=== PATIENT | male | born 1955 | race Caucasian/White ===

== ENCOUNTER → 2016-06-18 | Outpatient (CLI) | payer MEDICARE, OTHER ==
[2016-06-18 16:04] LABS: Bilirubin, Delta 0.4 mg/dL (0.0-0.2); Total Bilirubin 0.5 mg/dL (0.2-1.3); Total Protein 7.8 g/dL (6.3-8.2)
[2016-06-18 18:34] LABS: Hemoglobin A1C 7.1 % (4.2-6.1)
== END | disposition home or self-care (01) ==
LOC: LABWHC1 15:25
PROVIDERS: ATTEND Psychiatry & Neurology Psychiatry
DX: Z51.81 Encounter for therapeutic drug level monitoring (principal); Z79.899 Other long term (current) drug therapy
CPT/HCPCS: 36415; 80076; 83036

== ENCOUNTER → 2016-07-16 | Outpatient (CLI) | payer MEDICARE, OTHER ==
--- NOTE | 2016-07-16 10:36 | US ---
EXAMINATION TYPE: US abdomen complete DATE OF EXAM: 07/16/2016 COMPARISON: NONE CLINICAL HISTORY: R10.9 Abdominal pain. Mid abdominal pain and nausea x 5 days; smoker; patient state d takes at least 18 medications EXAM MEASUREMENTS: Liver Length: 14.6 cm Gallbladder Wall: 0.2 cm CBD: 0.3 cm Spleen: 11.2 cm Right Kidney: 9.8 x 7.5 x 4.5 cm Left Kidney: 11.3 x 4.6 x 5.9 cm Technically challenging due to intercostal scanning. Pancreas: Obscured by bowel gas Liver: heterogeneous appearance Gallbladder: possible sludge vs. small shadowing stones noted as hyperechoic foci in LLD position Evidence for sonographic Jean's sign: No CBD: wnl Spleen: wnl Right Kidney: couple of adjacent cysts in upper cortex measured as cluster = 2.4 x 1.7 x 2.3cm Left Kidney: couple of renal cysts with larger = 2.5 x 2.0 x 2.3cm. Upper IVC: wnl Abd Aorta: Intimal wall changes mid and lower aorta and into Com Iliac Arteries. IMPRESSION: 1. Probable fatty liver. 2. Sludge versus small gallstones. 3. Renal cysts.
== END | disposition home or self-care (01) ==
LOC: EEVIPCON 09:04 → RADUSWWP 09:04
PROVIDERS: ATTEND Family Medicine
DX: Q61.02 Congenital multiple renal cysts (principal); R10.9 Unspecified abdominal pain; R93.2 Abnormal findings on diagnostic imaging of liver and biliary tract
CPT/HCPCS: 76700

== ENCOUNTER → 2017-01-06 | Outpatient (CLI) | payer MEDICARE, OTHER ==
[2017-01-06 11:28] LABS: Basophils % (A) 1 %; CH 31.7; CHCM 32.3; Eosinophils # (A) 0.1 k/uL (0-0.7); Eosinophils % (A) 2 %; HDW 2.65; HGB 16.1 gm/dL (13.0-17.5); Luc # (Auto) 0.08; Luc % (Auto) 1; Lymphocytes # (A) 1.1 k/uL (1.0-4.8); Lymphocytes % (A) 14 %; MCHC 33.4 g/dL (31.0-37.0); MCV 98.8 fL (80.0-100.0); Mean Platelet Volume 7.6; Monocytes # (A) 0.4 k/uL (0-1.0); Monocytes % (A) 5 %; Neutrophils # (A) 6.2 k/uL (1.3-7.7); Neutrophils % (A) 78 %; RBC 4.86 m/uL (4.30-5.90); RDW 14.7 % (11.5-15.5); WBC (Perox) 7.72
[2017-01-06 11:34] LABS: ALT 67 U/L (21-72); AST 73 U/L (17-59); Alkaline Phosphatase 138 U/L (38-126); Amylase 82 U/L (30-110); Anion Gap 14 mmol/L; Blood Urea Nitrogen 20 mg/dL (9-20); Calcium 10.2 mg/dL (8.4-10.2); Carbon Dioxide 19 mmol/L (22-30); Chloride 105 mmol/L (98-107); Glucose 103 mg/dL (74-99); Non-African American GFR(MDRD) >60 (>60 ml/min/1.73 sqM); Potassium 5.5 mmol/L (3.5-5.1); Sodium 138 mmol/L (137-145); Total Bilirubin 0.7 mg/dL (0.2-1.3); Total Protein 8.5 g/dL (6.3-8.2)
== END | disposition home or self-care (01) ==
LOC: LABWHC1 10:40
PROVIDERS: ATTEND Surgery
DX: R10.84 Generalized abdominal pain (principal)
CPT/HCPCS: 36415; 80053; 82150; 85025

== ENCOUNTER → 2017-05-08 | Outpatient (CLI) | payer MEDICARE, OTHER ==
[2017-05-08 10:48] LABS: Blood Urea Nitrogen 14 mg/dL (9-20)
--- NOTE | 2017-05-08 12:29 | CT ---
EXAMINATION TYPE: CT urogram wo/w con DATE OF EXAM: 05/08/2017 COMPARISON: NONE HISTORY: hematuria CT DLP: 1626.3 mGycm, Automated Exposure Control for Dose Reduction was Utilized. CONTRAST: CT scan of the abdomen and pelvis is performed without oral and without and with IV Contrast, patient injected with 100 mL of Isovue 300. Urogram protocol with Three-D reconstructed images. A [employer] workstation and reviewed. FINDINGS: KUB: Noncontrast images show area of focal cortical loss or scarring anterior lateral aspect mid pole level right kidney near axial image 42 with adjacent 4 mm calcification or calculus axial image 41. There are central vascular calcification seen bilaterally. Postcontrast images show symmetric mild bilateral pyelocaliectasis and hydroureter. There is symmetri c cortical medullary uptake and excretion from both kidneys with simple appearing 2.6 x 2.7 cm cyst p osterior medially upper to mid pole level right kidney axial image 33 series 7 and 3 additional simpl e appearing cysts also scattered throughout the left kidney, largest measures 2.0 cm axial image 36 l aterally mid pole level. There is fairly satisfactory opacification of the left ureter with incomplete opacification of right ureter. No suspicious obstructing stone or mass is identified. Bladder is distended in the midline of the lower to mid abdomen past the level of umbilicus. There is some wall mucosal irregularity and mi ld thickening along the periphery without obvious suspicious intraluminal mass or dependent calculus. LUNG BASES: There is 15 x 8 mm nodule or nodular opacity in the posterior lateral right lung base axi al image 13 series 5. This is unchanged from 2011July 10 CT axial image 36 and is thus presumed benig n. There is three-vessel coronary artery calcification and/or stents. LIVER/GB: Dependent density in gallbladder is consistent with small stones and/or gallbladder sludge. PANCREAS: No significant abnormality is seen. SPLEEN: No significant abnormality is seen. ADRENALS: No significant abnormality is seen. KIDNEYS: No significant abnormality is seen. BOWEL: Normal-appearing appendix is seen extending from cecum. PROSTATE/SEMINAL VESICLES: No gross abnormality seen. LYMPH NODES: No greater than 1cm abdominal or pelvic lymph nodes are appreciated. OSSEOUS STRUCTURES: There is multilevel vacuum disc phenomenon in the thoracic spine with fairly mode rate spurring near thoracolumbar junction and moderate lateral spurring in the right aspect of the mi d to lower thoracic spine. Mild to moderate joint space loss in both hips is present. OTHER: There is moderate to severe calcified atherosclerotic change of aorta extending into branch ve ssels. IMPRESSION: 1. There is 4 mm renal calcification or calculus at area of focal scarring anterolateral aspect right kidney mid pole level. 2. Distended bladder with mucosal irregularity and lobulation raises concern for bladder dystrophy or inability to void. Prostate is noted normal in size. Correlate clinically.
== END | disposition home or self-care (01) ==
LOC: RADCTMAIN 09:58
PROVIDERS: ATTEND Urology
DX: N20.0 Calculus of kidney (principal); N32.89 Other specified disorders of bladder
CPT/HCPCS: 82565; 84520; 74178; 36415; 74400; Q9967

== ENCOUNTER 2017-06-04 14:31 | Inpatient (IN) | payer MEDICARE, OTHER ==
[2017-06-04] MEDS ORDERED: SODIUM CHLORIDE 0.9% 1,000 ML IV STA ×2 (15:02)
--- NOTE | 2017-06-04 15:05 | ED ---
General Adult HPI - General Chief complaint: Psychiatric Symptoms Stated complaint: Mental Health Time Seen by Provider: 06/04/17 14:47 Source: family, RN notes reviewed Mode of arrival: ambulatory Limitations: no limitations - History of Present Illness Initial comments: This is a 62-year-old male with a history of schizophrenia who is brought in by his guardian for evaluation of changes in his mental status. He is been very forgetful confused dizzy THEN phoned then getting up and leaving it on leaving water running in his home. No history of fevers chills nausea vomiting sweats he apparently has been taking the medication as prescribed they watch him eat his food no falls or other new symptoms reported. - Related Data Home Medications Medication Instructions Recorded Confirmed Pravastatin Sodium [Pravachol] 40 mg PO HS 10/05/15 06/04/17 Albuterol Nebulized (Conc) 2.5 mg INHALATION RT-QID PRN 01/10/16 06/04/17 [Ventolin Nebulized (Conc)] Ipratropium Nebulized [Atrovent 0.5 mg INHALATION QID PRN 01/10/16 06/04/17 Nebulized] Cyclobenzaprine HCl 10 mg PO TID 06/04/17 06/04/17 Famotidine [Pepcid] 20 mg PO BID 06/04/17 06/04/17 Ibuprofen [Motrin] 800 mg PO BID PRN 06/04/17 06/04/17 Paliperidone IM [Invega Sustenna] 234 mg IM Q28D 06/04/17 06/04/17 Potassium Chloride ER [K-Dur 20] 20 meq PO DAILY 06/04/17 06/04/17 Sertraline HCl [Zoloft] 100 mg PO DAILY 06/04/17 06/04/17 Previous Rx's Medication Instructions Recorded Clopidogrel [Plavix] 75 mg PO DAILY #30 tab 07/25/15 Aspirin 325 mg PO DAILY tab 11/16/15 Furosemide [Lasix] 40 mg PO DAILY tab 11/16/15 Lisinopril [Zestril] 10 mg PO DAILY tab 11/16/15 Nitroglycerin Sl Tabs [Nitrostat] 0.4 mg SUBLINGUAL Q5M PRN #0 tab 11/16/15 Carvedilol [Coreg] 6.25 mg PO BID-W/MEALS #60 tab 01/15/16 Allergies Allergy/AdvReac Type Severity Reaction Status Date / Time No Known Allergies Allergy Verified 06/04/17 15:14 Review of Systems ROS Statement: Those systems with pertinent positive or pertinent negative responses have been documented in the HPI. ROS Other: All systems not noted in ROS Statement are negative. Past Medical History Past Medical History: Heart Failure, Hyperlipidemia, Hypertension, Myocardial Infarction (CT) Additional Past Medical History / Comment(s): RECTAL BLEEDING, Borderline diabetes Last Myocardial Infarction Date:: 07/15/15 History of Any Multi-Drug Resistant Organisms: None Reported Past Surgical History: Heart Catheterization With Stent Past Anesthesia/Blood Transfusion Reactions: No Reported Reaction Date of Last Stent Placement:: 07/15/11 Past Psychological History: Anxiety, Schizophrenia Smoking Status: Current every day smoker Past Alcohol Use History: Rare Past Drug Use History: None Reported - Past Family History Mother Family Medical History: Cancer General Exam - General Exam Comments Initial Comments: This a well-developed sec appearing male he is a poor historian Limitations: no limitations General appearance: alert, lethargic Head exam: Present: atraumatic, normocephalic, normal inspection Eye exam: Present: normal appearance, PERRL, EOMI. Absent: scleral icterus, conjunctival injection, periorbital swelling ENT exam: Present: mucous membranes dry Neck exam: Present: normal inspection. Absent: tenderness, meningismus, lymphadenopathy Respiratory exam: Present: normal lung sounds bilaterally. Absent: respiratory distress, wheezes, rales, rhonchi, stridor Cardiovascular Exam: Present: regular rate, normal rhythm, normal heart sounds. Absent: systolic murmur, diastolic murmur, rubs, gallop, clicks GI/Abdominal exam: Present: soft, normal bowel sounds. Absent: distended, tenderness, guarding, rebound, rigid Extremities exam: Present: normal inspection, full ROM, normal capillary refill. Absent: tenderness, pedal edema, joint swelling, calf tenderness Back exam: Present: normal inspection Neurological exam: Present: alert, CN II-XII intact Psychiatric exam: Present: normal mood, flat affect Skin exam: Present: warm, dry, intact, normal color. Absent: rash Course Vital Signs 06/04/17 06/04/17 14:33 15:31 Temperature 98.0 F Pulse Rate 70 63 Respiratory 20 18 Rate Blood Pressure 102/51 115/56 O2 Sat by Pulse 100 98 Oximetry Medical Decision Making - Medical Decision Making I did a long discussion with the patient's guardian and with Dr. Stearns the patient does demonstrate evidence of dehydration acute urinary retention hypomagnesemia he will be admitted for psychiatric evaluation after he is medically cleared. - Lab Data Result diagrams: 06/04/17 15:18 06/04/17 15:18 Lab Results 06/04/17 06/04/17 06/04/17 Range/Units 15:18 15:18 15:18 WBC 6.3 (3.8-10.6) k/uL RBC 3.83 L (4.30-5.90) m/uL Hgb 11.9 L (13.0-17.5) gm/dL Hct 35.8 L (39.0-53.0) % MCV 93.4 (80.0-100.0) fL MCH 31.0 (25.0-35.0) pg MCHC 33.2 (31.0-37.0) g/dL RDW 13.9 (11.5-15.5) % Plt Count 155 (150-450) k/uL Neutrophils % 77 % Lymphocytes % 14 % Monocytes % 6 % Eosinophils % 2 % Basophils % 0 % Neutrophils # 4.9 (1.3-7.7) k/uL Lymphocytes # 0.9 L (1.0-4.8) k/uL Monocytes # 0.4 (0-1.0) k/uL Eosinophils # 0.1 (0-0.7) k/uL Basophils # 0.0 (0-0.2) k/uL Sodium 138 (137-145) mmol/L Potassium 4.3 (3.5-5.1) mmol/L Chloride 105 (98-107) mmol/L Carbon Dioxide 18 L (22-30) mmol/L Anion Gap 15 mmol/L BUN 25 H (9-20) mg/dL Creatinine 0.82 (0.66-1.25) mg/dL Est GFR (CKD-EPI)AfAm >90 (>60 ml/min/1.73 sqM) Est GFR (CKD-EPI)NonAf >90 (>60 ml/min/1.73 sqM) Glucose 88 (74-99) mg/dL Calcium 8.7 (8.4-10.2) mg/dL Magnesium 1.5 L (1.6-2.3) mg/dL Total Bilirubin 1.2 (0.2-1.3) mg/dL AST 119 H (17-59) U/L ALT 87 H (21-72) U/L Alkaline Phosphatase 167 H (38-126) U/L Ammonia (<30) umol/L Total Creatine Kinase 163 (55-170) U/L CK-MB (CK-2) 6.2 H* (0.0-2.4) ng/mL CK-MB (CK-2) Rel Index 3.8 Troponin I 0.014 (0.000-0.034) ng/mL Total Protein 6.6 (6.3-8.2) g/dL Albumin 3.7 (3.5-5.0) g/dL Lipase 156 (23-300) U/L Urine Color Urine Appearance (Clear) Urine pH (5.0-8.0) Ur Specific Palmer (1.001-1.035) Urine Protein (Negative) Urine Glucose (UA) (Negative) Urine Ketones (Negative) Urine Blood (Negative) Urine Nitrite (Negative) Urine Bilirubin (Negative) Urine Urobilinogen (<2.0) mg/dL Ur Leukocyte Esterase (Negative) 06/04/17 06/04/17 Range/Units 15:20 16:20 WBC (3.8-10.6) k/uL RBC (4.30-5.90) m/uL Hgb (13.0-17.5) gm/dL Hct (39.0-53.0) % MCV (80.0-100.0) fL MCH (25.0-35.0) pg MCHC (31.0-37.0) g/dL RDW (11.5-15.5) % Plt Count (150-450) k/uL Neutrophils % % Lymphocytes % % Monocytes % % Eosinophils % % Basophils % % Neutrophils # (1.3-7.7) k/uL Lymphocytes # (1.0-4.8) k/uL Monocytes # (0-1.0) k/uL Eosinophils # (0-0.7) k/uL Basophils # (0-0.2) k/uL Sodium (137-145) mmol/L Potassium (3.5-5.1) mmol/L Chloride (98-107) mmol/L Carbon Dioxide (22-30) mmol/L Anion Gap mmol/L BUN (9-20) mg/dL Creatinine (0.66-1.25) mg/dL Est GFR (CKD-EPI)AfAm (>60 ml/min/1.73 sqM) Est GFR (CKD-EPI)NonAf (>60 ml/min/1.73 sqM) Glucose (74-99) mg/dL Calcium (8.4-10.2) mg/dL Magnesium (1.6-2.3) mg/dL Total Bilirubin (0.2-1.3) mg/dL AST (17-59) U/L ALT (21-72) U/L Alkaline Phosphatase (38-126) U/L Ammonia 14 (<30) umol/L Total Creatine Kinase (55-170) U/L CK-MB (CK-2) (0.0-2.4) ng/mL CK-MB (CK-2) Rel Index Troponin I (0.000-0.034) ng/mL Total Protein (6.3-8.2) g/dL Albumin (3.5-5.0) g/dL Lipase (23-300) U/L Urine Color Yellow Urine Appearance Clear (Clear) Urine pH 6.0 (5.0-8.0) Ur Specific Palmer 1.011 (1.001-1.035) Urine Protein Negative (Negative) Urine Glucose (UA) Negative (Negative) Urine Ketones Negative (Negative) Urine Blood Negative (Negative) Urine Nitrite Negative (Negative) Urine Bilirubin Negative (Negative) Urine Urobilinogen <2.0 (<2.0) mg/dL Ur Leukocyte Esterase Negative (Negative) - Radiology Data Radiology results: report reviewed (I did review the imaging and reports no acute findings.), image reviewed Disposition Clinical Impression: Dehydration, Hypomagnesemia, Acute urinary retention, Schizophrenia Disposition: ADMITTED IP TO THIS [facility] Condition: Stable Referrals: Juan Stearns MD [Primary Care Provider] - 1-2 days
[2017-06-04 15:30] LABS: Basophils % (A) 0 %; Eosinophils # (A) 0.1 k/uL (0-0.7); Eosinophils % (A) 2 %; HCT 35.8 % (39.0-53.0); HGB 11.9 gm/dL (13.0-17.5); Lymphocytes # (A) 0.9 k/uL (1.0-4.8); Lymphocytes % (A) 14 %; MCHC 33.2 g/dL (31.0-37.0); MCV 93.4 fL (80.0-100.0); Mean Platelet Volume 7.6; Monocytes # (A) 0.4 k/uL (0-1.0); Monocytes % (A) 6 %; Neutrophils # (A) 4.9 k/uL (1.3-7.7); Neutrophils % (A) 77 %; Platelet Count 155 k/uL (150-450); RBC 3.83 m/uL (4.30-5.90); RDW 13.9 % (11.5-15.5); WBC 6.3 k/uL (3.8-10.6)
[2017-06-04 15:38] LABS: ALT 87 U/L (21-72); AST 119 U/L (17-59); Albumin 3.7 g/dL (3.5-5.0); Alkaline Phosphatase 167 U/L (38-126); Anion Gap 15 mmol/L; Blood Urea Nitrogen 25 mg/dL (9-20); Calcium 8.7 mg/dL (8.4-10.2); Carbon Dioxide 18 mmol/L (22-30); Chloride 105 mmol/L (98-107); Glucose 88 mg/dL (74-99); Lipase 156 U/L (23-300); Magnesium 1.5 mg/dL (1.6-2.3); Potassium 4.3 mmol/L (3.5-5.1); Sodium 138 mmol/L (137-145); Total Bilirubin 1.2 mg/dL (0.2-1.3); Total Protein 6.6 g/dL (6.3-8.2)
[2017-06-04 16:03] LABS: Troponin I 0.014 ng/mL (0.000-0.034)
[2017-06-04 16:05] LABS: Creatine Kinase MB 6.2 ng/mL (0.0-2.4)
--- NOTE | 2017-06-04 16:12 | XR ---
EXAMINATION TYPE: XR chest 2V DATE OF EXAM: 06/04/2017 COMPARISON: 01/10/2016 HISTORY: Altered mental status. Lethargy. History of CHF and myocardial infarction. TECHNIQUE: Frontal and lateral views of the chest are obtained. FINDINGS: Mild pulmonary vascular congestion is seen centrally with cephalization in combination wit h cardiomegaly. There is no focal air space opacity, pleural effusion, or pneumothorax seen. The osse ous structures are intact. IMPRESSION: Cardiomegaly and very minimal pulmonary vascular congestion. Findings may be on the basi s of decompensated congestive heart failure.
--- NOTE | 2017-06-04 16:15 | CT ---
EXAMINATION TYPE: CT brain wo con DATE OF EXAM: 06/04/2017 COMPARISON: 10/05/2015 INDICATION: Patient poor historian, pain DLP: 1180.9 mGycm, Automated exposure control for dose reduction was used. CONTRAST: None CT of the brain is performed utilizing 3 mm thick sections through the posterior fossa and 3 mm thick sections through the remaining calvarium. Study is performed within 24 hours of arrival to the hosp ital. No abnormal hyperdensity is present to suggest an acute intracranial hemorrhage. No mass lesion is evident. Arachnoid cyst is in the posterior fossa is stable No acute infarcts are evident. There is mild periventricular white matter hypodensity compatible with mild microvascular ischemic change. Ventricles and sulci are prominent for the patient age. Paranasal sinuses and mastoid air cells within the [id number] are clear. IMPRESSIONS: 1. Mild atrophy with periventricular white matter ischemic changes. 2. Stable arachnoid cyst.
[2017-06-04 16:46] LABS: Appearance,Urine Clear (Clear); Bilirubin,Urine Negative (Negative); Blood,Urine Negative (Negative); Color,Urine Yellow; Glucose,Urine (UA) Negative (Negative); Ketones,Urine Negative (Negative); Leukocyte Esterase,Urine Negative (Negative); Nitrite,Urine Negative (Negative); Protein,Urine Negative (Negative); Specific Gravity,Urine 1.011 (1.001-1.035); Urobilinogen,Urine <2.0 mg/dL (<2.0)
[2017-06-04] MEDS ORDERED: NALOXONE 0.4 MG/ML 1 ML VIAL IV PRN (16:55)
[2017-06-04 16:58] LABS: Amphetamine Screen,Urine Not Detected (NotDetected); Barbiturate Screen,Urine Not Detected (NotDetected); Benzodiazepines Screen,Urine Not Detected (NotDetected); Cocaine Screen,Urine Not Detected (NotDetected); Methadone Screen, Urine Not Detected (NotDetected); Opiate Screen,Urine Not Detected (NotDetected); Oxycodone Screen, Urine Not Detected (NotDetected); Phencyclidine Screen,Urine Not Detected (NotDetected); Tricyclic Antidepressant,Urine Detected (NotDetected); Urn Cannabinoid Scrn Not Detected (NotDetected)
[2017-06-04] MEDS ORDERED: NITROGLYCERIN SL TABS 0.4 MG TAB SUBLINGUAL PRN (16:58)
[2017-06-04] MEDS ORDERED: ALBUTEROL NEB (CONC) 2.5 MG/0.5 ML INHALATION PRN (16:58)
[2017-06-04] MEDS ORDERED: IPRATROPIUM 0.5 MG/2.5 ML NEBU INHALATION PRN (16:58)
[2017-06-04] MEDS ORDERED: IBUPROFEN 800 MG TAB PO PRN (16:58)
[2017-06-04 20:30] VITALS: BMI 23.3
--- NOTE | 2017-06-04 20:42 | P.HPIM ---
History of Present Illness H&P Date: 06/04/17 Chief Complaint: Altered mental status. This is history of physical 62-year-old white male who is well-known to my practice who has an underlying history of heart disease and schizophrenia. This history was also obtained from the patient and his caregiver who states significant altered mental status with forgetfulness and spontaneous inappropriate behavior. The patient has been fairly stable on his mental status. He is fairly compliant taking most of his medication. Evaluation emergency room did show a likely imbalance and dehydration. The patient is now admitted for this. There is no family history of dehydration noted. No provocative or palliative factors were stated. The patient is alert this evening and is commonly wondering why he is now admitted and would like to go home we will go ahead and consult psychiatry. Review of Systems Constitutional: Denies chills, Denies fever Eyes: denies blurred vision, denies pain Ears, nose, mouth and throat: Denies headache, Denies sore throat Cardiovascular: Denies chest pain, Denies shortness of breath Respiratory: Denies cough Gastrointestinal: Denies abdominal pain, Denies diarrhea, Denies nausea, Denies vomiting Musculoskeletal: Denies myalgias Psychiatric: Reports difficulty concentrating, Reports memory loss, Reports mood swings Endocrine: Denies fatigue, Denies weight change Past Medical History Past Medical History: Heart Failure, Hyperlipidemia, Hypertension, Myocardial Infarction ([place]) Additional Past Medical History / Comment(s): RECTAL BLEEDING, Borderline diabetes Last Myocardial Infarction Date:: 07/15/15 History of Any Multi-Drug Resistant Organisms: None Reported Past Surgical History: Heart Catheterization With Stent Past Anesthesia/Blood Transfusion Reactions: No Reported Reaction Date of Last Stent Placement:: 07/15/15 Past Psychological History: Anxiety, Schizophrenia Smoking Status: Current every day smoker Past Alcohol Use History: None Reported Additional Past Alcohol Use History / Comment(s): STARTED SMOKING AT AGE 13 Past Drug Use History: None Reported - Past Family History Mother Family Medical History: Cancer Medications and Allergies Home Medications Medication Instructions Recorded Confirmed Type Clopidogrel [Plavix] 75 mg PO DAILY #30 tab 07/25/15 06/04/17 Rx Pravastatin Sodium [Pravachol] 40 mg PO HS 10/05/15 06/04/17 History Aspirin 325 mg PO DAILY tab 11/16/15 06/04/17 Rx Furosemide [Lasix] 40 mg PO DAILY tab 11/16/15 06/04/17 Rx Lisinopril [Zestril] 10 mg PO DAILY tab 11/16/15 06/04/17 Rx Nitroglycerin Sl Tabs [Nitrostat] 0.4 mg SUBLINGUAL Q5M PRN #0 tab 11/16/15 Rx Albuterol Nebulized (Conc) 2.5 mg INHALATION RT-QID PRN 01/10/16 06/04/17 History [Ventolin Nebulized (Conc)] Ipratropium Nebulized [Atrovent 0.5 mg INHALATION QID PRN 01/10/16 06/04/17 History Nebulized] Carvedilol [Coreg] 6.25 mg PO BID-W/MEALS #60 tab 01/15/16 06/04/17 Rx Cyclobenzaprine HCl 10 mg PO TID 06/04/17 06/04/17 History Famotidine [Pepcid] 20 mg PO BID 06/04/17 06/04/17 History Ibuprofen [Motrin] 800 mg PO BID PRN 06/04/17 06/04/17 History Paliperidone IM [Invega Sustenna] 234 mg IM Q28D 06/04/17 06/04/17 History Potassium Chloride ER [K-Dur 20] 20 meq PO DAILY 06/04/17 06/04/17 History Sertraline HCl [Zoloft] 100 mg PO DAILY 06/04/17 06/04/17 History Allergies Allergy/AdvReac Type Severity Reaction Status Date / Time No Known Allergies Allergy Verified 06/04/17 15:14 Physical Exam Vitals: Vital Signs Temp Pulse Pulse Resp BP BP Pulse Ox 06/04/17 19:32 68 18 131/58 99 06/04/17 19:31 97 F L 70 18 139/57 97 06/04/17 18:30 70 18 134/62 99 06/04/17 17:30 68 18 131/58 06/04/17 16:30 63 18 137/61 98 06/04/17 16:00 66 18 123/56 99 06/04/17 15:31 63 18 115/56 98 06/04/17 14:33 98.0 F 70 20 102/51 100 Intake and Output 06/04/17 06/04/17 06/04/17 06:59 14:59 22:59 Output Total 1100 Balance -1100 Output: Urine 1100 Straight 1100 Other: Weight 68.039 kg 65.6 kg - Constitutional General appearance: no acute distress - EENT Eyes: EOMI - Neck Neck: no lymphadenopathy - Respiratory Respiratory: bilateral: CTA - Cardiovascular Rhythm: regular Heart sounds: normal: S1, S2 Abnormal Heart Sounds: no S3 Gallop - Gastrointestinal General gastrointestinal: soft, no tenderness - Musculoskeletal Musculoskeletal: no generalized weakness - Psychiatric Psychiatric: appropriate affect Results CBC & Chem 7: 06/04/17 15:18 06/04/17 15:18 Labs: Abnormal Lab Results - Last 24 Hours (Table) 06/04/17 06/04/17 06/04/17 Range/Units 15:18 15:18 15:18 RBC 3.83 L (4.30-5.90) m/uL Hgb 11.9 L (13.0-17.5) gm/dL Hct 35.8 L (39.0-53.0) % Lymphocytes # 0.9 L (1.0-4.8) k/uL Carbon Dioxide 18 L (22-30) mmol/L BUN 25 H (9-20) mg/dL Magnesium 1.5 L (1.6-2.3) mg/dL AST 119 H (17-59) U/L ALT 87 H (21-72) U/L Alkaline Phosphatase 167 H (38-126) U/L CK-MB (CK-2) 6.2 H* (0.0-2.4) ng/mL U Tricyclic Antidepress (NotDetected) 06/04/17 Range/Units 16:20 RBC (4.30-5.90) m/uL Hgb (13.0-17.5) gm/dL Hct (39.0-53.0) % Lymphocytes # (1.0-4.8) k/uL Carbon Dioxide (22-30) mmol/L BUN (9-20) mg/dL Magnesium (1.6-2.3) mg/dL AST (17-59) U/L ALT (21-72) U/L Alkaline Phosphatase (38-126) U/L CK-MB (CK-2) (0.0-2.4) ng/mL U Tricyclic Antidepress Detected H (NotDetected) Thrombosis Risk Factor Assmnt - Choose All That Apply Any of the Below Risk Factors Present?: Yes Other Risk Factors: Yes Each Risk Factor Represents 2 Points: Age 61-74 years Thrombosis Risk Factor Assessment Total Risk Factor Score: 2 Thrombosis Risk Factor Assessment Level: Low Risk Assessment and Plan (1) Dehydration Current Visit: Yes Status: Acute Code(s): E86.0 - DEHYDRATION SNOMED Code( s): 85895297 (2) Hypomagnesemia Current Visit: Yes Status: Acute Code(s): E83.42 - HYPOMAGNESEMIA SNOMED Code(s): 840183668 (3) Schizophrenia Current Visit: Yes Status: Acute Code(s): F20.9 - SCHIZOPHRENIA, UNSPECIFIED SNOMED Code(s): 23999421 (4) Congestive heart failure Current Visit: No Status: Chronic Code(s): I50.9 - HEART FAILURE, UNSPECIFIED SNOMED Code(s): 68520762 (5) Hypertension Status: Chronic Code(s): I10 - ESSENTIAL (PRIMARY) HYPERTENSION SNOMED Code( s): 41530799 Plan: Corrected electrode imbalances. Reconcile medications. Consult psychiatry. See orders otherwise. The patient seems to be medically improved and mental status is not violent and he seems to be almost back to his baseline this evening. Anticipate discharge/transfer the next 24 hours.
[2017-06-04] MEDS: FAMOTIDINE 20 MG TAB PO SCH (20:51)
[2017-06-04] MEDS: CARVEDILOL 6.25 MG TAB PO SCH (20:51)
[2017-06-04] MEDS: CYCLOBENZAPRINE 10 MG TAB PO SCH (20:52)
[2017-06-04 20:59] LABS: Glucose,Whole Blood 131 mg/dL (75-99)
[2017-06-04] MEDS: PRAVASTATIN SODIUM 40 MG TAB PO SCH (21:28)
[2017-06-05 06:25] LABS: HGB 10.8 gm/dL (13.0-17.5); MCH 31.1 pg (25.0-35.0); MCHC 32.8 g/dL (31.0-37.0); MCV 94.9 fL (80.0-100.0); Mean Platelet Volume 7.9; Platelet Count 146 k/uL (150-450); RBC 3.47 m/uL (4.30-5.90); RDW 13.9 % (11.5-15.5); WBC 5.1 k/uL (3.8-10.6)
[2017-06-05] MEDS: CARVEDILOL 6.25 MG TAB PO SCH ×2 (06:30→18:07)
[2017-06-05 06:33] LABS: ALT 80 U/L (21-72); AST 100 U/L (17-59); Albumin 3.4 g/dL (3.5-5.0); Alkaline Phosphatase 149 U/L (38-126); Anion Gap 12 mmol/L; Blood Urea Nitrogen 19 mg/dL (9-20); Calcium 8.8 mg/dL (8.4-10.2); Carbon Dioxide 22 mmol/L (22-30); Chloride 104 mmol/L (98-107); Glucose 94 mg/dL (74-99); Magnesium 1.5 mg/dL (1.6-2.3); Potassium 3.7 mmol/L (3.5-5.1); Sodium 138 mmol/L (137-145); Total Bilirubin 0.3 mg/dL (0.2-1.3); Total Protein 6.1 g/dL (6.3-8.2)
[2017-06-05] MEDS ORDERED: Magnesium Replacement Protocol 1 EACH MISC MISCELLANE PRN (07:00)
[2017-06-05] MEDS ORDERED: TAMSULOSIN 0.4 MG CAP.ER.24H PO STA (07:57)
--- NOTE | 2017-06-05 08:01 | P.PN ---
Subjective Progress Note Date: 06/05/17 Principal diagnosis: Altered mental status with electrolyte abnormalities. Urinary retention. The patient is here essentially because of altered mental status and also history of schizophrenia. The patient came in with a slight left lites abnormalities. He has not developed urinary retention secondary to history of BPH. Mesa catheter is inserted. We will start Flomax and anticipate discontinuation of Mesa catheter in a.m. for voiding trial. Otherwise magnesium protocol as noted. Psychiatry is not consulted. The patient does have an element of presbycusis. Objective - Vital Signs Vital signs: Vital Signs Temp 97.6 F 06/05/17 03:45 Pulse 66 06/05/17 03:45 Resp 18 06/05/17 03:45 BP 117/58 06/05/17 03:45 Pulse Ox 96 06/05/17 03:45 Intake & Output 06/04/17 06/05/17 06/05/17 18:59 06:59 18:59 Output Total 1100 1600 Balance -1100 -1600 Weight 68.039 kg 65.6 kg Output: Urine 1100 1600 Straight 1100 1600 Other: Voiding Method Toilet Urinal - Constitutional General appearance: Present: average body habitus - EENT Eyes: Absent: abnormal pupil - Respiratory Respiratory: bilateral: CTA - Cardiovascular Rhythm: regular Heart sounds: normal: S1, S2 - Gastrointestinal General gastrointestinal: Present: soft. Absent: tenderness - Psychiatric Psychiatric: Present: A&O x's 3 - Labs CBC & Chem 7: 06/05/17 05:32 06/05/17 05:32 Labs: Abnormal Lab Results - Last 24 Hours (Table) 06/04/17 06/04/17 06/04/17 Range/Units 15:18 15:18 15:18 RBC 3.83 L (4.30-5.90) m/uL Hgb 11.9 L (13.0-17.5) gm/dL Hct 35.8 L (39.0-53.0) % Plt Count (150-450) k/uL Lymphocytes # 0.9 L (1.0-4.8) k/uL Carbon Dioxide 18 L (22-30) mmol/L BUN 25 H (9-20) mg/dL POC Glucose (mg/dL) (75-99) mg/dL Magnesium 1.5 L (1.6-2.3) mg/dL AST 119 H (17-59) U/L ALT 87 H (21-72) U/L Alkaline Phosphatase 167 H (38-126) U/L CK-MB (CK-2) 6.2 H* (0.0-2.4) ng/mL Total Protein (6.3-8.2) g/dL Albumin (3.5-5.0) g/dL U Tricyclic Antidepress (NotDetected) 06/04/17 06/04/17 06/05/17 Range/Units 16:20 20:58 05:32 RBC 3.47 L (4.30-5.90) m/uL Hgb 10.8 L (13.0-17.5) gm/dL Hct 33.0 L (39.0-53.0) % Plt Count 146 L (150-450) k/uL Lymphocytes # (1.0-4.8) k/uL Carbon Dioxide (22-30) mmol/L BUN (9-20) mg/dL POC Glucose (mg/dL) 131 H (75-99) mg/dL Magnesium (1.6-2.3) mg/dL AST (17-59) U/L ALT (21-72) U/L Alkaline Phosphatase (38-126) U/L CK-MB (CK-2) (0.0-2.4) ng/mL Total Protein (6.3-8.2) g/dL Albumin (3.5-5.0) g/dL U Tricyclic Antidepress Detected H (NotDetected) 06/05/17 Range/Units 05:32 RBC (4.30-5.90) m/uL Hgb (13.0-17.5) gm/dL Hct (39.0-53.0) % Plt Count (150-450) k/uL Lymphocytes # (1.0-4.8) k/uL Carbon Dioxide (22-30) mmol/L BUN (9-20) mg/dL POC Glucose (mg/dL) (75-99) mg/dL Magnesium 1.5 L (1.6-2.3) mg/dL AST 100 H (17-59) U/L ALT 80 H (21-72) U/L Alkaline Phosphatase 149 H (38-126) U/L CK-MB (CK-2) (0.0-2.4) ng/mL Total Protein 6.1 L (6.3-8.2) g/dL Albumin 3.4 L (3.5-5.0) g/dL U Tricyclic Antidepress (NotDetected) Assessment and Plan (1) Dehydration Current Visit: Yes Status: Acute Code(s): E86.0 - DEHYDRATION SNOMED Code( s): 52117112 (2) Hypomagnesemia Current Visit: Yes Status: Acute Code(s): E83.42 - HYPOMAGNESEMIA SNOMED Code(s): 564982122 (3) Schizophrenia Current Visit: Yes Status: Acute Code(s): F20.9 - SCHIZOPHRENIA, UNSPECIFIED SNOMED Code(s): 71491050 (4) Congestive heart failure Current Visit: No Status: Chronic Code(s): I50.9 - HEART FAILURE, UNSPECIFIED SNOMED Code(s): 67459740 (5) Hypertension Status: Chronic Code(s): I10 - ESSENTIAL (PRIMARY) HYPERTENSION SNOMED Code( s): 99011775 Plan: Continue current regimen of electrolyte replacement. Appreciate and await psychiatry input. Start Flomax today. ARLIN Mesa in a.m. for voiding trial. We'll transfer or DC hopefully in the next 24-48 hours if medically stable. Patient is significant improved. Dr. Javid gutierrez covering for the weekend. Time with Patient: Less than 30
[2017-06-05] MEDS: MAGNESIUM SULFATE-D5W PMX 1 GM in DEXTROSE/WATER 1 100ML.BAG IVPB SCH ×2 (08:33→08:46)
[2017-06-05] MEDS: ASPIRIN 325 MG TAB PO SCH (08:34)
[2017-06-05] MEDS: CLOPIDOGREL 75 MG TAB PO SCH (08:34)
[2017-06-05] MEDS: LISINOPRIL 10 MG TAB PO SCH (08:35)
[2017-06-05] MEDS: FAMOTIDINE 20 MG TAB PO SCH ×2 (08:35→21:09)
[2017-06-05] MEDS: CYCLOBENZAPRINE 10 MG TAB PO SCH ×3 (08:35→21:09)
[2017-06-05] MEDS: POTASSIUM CHLORIDE ER 20 MEQ TAB.ER PO SCH (08:35)
[2017-06-05] MEDS: FUROSEMIDE 40 MG TAB PO SCH (08:35)
[2017-06-05] MEDS: SERTRALINE 100 MG TAB PO SCH (08:35)
[2017-06-05] MEDS: TAMSULOSIN 0.4 MG CAP.ER.24H PO SCH (08:45)
--- NOTE | 2017-06-05 13:40 | P.CN ---
Psychiatric Consult - . Consult date: 06/05/17 Consult:: 06/05/17 13:27 Identification: Patient is a 62-year-old male who was admitted for reports of forgetfulness and dizziness Reason for Consult: Schizophrenia History of Present Illness: Patient's chart was reviewed, patient was seen and interviewed in his room no family members, his guardian were present during the interview. Patient is a poor historian. Patient presented to the emergency room brought in by his guardian with reports of dizziness and forgetfulness. Patient was observed to have acute urinary retention, hemoglobin is decreased his liver enzymes were elevated and he was also presenting with a low magnesium. Per the chart the patient is maintained on Zoloft 100 mg daily and Invega Sustenna 234 mg every 28 days. Patient reports that he is a patient of [facility], I am unable to determine when he had his last injection of long-acting Invega. Patient states that he does have a guardian, and states that he lives in an apartment by himself. Patient reports to me that he is still dizzy when he moves around and states that he has no other complaints. Patient did not report any auditory hallucinations, he was not paranoid he denied any current suicidal or homicidal ideation. Per the medical record when the patient was admitted in 2016 on 3 occasions to the inpatient psychiatric unit he was reporting auditory hallucinations, depressed mood. Patient was treated at those times with an antipsychotic, Abilify and an antidepressant Zoloft. Patient has not been admitted since 2016 and he denies any other admissions since that time to any other inpatient psychiatric units. Patient reports that he is not currently feeling suicidal and that he is not currently feeling depressed. Patient reported no other symptoms to me and stated that he was eating well, and denied any sleep disturbances. Patient states that he has been taking his medications. Past Psychiatric History: Patient has a past psychiatric history and was admitted here in 2016 on 3 occasions and has other prior psychiatric admissions. Patient is currently being followed by [facility] and is on Zoloft 100 mg a day and Invega Sustenna 234 mg every 28 days. 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 He stated he has never been and has no children. Substance Use History: Patient denies any alcohol or drug use and states he does use tobacco products Mental status: Appearance/Attitude: Patient has long thin blonde hair, is sitting in a hospital bed eating his lunch, made intermittent eye contact and was cooperative Behavior: Patient does not display any psychomotor agitation or retardation. Speech/Language: Patient's voice is raspy, and he speaks in a normal rhythm and a soft volume. Patient is coherent Thought Process: Patient responded to questions with little elaboration, there is no evidence of loose associations or flight of ideas Thought Content: Patient denied auditory or visual hallucinations and no delusions or paranoid ideation were elicited. Patient reported that he is not feeling depressed and his appetite is fair and he is sleeping well. He stated that he continues to feel dizzy when he moves around. Patient reported no other complaints to me at this time. Suicidal/Homicidal Ideation: Patient denied current suicidal or homicidal ideation Sensorium/Cognition: Patient is alert and oriented to person, situation, he knew the name of the hospital but was unable to tell me the month or year, further cognitive testing was not performed Mood/Affect: Patient reported that he is not feeling depressed, his affect was blunted Insight/Judgment: Patient's insight and judgment are limited Assessment: Patient presented to the hospital brought in by his guardian for complaints of forgetfulness and dizziness and was noted to have acute urinary retention and electrolyte abnormalities. His liver enzymes are also elevated and his hemoglobin is low. Patient has a history of what appears to be schizoaffective disorder versus schizophrenia, in reviewing the record he has been diagnosed with schizoaffective disorder in the past and presented to the hospital in 2016 with complaints of depression as well as with symptoms of auditory hallucinations. Patient is currently maintained on Zoloft 100 mg and Invega long-acting injectable 234 mg every 4 weeks and is a patient of [facility]. Patient states that he does have a guardian. Patient states that he lives alone in his own apartment and cares for his own ADLs. His only complaint to me during this interview was of feeling dizzy when he moves around. I am unable to assess whether this is his baseline level of functioning 5 never seen the patient before and no one was present to provide additional information. I see no evidence of an acute psychotic process at this time, patient has been compliant with his medications. Diagnosis: Schizoaffective disorder, depressed type by history Plan: I see no evidence of an acute psychotic process and see no reason to adjust his psychotropic medications at this time. I am unable to assess patient 's baseline level of functioning as I have no collaborative historian present during the interview. Patient's only complaint to me was that he was continuing to feel dizzy when he moved around, unclear if this is secondary to his low hemoglobin. I see no reason at this time to admit the patient to an inpatient psychiatric hospital. Formal cognitive testing was not performed at this time, should his cognitive status need to be addressed I would recommend that community mental health assess his cognitive status as they have been following the patient and will be able to identify any changes in his cognitive functioning. I will sign off the case if there are any further questions or concerns please don't hesitate to contact me 06/05/17 13:31 06/05/17 13:36
[2017-06-05] MEDS: PRAVASTATIN SODIUM 40 MG TAB PO SCH (21:09)
[2017-06-06 03:54] LABS: Appearance,Urine Clear (Clear); Bilirubin,Urine Negative (Negative); Blood,Urine Moderate (Negative); Color,Urine Yellow; Glucose,Urine (UA) Negative (Negative); Ketones,Urine Negative (Negative); Leukocyte Esterase,Urine Small (Negative); Mucus,Urine Rare /hpf; Nitrite,Urine Negative (Negative); Protein,Urine 2+ (Negative); RBC,Urine 34 /hpf (0-5); Urobilinogen,Urine <2.0 mg/dL (<2.0); WBC,Urine 9 /hpf (0-5)
[2017-06-06 08:49] LABS: HCT 33.6 % (39.0-53.0); HGB 11.6 gm/dL (13.0-17.5); MCH 32.3 pg (25.0-35.0); MCHC 34.6 g/dL (31.0-37.0); MCV 93.2 fL (80.0-100.0); Mean Platelet Volume 7.3; Platelet Count 140 k/uL (150-450); RBC 3.61 m/uL (4.30-5.90); RDW 13.6 % (11.5-15.5); WBC 5.7 k/uL (3.8-10.6)
[2017-06-06 09:13] LABS: ALT 67 U/L (21-72); AST 84 U/L (17-59); Albumin 3.4 g/dL (3.5-5.0); Alkaline Phosphatase 117 U/L (38-126); Anion Gap 12 mmol/L; Blood Urea Nitrogen 11 mg/dL (9-20); Calcium 8.6 mg/dL (8.4-10.2); Carbon Dioxide 19 mmol/L (22-30); Chloride 106 mmol/L (98-107); Glucose 74 mg/dL (74-99); Magnesium 1.5 mg/dL (1.6-2.3); Potassium 3.9 mmol/L (3.5-5.1); Sodium 137 mmol/L (137-145); Total Bilirubin 0.5 mg/dL (0.2-1.3); Total Protein 6.1 g/dL (6.3-8.2)
[2017-06-06] MEDS: POTASSIUM CHLORIDE ER 20 MEQ TAB.ER PO SCH (09:19)
[2017-06-06] MEDS: ASPIRIN 325 MG TAB PO SCH (09:19)
[2017-06-06] MEDS: TAMSULOSIN 0.4 MG CAP.ER.24H PO SCH (09:19)
[2017-06-06] MEDS: FAMOTIDINE 20 MG TAB PO SCH ×2 (09:19→20:07)
[2017-06-06] MEDS: CYCLOBENZAPRINE 10 MG TAB PO SCH ×3 (09:19→20:07)
[2017-06-06] MEDS: CLOPIDOGREL 75 MG TAB PO SCH (09:19)
[2017-06-06] MEDS: CARVEDILOL 6.25 MG TAB PO SCH ×2 (09:19→17:14)
[2017-06-06] MEDS: SERTRALINE 100 MG TAB PO SCH (09:19)
[2017-06-06] MEDS: FUROSEMIDE 40 MG TAB PO SCH (09:19)
[2017-06-06] MEDS: LISINOPRIL 10 MG TAB PO SCH (09:19)
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
[2017-06-06] MEDS: PRAVASTATIN SODIUM 40 MG TAB PO SCH (20:07)
[2017-06-07] MEDS: CARVEDILOL 6.25 MG TAB PO SCH ×2 (08:27→17:31)
[2017-06-07] MEDS: CLOPIDOGREL 75 MG TAB PO SCH (08:27)
[2017-06-07] MEDS: TAMSULOSIN 0.4 MG CAP.ER.24H PO SCH (08:27)
[2017-06-07] MEDS: CYCLOBENZAPRINE 10 MG TAB PO SCH ×3 (08:27→21:48)
[2017-06-07] MEDS: POTASSIUM CHLORIDE ER 20 MEQ TAB.ER PO SCH (08:27)
[2017-06-07] MEDS: FUROSEMIDE 40 MG TAB PO SCH (08:27)
[2017-06-07] MEDS: SERTRALINE 100 MG TAB PO SCH (08:27)
[2017-06-07] MEDS: ASPIRIN 325 MG TAB PO SCH (08:27)
[2017-06-07] MEDS: LISINOPRIL 10 MG TAB PO SCH (08:27)
[2017-06-07] MEDS: FAMOTIDINE 20 MG TAB PO SCH ×2 (08:27→21:48)
[2017-06-07 08:33] LABS: Basophils % (A) 0 %; Eosinophils # (A) 0.2 k/uL (0-0.7); Eosinophils % (A) 3 %; HCT 34.4 % (39.0-53.0); HGB 11.6 gm/dL (13.0-17.5); Lymphocytes # (A) 0.7 k/uL (1.0-4.8); Lymphocytes % (A) 11 %; MCH 31.5 pg (25.0-35.0); MCHC 33.8 g/dL (31.0-37.0); Mean Platelet Volume 7.6; Monocytes # (A) 0.3 k/uL (0-1.0); Monocytes % (A) 5 %; Neutrophils % (A) 79 %; Platelet Count 130 k/uL (150-450); RBC 3.69 m/uL (4.30-5.90); RDW 13.6 % (11.5-15.5); WBC 6.3 k/uL (3.8-10.6)
[2017-06-07 08:49] LABS: Anion Gap 10 mmol/L; Blood Urea Nitrogen 11 mg/dL (9-20); Calcium 8.8 mg/dL (8.4-10.2); Carbon Dioxide 20 mmol/L (22-30); Chloride 105 mmol/L (98-107); Glucose 81 mg/dL (74-99); Magnesium 1.5 mg/dL (1.6-2.3); Potassium 3.8 mmol/L (3.5-5.1); Sodium 135 mmol/L (137-145)
[2017-06-07] MEDS: PRAVASTATIN SODIUM 40 MG TAB PO SCH (21:48)
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
[2017-06-08] MEDS: MAGNESIUM SULFATE-D5W PMX 1 GM in DEXTROSE/WATER 1 100ML.BAG IVPB SCH ×2 (08:31→09:42)
[2017-06-08] MEDS: CYCLOBENZAPRINE 10 MG TAB PO SCH ×3 (08:31→20:44)
[2017-06-08] MEDS: SERTRALINE 100 MG TAB PO SCH (08:31)
[2017-06-08] MEDS: FAMOTIDINE 20 MG TAB PO SCH ×2 (08:31→20:44)
[2017-06-08] MEDS: ASPIRIN 325 MG TAB PO SCH (08:32)
[2017-06-08] MEDS: POTASSIUM CHLORIDE ER 20 MEQ TAB.ER PO SCH (08:32)
[2017-06-08] MEDS: CARVEDILOL 6.25 MG TAB PO SCH ×2 (08:32→17:56)
[2017-06-08] MEDS: FUROSEMIDE 40 MG TAB PO SCH (08:32)
[2017-06-08] MEDS: CLOPIDOGREL 75 MG TAB PO SCH (08:32)
[2017-06-08] MEDS: LISINOPRIL 10 MG TAB PO SCH (08:32)
[2017-06-08] MEDS: TAMSULOSIN 0.4 MG CAP.ER.24H PO SCH (08:32)
[2017-06-08 10:18] LABS: Basophils % (A) 1 %; Eosinophils # (A) 0.3 k/uL (0-0.7); Eosinophils % (A) 4 %; HCT 34.3 % (39.0-53.0); HGB 11.4 gm/dL (13.0-17.5); Lymphocytes # (A) 0.9 k/uL (1.0-4.8); Lymphocytes % (A) 14 %; MCH 31.3 pg (25.0-35.0); MCHC 33.2 g/dL (31.0-37.0); MCV 94.1 fL (80.0-100.0); Monocytes # (A) 0.3 k/uL (0-1.0); Monocytes % (A) 5 %; Neutrophils # (A) 4.8 k/uL (1.3-7.7); Neutrophils % (A) 76 %; Platelet Count 149 k/uL (150-450); RBC 3.64 m/uL (4.30-5.90); RDW 13.8 % (11.5-15.5); WBC 6.4 k/uL (3.8-10.6)
[2017-06-08 10:32] LABS: Calcium 8.9 mg/dL (8.4-10.2); Carbon Dioxide 18 mmol/L (22-30); Glucose 191 mg/dL (74-99); Potassium 4.1 mmol/L (3.5-5.1); Sodium 135 mmol/L (137-145)
[2017-06-08 10:34] LABS: Anion Gap 14 mmol/L; Blood Urea Nitrogen 10 mg/dL (9-20); Chloride 103 mmol/L (98-107)
[2017-06-08] MEDS: MAGNESIUM OXIDE 400 MG TAB PO SCH (12:44)
[2017-06-08] MEDS: PRAVASTATIN SODIUM 40 MG TAB PO SCH (21:15)
--- NOTE | 2017-06-08 22:21 | P.PN ---
Subjective Principal diagnosis: Continuing CARE. This is a continue present a 62-year-old white male essentially admitted for altered mental status and weakness. He seems to back to baseline but has an element of presbycusis. Magnesium still quite low. We will go ahead and replace and start oral magnesium. Otherwise, discharge planning has anticipated probable transfer to ECF. Objective - Vital Signs Vital signs: Vital Signs Temp 98.7 F 06/08/17 14:45 Pulse 60 06/08/17 14:45 Resp 16 06/08/17 14:45 BP 99/49 06/08/17 14:45 Pulse Ox 97 06/08/17 14:45 Intake & Output 06/08/17 06/08/17 06/09/17 06:59 18:59 06:59 Intake Total 400 1650 Output Total 1100 1425 Balance -700 225 Intake: Intake, IV Titration 200 Amount Magnesium Sulfate-D5w Pmx 200 1 gm In Dextrose/Water 1 100ml.bag @ 100 mls/hr IVPB Q1H PAIGE Rx#: [id number] Oral 400 1450 Output: Urine 1100 1425 Other: Voiding Method Indwelling Catheter Indwelling Catheter # Bowel Movements 0 - Constitutional General appearance: Present: average body habitus - EENT Eyes: Absent: abnormal pupil - Respiratory Respiratory: bilateral: CTA - Cardiovascular Rhythm: regular Heart sounds: normal: S1, S2 Abnormal Heart Sounds: Absent: S3 Gallop - Gastrointestinal General gastrointestinal: Present: soft. Absent: tenderness - Neurologic Neurologic: Present: CNII-XII intact. Absent: focal deficits - Labs CBC & Chem 7: 06/08/17 09:59 06/08/17 09:59 Labs: Abnormal Lab Results - Last 24 Hours (Table) 06/08/17 06/08/17 Range/Units 09:59 09:59 RBC 3.64 L (4.30-5.90) m/uL Hgb 11.4 L (13.0-17.5) gm/dL Hct 34.3 L (39.0-53.0) % Plt Count 149 L (150-450) k/uL Lymphocytes # 0.9 L (1.0-4.8) k/uL Sodium 135 L (137-145) mmol/L Carbon Dioxide 18 L (22-30) mmol/L Creatinine 0.63 L (0.66-1.25) mg/dL Glucose 191 H (74-99) mg/dL Assessment and Plan (1) Dehydration Current Visit: Yes Status: Acute Code(s): E86.0 - DEHYDRATION SNOMED Code( s): 09895562 (2) Hypomagnesemia Current Visit: Yes Status: Acute Code(s): E83.42 - HYPOMAGNESEMIA SNOMED Code(s): 280359621 (3) Schizophrenia Current Visit: Yes Status: Acute Code(s): F20.9 - SCHIZOPHRENIA, UNSPECIFIED SNOMED Code(s): 91993578 (4) Congestive heart failure Current Visit: No Status: Chronic Code(s): I50.9 - HEART FAILURE, UNSPECIFIED SNOMED Code(s): 26325209 (5) Hypertension Status: Chronic Code(s): I10 - ESSENTIAL (PRIMARY) HYPERTENSION SNOMED Code( s): 70561368 Plan: Continue supplement for magnesium. Check CMP and magnesium in AM. Anticipate transfer probably in the a.m.
[2017-06-09] MEDS: CLOPIDOGREL 75 MG TAB PO SCH (07:58)
[2017-06-09] MEDS: FUROSEMIDE 40 MG TAB PO SCH (07:58)
[2017-06-09] MEDS: CYCLOBENZAPRINE 10 MG TAB PO SCH (07:58)
[2017-06-09] MEDS: POTASSIUM CHLORIDE ER 20 MEQ TAB.ER PO SCH (07:58)
[2017-06-09] MEDS: FAMOTIDINE 20 MG TAB PO SCH (07:58)
[2017-06-09] MEDS: TAMSULOSIN 0.4 MG CAP.ER.24H PO SCH (07:58)
[2017-06-09] MEDS: ASPIRIN 325 MG TAB PO SCH (07:58)
[2017-06-09] MEDS: CARVEDILOL 6.25 MG TAB PO SCH (07:58)
[2017-06-09] MEDS: SERTRALINE 100 MG TAB PO SCH (07:58)
[2017-06-09] MEDS: LISINOPRIL 10 MG TAB PO SCH (07:59)
[2017-06-09 08:29] LABS: Basophils % (A) 1 %; Eosinophils # (A) 0.3 k/uL (0-0.7); Eosinophils % (A) 5 %; HCT 33.7 % (39.0-53.0); HGB 11.3 gm/dL (13.0-17.5); Lymphocytes # (A) 0.8 k/uL (1.0-4.8); Lymphocytes % (A) 12 %; MCH 31.1 pg (25.0-35.0); MCHC 33.5 g/dL (31.0-37.0); MCV 92.9 fL (80.0-100.0); Mean Platelet Volume 8.3; Monocytes # (A) 0.3 k/uL (0-1.0); Monocytes % (A) 5 %; Neutrophils # (A) 5.2 k/uL (1.3-7.7); Neutrophils % (A) 76 %; Platelet Count 151 k/uL (150-450); RBC 3.62 m/uL (4.30-5.90); RDW 13.7 % (11.5-15.5); WBC 6.8 k/uL (3.8-10.6)
[2017-06-09 08:58] LABS: Anion Gap 13 mmol/L; Blood Urea Nitrogen 13 mg/dL (9-20); Carbon Dioxide 20 mmol/L (22-30); Chloride 105 mmol/L (98-107); Glucose 84 mg/dL (74-99); Magnesium 1.7 mg/dL (1.6-2.3); Potassium 4.4 mmol/L (3.5-5.1); Sodium 138 mmol/L (137-145)
[2017-06-09] MEDS: MAGNESIUM OXIDE 400 MG TAB PO SCH (12:00)
--- NOTE | 2017-06-09 13:21 | P.DS ---
Providers Date of admission: 06/05/17 15:42 Attending physician: Juan Stearns Consults: 06/04/17 17:05 Consult Physician Routine Consulting Provider: Brianda Cowan Consult Reason/Comments: Schizophrenia Do you want consulting provider notified?: Yes, Notify in am Primary care physician: Juan Stearns - Discharge Diagnosis(es) (1) Dehydration Current Visit: Yes Status: Acute (2) Hypomagnesemia Current Visit: Yes Status: Acute (3) Schizophrenia Current Visit: Yes Status: Acute (4) Congestive heart failure Current Visit: No Status: Chronic (5) Hypertension Status: Chronic Hospital Course: This is a discharge transfer summary on a 62-year-old white male essentially admitted for altered mental status with history of schizophrenia. He was found to have dehydration and electronically imbalance. Because of his presbycusis and underlying mental status, he will be transferred to [facility] for appropriate rehab. Psychiatry evaluated the patient in did not necessarily change much of his dosing. Magnesium has been replaced and he is now stable. He has developed some urinary retention. The Mesa is to be discontinued and a trial of Flomax to be instituted. The patient is otherwise to follow-up with me in one week. Patient Condition at Discharge: Stable Plan - Discharge Summary Discharge Rx Participant: No New Discharge Prescriptions: New Tamsulosin [Flomax] 0.4 mg PO PC-BRKFST #0 cap.er.24h Continue Clopidogrel [Plavix] 75 mg PO DAILY #30 tab Pravastatin Sodium [Pravachol] 40 mg PO HS Aspirin 325 mg PO DAILY tab Furosemide [Lasix] 40 mg PO DAILY tab Lisinopril [Zestril] 10 mg PO DAILY tab Nitroglycerin Sl Tabs [Nitrostat] 0.4 mg SUBLINGUAL Q5M PRN #0 tab PRN Reason: Chest Pain Albuterol Nebulized (Conc) [Ventolin Nebulized (Conc)] 2.5 mg INHALATION RT- QID PRN PRN Reason: Shortness Of Breath Ipratropium Nebulized [Atrovent Nebulized] 0.5 mg INHALATION QID PRN PRN Reason: Shortness Of Breath Carvedilol [Coreg] 6.25 mg PO BID-W/MEALS #60 tab Potassium Chloride ER [K-Dur 20] 20 meq PO DAILY Ibuprofen [Motrin] 800 mg PO BID PRN PRN Reason: Pain Sertraline HCl [Zoloft] 100 mg PO DAILY Paliperidone IM [Invega Sustenna] 234 mg IM Q28D Famotidine [Pepcid] 20 mg PO BID Cyclobenzaprine HCl 10 mg PO TID Discharge Medication List Clopidogrel [Plavix] 75 mg PO DAILY #30 tab 07/25/15 [Rx] Pravastatin Sodium [Pravachol] 40 mg PO HS 10/05/15 [History] Aspirin 325 mg PO DAILY tab 11/16/15 [Rx] Furosemide [Lasix] 40 mg PO DAILY tab 11/16/15 [Rx] Lisinopril [Zestril] 10 mg PO DAILY tab 11/16/15 [Rx] Nitroglycerin Sl Tabs [Nitrostat] 0.4 mg SUBLINGUAL Q5M PRN #0 tab 11/16/15 [Rx] Albuterol Nebulized (Conc) [Ventolin Nebulized (Conc)] 2.5 mg INHALATION RT-QID PRN 01/10/16 [History] Ipratropium Nebulized [Atrovent Nebulized] 0.5 mg INHALATION QID PRN 01/10/16 [ History] Carvedilol [Coreg] 6.25 mg PO BID-W/MEALS #60 tab 01/15/16 [Rx] Cyclobenzaprine HCl 10 mg PO TID 06/04/17 [History] Famotidine [Pepcid] 20 mg PO BID 06/04/17 [History] Ibuprofen [Motrin] 800 mg PO BID PRN 06/04/17 [History] Paliperidone IM [Invega Sustenna] 234 mg IM Q28D 06/04/17 [History] Potassium Chloride ER [K-Dur 20] 20 meq PO DAILY 06/04/17 [History] Sertraline HCl [Zoloft] 100 mg PO DAILY 06/04/17 [History] Tamsulosin [Flomax] 0.4 mg PO PC-BRKFST #0 cap.er.24h 06/09/17 [Rx] Follow up Appointment(s)/Referral(s): Juan Stearns MD [Primary Care Provider] - 1 Week Patient Instructions/Handouts: Heart Failure (DC), Dehydration (DC), Urinary Retention in Men (GEN) Activity/Diet/Wound Care/Special Instructions: NO smoking, cessation information provided Low fat, low cholesterol diet. Activity as tolerated, fall precautions. Discharge Disposition: TRANSFER TO SNF/ECF
[2017-06-09 15:04] VITALS: BP 86/42; PULSE 69; RESP 20; TEMP 97.3
== END 2017-06-09 15:33 | DRG 640 ==
LOC: EC 14:31 → EEVIPCON 14:31 → 6SEL 16:55 → 4MS4W 06-05 09:48 → OBSVTOIN 06-05 15:42
PROVIDERS: ADMIT Family Medicine; ATTEND Family Medicine
DX: E86.0 Dehydration (principal); G93.41 Metabolic encephalopathy; I50.22 Chronic systolic (congestive) heart failure; I11.0 Hypertensive heart disease with heart failure; F25.1 Schizoaffective disorder, depressive type; E83.42 Hypomagnesemia; J44.9 Chronic obstructive pulmonary disease, unspecified; N40.1 Benign prostatic hyperplasia with lower urinary tract symptoms; R33.8 Other retention of urine; F41.9 Anxiety disorder, unspecified; I25.2 Old myocardial infarction; E78.5 Hyperlipidemia, unspecified; R73.03 Prediabetes; H91.10 Presbycusis, unspecified ear; F17.200 Nicotine dependence, unspecified, uncomplicated; Z71.6 Tobacco abuse counseling; Z79.82 Long term (current) use of aspirin; Z79.02 Long term (current) use of antithrombotics/antiplatelets; Z79.899 Other long term (current) drug therapy; Z95.5 Presence of coronary angioplasty implant and graft
CPT/HCPCS: 36415; 70450; 71046; 80048; 80053; 80306; 81001; 81003; 82140; 82550; 82553; 83690; 83735; 84484; 85025; 85027; 87086; 96360; 96361; 99285

== ENCOUNTER 2017-06-13 07:21 | Inpatient (IN) | payer MEDICARE, OTHER ==
[2017-06-13] MEDS ORDERED: SODIUM CHLORIDE 0.9% 1,000 ML IV ONE (07:49)
--- NOTE | 2017-06-13 07:53 | ED ---
General Adult HPI - General Chief complaint: Altered Mental Status Stated complaint: Altered Mental STatus Time Seen by Provider: 06/13/17 07:21 Source: EMS, RN notes reviewed Mode of arrival: EMS Limitations: altered mental status - History of Present Illness Initial comments: This is a 62-year-old male who presents emergency Department from a [facility] half-way stated the patient had altered mental status. Patient is unable to answer any questions though he is able to follow my simple commands. Patient had a fever of 100.1 at the facility we were told however we were unable to get a fever initially. Patient denies any pain patient denies headache patient denies chest pain patient denies any abdominal pain. Patient denies any recent vomiting or diarrhea he answers the questions by shaking his head. Patient denies any difficulty breathing. No family member regarding her here at this time. There is been no report of any difficulty breathing or injury. Patient is normally alert and oriented to self and place however I don' t know if he is normally more verbal. - Related Data Home Medications Medication Instructions Recorded Confirmed Pravastatin Sodium [Pravachol] 40 mg PO HS 10/05/15 06/04/17 Albuterol Nebulized (Conc) 2.5 mg INHALATION RT-QID PRN 01/10/16 06/04/17 [Ventolin Nebulized (Conc)] Ipratropium Nebulized [Atrovent 0.5 mg INHALATION QID PRN 01/10/16 06/04/17 Nebulized] Cyclobenzaprine HCl 10 mg PO TID 06/04/17 06/04/17 Famotidine [Pepcid] 20 mg PO BID 06/04/17 06/04/17 Ibuprofen [Motrin] 800 mg PO BID PRN 06/04/17 06/04/17 Paliperidone IM [Invega Sustenna] 234 mg IM Q28D 06/04/17 06/04/17 Potassium Chloride ER [K-Dur 20] 20 meq PO DAILY 06/04/17 06/04/17 Sertraline HCl [Zoloft] 100 mg PO DAILY 06/04/17 06/04/17 Previous Rx's Medication Instructions Recorded Clopidogrel [Plavix] 75 mg PO DAILY #30 tab 07/25/15 Aspirin 325 mg PO DAILY tab 11/16/15 Furosemide [Lasix] 40 mg PO DAILY tab 11/16/15 Lisinopril [Zestril] 10 mg PO DAILY tab 11/16/15 Nitroglycerin Sl Tabs [Nitrostat] 0.4 mg SUBLINGUAL Q5M PRN #0 tab 11/16/15 Carvedilol [Coreg] 6.25 mg PO BID-W/MEALS #60 tab 01/15/16 Tamsulosin [Flomax] 0.4 mg PO PC-BRKFST #0 cap.er.24h 06/09/17 Allergies Allergy/AdvReac Type Severity Reaction Status Date / Time No Known Allergies Allergy Verified 06/13/17 07:30 Review of Systems ROS Statement: Those systems with pertinent positive or pertinent negative responses have been documented in the HPI. ROS Other: All systems not noted in ROS Statement are negative. Past Medical History Past Medical History: Heart Failure, Hyperlipidemia, Hypertension, Myocardial Infarction ([place]) Additional Past Medical History / Comment(s): RECTAL BLEEDING, Borderline diabetes Last Myocardial Infarction Date:: 07/15/15 History of Any Multi-Drug Resistant Organisms: None Reported Past Surgical History: Heart Catheterization With Stent Past Anesthesia/Blood Transfusion Reactions: No Reported Reaction Date of Last Stent Placement:: 07/15/15 Past Psychological History: Anxiety, Schizophrenia Smoking Status: Current every day smoker Past Alcohol Use History: None Reported Past Drug Use History: None Reported - Past Family History Mother Family Medical History: Cancer General Exam - General Exam Comments Initial Comments: GENERAL: Patient is well-developed and well-nourished. Patient is nontoxic and well- hydrated and is in mild distress. ENT: Neck is soft and supple. No significant lymphadenopathy is noted. Oropharynx is clear. Moist mucous membranes. Neck has full range of motion without eliciting any pain. EYES: The sclera were anicteric and conjunctiva were pink and moist. Extraocular movements were intact and pupils were equal round and reactive to light. Eyelids were unremarkable. PULMONARY: Unlabored respirations. Good breath sounds bilaterally. No audible rales rhonchi or wheezing was noted. CARDIOVASCULAR: There is a regular rate and rhythm without any murmurs gallops or rubs. ABDOMEN: Soft and nontender with normal bowel sounds. No palpable organomegaly was noted. There is no palpable pulsatile mass. SKIN: Skin is clear with no lesions or rashes and otherwise unremarkable. NEUROLOGIC: Patient is alert and oriented 1 he appears to respond to his name.. Cranial nerves II through XII are grossly intact. Motor and sensory are also intact. Normal speech, volume and content. Symmetrical smile. MUSCULOSKELETAL: Normal extremities with adequate strength and full range of motion. No lower extremity swelling or edema. No calf tenderness. LYMPHATICS: No significant lymphadenopathy is noted PSYCHIATRIC: Normal psychiatric evaluation. Limitations: altered mental status Course Vital Signs 06/13/17 06/13/17 06/13/17 07:22 08:22 09:00 Temperature 99 F 100.6 F H Pulse Rate 71 73 Respiratory 30 H 22 Rate Blood Pressure 104/53 114/60 O2 Sat by Pulse 100 95 Oximetry Medical Decision Making - Medical Decision Making EKG shows a normal sinus rhythm at 71 bpm MA interval is 178 QRSs 110 QT interval 470 QTC is 510. EKG shows some T-wave flattening in the lateral leads and some inversion in 1 and aVL these EKG changes were seen on an old EKG Chest x-ray shows pulmonary edema. I started the patient Lasix and gave the patient some Nitropaste. The patient' s urine shows infection so I started the patient on Rocephin. I spoke with a [place] hospitalist. They agreed to admit the patient admitted the patient I consult cardiology. I continued Lasix and Nitropaste on the floor. I also continued antibiotics before for the urinary tract infection. - Lab Data Result diagrams: 06/13/17 07:35 06/13/17 07:35 Lab Results 06/13/17 06/13/17 06/13/17 Range/Units 07:35 07:35 07:35 WBC 9.1 (3.8-10.6) k/uL RBC 3.58 L (4.30-5.90) m/uL Hgb 11.4 L (13.0-17.5) gm/dL Hct 32.4 L (39.0-53.0) % MCV 90.6 (80.0-100.0) fL MCH 32.0 (25.0-35.0) pg MCHC 35.3 (31.0-37.0) g/dL RDW 14.0 (11.5-15.5) % Plt Count 176 (150-450) k/uL Neutrophils % 82 % Lymphocytes % 8 % Monocytes % 5 % Eosinophils % 3 % Basophils % 0 % Neutrophils # 7.5 (1.3-7.7) k/uL Lymphocytes # 0.7 L (1.0-4.8) k/uL Monocytes # 0.5 (0-1.0) k/uL Eosinophils # 0.3 (0-0.7) k/uL Basophils # 0.0 (0-0.2) k/uL PT (9.0-12.0) sec INR (<1.2) APTT (22.0-30.0) sec Sodium 135 L (137-145) mmol/L Potassium 4.0 (3.5-5.1) mmol/L Chloride 106 (98-107) mmol/L Carbon Dioxide 18 L (22-30) mmol/L Anion Gap 11 mmol/L BUN 14 (9-20) mg/dL Creatinine 0.60 L (0.66-1.25) mg/dL Est GFR (CKD-EPI)AfAm >90 (>60 ml/min/1.73 sqM) Est GFR (CKD-EPI)NonAf >90 (>60 ml/min/1.73 sqM) Glucose 90 (74-99) mg/dL POC Glucose (mg/dL) (75-99) mg/dL POC Glu Centrifugal Spinner ID Plasma Lactic Acid Fernie (0.7-2.0) mmol/L Calcium 8.5 (8.4-10.2) mg/dL Total Bilirubin 0.3 (0.2-1.3) mg/dL AST 153 H (17-59) U/L ALT 121 H (21-72) U/L Alkaline Phosphatase 102 (38-126) U/L Total Creatine Kinase 50 L (55-170) U/L CK-MB (CK-2) 0.7 (0.0-2.4) ng/mL CK-MB (CK-2) Rel Index 1.4 Troponin I 0.015 (0.000-0.034) ng/mL Total Protein 5.5 L (6.3-8.2) g/dL Albumin 2.9 L (3.5-5.0) g/dL Urine Color Urine Appearance (Clear) Urine pH (5.0-8.0) Ur Specific [place] (1.001-1.035) Urine Protein (Negative) Urine Glucose (UA) (Negative) Urine Ketones (Negative) Urine Blood (Negative) Urine Nitrite (Negative) Urine Bilirubin (Negative) Urine Urobilinogen (<2.0) mg/dL Ur Leukocyte Esterase (Negative) Urine RBC (0-5) /hpf Urine WBC (0-5) /hpf Urine WBC Clumps (None) /hpf Urine Mucus (None) /hpf Urine Opiates Screen (NotDetected) Ur Oxycodone Screen (NotDetected) Urine Methadone Screen (NotDetected) Ur Propoxyphene Screen (NotDetected) Ur Barbiturates Screen (NotDetected) U Tricyclic Antidepress (NotDetected) Ur Phencyclidine Scrn (NotDetected) Ur Amphetamines Screen (NotDetected) U Methamphetamines Scrn (NotDetected) U Benzodiazepines Scrn (NotDetected) Urine Cocaine Screen (NotDetected) U Marijuana (THC) Screen (NotDetected) 06/13/17 06/13/17 06/13/17 Range/Units 07:35 07:35 08:01 WBC (3.8-10.6) k/uL RBC (4.30-5.90) m/uL Hgb (13.0-17.5) gm/dL Hct (39.0-53.0) % MCV (80.0-100.0) fL MCH (25.0-35.0) pg MCHC (31.0-37.0) g/dL RDW (11.5-15.5) % Plt Count (150-450) k/uL Neutrophils % % Lymphocytes % % Monocytes % % Eosinophils % % Basophils % % Neutrophils # (1.3-7.7) k/uL Lymphocytes # (1.0-4.8) k/uL Monocytes # (0-1.0) k/uL Eosinophils # (0-0.7) k/uL Basophils # (0-0.2) k/uL PT 11.6 (9.0-12.0) sec INR 1.2 H (<1.2) APTT 26.1 (22.0-30.0) sec Sodium (137-145) mmol/L Potassium (3.5-5.1) mmol/L Chloride (98-107) mmol/L Carbon Dioxide (22-30) mmol/L Anion Gap mmol/L BUN (9-20) mg/dL Creatinine (0.66-1.25) mg/dL Est GFR (CKD-EPI)AfAm (>60 ml/min/1.73 sqM) Est GFR (CKD-EPI)NonAf (>60 ml/min/1.73 sqM) Glucose (74-99) mg/dL POC Glucose (mg/dL) 102 H (75-99) mg/dL POC Glu Centrifugal Spinner ID Darlene Reed Plasma Lactic Acid Fernie 0.6 L (0.7-2.0) mmol/L Calcium (8.4-10.2) mg/dL Total Bilirubin (0.2-1.3) mg/dL AST (17-59) U/L ALT (21-72) U/L Alkaline Phosphatase (38-126) U/L Total Creatine Kinase (55-170) U/L CK-MB (CK-2) (0.0-2.4) ng/mL CK-MB (CK-2) Rel Index Troponin I (0.000-0.034) ng/mL Total Protein (6.3-8.2) g/dL Albumin (3.5-5.0) g/dL Urine Color Urine Appearance (Clear) Urine pH (5.0-8.0) Ur Specific [place] (1.001-1.035) Urine Protein (Negative) Urine Glucose (UA) (Negative) Urine Ketones (Negative) Urine Blood (Negative) Urine Nitrite (Negative) Urine Bilirubin (Negative) Urine Urobilinogen (<2.0) mg/dL Ur Leukocyte Esterase (Negative) Urine RBC (0-5) /hpf Urine WBC (0-5) /hpf Urine WBC Clumps (None) /hpf Urine Mucus (None) /hpf Urine Opiates Screen (NotDetected) Ur Oxycodone Screen (NotDetected) Urine Methadone Screen (NotDetected) Ur Propoxyphene Screen (NotDetected) Ur Barbiturates Screen (NotDetected) U Tricyclic Antidepress (NotDetected) Ur Phencyclidine Scrn (NotDetected) Ur Amphetamines Screen (NotDetected) U Methamphetamines Scrn (NotDetected) U Benzodiazepines Scrn (NotDetected) Urine Cocaine Screen (NotDetected) U Marijuana (THC) Screen (NotDetected) 06/13/17 Range/Units 08:11 WBC (3.8-10.6) k/uL RBC (4.30-5.90) m/uL Hgb (13.0-17.5) gm/dL Hct (39.0-53.0) % MCV (80.0-100.0) fL MCH (25.0-35.0) pg MCHC (31.0-37.0) g/dL RDW (11.5-15.5) % Plt Count (150-450) k/uL Neutrophils % % Lymphocytes % % Monocytes % % Eosinophils % % Basophils % % Neutrophils # (1.3-7.7) k/uL Lymphocytes # (1.0-4.8) k/uL Monocytes # (0-1.0) k/uL Eosinophils # (0-0.7) k/uL Basophils # (0-0.2) k/uL PT (9.0-12.0) sec INR (<1.2) APTT (22.0-30.0) sec Sodium (137-145) mmol/L Potassium (3.5-5.1) mmol/L Chloride (98-107) mmol/L Carbon Dioxide (22-30) mmol/L Anion Gap mmol/L BUN (9-20) mg/dL Creatinine (0.66-1.25) mg/dL Est GFR (CKD-EPI)AfAm (>60 ml/min/1.73 sqM) Est GFR (CKD-EPI)NonAf (>60 ml/min/1.73 sqM) Glucose (74-99) mg/dL POC Glucose (mg/dL) (75-99) mg/dL POC Glu Centrifugal Spinner ID Plasma Lactic Acid Fernie (0.7-2.0) mmol/L Calcium (8.4-10.2) mg/dL Total Bilirubin (0.2-1.3) mg/dL AST (17-59) U/L ALT (21-72) U/L Alkaline Phosphatase (38-126) U/L Total Creatine Kinase (55-170) U/L CK-MB (CK-2) (0.0-2.4) ng/mL CK-MB (CK-2) Rel Index Troponin I (0.000-0.034) ng/mL Total Protein (6.3-8.2) g/dL Albumin (3.5-5.0) g/dL Urine Color Yellow Urine Appearance Turbid (Clear) Urine pH 6.5 (5.0-8.0) Ur Specific [place] 1.016 (1.001-1.035) Urine Protein 1+ H (Negative) Urine Glucose (UA) Negative (Negative) Urine Ketones Negative (Negative) Urine Blood Moderate H (Negative) Urine Nitrite Negative (Negative) Urine Bilirubin Negative (Negative) Urine Urobilinogen 4.0 (<2.0) mg/dL Ur Leukocyte Esterase Large H (Negative) Urine RBC 141 H (0-5) /hpf Urine WBC >182 H (0-5) /hpf Urine WBC Clumps Few H (None) /hpf Urine Mucus Rare H (None) /hpf Urine Opiates Screen Not Detected (NotDetected) Ur Oxycodone Screen Not Detected (NotDetected) Urine Methadone Screen Not Detected (NotDetected) Ur Propoxyphene Screen Not Detected (NotDetected) Ur Barbiturates Screen Not Detected (NotDetected) U Tricyclic Antidepress Detected H (NotDetected) Ur Phencyclidine Scrn Not Detected (NotDetected) Ur Amphetamines Screen Not Detected (NotDetected) U Methamphetamines Scrn Not Detected (NotDetected) U Benzodiazepines Scrn Not Detected (NotDetected) Urine Cocaine Screen Not Detected (NotDetected) U Marijuana (THC) Screen Not Detected (NotDetected) Critical Care Time Critical Care Time: Yes Total Critical Care Time: 35 Disposition Clinical Impression: Altered mental status, Urinary tract infection, Pulmonary edema, acute Disposition: ADMITTED IP TO THIS HOSP Referrals: Juan Stearns MD [Primary Care Provider] - 1-2 days Time of Disposition: 09:18
[2017-06-13 08:04] LABS: Basophils % (A) 0 %; Eosinophils # (A) 0.3 k/uL (0-0.7); Eosinophils % (A) 3 %; HCT 32.4 % (39.0-53.0); HGB 11.4 gm/dL (13.0-17.5); Lymphocytes # (A) 0.7 k/uL (1.0-4.8); Lymphocytes % (A) 8 %; MCHC 35.3 g/dL (31.0-37.0); MCV 90.6 fL (80.0-100.0); Mean Platelet Volume 7.4; Monocytes # (A) 0.5 k/uL (0-1.0); Monocytes % (A) 5 %; Neutrophils # (A) 7.5 k/uL (1.3-7.7); Neutrophils % (A) 82 %; Platelet Count 176 k/uL (150-450); RBC 3.58 m/uL (4.30-5.90); WBC 9.1 k/uL (3.8-10.6)
[2017-06-13 08:12] LABS: ALT 121 U/L (21-72); AST 153 U/L (17-59); Albumin 2.9 g/dL (3.5-5.0); Alkaline Phosphatase 102 U/L (38-126); Anion Gap 11 mmol/L; Blood Urea Nitrogen 14 mg/dL (9-20); Calcium 8.5 mg/dL (8.4-10.2); Carbon Dioxide 18 mmol/L (22-30); Chloride 106 mmol/L (98-107); Glucose 90 mg/dL (74-99); Sodium 135 mmol/L (137-145); Total Bilirubin 0.3 mg/dL (0.2-1.3); Total Protein 5.5 g/dL (6.3-8.2)
[2017-06-13] MEDS ORDERED: ACETAMINOPHEN TAB 500 MG TAB PO STA (08:22)
[2017-06-13] MEDS ORDERED: IBUPROFEN 600 MG TAB PO STA (08:22)
[2017-06-13 08:24] LABS: Glucose,Whole Blood 102 mg/dL (75-99)
[2017-06-13 08:31] LABS: INR 1.2 (<1.2); Partial Thromboplastin Time 26.1 sec (22.0-30.0); Prothrombin Time 11.6 sec (9.0-12.0)
[2017-06-13 08:35] LABS: Appearance,Urine Turbid (Clear); Bilirubin,Urine Negative (Negative); Blood,Urine Moderate (Negative); Color,Urine Yellow; Glucose,Urine (UA) Negative (Negative); Ketones,Urine Negative (Negative); Leukocyte Esterase,Urine Large (Negative); Mucus,Urine Rare /hpf; Nitrite,Urine Negative (Negative); PH, Urine 6.5 (5.0-8.0); Protein,Urine 1+ (Negative); RBC,Urine 141 /hpf (0-5); Specific Gravity,Urine 1.016 (1.001-1.035); WBC,Urine >182 /hpf (0-5)
[2017-06-13 08:41] LABS: Cocaine Screen,Urine Not Detected (NotDetected); Phencyclidine Screen,Urine Not Detected (NotDetected); Urn Cannabinoid Scrn Not Detected (NotDetected)
[2017-06-13 08:42] LABS: Amphetamine Screen,Urine Not Detected (NotDetected); Barbiturate Screen,Urine Not Detected (NotDetected); Benzodiazepines Screen,Urine Not Detected (NotDetected); Methadone Screen, Urine Not Detected (NotDetected); Opiate Screen,Urine Not Detected (NotDetected); Oxycodone Screen, Urine Not Detected (NotDetected); Tricyclic Antidepressant,Urine Detected (NotDetected)
[2017-06-13 08:48] LABS: Creatine Kinase MB 0.7 ng/mL (0.0-2.4); Troponin I 0.015 ng/mL (0.000-0.034)
--- NOTE | 2017-06-13 08:55 | XR ---
EXAMINATION TYPE: XR chest 2V DATE OF EXAM: 06/13/2017 HISTORY: altered mental status. REFERENCE: Previous study dated 06/04/2017. FINDINGS: The heart is enlarged. There is vascular congestion and subtle interstitial change. There i s platelike atelectasis at both lung bases. There are small, bilateral effusions. IMPRESSION: FINDINGS MOST CONSISTENT WITH MILD HEART FAILURE.
[2017-06-13] MEDS ORDERED: FUROSEMIDE 10 MG/ML 4 ML VIAL IV STA (09:07)
[2017-06-13] MEDS ORDERED: cefTRIAXone IN SWFI 1,000 MG/10 ML SYRINGE IVP STA (09:08)
[2017-06-13] MEDS ORDERED: NITROGLYCERIN OINT 1 INCH/GM PACKET TOPICAL STA (09:11)
[2017-06-13] MEDS ORDERED: NITROGLYCERIN OINT 1 INCH/GM PACKET TOPICAL SCH (13:00)
[2017-06-13] MEDS ORDERED: SODIUM CHLORIDE 0.9% 1,000 ML IV SCH (14:45)
[2017-06-13] MEDS ORDERED: ARTIFICIAL TEARS-HYPROMELLOSE DROPS 15 ML BTL BOTH EYES PRN (15:49)
[2017-06-13] MEDS ORDERED: BISACODYL 10 MG SUPP RECTAL PRN (15:49)
[2017-06-13] MEDS ORDERED: NA PHOS,M-B/NA PHOS,DI-BA 133 ML ENEMA RECTAL PRN (15:49)
[2017-06-13] MEDS ORDERED: NITROGLYCERIN SL TABS 0.4 MG TAB SUBLINGUAL PRN (15:49)
[2017-06-13] MEDS ORDERED: MAGNESIUM HYDROXIDE 2,400 MG/10 ML CUP PO PRN (15:49)
[2017-06-13] MEDS ORDERED: FUROSEMIDE 10 MG/ML 4 ML VIAL IV SCH (16:00)
[2017-06-13] MEDS: POTASSIUM CHLORIDE ER 20 MEQ TAB.ER PO SCH (16:38)
[2017-06-13] MEDS: HEPARIN SODIUM,PORCINE 5,000 UNIT/ML 1 ML VIAL SQ SCH (16:38)
[2017-06-13] MEDS ORDERED: ASPIRIN 325 MG TAB PO SCH (17:00)
--- NOTE | 2017-06-13 19:51 | P.HPIM ---
History of Present Illness H&P Date: 06/13/17 Chief Complaint: Shortness of breath Patient is a 62-year-old male with a known history of CHF with systolic dysfunction ejection fraction 35-40%, from hypertension, hyperlipidemia, schizophrenia and recent admission with electrolyte imbalance and dehydration was sent to infection care facility on 06/09/2017. Patient had urinary retention during last admission and [place] catheter was discontinued before discharge with trial void. Otherwise poorly kept was placed back the extended care Facility. Patient sent to ER from halfway with altered mental status and her grandson any questions although is able to follow simple commands. T-max was 100.1 at the facility. Patient denied any complains of, sputum production. No headache or dizziness lightheadedness. No nausea vomiting abdominal pain. Denied any difficulty breathing otherwise. Patient currently awake and oriented 3. At times patient is nonverbal. Patient does have underlying schizophrenia otherwise. Chest x-ray showed findings most constant with right heart failure BNP 2230 ALT 153 AST 121 alk phos 102 Sodium 135 T-max while in hospital is 100.6 Last echocardiogram done on 01/10/2016 showed ejection fraction of 35 -40% Urine culture showed no growth during last admission on 06/06/2017 Patient does have abnormal urine analysis Review of Systems Constitutional: Does have fever and no chills. . No generalized weakness or weight loss. Abdomen: Patient denied nausea vomiting and diarrhea and abdominal pain. Cardiovascular: Patient denies any chest pain or short of breath no palpitations. Respiratory: patient denied any cough is from production. No shortness of breath Neurologic: Patient denied any numbness or tingling headache. Musculoskeletal: Patient denies any complaints of joint swelling or deformity. Complete review of systems could not be apparent from the patient. Past Medical History Past Medical History: Heart Failure, Hyperlipidemia, Hypertension, Myocardial Infarction ([place]) Additional Past Medical History / Comment(s): RECTAL BLEEDING, Borderline diabetes Last Myocardial Infarction Date:: 07/15/15 History of Any Multi-Drug Resistant Organisms: None Reported Past Surgical History: Heart Catheterization With Stent Past Anesthesia/Blood Transfusion Reactions: No Reported Reaction Date of Last Stent Placement:: 07/15/15 Past Psychological History: Anxiety, Schizophrenia Smoking Status: Current every day smoker Past Alcohol Use History: None Reported Past Drug Use History: None Reported - Past Family History Mother Family Medical History: Cancer Medications and Allergies Home Medications Medication Instructions Recorded Confirmed Type Clopidogrel [Plavix] 75 mg PO DAILY #30 tab 07/25/15 06/13/17 Rx Pravastatin Sodium [Pravachol] 40 mg PO HS@2100 10/05/15 06/13/17 History Lisinopril [Zestril] 10 mg PO DAILY tab 11/16/15 06/13/17 Rx Nitroglycerin Sl Tabs [Nitrostat] 0.4 mg SUBLINGUAL Q5M PRN #0 tab 11/16/1506/26 Rx Albuterol Nebulized (Conc) 2.5 mg INHALATION RT-QID PRN 01/10/16 06/13/17 History [Ventolin Nebulized (Conc)] Ipratropium Nebulized [Atrovent 0.5 mg INHALATION RT-QID PRN 01/10/16 06/13/17 History Nebulized] Carvedilol [Coreg] 6.25 mg PO BID-W/MEALS #60 tab 01/15/16 06/13/17 Rx Cyclobenzaprine HCl 10 mg PO TID 06/04/17 06/13/17 History Famotidine [Pepcid] 20 mg PO BID 06/04/17 06/13/17 History Ibuprofen [Motrin] 800 mg PO BID PRN 06/04/17 06/13/17 History Paliperidone IM [Invega Sustenna] 234 mg IM Q28D 06/04/17 06/13/17 History Potassium Chloride ER [K-Dur 20] 20 meq PO DAILY@1700 06/04/17 06/13/17 History Sertraline HCl [Zoloft] 100 mg PO DAILY 06/04/17 06/13/17 History Tamsulosin [Flomax] 0.4 mg PO PC-BRKFST #0 cap.er.24h 06/09/17 06/13/17 Rx Artificial Tears-Hypromellose 1 drops BOTH EYES TID PRN 06/13/17 06/13/17 History [Artificial Tear Drops] Aspirin 325 mg PO DAILY@1700 06/13/17 06/13/17 History Bisacodyl [Dulcolax] 10 mg RECTAL DAILY PRN 06/13/17 06/13/17 History Furosemide [Lasix] 40 mg PO DAILY@0600 06/13/17 06/13/17 History Magnesium Hydroxide [Milk of 2,400 mg PO DAILY PRN 06/13/17 06/13/17 History Magnesia] Na Phos,M-B/Na Phos,Di-Ba [Fleet 133 ml RECTAL DAILY PRN 06/13/17 06/13/17 History Adult] Allergies Allergy/AdvReac Type Severity Reaction Status Date / Time No Known Allergies Allergy Verified 06/13/17 11:22 Physical Exam Vitals: Vital Signs Temp Pulse Resp BP Pulse Ox 06/13/17 15:45 97.2 F L 57 L 18 113/56 100 06/13/17 14:33 97.4 F L 59 L 18 109/56 99 06/13/17 11:44 97.2 F L 60 20 99/47 97 06/13/17 10:43 69 18 85/50 97 06/13/17 09:42 61 22 111/53 98 06/13/17 09:00 73 22 114/60 95 06/13/17 08:22 100.6 F H 06/13/17 07:22 99 F 71 30 H 104/53 100 Intake and Output 06/13/17 06/13/17 06/13/17 06:59 14:59 22:59 Output Total 620 Balance -620 Output: Urine 620 Other: Voiding Method Indwelling Catheter Weight 73.482 kg PHYSICAL EXAMINATION: Patient is lying in the bed comfortably, no acute distress, awake alert and orientedx1 but follows simple commands HEENT: Normocephalic. Neck is supple. Pupils reactive. Nostrils clear. Oral cavity is moist. Ears reveal no drainage. Neck reveals no JVD, carotid bruits, or thyromegaly. CHEST EXAMINATION: Trachea is central. Symmetrical expansion. Bibasilar crackles. No wheezing. Nonlabored breathing. CARDIAC: Normal S1, S2 with no gallops. No murmurs ABDOMEN: Soft. Bowel sounds normal. No organomegaly. No abdominal bruits. Extremities: reveal no edema. No clubbing or cyanosis Neurologically awake, alert, oriented x1 with well-coordinated movements. No focal deficits noted Skin: No rash or skin lesions. Psychiatric: Coperative. Could not be assessed completely Musculoskeletal: No joint swelling or deformity. Normal range of motion. Results CBC & Chem 7: 06/13/17 07:35 06/13/17 07:35 Labs: Abnormal Lab Results - Last 24 Hours (Table) 06/13/17 06/13/17 06/13/17 Range/Units 07:35 07:35 07:35 RBC 3.58 L (4.30-5.90) m/uL Hgb 11.4 L (13.0-17.5) gm/dL Hct 32.4 L (39.0-53.0) % Lymphocytes # 0.7 L (1.0-4.8) k/uL INR (<1.2) Sodium 135 L (137-145) mmol/L Carbon Dioxide 18 L (22-30) mmol/L Creatinine 0.60 L (0.66-1.25) mg/dL POC Glucose (mg/dL) (75-99) mg/dL Plasma Lactic Acid Fernie (0.7-2.0) mmol/L AST 153 H (17-59) U/L ALT 121 H (21-72) U/L Total Creatine Kinase 50 L (55-170) U/L Total Protein 5.5 L (6.3-8.2) g/dL Albumin 2.9 L (3.5-5.0) g/dL Urine Protein (Negative) Urine Blood (Negative) Ur Leukocyte Esterase (Negative) Urine RBC (0-5) /hpf Urine WBC (0-5) /hpf Urine WBC Clumps (None) /hpf Urine Mucus (None) /hpf U Tricyclic Antidepress (NotDetected) 06/13/17 06/13/17 06/13/17 Range/Units 07:35 07:35 08:01 RBC (4.30-5.90) m/uL Hgb (13.0-17.5) gm/dL Hct (39.0-53.0) % Lymphocytes # (1.0-4.8) k/uL INR 1.2 H (<1.2) Sodium (137-145) mmol/L Carbon Dioxide (22-30) mmol/L Creatinine (0.66-1.25) mg/dL POC Glucose (mg/dL) 102 H (75-99) mg/dL Plasma Lactic Acid Fernie 0.6 L (0.7-2.0) mmol/L AST (17-59) U/L ALT (21-72) U/L Total Creatine Kinase (55-170) U/L Total Protein (6.3-8.2) g/dL Albumin (3.5-5.0) g/dL Urine Protein (Negative) Urine Blood (Negative) Ur Leukocyte Esterase (Negative) Urine RBC (0-5) /hpf Urine WBC (0-5) /hpf Urine WBC Clumps (None) /hpf Urine Mucus (None) /hpf U Tricyclic Antidepress (NotDetected) 06/13/17 Range/Units 08:11 RBC (4.30-5.90) m/uL Hgb (13.0-17.5) gm/dL Hct (39.0-53.0) % Lymphocytes # (1.0-4.8) k/uL INR (<1.2) Sodium (137-145) mmol/L Carbon Dioxide (22-30) mmol/L Creatinine (0.66-1.25) mg/dL POC Glucose (mg/dL) (75-99) mg/dL Plasma Lactic Acid Fernie (0.7-2.0) mmol/L AST (17-59) U/L ALT (21-72) U/L Total Creatine Kinase (55-170) U/L Total Protein (6.3-8.2) g/dL Albumin (3.5-5.0) g/dL Urine Protein 1+ H (Negative) Urine Blood Moderate H (Negative) Ur Leukocyte Esterase Large H (Negative) Urine RBC 141 H (0-5) /hpf Urine WBC >182 H (0-5) /hpf Urine WBC Clumps Few H (None) /hpf Urine Mucus Rare H (None) /hpf U Tricyclic Antidepress Detected H (NotDetected) Thrombosis Risk Factor Assmnt - DVT/VTE Prophylaxis DVT/VTE Prophylaxis: Pharmacologic Prophylaxis ordered Assessment and Plan Assessment: Acute metabolic encephalopathy due to infection Acute on chronic CHF with systolic dysfunction ejection fraction 35-40%. Last echocardiogram done on 01/10/2016 Acute urinary tract infection. Possible cath-related Mild hyponatremia Hypomagnesemia Schizophrenia COPD not in acute exacerbation Urinary retention. Currently patient is on Mesa catheter chronic indwelling. Hypertension Mild elevated liver enzymes DVT prophylaxis PLAN Patient was given IV hydration while in the ER. Patient was also started on IV Lasix 40 mg and continue twice a day. Will hold IV fluids due to vascular congestion and follow-up renal function closely. Replace electrolytes. Continue with antibiotics in the form of ceftriaxone and urine culture was ordered. Patient already received one dose of ceftriaxone in the ER. Mesa catheter has been replaced in the ER. Continue with Flomax and trial void while in the hospital. Further recommendations based on the clinical course. During previous admission, Patient was evaluated by psychiatric services. Patient is not oriented to his name place or time but follows commands. Time with Patient: Greater than 30
[2017-06-13] MEDS: PRAVASTATIN SODIUM 40 MG TAB PO SCH (20:14)
[2017-06-13] MEDS: FAMOTIDINE 20 MG TAB PO SCH (20:14)
[2017-06-13] MEDS: FUROSEMIDE 10 MG/ML 4 ML VIAL IV SCH (20:17)
[2017-06-14] MEDS: HEPARIN SODIUM,PORCINE 5,000 UNIT/ML 1 ML VIAL SQ SCH ×3 (01:48→17:09)
[2017-06-14 06:38] LABS: Basophils % (A) 0 %; Eosinophils # (A) 0.3 k/uL (0-0.7); Eosinophils % (A) 4 %; HCT 32.1 % (39.0-53.0); HGB 10.8 gm/dL (13.0-17.5); Lymphocytes # (A) 0.7 k/uL (1.0-4.8); Lymphocytes % (A) 9 %; MCH 31.2 pg (25.0-35.0); MCHC 33.6 g/dL (31.0-37.0); MCV 92.9 fL (80.0-100.0); Mean Platelet Volume 7.6; Monocytes # (A) 0.5 k/uL (0-1.0); Monocytes % (A) 6 %; Neutrophils % (A) 79 %; Platelet Count 160 k/uL (150-450); RBC 3.45 m/uL (4.30-5.90); WBC 7.6 k/uL (3.8-10.6)
[2017-06-14 06:50] LABS: Anion Gap 13 mmol/L; Blood Urea Nitrogen 13 mg/dL (9-20); Calcium 8.5 mg/dL (8.4-10.2); Carbon Dioxide 19 mmol/L (22-30); Chloride 102 mmol/L (98-107); Glucose 135 mg/dL (74-99); Potassium 3.5 mmol/L (3.5-5.1); Sodium 134 mmol/L (137-145)
[2017-06-14] MEDS: IPRATROPIUM-ALBUTEROL 3 ML NEB INHALATION PRN ×3 (08:37→16:11)
[2017-06-14] MEDS: TAMSULOSIN 0.4 MG CAP.ER.24H PO SCH (08:45)
[2017-06-14] MEDS: cefTRIAXone IN SWFI 1,000 MG/10 ML SYRINGE IVP SCH (08:45)
[2017-06-14] MEDS: FAMOTIDINE 20 MG TAB PO SCH ×2 (08:46→20:53)
[2017-06-14] MEDS: FUROSEMIDE 10 MG/ML 4 ML VIAL IV SCH ×2 (08:46→20:54)
[2017-06-14] MEDS: SERTRALINE 100 MG TAB PO SCH (08:46)
[2017-06-14] MEDS: CLOPIDOGREL 75 MG TAB PO SCH (08:46)
[2017-06-14] MEDS: ASPIRIN 81 MG PO SCH (09:42)
[2017-06-14] MEDS: LISINOPRIL 5 MG TAB PO SCH (10:02)
[2017-06-14] MEDS: POTASSIUM CHLORIDE ER 20 MEQ TAB.ER PO SCH (17:09)
[2017-06-14] MEDS: CARVEDILOL 3.125 MG TAB PO SCH (17:09)
[2017-06-14] MEDS: PRAVASTATIN SODIUM 40 MG TAB PO SCH (20:53)
--- NOTE | 2017-06-15 00:54 | P.PN ---
Subjective Progress Note Date: 06/14/17 Principal diagnosis: Acute urinary tract infection and CHF exacerbation Patient is a 62-year-old male with a known history of CHF with systolic dysfunction ejection fraction 35-40%, from hypertension, hyperlipidemia, schizophrenia and recent admission with electrolyte imbalance and dehydration was sent to infection care facility on 06/09/2017. Patient had urinary retention during last admission and Mesa catheter was discontinued before discharge with trial void. Otherwise poorly kept was placed back the extended care Facility. Patient sent to ER from retirement with altered mental status and her grandson any questions although is able to follow simple commands. T-max was 100.1 at the facility. Patient denied any complains of, sputum production. No headache or dizziness lightheadedness. No nausea vomiting abdominal pain. Denied any difficulty breathing otherwise. Patient currently awake and oriented 3. At times patient is nonverbal. Patient does have underlying schizophrenia otherwise. Chest x-ray showed findings most constant with right heart failure BNP 2230 ALT 153 AST 121 alk phos 102 Sodium 135 T-max while in hospital is 100.6 Last echocardiogram done on 01/10/2016 showed ejection fraction of 35 -40% Urine culture showed no growth during last admission on 06/06/2017 Patient does have abnormal urine analysis 06/14/2017 Patient denied any complaints of chest pain or worsening shortness of breath. Breathing status is improved. Urine culture showed no growth which can be due to patient already received antibiotics before the cultures. Otherwise patient is being continued on IV Lasix and follow-up renal function tomorrow. Cardiology is following. No complaints of nausea vomiting. No fever no chills. Patient is confused on and off otherwise this could be underlying schizophrenia. All other review of systems negative except the above Active Medication List Albuterol/Ipratropium (Duoneb 0.5 Mg-3 Mg/3 Ml Soln) 3 ml INHALATION RT-QID PRN PRN Reason: Shortness Of Breath Or Wheezing Last Admin: 06/14/17 16:11 Dose: 3 ml Admin: 06/14/17 12:20 Dose: 3 ml Admin: 06/14/17 08:37 Dose: 3 ml Artificial Tears (Artificial Tear Drops) 1 drops BOTH EYES TID PRN PRN Reason: DRY EYES Aspirin (Aspirin) 81 mg PO DAILY PAIGE Last Admin: 06/14/17 09:42 Dose: Bisacodyl (Dulcolax) 10 mg RECTAL DAILY PRN PRN Reason: Constipation Carvedilol (Coreg) 3.125 mg PO BID-W/MEALS [facility] Last Admin: 06/14/17 17:09 Dose: 3.125 mg Ceftriaxone Sodium (Rocephin) 1,[address] [facility] Last Admin: 06/14/17 08:45 Dose: 1,000 mg Clopidogrel Bisulfate (Plavix) [address] [facility] Last Admin: 06/14/17 08:46 Dose: 75 mg Famotidine (Pepcid) [address] [facility] Last Admin: 06/14/17 20:53 Dose: 20 mg Admin: 06/14/17 08:46 Dose: 20 mg Admin: 06/13/17 20:14 Dose: 20 mg Furosemide (Lasix) [address] [facility] Last Admin: 06/14/17 20:54 Dose: 40 mg Admin: 06/14/17 08:46 Dose: 40 mg Admin: 06/13/17 20:17 Dose: 40 mg Heparin Sodium (Porcine) (Heparin) 5,[address] [facility] Last Admin: 06/14/17 17:09 Dose: 5,000 unit Admin: 06/14/17 08:46 Dose: 5,000 unit Admin: 06/14/17 01:48 Dose: 5,000 unit Admin: 06/13/17 16:38 Dose: 5,000 unit Lisinopril (Zestril) [address] [facility] Last Admin: 06/14/17 10:02 Dose: 5 mg Magnesium Hydroxide (Milk Of Magnesia) 2,400 mg PO DAILY PRN PRN Reason: Constipation Nitroglycerin (Nitrostat) 0.4 mg SUBLINGUAL Q5M PRN PRN Reason: Chest Pain Potassium Chloride (K-Dur 20) 20 meq PO DAILY@1700 [facility] Last Admin: 06/14/17 17:09 Dose: 20 meq Admin: 06/13/17 16:38 Dose: 20 meq Pravastatin Sodium (Pravachol) 40 mg PO HS@2100 [facility] Last Admin: 06/14/17 20:53 Dose: 40 mg Admin: 06/13/17 20:14 Dose: 40 mg Sertraline HCl (Zoloft) [address] [facility] Last Admin: 06/14/17 08:46 Dose: 100 mg Sodium Biphosphate/Sodium Phosphate (Fleet Adult) 133 ml RECTAL DAILY PRN PRN Reason: Constipation Tamsulosin HCl (Flomax) 0.4 mg PO PC-BRKFST [facility] Last Admin: 06/14/17 08:45 Dose: 0.4 mg Discontinued Medications Acetaminophen (Tylenol Tab) 1,000 mg PO ONCE STA Stop: 06/13/17 08:23 Last Admin: 06/13/17 08:58 Dose: 1,000 mg Aspirin (Aspirin) 325 mg PO DAILY@1700 [facility] Last Admin: 06/13/17 16:40 Dose: 325 mg Ceftriaxone Sodium (Rocephin) 1,000 mg IVP ONCE STA Stop: 06/13/17 09:09 Last Admin: 06/13/17 09:45 Dose: 1,000 mg Furosemide (Lasix) 40 mg IV ONCE STA Stop: 06/13/17 09:08 Last Admin: 06/13/17 09:49 Dose: 40 mg Furosemide (Lasix) [address] [facility] Last Admin: 06/13/17 16:38 Dose: 40 mg Sodium Chloride (Saline 0.9%) 1,000 mls @ 999 mls/hr IV .Q1H1M ONE Stop: 06/13/17 08:49 Last Admin: 06/13/17 08:03 Dose: 999 mls/hr Sodium Chloride (Saline 0.9%) 1,000 mls @ 75 mls/hr IV .[id number] [facility] Last Admin: 06/13/17 15:48 Dose: 75 mls/hr Ibuprofen (Motrin) 600 mg PO ONCE STA Stop: 06/13/17 08:23 Last Admin: 06/13/17 08:57 Dose: 600 mg Nitroglycerin (Nitro-Bid Oint) 1 inch TOPICAL ONCE STA Stop: 06/13/17 09:12 Last Admin: 06/13/17 09:43 Dose: 1 inch Nitroglycerin (Nitro-Bid Oint) [address] [facility] Last Admin: 06/13/17 14:37 Dose: Objective - Vital Signs Vital signs: Vital Signs Temp 98.2 F 06/14/17 11:26 Pulse 92 06/14/17 12:32 Resp 16 06/14/17 12:00 BP 125/52 06/14/17 11:26 Pulse Ox 94 L 05/06/18 11:26 Intake & Output 06/13/17 06/14/17 06/14/17 18:59 06:59 18:59 Intake Total 120 360 480 Output Total 620 1900 1500 Balance -500 -1540 -1020 Weight 73.4 kg 72.5 kg Intake: Oral 120 360 480 Output: Urine 620 1900 1500 Other: Voiding Method Indwelling Catheter Indwelling Catheter Indwelling Catheter - Exam PHYSICAL EXAMINATION: Patient is lying in the bed comfortably, no acute distress, awake alert and oriented. Patient seems slightly confused and was able to communicate slowly. HEENT: Normocephalic. Neck is supple. Pupils reactive. Nostrils clear. Oral cavity is moist. Ears reveal no drainage. Neck reveals no JVD, carotid bruits, or thyromegaly. CHEST EXAMINATION: Trachea is central. Symmetrical expansion. Bibasilar diminished air entry. Lung higgins clear to auscultation and percussion. CARDIAC: Normal S1, S2 with no gallops. No murmurs ABDOMEN: Soft. Bowel sounds normal. No organomegaly. No abdominal bruits. Extremities: reveal no edema. No clubbing or cyanosis Neurologically awake, alert, oriented x1-2 with well-coordinated movements. No focal deficits noted Skin: No rash or skin lesions. Psychiatric: Coperative. Could not be assessed completely Musculoskeletal: No joint swelling or deformity. Normal range of motion. - Labs CBC & Chem 7: 06/14/17 06:00 06/14/17 06:00 Labs: Abnormal Lab Results - Last 24 Hours (Table) 06/14/17 06/14/17 Range/Units 06:00 06:00 RBC 3.45 L (4.30-5.90) m/uL Hgb 10.8 L (13.0-17.5) gm/dL Hct 32.1 L (39.0-53.0) % Lymphocytes # 0.7 L (1.0-4.8) k/uL Sodium 134 L (137-145) mmol/L Carbon Dioxide 19 L (22-30) mmol/L Creatinine 0.60 L (0.66-1.25) mg/dL Glucose 135 H (74-99) mg/dL Microbiology - Last 24 Hours (Table) 06/13/17 07:35 Blood Culture - Preliminary Blood No Growth after 24 hours 06/13/17 17:00 Urine Culture - Preliminary Urine,Catheterized Assessment and Plan Assessment: Acute metabolic encephalopathy due to infection. Improved to baseline now. Acute on chronic CHF with systolic dysfunction ejection fraction 35-40%. Last echocardiogram done on 01/10/2016 Acute urinary tract infection. Possible cath-related Mild hyponatremia Hypomagnesemia Schizophrenia COPD not in acute exacerbation Urinary retention. Currently patient is on Mesa catheter chronic indwelling. Hypertension Mild elevated liver enzymes DVT prophylaxis PLAN Patient was given IV hydration while in the ER. Patient was also started on IV Lasix 40 mg and continue twice a day. Will hold IV fluids due to vascular congestion and follow-up renal function closely. Replace electrolytes. Continue with antibiotics in the form of ceftriaxone and urine culture was ordered. Patient already received one dose of ceftriaxone in the ER. Mesa catheter has been replaced in the ER. Continue with Flomax and trial void while in the hospital. Further recommendations based on the clinical course. During previous admission, Patient was evaluated by psychiatric services. Patient is not oriented to his name place or time but follows commands. Time with Patient: Greater than 30
[2017-06-15] MEDS: HEPARIN SODIUM,PORCINE 5,000 UNIT/ML 1 ML VIAL SQ SCH ×3 (01:04→17:59)
--- NOTE | 2017-06-15 07:35 | P.PN ---
Subjective Progress Note Date: 06/15/17 Principal diagnosis: This is a 62-year-old white male essentially readmitted for altered mental status. He is still somewhat confused. He follows commands but does not orient to time and location. He does not complain of any pain. Essentially admitted for fluid overload. Examination does show that he does have mild rhonchi but he is breathing comfortably. I'll switch him over to by mouth Lasix today. We will anticipate transfer to [facility] in the next 24 hours if he continues this trajectory. Objective - Vital Signs Vital signs: Vital Signs Temp 96.0 F L 06/15/17 04:00 Pulse 76 06/15/17 04:00 Resp 18 06/15/17 04:00 BP 104/61 06/15/17 04:00 Pulse Ox 93 L 06/15/17 04:00 Intake & Output 06/14/17 06/15/17 06/15/17 18:59 06:59 18:59 Intake Total 720 240 Output Total 1500 1700 Balance -780 -1460 Weight 70.5 kg Intake: Oral 720 240 Output: Urine 1500 1700 Other: Voiding Method Indwelling Catheter Indwelling Catheter - Constitutional General appearance: Present: average body habitus - EENT Eyes: Absent: abnormal pupil - Neck Neck: Absent: lymphadenopathy - Respiratory Respiratory: bilateral: CTA - Cardiovascular Rhythm: regular Heart sounds: normal: S1, S2 Abnormal Heart Sounds: Absent: S3 Gallop - Gastrointestinal General gastrointestinal: Present: soft. Absent: tenderness - Musculoskeletal Musculoskeletal: Present: gait normal - Psychiatric Psychiatric: Absent: A&O x's 3 - Labs CBC & Chem 7: 06/14/17 06:00 06/14/17 06:00 Labs: Microbiology - Last 24 Hours (Table) 06/13/17 17:00 Urine Culture - Final Urine,Catheterized 06/13/17 07:35 Blood Culture - Preliminary Blood No Growth after 24 hours Assessment and Plan (1) Altered mental status Current Visit: Yes Status: Acute Code(s): R41.82 - ALTERED MENTAL STATUS, UNSPECIFIED SNOMED Code(s): 225157064 (2) Pulmonary edema, acute Current Visit: Yes Status: Acute Code(s): J81.0 - ACUTE PULMONARY EDEMA SNOMED Code(s): 78704950 (3) Urinary tract infection Current Visit: Yes Status: Acute Code(s): N39.0 - URINARY TRACT INFECTION, SITE NOT SPECIFIED SNOMED Code(s): 67878886 (4) Acute urinary retention Current Visit: No Status: Acute Code(s): R33.8 - OTHER RETENTION OF URINE SNOMED Code(s): 113479344 Plan: DC Mesa catheter and trial void today. Check CBC and CMP in a.m. per Again, anticipate discharge in next 24-48 hours. Pulmonary edema clinically is significantly improved.
[2017-06-15] MEDS: cefTRIAXone IN SWFI 1,000 MG/10 ML SYRINGE IVP SCH (07:53)
[2017-06-15] MEDS: ASPIRIN 81 MG PO SCH (07:54)
[2017-06-15] MEDS: CLOPIDOGREL 75 MG TAB PO SCH (07:54)
[2017-06-15] MEDS: TAMSULOSIN 0.4 MG CAP.ER.24H PO SCH (07:54)
[2017-06-15] MEDS: CARVEDILOL 3.125 MG TAB PO SCH (07:54)
[2017-06-15] MEDS: LISINOPRIL 5 MG TAB PO SCH (07:55)
[2017-06-15] MEDS: FAMOTIDINE 20 MG TAB PO SCH ×2 (07:55→21:06)
[2017-06-15] MEDS: SERTRALINE 100 MG TAB PO SCH (07:55)
[2017-06-15] MEDS: FUROSEMIDE 40 MG TAB PO SCH ×2 (08:32→17:59)
[2017-06-15] MEDS ORDERED: FUROSEMIDE 40 MG TAB PO SCH (09:00)
[2017-06-15 09:02] LABS: Basophils % (A) 1 %; Eosinophils # (A) 0.3 k/uL (0-0.7); Eosinophils % (A) 5 %; HCT 36.8 % (39.0-53.0); HGB 12.1 gm/dL (13.0-17.5); Lymphocytes # (A) 0.8 k/uL (1.0-4.8); Lymphocytes % (A) 13 %; MCH 30.5 pg (25.0-35.0); MCHC 32.8 g/dL (31.0-37.0); MCV 92.9 fL (80.0-100.0); Mean Platelet Volume 7.6; Monocytes # (A) 0.4 k/uL (0-1.0); Monocytes % (A) 7 %; Neutrophils # (A) 4.5 k/uL (1.3-7.7); Neutrophils % (A) 73 %; Platelet Count 183 k/uL (150-450); RBC 3.96 m/uL (4.30-5.90); RDW 14.1 % (11.5-15.5); WBC 6.2 k/uL (3.8-10.6)
--- NOTE | 2017-06-15 12:13 | ECHOF ---
Referral Reason:chf MEASUREMENTS -------- HEIGHT: 172.7 cm WEIGHT: 70.3 kg BP: 104/61 RVIDd: 2.9 cm (< 3.3) IVSd: 1.1 cm (0.6 - 1.1) LVIDd: 5.5 cm (3.9 - 5.3) LVPWd: 1.1 cm (0.6 - 1.1) IVSs: 1.3 cm LVIDs: 5.7 cm LVPWs: 1.0 cm LA Diam: 5.3 cm (2.7 - 3.8) LAESV Index (A-L): 58.30 ml/m Ao Diam: 3.8 cm (2.0 - 3.7) AV Cusp: 1.8 cm (1.5 - 2.6) LA Diam: 3.5 cm (2.7 - 3.8) MV EXCURSION: 18.872 mm (> 18.000) MV EF SLOPE: 75 mm/s (70 - 150) EPSS: 2.1 cm MV E Tommy: 0.63 m/s MV DecT: 236 ms MV A Tommy: 0.63 m/s MV E/A Ratio: 0.99 AR PHT: 476 ms RAP: 5.00 mmHg RVSP: 20.99 mmHg FINDINGS -------- Undetermined rhythm. This was a technically adequate study. The left ventricular size is normal. Left ventricular wall thickness is normal. Overall left vent ricular systolic function is moderate-severely impaired with, an EF between 30 - 35 %. Inferior Hyp okinesis The right ventricle is normal in size. The left atrium is moderately dilated. LA is severely dilated >40 ml/m2 The right atrial size is normal. There is mild aortic valve sclerosis. There is moderate aortic regurgitation. The mitral valve leaflets are mildly thickened. Mild mitral annular calcification present. Modera te mitral regurgitation is present. Mild tricuspid regurgitation present. Right ventricular systolic pressure is normal at < 35 mmHg. There is no evidence of pulmonary hypertension. The right ventricular systolic pressure, as measur ed by Doppler, is 20.99mmHg. Trace/mild (physiologic) pulmonic regurgitation. The aortic root size is normal. There is no pericardial effusion. CONCLUSIONS -------- 1. The left ventricular size is normal. 2. Left ventricular wall thickness is normal. 3. Overall left ventricular systolic function is moderate-severely impaired with, an EF between 30 - 35 %. 4. Inferior Hypokinesis 5. The left atrium is moderately dilated. 6. LA is severely dilated >40 ml/m2 7. The right atrial size is normal. 8. There is mild aortic valve sclerosis. 9. There is moderate aortic regurgitation. 10. The mitral valve leaflets are mildly thickened. 11. Mild mitral annular calcification present. 12. Moderate mitral regurgitation is present. 13. Mild tricuspid regurgitation present. 14. Right ventricular systolic pressure is normal at < 35 mmHg. 15. There is no evidence of pulmonary hypertension. 16. The right ventricular systolic pressure, as measured by Doppler, is 20.99mmHg. 17. Trace/mild (physiologic) pulmonic regurgitation. 18. The aortic root size is normal. 19. There is no pericardial effusion. WATER MECHANIC: Veena Batista RDCS
[2017-06-15 12:33] LABS: Hepatitis A Antibody IgM Non-Reactive (Non-Reactive); Hepatitis B Core IgM Non-Reactive (Non-Reactive)
[2017-06-15 13:30] LABS: Anion Gap 15 mmol/L; Blood Urea Nitrogen 14 mg/dL (9-20); Carbon Dioxide 20 mmol/L (22-30); Chloride 104 mmol/L (98-107); Glucose 119 mg/dL (74-99); Potassium 3.8 mmol/L (3.5-5.1); Sodium 139 mmol/L (137-145)
[2017-06-15 14:39] VITALS: BMI 23.6
--- NOTE | 2017-06-15 15:56 | PN ---
PROGRESS NOTE DATE OF SERVICE: 06/15/2017. HISTORY: This patient was admitted with a change in mental status. He is being treated for infection as well as some mild heart failure. The patient is feeling better. He still remains confused. PHYSICAL EXAM: Blood pressure is 124/58 mmHg, respirations are not labored. There is a systolic murmur heard at the apex. Abdomen is soft. Extremities, there is no evidence of any leg edema. IMPRESSION: Patient's congestive heart failure is improved. The patient's echocardiogram shows left ventricular ejection fraction is 30% to 35%. There is a moderate degree of mitral regurgitation, mild degree of tricuspid regurgitation is present, and mild to moderate degree of aortic regurgitation is present. Left atrium is dilated. We will continue the current medications. MMODL / IJN: [id number] /
[2017-06-15] MEDS: SPIRONOLACTONE 25 MG TAB PO SCH (17:58)
[2017-06-15] MEDS: POTASSIUM CHLORIDE ER 20 MEQ TAB.ER PO SCH (17:58)
[2017-06-15] MEDS: CARVEDILOL 6.25 MG TAB PO SCH (18:32)
[2017-06-15] MEDS: PRAVASTATIN SODIUM 40 MG TAB PO SCH (21:06)
[2017-06-16] MEDS: CARVEDILOL 6.25 MG TAB PO SCH (06:10)
[2017-06-16 06:41] LABS: HCT 34.6 % (39.0-53.0); HGB 11.8 gm/dL (13.0-17.5); MCH 31.3 pg (25.0-35.0); Mean Platelet Volume 7.4; Platelet Count 171 k/uL (150-450); RBC 3.76 m/uL (4.30-5.90); RDW 14.2 % (11.5-15.5); WBC 6.7 k/uL (3.8-10.6)
--- NOTE | 2017-06-16 06:56 | P.DS ---
Providers Date of admission: 06/13/17 09:22 Attending physician: Juan Stearns Consults: 06/13/17 09:22 Consult Physician Routine Consulting Provider: [facility] Consult Reason/Comments: Pulmonary edema Do you want consulting provider notified?: Yes Primary care physician: Juan Stearns - Discharge Diagnosis(es) (1) Altered mental status Current Visit: Yes Status: Acute (2) Pulmonary edema, acute Current Visit: Yes Status: Acute (3) Urinary tract infection Current Visit: Yes Status: Acute (4) Acute urinary retention Current Visit: No Status: Acute Hospital Course: The patient is a [id number] white male essentially admitted for altered mental status and pulmonary edema. The patient was diuresed for 24-48 hours IV Lasix. The patient did quite well but remained confused. He was placed appropriate antibiotics and is not discharge. Appropriate consultation with cardiology was done. Once the patient is cleared via cardiology, I anticipate the patient will be transferred back to [facility]. Unfortunately, he is remained somewhat confused but I suspect this is his baseline. Psychiatric evaluation has been done recently. There are no overt lateralizing findings as far as neurologic changes. The patient is discharged with elements of heart failure but is now stabilized. The patient will follow-up with me in approximately 7- 10 days. Patient Condition at Discharge: Stable Plan - Discharge Summary Discharge Rx Participant: No New Discharge Prescriptions: Continue Clopidogrel [Plavix] 75 mg PO DAILY #30 tab Pravastatin Sodium [Pravachol] 40 mg PO HS@2100 Lisinopril [Zestril] 10 mg PO DAILY tab Nitroglycerin Sl Tabs [Nitrostat] 0.4 mg SUBLINGUAL Q5M PRN #0 tab PRN Reason: Chest Pain Albuterol Nebulized (Conc) [Ventolin Nebulized (Conc)] 2.5 mg INHALATION RT- QID PRN PRN Reason: Shortness Of Breath Ipratropium Nebulized [Atrovent Nebulized] 0.5 mg INHALATION RT-QID PRN PRN Reason: Shortness Of Breath Carvedilol [Coreg] 6.25 mg PO BID-W/MEALS #60 tab Potassium Chloride ER [K-Dur 20] 20 meq PO DAILY@1700 Ibuprofen [Motrin] 800 mg PO BID PRN PRN Reason: Pain Sertraline HCl [Zoloft] 100 mg PO DAILY Paliperidone IM [Invega Sustenna] 234 mg IM Q28D Famotidine [Pepcid] 20 mg PO BID Cyclobenzaprine HCl 10 mg PO TID Tamsulosin [Flomax] 0.4 mg PO -BRKFST #0 cap.er.24h Artificial Tears-Hypromellose [Artificial Tear Drops] 1 drops BOTH EYES TID PRN PRN Reason: DRY EYES Aspirin 325 mg PO DAILY@1700 Bisacodyl [Dulcolax] 10 mg RECTAL DAILY PRN PRN Reason: Constipation Furosemide [Lasix] 40 mg PO DAILY@0600 Magnesium Hydroxide [Milk of Magnesia] 2,400 mg PO DAILY PRN PRN Reason: Constipation Na Phos,M-B/Na Phos,Di-Ba [Fleet Adult] 133 ml RECTAL DAILY PRN PRN Reason: Constipation Discharge Medication List Clopidogrel [Plavix] 75 mg PO DAILY #30 tab 07/25/15 [Rx] Pravastatin Sodium [Pravachol] 40 mg PO HS@2100 10/05/15 [History] Lisinopril [Zestril] 10 mg PO DAILY tab 11/16/15 [Rx] Nitroglycerin Sl Tabs [Nitrostat] 0.4 mg SUBLINGUAL Q5M PRN #0 tab 11/16/15 [Rx] Albuterol Nebulized (Conc) [Ventolin Nebulized (Conc)] 2.5 mg INHALATION RT-QID PRN 01/10/16 [History] Ipratropium Nebulized [Atrovent Nebulized] 0.5 mg INHALATION RT-QID PRN [History] Carvedilol [Coreg] 6.25 mg PO BID-W/MEALS #60 tab 01/15/16 [Rx] Cyclobenzaprine HCl 10 mg PO TID 06/04/17 [History] Famotidine [Pepcid] 20 mg PO BID 06/04/17 [History] Ibuprofen [Motrin] 800 mg PO BID PRN 06/04/17 [History] Paliperidone IM [Invega Sustenna] 234 mg IM Q28D 06/04/17 [History] Potassium Chloride ER [K-Dur 20] 20 meq PO DAILY@1700 06/04/17 [History] Sertraline HCl [Zoloft] 100 mg PO DAILY 06/04/17 [History] Tamsulosin [Flomax] 0.4 mg PO PC-BRKFST #0 cap.er.24h 06/09/17 [Rx] Artificial Tears-Hypromellose [Artificial Tear Drops] 1 drops BOTH EYES TID PRN 06/13/17 [History] Aspirin 325 mg PO DAILY@1700 06/13/17 [History] Bisacodyl [Dulcolax] 10 mg RECTAL DAILY PRN 06/13/17 [History] Furosemide [Lasix] 40 mg PO DAILY@0600 06/13/17 [History] Magnesium Hydroxide [Milk of Magnesia] 2,400 mg PO DAILY PRN 06/13/17 [History] Na Phos,M-B/Na Phos,Di-Ba [Fleet Adult] 133 ml RECTAL DAILY PRN 06/13/17 [ History] Follow up Appointment(s)/Referral(s): Juan Stearns MD [Primary Care Provider] - 1 Week Discharge Disposition: TRANSFER TO SNF/ECF
[2017-06-16 07:13] LABS: ALT 196 U/L (21-72); AST 266 U/L (17-59); Albumin 3.3 g/dL (3.5-5.0); Alkaline Phosphatase 121 U/L (38-126); Anion Gap 13 mmol/L; Blood Urea Nitrogen 13 mg/dL (9-20); Carbon Dioxide 20 mmol/L (22-30); Chloride 103 mmol/L (98-107); Glucose 86 mg/dL (74-99); Potassium 3.8 mmol/L (3.5-5.1); Sodium 136 mmol/L (137-145); Total Bilirubin 0.4 mg/dL (0.2-1.3); Total Protein 6.2 g/dL (6.3-8.2)
[2017-06-16 07:56] VITALS: BP 118/56; PULSE 71; RESP 16; TEMP 97.2
[2017-06-16] MEDS: SERTRALINE 100 MG TAB PO SCH (08:13)
[2017-06-16] MEDS: SPIRONOLACTONE 25 MG TAB PO SCH (08:13)
[2017-06-16] MEDS: cefTRIAXone IN SWFI 1,000 MG/10 ML SYRINGE IVP SCH (08:13)
[2017-06-16] MEDS: CLOPIDOGREL 75 MG TAB PO SCH (08:14)
[2017-06-16] MEDS: FAMOTIDINE 20 MG TAB PO SCH (08:14)
[2017-06-16] MEDS: ASPIRIN 81 MG PO SCH (08:14)
[2017-06-16] MEDS: HEPARIN SODIUM,PORCINE 5,000 UNIT/ML 1 ML VIAL SQ SCH ×2 (08:14)
[2017-06-16] MEDS: FUROSEMIDE 40 MG TAB PO SCH (08:14)
[2017-06-16] MEDS: TAMSULOSIN 0.4 MG CAP.ER.24H PO SCH (08:14)
[2017-06-16] MEDS ORDERED: LISINOPRIL 10 MG TAB PO SCH (09:00)
--- NOTE | 2017-06-18 11:08 | CDI ---
Last Revision, January 2017 Documentation Clarification Form Date: 06/18/17 From: Ruby Néstor Danica Del Real, Numerical Control Operator Hours-8:30 am & 5 pm [email or web address] Admit Date: 06/13/2017 9:22:00 AM Patient Name: Sarkis Treviño Visit Number: [id number] Discharge Date: 06/16/17 ATTENTION: The Clinical Documentation Specialists (CDI) and [facility] Coding Staff appreciate your assistance in clarifying documentation. Please respond to the clarification below the line at the bottom and electronically sign. The CDI & [facility] Coding staff will review the response and follow-up if needed. Please note: Queries are made part of the Legal Health Record. If you have any questions, please contact the author of this message via ITS. Dr. Juan Stearns A diagnosis of UTI has been documented in the ED note, H&P, 06/14 & 06/15 PN & DS Per documentation in the H&P and 06/14 PN this patient was admitted with an indwelling Mesa catheter due to chronic urinary retention. Clinical Indicators: Urinalysis: 1+ protein, moderate blood, large amt Ur leukocyte esterase, RBC-141 , WBC >182 Urine culture: no growth Treatment: Rocephin IVP 1000 mg Q24hr In your professional opinion, can you please clarify the etiology of the UTI, if known? Mesa catheter UTI not related to catheter/urostomy Other condition, please specify Unable to determine Please continue to document in your progress notes and discharge summary in order to capture severity of illness and risk of mortality. Include clinical findings that support your diagnosis. MTDD
== END 2017-06-16 14:35 | DRG 698 ==
LOC: EC 07:21 → 6SEL 09:22
PROVIDERS: ADMIT Family Medicine; ATTEND Family Medicine
DX: T83.511A Infection and inflammatory reaction due to indwelling urethral catheter, initial encounter (principal); G93.41 Metabolic encephalopathy; I50.23 Acute on chronic systolic (congestive) heart failure; E87.1 Hypo-osmolality and hyponatremia; N39.0 Urinary tract infection, site not specified; F20.9 Schizophrenia, unspecified; I08.3 Combined rheumatic disorders of mitral, aortic and tricuspid valves; E83.42 Hypomagnesemia; I11.0 Hypertensive heart disease with heart failure; R33.9 Retention of urine, unspecified; J44.9 Chronic obstructive pulmonary disease, unspecified; F41.9 Anxiety disorder, unspecified; E78.5 Hyperlipidemia, unspecified; I25.2 Old myocardial infarction; R73.03 Prediabetes; H04.123 Dry eye syndrome of bilateral lacrimal glands; E86.0 Dehydration; R74.8 Abnormal levels of other serum enzymes; K59.00 Constipation, unspecified; F17.200 Nicotine dependence, unspecified, uncomplicated; Z71.6 Tobacco abuse counseling; Z79.82 Long term (current) use of aspirin; Z79.02 Long term (current) use of antithrombotics/antiplatelets; Z79.899 Other long term (current) drug therapy; Z95.5 Presence of coronary angioplasty implant and graft; Y84.6 Urinary catheterization as the cause of abnormal reaction of the patient, or of later complication, without mention of misadventure at the time of the procedure
CPT/HCPCS: 36415; 51701; 71046; 80048; 80053; 80074; 80306; 81001; 82550; 82553; 83605; 83880; 84484; 85025; 85027; 85610; 85730; 87040; 87086; 93005; 93306; 94640; 94760; 96361; 96374; 96375; 99291

== ENCOUNTER → 2017-06-26 | Outpatient (CLI) | payer MEDICARE, OTHER ==
--- NOTE | 2017-06-27 11:03 | CT ---
EXAMINATION TYPE: CT abdomen pelvis w con DATE OF EXAM: 06/26/2017 COMPARISON: Prior CT 05/08/2017 HISTORY: Patient poor historian. Patient has elevated liver enzymes. CT DLP: 1129 mGycm Automated exposure control for dose reduction was used. TECHNIQUE: Helical acquisition of images from the lung bases through the pelvis have been completed. CONTRAST: Performed with Oral Contrast and with IV Contrast, patient injected with 100 mL of Isovue 300. FINDINGS: LUNG BASES: Subpleural nodules in the right lower lobe shows a similar appearance. The heart is enlar ged. There are coronary artery calcifications present. Suspect mitral annular calcification. Intersti tium is somewhat increased. No pleural or pericardial effusion. AORTA: No significant abnormality is appreciated. LIVER/GB: Liver shows low possibly due to hepatic steatosis, there is no evident mass, dependent high density in the gallbladder compatible with stones as on prior. PANCREAS: No significant abnormality is seen. SPLEEN: No significant abnormality is seen. ADRENALS: No significant abnormality is seen. KIDNEYS: Cortical cysts are again noted associated with the kidneys REPRODUCTIVE ORGANS: No significant abnormality is seen BOWEL: No significant abnormality is seen. Large amount of retained fecal debris present throughout the distribution of the colon, there is no evident bowel obstruction. No evident appendicitis. FREE AIR: No Free Air visible. ASCITES: None visible. PELVIC ADENOPATHY: None visualized. RETROPERITONEAL ADENOPATHY: No Retroperitoneal Adenopathy visible. URINARY BLADDER: Diffuse abnormal thickening of the urinary bladder is present, there is an indwelli ng Mesa catheter. Cannot exclude underlying mass or infection. OSSEOUS STRUCTURES: Degenerative disc disease as described. IMPRESSION: Findings in the bladder and liver as described. Consider pulmonary venous hypertension and interstiti al edema. Indeterminate lung nodules are stable. Cholelithiasis. Correlate for fecal stasis.
== END | disposition home or self-care (01) ==
LOC: RADCTMAIN 17:28
PROVIDERS: ATTEND Internal Medicine Geriatric Medicine
DX: R94.5 Abnormal results of liver function studies (principal); R74.8 Abnormal levels of other serum enzymes; K80.20 Calculus of gallbladder without cholecystitis without obstruction
CPT/HCPCS: 74177; Q9967

== ENCOUNTER 2017-08-26 09:07 | Day surgery (SDC) | payer MEDICARE, OTHER ==
[~2017-08-26 09:07] MED LIST: LACTATED RINGERS 1,000 ML IV SCH
[2017-08-26] MEDS ORDERED: LIDOCAINE 1% 20 ML VIAL (10MG/ML) FOR IV START INTRADERMA ONE (09:42)
[2017-08-26] MEDS ORDERED: LIDOCAINE 1% INJ 10MG/ML (20 ML MDV) ONE (10:19)
[2017-08-26] MEDS ORDERED: PROPOFOL 10 MG/ML 20 ML VIAL IV ONE (10:19)
--- NOTE | 2017-08-26 10:42 | P.PCN ---
Date of Procedure: 08/26/17 Procedure(s) Performed: BRIEF HISTORY: Patient is a 62-year-old, pleasant, white male, scheduled for an upper endoscopy as a part of evaluation of dysphagia for the last few months duration.. PROCEDURE PERFORMED: Esophagogastroduodenoscopy with biopsy. PREOPERATIVE DIAGNOSIS: GERD/dysphagia. IV sedation per anesthesia. PROCEDURE: After informed consent was obtained, the patient was brought into the endoscopy unit. IV sedation was administered by Anesthesia under continuous monitoring. Initially the Olympus GIF-140 video endoscope was inserted into the mouth. Esophagus intubated without any difficulty. It was gradually advanced into the stomach and duodenum and carefully examined. The bulb and the second part of the duodenum appeared normal. The scope at this time was withdrawn to the stomach, adequately insufflated with air, and upon careful examination, mucosa of the antrum, had mild ascites and biopsies were done from this area. The body, cardia and the fundus appeared normal. The scope was then withdrawn into the esophagus. Moderate size hiatal hernia noted. The GE junction was located at 35 cm from the incisors. There was Webb's esophagus extending from 33-35 cm to the incisors and multiple biopsies were done from this area. There were linear erosions in the distal esophagus consistent with LA grade C reflux esophagitis. The rest of the esophagus appeared normal and the patient tolerated the procedure well. . IMPRESSION: 1. Moderate size hiatal hernia. 2. Webb's esophagus 3. LA grade C reflux esophagitis and mild gastritis. RECOMMENDATIONS: The findings of this examination were discussed with the patient as well as his family. He will be started on Prilosec 20 mg twice daily and advised to stop the Pepcid. He will follow antireflux ulcers and he' ll be seen in office in 6 weeks..
[2017-08-26] MEDS ORDERED: FUROSEMIDE 10 MG/ML 2 ML VIAL IV STA (10:51)
[2017-08-26] MEDS ORDERED: ALBUTEROL NEBULIZED 2.5 MG/3 ML INHALATION STA (10:52)
[2017-08-26] MEDS ORDERED: ALBUTEROL NEBULIZED 2.5 MG/3 ML INHALATION ONE (11:01)
[2017-08-26] MEDS ORDERED: FUROSEMIDE 10 MG/ML 2 ML VIAL IVP ONE (11:01)
[2017-08-26] MEDS ORDERED: ePHEDrine 50 MG/ML 1 ML AMP IVP ONE (11:06)
--- NOTE | 2017-08-26 11:37 | XR ---
EXAMINATION TYPE: XR chest 1V portable DATE OF EXAM: 08/26/2017 HISTORY: Shortness of breath. COMPARISON: 06/13/2017 TECHNIQUE: Single view of the chest is submitted. FINDINGS: Demonstrated are scattered senescent parenchymal change. There is no evidence for focal infiltrate. The heart is stable. Hilar and mediastinal structures are within normal limits. Degenerative changes are seen of the dorsal spine. IMPRESSION: 1. Chronic changes without evidence for acute pulmonary disease.
[2017-08-26] MEDS ORDERED: EPINEPHrine 2 MG in DEXTROSE 5% IN WATER 250 ML IV SCH ×2 (12:00)
[2017-08-26] MEDS ORDERED: LACTATED RINGERS 1,000 ML IV ONE (15:57)
[2017-08-26] MEDS: LACTATED RINGERS 1,000 ML IV SCH (18:55)
[2017-08-26] MEDS ORDERED: ARTIFICIAL TEARS-HYPROMELLOSE DROPS 15 ML BTL BOTH EYES PRN (21:21)
[2017-08-26] MEDS ORDERED: NITROGLYCERIN SL TABS 0.4 MG TAB SUBLINGUAL PRN (21:21)
[2017-08-26] MEDS ORDERED: IPRATROPIUM 0.5 MG/2.5 ML NEBU INHALATION PRN (21:21)
[2017-08-26] MEDS ORDERED: ALBUTEROL NEBULIZED 2.5 MG/3 ML INHALATION PRN (21:21)
[2017-08-26] MEDS ORDERED: NA PHOS,M-B/NA PHOS,DI-BA 133 ML ENEMA RECTAL PRN (21:21)
[2017-08-26] MEDS ORDERED: MAGNESIUM HYDROXIDE 2,400 MG/10 ML CUP PO PRN (21:21)
[2017-08-26] MEDS ORDERED: IBUPROFEN 800 MG TAB PO PRN (21:21)
[2017-08-26] MEDS ORDERED: BISACODYL 10 MG SUPP RECTAL PRN (21:21)
[2017-08-26] MEDS ORDERED: IPRATROPIUM-ALBUTEROL 3 ML NEB INHALATION PRN (21:31)
[2017-08-26] MEDS: CYCLOBENZAPRINE 10 MG TAB PO SCH (23:13)
[2017-08-27 01:11] VITALS: BMI 25.8
--- NOTE | 2017-08-27 06:07 | P.CONS ---
History of Present Illness - Reason for Consult Consult date: 08/27/17 - Chief Complaint Element of dysphagia. - History of Present Illness This is a 62-year-old white male who recently had EGD for significant dysphasia. The patient was kept overnight for observation and element of dehydration. The patient has an underlying history of memory difficulty but seems to be answering questions appropriately this morning. The patient does not complain of any chest pain or shortness of breath. He does complain of epigastric pain which I do relate to his hiatal hernia. No other voiding difficulties are stated. No significant nausea, vomiting or diarrhea. Appetite Is stated to be nominal. Review of Systems Constitutional: Denies chills, Denies fever Eyes: denies blurred vision, denies pain Ears, nose, mouth and throat: Denies headache, Denies sore throat Cardiovascular: Denies chest pain, Denies shortness of breath Respiratory: Denies cough Gastrointestinal: Reports as per HPI, Reports abdominal pain, Denies diarrhea, Denies nausea, Denies vomiting Musculoskeletal: Denies myalgias Past Medical History Past Medical History: Heart Failure, GERD/Reflux, Hyperlipidemia, Hypertension, Myocardial Infarction ([place]) Additional Past Medical History / Comment(s): RECTAL BLEEDING, Borderline diabetes. HAS IDC Last Myocardial Infarction Date:: 07/15/15 History of Any Multi-Drug Resistant Organisms: None Reported Past Surgical History: Heart Catheterization With Stent Past Anesthesia/Blood Transfusion Reactions: No Reported Reaction Date of Last Stent Placement:: 07/15/15 Past Psychological History: Anxiety, Schizoaffective Disorder, Schizophrenia Smoking Status: Current every day smoker Past Alcohol Use History: None Reported Additional Past Alcohol Use History / Comment(s): STARTED SMOKING AT AGE 13 Past Drug Use History: None Reported - Past Family History Mother Family Medical History: Cancer Medications and Allergies Home Medications Medication Instructions Recorded Confirmed Type Clopidogrel [Plavix] 75 mg PO DAILY #30 tab 07/25/15 08/26/17 Rx Pravastatin Sodium [Pravachol] 40 mg PO HS@2100 10/05/15 08/26/17 History Lisinopril [Zestril] 10 mg PO DAILY tab 11/16/15 08/26/17 Rx Nitroglycerin Sl Tabs [Nitrostat] 0.4 mg SUBLINGUAL Q5M PRN #0 tab 11/16/15 Rx Albuterol Nebulized (Conc) 2.5 mg INHALATION RT-QID PRN 01/10/16 08/26/17 History [Ventolin Nebulized (Conc)] Ipratropium Nebulized [Atrovent 0.5 mg INHALATION RT-QID PRN 01/10/16 08/26/17 History Nebulized] Carvedilol [Coreg] 6.25 mg PO BID-W/MEALS #60 tab 01/15/16 08/26/17 Rx Cyclobenzaprine HCl 10 mg PO TID 06/04/17 08/26/17 History Famotidine [Pepcid] 20 mg PO BID 06/04/17 08/26/17 History Ibuprofen [Motrin] 800 mg PO BID PRN 06/04/17 08/26/17 History Paliperidone IM [Invega Sustenna] 234 mg IM Q28D 06/04/17 08/26/17 History Potassium Chloride ER [K-Dur 20] 20 meq PO DAILY@1700 06/04/17 08/26/17 History Sertraline HCl [Zoloft] 100 mg PO DAILY 06/04/17 08/26/17 History Tamsulosin [Flomax] 0.4 mg PO PC-BRKFST #0 cap.er.24h 06/09/17 08/26/17 Rx Artificial Tears-Hypromellose 1 drops BOTH EYES TID PRN 06/13/17 08/26/17 History [Artificial Tear Drops] Aspirin 325 mg PO DAILY@1700 06/13/17 08/26/17 History Bisacodyl [Dulcolax] 10 mg RECTAL DAILY PRN 06/13/17 08/26/17 History Furosemide [Lasix] 40 mg PO DAILY@0600 06/13/17 08/26/17 History Magnesium Hydroxide [Milk of 2,400 mg PO DAILY PRN 06/13/17 08/26/17 History Magnesia] Na Phos,M-B/Na Phos,Di-Ba [Fleet 133 ml RECTAL DAILY PRN 06/13/17 08/26/17 History Adult] Allergies Allergy/AdvReac Type Severity Reaction Status Date / Time No Known Allergies Allergy Verified 08/26/17 09:34 Physical Exam Vitals: Vital Signs Temp Pulse Resp BP Pulse Ox 08/27/17 04:00 97.4 F L 87 18 106/51 95 07/19/18 00:00 98.2 F 75 17 116/62 94 L 08/26/17 20:00 97.9 F 77 18 130/54 93 L 08/26/17 18:35 97.7 F 90 16 123/68 08/26/17 17:15 86 16 125/58 97 08/26/17 16:27 87 16 156/68 94 L 08/26/17 15:48 81 14 133/63 94 L 08/26/17 14:49 77 18 134/60 100 08/26/17 13:53 74 16 112/57 92 L 08/26/17 13:26 71 14 112/66 92 L 08/26/17 13:06 70 16 111/56 93 L 08/26/17 12:58 68 16 103/51 92 L 08/26/17 12:30 67 22 104/54 92 L 08/26/17 12:15 65 22 90/55 88 L 08/26/17 11:54 65 16 89/49 95 08/26/17 11:30 64 16 93/44 92 L 08/26/17 11:12 65 16 85/46 92 L 08/26/17 10:53 62 18 91/52 90 L 08/26/17 09:33 97.6 F 72 16 106/66 95 Intake and Output 08/26/17 08/26/17 08/27/17 14:59 22:59 06:59 Intake Total 900 Output Total 300 200 900 Balance 600 -200 -900 Intake: IV 900 Output: Urine 300 200 900 Other: Voiding Method Indwelling Catheter Indwelling Catheter Weight 79.379 kg 76 kg - Constitutional General appearance: no acute distress - EENT Eyes: EOMI - Neck Neck: no lymphadenopathy - Respiratory Respiratory: bilateral: CTA - Cardiovascular Rhythm: irregularly irregular Abnormal Heart Sounds: no S3 Gallop - Gastrointestinal General gastrointestinal: soft, no tenderness - Integumentary Integumentary: no cellulitis - Neurologic Neurologic: CNII-XII intact - Musculoskeletal Musculoskeletal: gait normal Assessment and Plan (1) Hiatal hernia Current Visit: Yes Status: Acute Code(s): K44.9 - DIAPHRAGMATIC HERNIA WITHOUT OBSTRUCTION OR GANGRENE SNOMED Code(s): 95648108 (2) History of myocardial infarction Current Visit: No Status: Acute Code(s): I25.2 - OLD MYOCARDIAL INFARCTION SNOMED Code(s): 003153654 (3) Schizophrenia Current Visit: No Status: Acute Code(s): F20.9 - SCHIZOPHRENIA, UNSPECIFIED SNOMED Code(s): 56615381 (4) Hypertension Current Visit: No Status: Chronic Code(s): I10 - ESSENTIAL (PRIMARY) HYPERTENSION SNOMED Code(s): 60896698 Plan: Reconcile home medications. We'll continue to follow with GI. Continue Prilosec for the hilar hernia. Check CMP this morning.
[2017-08-27 06:55] LABS: ALT 41 U/L (21-72); AST 24 U/L (17-59); Albumin 3.3 g/dL (3.5-5.0); Alkaline Phosphatase 122 U/L (38-126); Anion Gap 9 mmol/L; Blood Urea Nitrogen 17 mg/dL (9-20); Calcium 8.5 mg/dL (8.4-10.2); Carbon Dioxide 19 mmol/L (22-30); Chloride 105 mmol/L (98-107); Glucose 212 mg/dL (74-99); Potassium 3.9 mmol/L (3.5-5.1); Sodium 133 mmol/L (137-145); Total Bilirubin 0.5 mg/dL (0.2-1.3); Total Protein 6.4 g/dL (6.3-8.2)
[2017-08-27] MEDS: CARVEDILOL 6.25 MG TAB PO SCH ×2 (06:59→18:00)
[2017-08-27] MEDS: FUROSEMIDE 40 MG TAB PO SCH (06:59)
[2017-08-27] MEDS: LACTATED RINGERS 1,000 ML IV SCH ×2 (07:00→19:57)
[2017-08-27] MEDS: CLOPIDOGREL 75 MG TAB PO SCH (08:34)
[2017-08-27] MEDS: CYCLOBENZAPRINE 10 MG TAB PO SCH ×3 (08:34→19:58)
[2017-08-27] MEDS: SERTRALINE 100 MG TAB PO SCH (08:35)
[2017-08-27] MEDS: LISINOPRIL 10 MG TAB PO SCH (08:35)
--- NOTE | 2017-08-27 08:57 | P.PN ---
Subjective Progress Note Date: 08/27/17 Principal diagnosis: GERD dysphagia 62-year-old male with a history of GERD dysphagia status post outpatient EGD yesterday with findings of moderate size hiatal hernia Stern's esophagus LA grade C reflux esophagitis. Overnight for IV hydration secondary dehydration features. Presently feels well. Tolerating diet without dysplasia. Afebrile. Objective - Vital Signs Vital signs: Vital Signs Temp 97.2 F L 08/27/17 08:00 Pulse 64 08/27/17 08:00 Resp 16 08/27/17 08:00 BP 118/65 08/27/17 08:00 Pulse Ox 98 08/27/17 08:00 Intake & Output 08/26/17 08/27/17 08/27/17 18:59 06:59 18:59 Intake Total 900 Output Total 500 900 Balance 400 -900 Weight 79.379 kg 76 kg Intake: IV 900 Output: Urine 500 900 Other: Voiding Method Indwelling Catheter # Bowel Movements 1 - Exam General appearance: The patient is alert, oriented, in no acute distress. Hard of hearing. Voice is hoarse. HET: Head is normocephalic and atraumatic. Pupils are equal and reactive. Oropharynx is clear without lesions. Neck: Supple without lymphadenopathy. Trachea midline. Heart: S1 S2. Regular rate and rhythm. Lungs: No crackles or wheezes are heard. Abdomen: Soft, nontender, nondistended with bowel sounds. No peritoneal signs. No palpable organomegaly or masses. Extremities: Normal skin color and turgor. No cyanosis, rash, ulceration, clubbing, or edema. Radial and pedal pulses are 2/4 bilaterally. [place] with clear sherif urine. Neurological: No focal deficits. Strength and sensation are grossly intact. - Labs CBC & Chem 7: 08/27/17 06:19 Labs: Abnormal Lab Results - Last 24 Hours (Table) 08/27/17 Range/Units 06:19 Sodium 133 L (137-145) mmol/L Carbon Dioxide 19 L (22-30) mmol/L Creatinine 0.59 L (0.66-1.25) mg/dL Glucose 212 H (74-99) mg/dL Albumin 3.3 L (3.5-5.0) g/dL Assessment and Plan (1) Dysphagia Narrative/Plan: Status post EGD findings of Stern's esophagus moderate hiatal hernia LA grade C reflux esophagitis Current Visit: Yes Status: Acute Code(s): R13.10 - DYSPHAGIA, UNSPECIFIED SNOMED Code(s): 54257002 (2) GERD (gastroesophageal reflux disease) Current Visit: Yes Status: Acute Code(s): K21.9 - GASTRO-ESOPHAGEAL REFLUX DISEASE WITHOUT ESOPHAGITIS SNOMED Code(s): 424320511 (3) Barretts esophagus Current Visit: Yes Status: Acute Code(s): K22.70 - STERN'S ESOPHAGUS WITHOUT DYSPLASIA SNOMED Code(s): 404826282 (4) Dehydration Current Visit: Yes Status: Acute Code(s): E86.0 - DEHYDRATION SNOMED Code( s): 23854078 (5) Schizophrenia Current Visit: No Status: Acute Code(s): F20.9 - SCHIZOPHRENIA, UNSPECIFIED SNOMED Code(s): 79350515 Plan: 1. Prilosec 20 mg twice daily. 2. Discharge per medicine. 3. Soft diet. 4. Return to office in 6 weeks. Assessment and plan a care discussed with Dr. Doss
[2017-08-27] MEDS ORDERED: FAMOTIDINE 20 MG TAB PO SCH (09:00)
[2017-08-27] MEDS ORDERED: POTASSIUM CHLORIDE ER 20 MEQ TAB.ER PO SCH (17:00)
[2017-08-27] MEDS ORDERED: ASPIRIN 325 MG TAB PO SCH (17:00)
[2017-08-27] MEDS: PANTOPRAZOLE 40 MG TABLET PO SCH (17:57)
--- NOTE | 2017-08-27 18:14 | P.DS ---
Providers Attending physician: Juan Stearns Consults: 08/26/17 12:21 Consult Physician Routine Consulting Provider: Juan Setarns Consult Reason/Comments: medical management Do you want consulting provider notified?: Already Contacted Primary care physician: Juan Stearns - Discharge Diagnosis(es) (1) Hiatal hernia Current Visit: Yes Status: Acute (2) History of myocardial infarction Current Visit: No Status: Acute (3) Schizophrenia Current Visit: No Status: Acute (4) Hypertension Current Visit: No Status: Chronic Hospital Course: This is discharge summary 62-year-old white male Center admitted for abdominal pain after having EGD and poor by mouth intake. The patient was stabilized with IV hydration and tolerating diet. The patient is not discharged after having a large hiatal hernia on omeprazole. The patient is tolerating diet and will be discharged back to [facility] when bed available. Patient Condition at Discharge: Stable Plan - Discharge Summary New Discharge Prescriptions: New Omeprazole [PriLOSEC] 20 mg PO AC-BID #60 cap Continue Clopidogrel [Plavix] 75 mg PO DAILY #30 tab Pravastatin Sodium [Pravachol] 40 mg PO HS@2100 Lisinopril [Zestril] 10 mg PO DAILY tab Nitroglycerin Sl Tabs [Nitrostat] 0.4 mg SUBLINGUAL Q5M PRN #0 tab PRN Reason: Chest Pain Albuterol Nebulized (Conc) [Ventolin Nebulized (Conc)] 2.5 mg INHALATION RT- QID PRN PRN Reason: Shortness Of Breath Ipratropium Nebulized [Atrovent Nebulized] 0.5 mg INHALATION RT-QID PRN PRN Reason: Shortness Of Breath Carvedilol [Coreg] 6.25 mg PO BID-W/MEALS #60 tab Potassium Chloride ER [K-Dur 20] 20 meq PO DAILY@1700 Ibuprofen [Motrin] 800 mg PO BID PRN PRN Reason: Pain Sertraline HCl [Zoloft] 100 mg PO DAILY Paliperidone IM [Invega Sustenna] 234 mg IM Q28D Cyclobenzaprine HCl 10 mg PO TID Tamsulosin [Flomax] 0.4 mg PO PC-BRKFST #0 cap.er.24h Artificial Tears-Hypromellose [Artificial Tear Drops] 1 drops BOTH EYES TID PRN PRN Reason: DRY EYES Aspirin 325 mg PO DAILY@1700 Bisacodyl [Dulcolax] 10 mg RECTAL DAILY PRN PRN Reason: Constipation Furosemide [Lasix] 40 mg PO DAILY@0600 Magnesium Hydroxide [Milk of Magnesia] 2,400 mg PO DAILY PRN PRN Reason: Constipation Na Phos,M-B/Na Phos,Di-Ba [Fleet Adult] 133 ml RECTAL DAILY PRN PRN Reason: Constipation Discontinued Famotidine [Pepcid] 20 mg PO BID Discharge Medication List Clopidogrel [Plavix] 75 mg PO DAILY #30 tab 07/25/15 [Rx] Pravastatin Sodium [Pravachol] 40 mg PO HS@2100 10/05/15 [History] Lisinopril [Zestril] 10 mg PO DAILY tab 11/16/15 [Rx] Nitroglycerin Sl Tabs [Nitrostat] 0.4 mg SUBLINGUAL Q5M PRN #0 tab 11/16/15 [Rx] Albuterol Nebulized (Conc) [Ventolin Nebulized (Conc)] 2.5 mg INHALATION RT-QID PRN 01/10/16 [History] Ipratropium Nebulized [Atrovent Nebulized] 0.5 mg INHALATION RT-QID PRN [History] Carvedilol [Coreg] 6.25 mg PO BID-W/MEALS #60 tab 01/15/16 [Rx] Cyclobenzaprine HCl 10 mg PO TID 06/04/17 [History] Ibuprofen [Motrin] 800 mg PO BID PRN 06/04/17 [History] Paliperidone IM [Invega Sustenna] 234 mg IM Q28D 06/04/17 [History] Potassium Chloride ER [K-Dur 20] 20 meq PO DAILY@1700 06/04/17 [History] Sertraline HCl [Zoloft] 100 mg PO DAILY 06/04/17 [History] Tamsulosin [Flomax] 0.4 mg PO PC-BRKFST #0 cap.er.24h 06/09/17 [Rx] Artificial Tears-Hypromellose [Artificial Tear Drops] 1 drops BOTH EYES TID PRN 06/13/17 [History] Aspirin 325 mg PO DAILY@1700 06/13/17 [History] Bisacodyl [Dulcolax] 10 mg RECTAL DAILY PRN 06/13/17 [History] Furosemide [Lasix] 40 mg PO DAILY@0600 06/13/17 [History] Magnesium Hydroxide [Milk of Magnesia] 2,400 mg PO DAILY PRN 06/13/17 [History] Na Phos,M-B/Na Phos,Di-Ba [Fleet Adult] 133 ml RECTAL DAILY PRN 06/13/17 [ History] Omeprazole [PriLOSEC] 20 mg PO AC-BID #60 cap 08/27/17 [Rx] Follow up Appointment(s)/Referral(s): Juan Stearns MD [Primary Care Provider] - As Needed Asha Doss MD [STAFF PHYSICIAN] - 10/14/17 1:45 pm Patient Instructions/Handouts: *Surgery [facility] - (Anesthesia) Endoscopy Discharge Instructions, Hiatal Hernia (DC), Webb Esophagus (DC), Esophagitis (DC) Activity/Diet/Wound Care/Special Instructions: Patient resides at [facility]. Discharge Disposition: TRANSFER TO SNF/ECF
[2017-08-27] MEDS ORDERED: PRAVASTATIN SODIUM 40 MG TAB PO SCH (21:00)
[2017-08-27 21:28] VITALS: PULSE 83; RESP 16
[2017-08-28] MEDS: LACTATED RINGERS 1,000 ML IV SCH (04:51)
[2017-08-28 06:17] VITALS: BP 119/67; TEMP 97.4
[2017-08-28] MEDS: FUROSEMIDE 40 MG TAB PO SCH (06:35)
[2017-08-28] MEDS: CYCLOBENZAPRINE 10 MG TAB PO SCH (08:12)
[2017-08-28] MEDS: SERTRALINE 100 MG TAB PO SCH (08:12)
[2017-08-28] MEDS: CARVEDILOL 6.25 MG TAB PO SCH (08:12)
[2017-08-28] MEDS: CLOPIDOGREL 75 MG TAB PO SCH (08:12)
[2017-08-28] MEDS: PANTOPRAZOLE 40 MG TABLET PO SCH (08:12)
[2017-08-28] MEDS: LISINOPRIL 10 MG TAB PO SCH (08:12)
[2017-09-17] MEDS ORDERED: PALIPERIDONE IM 234 MG/1.5 ML SYG IM SCH (09:00)
== END 2017-08-28 11:40 ==
LOC: ORWHC2ENDO 09:07 → 6SEL 10:39 → 4MS4W 08-27 20:50 → ORWHC2ENDO 08-28 11:40
PROVIDERS: ATTEND Family Medicine
DX: K21.0 Gastro-esophageal reflux disease with esophagitis (principal); K29.50 Unspecified chronic gastritis without bleeding; K22.70 Barrett's esophagus without dysplasia; K44.9 Diaphragmatic hernia without obstruction or gangrene; R18.8 Other ascites; E86.0 Dehydration; I25.2 Old myocardial infarction; F20.9 Schizophrenia, unspecified; I11.0 Hypertensive heart disease with heart failure; I50.9 Heart failure, unspecified; E78.5 Hyperlipidemia, unspecified; F17.200 Nicotine dependence, unspecified, uncomplicated; E11.9 Type 2 diabetes mellitus without complications; E66.01 Morbid (severe) obesity due to excess calories; Z68.24 Body mass index [BMI] 24.0-24.9, adult; Z79.02 Long term (current) use of antithrombotics/antiplatelets; Z79.82 Long term (current) use of aspirin; Z79.899 Other long term (current) drug therapy
CPT/HCPCS: 93005; 88305; 80053; 84484; 71045; 43239; J1940; J2001; J2704

== ENCOUNTER 2017-11-07 18:00 | Inpatient (IN) | payer MEDICARE, OTHER ==
[2017-11-07] MEDS ORDERED: SODIUM CHLORIDE 0.9% 1,000 ML IV STA (18:12)
[2017-11-07] MEDS ORDERED: IPRATROPIUM-ALBUTEROL 3 ML NEB INHALATION STA (18:12)
[2017-11-07 18:44] LABS: Glucose,Whole Blood 78 mg/dL (75-99)
[2017-11-07] MEDS ORDERED: SODIUM CHLORIDE 0.9% 2,000 ML IV ONE (18:45)
--- NOTE | 2017-11-07 18:58 | XR ---
EXAMINATION TYPE: XR chest 1V portable DATE OF EXAM: 11/07/2017 COMPARISON: 08/26/2017 INDICATION: Difficulty breathing TECHNIQUE: Single frontal view of the chest is obtained. FINDINGS: The heart size is enlarged. The pulmonary vasculature is normal. The lungs are clear. IMPRESSION: 1. Cardiomegaly.
[2017-11-07 18:59] LABS: RBC 4.55 m/uL (4.30-5.90); WBC 10.4 k/uL (3.8-10.6)
[2017-11-07 19:00] LABS: Basophils % (A) 0 %; Eosinophils # (A) 0.3 k/uL (0-0.7); Eosinophils % (A) 3 %; HCT 42.3 % (39.0-53.0); HGB 13.5 gm/dL (13.0-17.5); Lymphocytes # (A) 0.9 k/uL (1.0-4.8); Lymphocytes % (A) 9 %; MCH 29.6 pg (25.0-35.0); MCHC 31.9 g/dL (31.0-37.0); MCV 92.9 fL (80.0-100.0); Mean Platelet Volume 6.7; Monocytes # (A) 0.6 k/uL (0-1.0); Monocytes % (A) 5 %; Neutrophils # (A) 8.4 k/uL (1.3-7.7); Neutrophils % (A) 81 %; Platelet Count 222 k/uL (150-450); RDW 14.7 % (11.5-15.5); VBG PH 7.25 (7.31-7.41)
[2017-11-07 19:12] LABS: ALT 15 U/L (21-72); AST 20 U/L (17-59); Acetaminophen <10.0 ug/mL; Albumin 4.4 g/dL (3.5-5.0); Alkaline Phosphatase 116 U/L (38-126); Anion Gap 10 mmol/L; Blood Urea Nitrogen 32 mg/dL (9-20); Calcium 9.6 mg/dL (8.4-10.2); Carbon Dioxide 18 mmol/L (22-30); Chloride 107 mmol/L (98-107); Glucose 74 mg/dL (74-99); Magnesium 2.1 mg/dL (1.6-2.3); Potassium 5.1 mmol/L (3.5-5.1); Salicylate <1.0 mg/dL; Sodium 135 mmol/L (137-145); Total Bilirubin 0.4 mg/dL (0.2-1.3); Total Protein 8.5 g/dL (6.3-8.2)
[2017-11-07 19:13] LABS: Lactic Acid, Venous 0.9 mmol/L (0.7-2.0)
[2017-11-07 19:18] LABS: Partial Thromboplastin Time 25.8 sec (22.0-30.0); Prothrombin Time 10.3 sec (9.0-12.0)
--- NOTE | 2017-11-07 19:23 | ED ---
General Adult HPI - General Chief complaint: Shortness of Breath Stated complaint: Altered Mental Status Time Seen by Provider: 11/07/17 18:08 Source: patient, EMS, RN notes reviewed, old records reviewed Mode of arrival: EMS Limitations: altered mental status, physical limitation - History of Present Illness Initial comments: This is a 62-year-old male the ER for evaluation of unresponsiveness shortness of breath and altered mental state. Low pulse ox staff at [facility]. Patient has an extensive medical history with patient is unable to give history at this time, history obtained from EMS as well as patient's prior chart - Related Data Home Medications Medication Instructions Recorded Confirmed Pravastatin Sodium [Pravachol] 40 mg PO HS@2100 10/05/15 11/07/17 Ipratropium Nebulized [Atrovent 0.5 mg INHALATION RT-QID PRN 01/10/16 11/07/17 Nebulized] Cyclobenzaprine HCl 10 mg PO TID 06/04/17 11/07/17 Ibuprofen [Motrin] 800 mg PO BID PRN 06/04/17 11/07/17 Paliperidone IM [Invega Sustenna] 234 mg IM Q28D 06/04/17 11/07/17 Potassium Chloride ER [K-Dur 20] 20 meq PO DAILY@1700 06/04/17 11/07/17 Sertraline HCl [Zoloft] 100 mg PO DAILY 06/04/17 11/07/17 Artificial Tears-Hypromellose 1 drops BOTH EYES TID PRN 06/13/17 11/07/17 [Artificial Tear Drops] Aspirin 325 mg PO DAILY@1700 06/13/17 11/07/17 Bisacodyl [Dulcolax] 10 mg RECTAL DAILY PRN 06/13/17 11/07/17 Furosemide [Lasix] 40 mg PO DAILY@0600 06/13/17 11/07/17 Magnesium Hydroxide [Milk of 2,400 mg PO DAILY PRN 06/13/17 11/07/17 Magnesia] Na Phos,M-B/Na Phos,Di-Ba [Fleet 133 ml RECTAL DAILY PRN 06/13/17 11/07/17 Adult] Albuterol Nebulized [Ventolin 2.5 mg INHALATION RT-QID PRN 11/07/17 11/07/17 Nebulized] Clopidogrel [Plavix] 75 mg PO DAILY@0800 11/07/17 11/07/17 Docusate [Colace] 100 mg PO DAILY PRN 11/07/17 11/07/17 Famotidine [Pepcid] 20 mg PO DAILY@0711/07/17 11/07/17 Insulin Aspart [NovoLOG 12 unit SQ BID@1100,1730 11/07/17 11/07/17 (formulary)] Insulin Aspart [NovoLOG 16 unit SQ DAILY@0711/07/17 11/07/17 (formulary)] Lisinopril [Zestril] 10 mg PO DAILY@0811/07/17 11/07/17 Pioglitazone [Actos] 30 mg PO DAILY@0811/07/17 11/07/17 Tamsulosin [Flomax] 0.4 mg PO DAILY@0811/07/17 11/07/17 Ubidecarenone [Co Q-10] 100 mg PO DAILY@1700 11/07/17 11/07/17 guaiFENesin [guaiFENesin Oral 200 mg PO Q4H PRN 11/07/17 11/07/17 Solution] Previous Rx's Medication Instructions Recorded Nitroglycerin Sl Tabs [Nitrostat] 0.4 mg SUBLINGUAL Q5M PRN #0 tab 11/16/15 Carvedilol [Coreg] 6.25 mg PO BID-W/MEALS #60 tab 01/15/16 Omeprazole [PriLOSEC] 20 mg PO AC-BID #60 cap 08/27/17 Allergies Allergy/AdvReac Type Severity Reaction Status Date / Time No Known Allergies Allergy Verified 11/07/17 18:16 Review of Systems ROS Statement: Those systems with pertinent positive or pertinent negative responses have been documented in the HPI. ROS Other: All systems not noted in ROS Statement are negative. Past Medical History Past Medical History: Heart Failure, GERD/Reflux, Hyperlipidemia, Hypertension, Myocardial Infarction (DE) Additional Past Medical History / Comment(s): RECTAL BLEEDING, Borderline diabetes. HAS IDC Last Myocardial Infarction Date:: 07/15/15 History of Any Multi-Drug Resistant Organisms: None Reported Past Surgical History: Heart Catheterization With Stent Past Anesthesia/Blood Transfusion Reactions: No Reported Reaction Date of Last Stent Placement:: 07/15/15 Past Psychological History: Anxiety, Schizoaffective Disorder, Schizophrenia Smoking Status: Current every day smoker Past Alcohol Use History: None Reported Past Drug Use History: None Reported - Past Family History Mother Family Medical History: Cancer General Exam Limitations: altered mental status General appearance: alert, anxious, lethargic, obtunded Head exam: Present: atraumatic, normocephalic, normal inspection Eye exam: Present: normal appearance, PERRL, EOMI. Absent: scleral icterus, conjunctival injection, periorbital swelling ENT exam: Present: normal exam, mucous membranes moist Neck exam: Present: normal inspection. Absent: tenderness, meningismus, lymphadenopathy Respiratory exam: Present: respiratory distress, accessory muscle use, decreased breath sounds, prolonged expiratory. Absent: wheezes, rales, rhonchi , stridor Cardiovascular Exam: Present: regular rate, normal rhythm, normal heart sounds. Absent: systolic murmur, diastolic murmur, rubs, gallop, clicks GI/Abdominal exam: Present: soft, normal bowel sounds. Absent: distended, tenderness, guarding, rebound, rigid Extremities exam: Present: normal inspection, full ROM, normal capillary refill. Absent: tenderness, pedal edema, joint swelling, calf tenderness Back exam: Present: normal inspection Neurological exam: Present: alert, oriented X3, CN II-XII intact Psychiatric exam: Present: normal affect, normal mood Skin exam: Present: warm, dry, intact, normal color. Absent: rash Course Vital Signs 11/07/17 11/07/17 11/07/17 18:05 18:41 18:46 Temperature 97.2 F L Pulse Rate 77 76 74 Respiratory 30 H 30 H 30 H Rate Blood Pressure 81/46 76/49 103/44 O2 Sat by Pulse 93 L 100 100 Oximetry 11/07/17 11/07/17 11/07/17 18:51 18:56 19:05 Temperature Pulse Rate 74 74 73 Respiratory 27 H 27 H 24 Rate Blood Pressure 93/52 88/49 81/60 O2 Sat by Pulse 98 100 100 Oximetry 11/07/17 11/07/17 11/07/17 19:10 19:13 19:30 Temperature Pulse Rate 76 74 Respiratory 20 25 H Rate Blood Pressure 90/52 98/51 85/54 O2 Sat by Pulse 100 100 100 Oximetry 11/07/17 11/07/17 11/07/17 19:40 19:41 20:07 Temperature Pulse Rate 76 Respiratory 20 Rate Blood Pressure 80/52 104/73 90/53 O2 Sat by Pulse 100 97 Oximetry - Reevaluation(s) Reevaluation #1: 11/07/17 20:24 Patient is improving with significant fluid resuscitation, patient is on BiPAP showing improved oxygenation and breathing pattern Reevaluation #2: 11/07/17 20:24 Patient improving mental state, mildly responsive EKG Findings - EKG Comments: EKG Findings:: EKG shows normal sinus rhythm rate of 75, WA 184, QRS 90, QTc 506 Medical Decision Making - Medical Decision Making 62 male the ER for unresponsive episode. Patient is calm. Medical history including psychiatric illness. Patient resents with altered mental status and unresponsiveness. Labile blood pressure improved with resuscitation mental status is mildly improved. - Lab Data Result diagrams: 11/07/17 18:28 11/07/17 18:28 Lab Results 11/07/17 11/07/17 11/07/17 Range/Units 18:26 18:28 18:28 WBC (3.8-10.6) k/uL RBC (4.30-5.90) m/uL Hgb (13.0-17.5) gm/dL Hct (39.0-53.0) % MCV (80.0-100.0) fL MCH (25.0-35.0) pg MCHC (31.0-37.0) g/dL RDW (11.5-15.5) % Plt Count (150-450) k/uL Neutrophils % % Lymphocytes % % Monocytes % % Eosinophils % % Basophils % % Neutrophils # (1.3-7.7) k/uL Lymphocytes # (1.0-4.8) k/uL Monocytes # (0-1.0) k/uL Eosinophils # (0-0.7) k/uL Basophils # (0-0.2) k/uL PT (9.0-12.0) sec INR (<1.2) APTT (22.0-30.0) sec VBG pH 7.25 L (7.31-7.41) VBG pCO2 44 (37-51) mmHg VBG HCO3 19 L (24-28) mmol/L Sodium (137-145) mmol/L Potassium (3.5-5.1) mmol/L Chloride (98-107) mmol/L Carbon Dioxide (22-30) mmol/L Anion Gap mmol/L BUN (9-20) mg/dL Creatinine (0.66-1.25) mg/dL Est GFR (CKD-EPI)AfAm (>60 ml/min/1.73 sqM) Est GFR (CKD-EPI)NonAf (>60 ml/min/1.73 sqM) Glucose (74-99) mg/dL POC Glucose (mg/dL) 78 (75-99) mg/dL POC Glu Barrel Maker ID May Plasma Lactic Acid Fernie (0.7-2.0) mmol/L Calcium (8.4-10.2) mg/dL Magnesium (1.6-2.3) mg/dL Total Bilirubin (0.2-1.3) mg/dL AST (17-59) U/L ALT (21-72) U/L Alkaline Phosphatase (38-126) U/L Ammonia (<30) umol/L Total Creatine Kinase 46 L (55-170) U/L CK-MB (CK-2) 1.3 (0.0-2.4) ng/mL CK-MB (CK-2) Rel Index 2.8 Troponin I 0.018 (0.000-0.034) ng/mL NT-Pro-B Natriuret Pep pg/mL Total Protein (6.3-8.2) g/dL Albumin (3.5-5.0) g/dL Urine Color Urine Appearance (Clear) Urine pH (5.0-8.0) Ur Specific Tichnor (1.001-1.035) Urine Protein (Negative) Urine Glucose (UA) (Negative) Urine Ketones (Negative) Urine Blood (Negative) Urine Nitrite (Negative) Urine Bilirubin (Negative) Urine Urobilinogen (<2.0) mg/dL Ur Leukocyte Esterase (Negative) Urine RBC (0-5) /hpf Triple Phos Crystals (None) /hpf Amorphous Sediment (None) /hpf Urine Bacteria (None) /hpf Hyaline Casts (0-2) /lpf Urine Mucus (None) /hpf Salicylates mg/dL Acetaminophen ug/mL Acetone, Qual (Negative) 11/07/17 11/07/17 11/07/17 Range/Units 18:28 18:28 18:28 WBC 10.4 (3.8-10.6) k/uL RBC 4.55 (4.30-5.90) m/uL Hgb 13.5 (13.0-17.5) gm/dL Hct 42.3 (39.0-53.0) % MCV 92.9 (80.0-100.0) fL MCH 29.6 (25.0-35.0) pg MCHC 31.9 (31.0-37.0) g/dL RDW 14.7 (11.5-15.5) % Plt Count 222 (150-450) k/uL Neutrophils % 81 % Lymphocytes % 9 % Monocytes % 5 % Eosinophils % 3 % Basophils % 0 % Neutrophils # 8.4 H (1.3-7.7) k/uL Lymphocytes # 0.9 L (1.0-4.8) k/uL Monocytes # 0.6 (0-1.0) k/uL Eosinophils # 0.3 (0-0.7) k/uL Basophils # 0.0 (0-0.2) k/uL PT (9.0-12.0) sec INR (<1.2) APTT (22.0-30.0) sec VBG pH (7.31-7.41) VBG pCO2 (37-51) mmHg VBG HCO3 (24-28) mmol/L Sodium 135 L (137-145) mmol/L Potassium 5.1 (3.5-5.1) mmol/L Chloride 107 (98-107) mmol/L Carbon Dioxide 18 L (22-30) mmol/L Anion Gap 10 mmol/L BUN 32 H (9-20) mg/dL Creatinine 0.86 (0.66-1.25) mg/dL Est GFR (CKD-EPI)AfAm >90 (>60 ml/min/1.73 sqM) Est GFR (CKD-EPI)NonAf >90 (>60 ml/min/1.73 sqM) Glucose 74 (74-99) mg/dL POC Glucose (mg/dL) (75-99) mg/dL POC Glu Barrel Maker ID Plasma Lactic Acid Fernie (0.7-2.0) mmol/L Calcium 9.6 (8.4-10.2) mg/dL Magnesium 2.1 (1.6-2.3) mg/dL Total Bilirubin 0.4 (0.2-1.3) mg/dL AST 20 (17-59) U/L ALT 15 L (21-72) U/L Alkaline Phosphatase 116 (38-126) U/L Ammonia (<30) umol/L Total Creatine Kinase (55-170) U/L CK-MB (CK-2) (0.0-2.4) ng/mL CK-MB (CK-2) Rel Index Troponin I (0.000-0.034) ng/mL NT-Pro-B Natriuret Pep 1660 pg/mL Total Protein 8.5 H (6.3-8.2) g/dL Albumin 4.4 (3.5-5.0) g/dL Urine Color Urine Appearance (Clear) Urine pH (5.0-8.0) Ur Specific Tichnor (1.001-1.035) Urine Protein (Negative) Urine Glucose (UA) (Negative) Urine Ketones (Negative) Urine Blood (Negative) Urine Nitrite (Negative) Urine Bilirubin (Negative) Urine Urobilinogen (<2.0) mg/dL Ur Leukocyte Esterase (Negative) Urine RBC (0-5) /hpf Triple Phos Crystals (None) /hpf Amorphous Sediment (None) /hpf Urine Bacteria (None) /hpf Hyaline Casts (0-2) /lpf Urine Mucus (None) /hpf Salicylates <1.0 mg/dL Acetaminophen <10.0 ug/mL Acetone, Qual Negative (Negative) 11/07/17 11/07/17 11/07/17 Range/Units 18:28 18:28 19:38 WBC (3.8-10.6) k/uL RBC (4.30-5.90) m/uL Hgb (13.0-17.5) gm/dL Hct (39.0-53.0) % MCV (80.0-100.0) fL MCH (25.0-35.0) pg MCHC (31.0-37.0) g/dL RDW (11.5-15.5) % Plt Count (150-450) k/uL Neutrophils % % Lymphocytes % % Monocytes % % Eosinophils % % Basophils % % Neutrophils # (1.3-7.7) k/uL Lymphocytes # (1.0-4.8) k/uL Monocytes # (0-1.0) k/uL Eosinophils # (0-0.7) k/uL Basophils # (0-0.2) k/uL PT 10.3 (9.0-12.0) sec INR 1.0 (<1.2) APTT 25.8 (22.0-30.0) sec VBG pH (7.31-7.41) VBG pCO2 (37-51) mmHg VBG HCO3 (24-28) mmol/L Sodium (137-145) mmol/L Potassium (3.5-5.1) mmol/L Chloride (98-107) mmol/L Carbon Dioxide (22-30) mmol/L Anion Gap mmol/L BUN (9-20) mg/dL Creatinine (0.66-1.25) mg/dL Est GFR (CKD-EPI)AfAm (>60 ml/min/1.73 sqM) Est GFR (CKD-EPI)NonAf (>60 ml/min/1.73 sqM) Glucose (74-99) mg/dL POC Glucose (mg/dL) (75-99) mg/dL POC Glu Barrel Maker ID Plasma Lactic Acid Fernie 0.9 (0.7-2.0) mmol/L Calcium (8.4-10.2) mg/dL Magnesium (1.6-2.3) mg/dL Total Bilirubin (0.2-1.3) mg/dL AST (17-59) U/L ALT (21-72) U/L Alkaline Phosphatase (38-126) U/L Ammonia 14 (<30) umol/L Total Creatine Kinase (55-170) U/L CK-MB (CK-2) (0.0-2.4) ng/mL CK-MB (CK-2) Rel Index Troponin I (0.000-0.034) ng/mL NT-Pro-B Natriuret Pep pg/mL Total Protein (6.3-8.2) g/dL Albumin (3.5-5.0) g/dL Urine Color Yellow Urine Appearance Turbid (Clear) Urine pH 8.5 H (5.0-8.0) Ur Specific Tichnor 1.014 (1.001-1.035) Urine Protein 2+ H (Negative) Urine Glucose (UA) Negative (Negative) Urine Ketones Negative (Negative) Urine Blood Negative (Negative) Urine Nitrite Positive (Negative) Urine Bilirubin Negative (Negative) Urine Urobilinogen <2.0 (<2.0) mg/dL Ur Leukocyte Esterase Large H (Negative) Urine RBC 17 H (0-5) /hpf Triple Phos Crystals Many H (None) /hpf Amorphous Sediment Occasional H (None) /hpf Urine Bacteria Rare H (None) /hpf Hyaline Casts 43 H (0-2) /lpf Urine Mucus Few H (None) /hpf Salicylates mg/dL Acetaminophen ug/mL Acetone, Qual (Negative) - Radiology Data Radiology results: report reviewed (Chest x-rays negative for acute disease CT brain chest abdomen pelvis), image reviewed Critical Care Time Critical Care Time: Yes Total Critical Care Time: 31 Disposition Clinical Impression: Urinary tract infection, Altered mental status, Dehydration, Schizophrenia, Acute exacerbation of chronic obstructive airways disease Disposition: ADMITTED IP TO THIS HOSP Condition: Serious Is patient prescribed a controlled substance at d/c from ED?: No Referrals: Juan Stearns MD [Primary Care Provider] - 1-2 days
[2017-11-07 19:27] LABS: Creatine Kinase MB 1.3 ng/mL (0.0-2.4); Troponin I 0.018 ng/mL (0.000-0.034)
[2017-11-07] MEDS ORDERED: cefTRIAXone 2,000 MG in SODIUM CHLORIDE 0.9% 100 ML IVPB STA (19:29)
[2017-11-07 20:02] LABS: Amorphous Sediment,Urine Occasional /hpf; Appearance,Urine Turbid (Clear); Bacteria,Urine Rare /hpf; Bilirubin,Urine Negative (Negative); Blood,Urine Negative (Negative); Color,Urine Yellow; Glucose,Urine (UA) Negative (Negative); Hyaline Casts,Urine 43 /lpf (0-2); Ketones,Urine Negative (Negative); Leukocyte Esterase,Urine Large (Negative); Mucus,Urine Few /hpf; Nitrite,Urine Positive (Negative); PH, Urine 8.5 (5.0-8.0); Protein,Urine 2+ (Negative); RBC,Urine 17 /hpf (0-5); Specific Gravity,Urine 1.014 (1.001-1.035); Triple Phosphate Crystal,Urine Many /hpf; Urobilinogen,Urine <2.0 mg/dL (<2.0)
[2017-11-07] MEDS ORDERED: NALOXONE 0.4 MG/ML 1 ML VIAL IV PRN (20:20)
[2017-11-07 20:22] LABS: Amphetamine Screen,Urine Not Detected (NotDetected); Barbiturate Screen,Urine Not Detected (NotDetected); Benzodiazepines Screen,Urine Not Detected (NotDetected); Cocaine Screen,Urine Not Detected (NotDetected); Methadone Screen, Urine Not Detected (NotDetected); Opiate Screen,Urine Not Detected (NotDetected); Oxycodone Screen, Urine Not Detected (NotDetected); Phencyclidine Screen,Urine Not Detected (NotDetected); Tricyclic Antidepressant,Urine Detected (NotDetected); Urn Cannabinoid Scrn Not Detected (NotDetected)
[2017-11-07] MEDS ORDERED: methylPREDNISolone SOD SUCCI 125 MG/2 ML VIAL IV STA (20:25)
[2017-11-07] MEDS: SODIUM CHLORIDE 0.9% 1,000 ML IV SCH (20:51)
--- NOTE | 2017-11-07 21:13 | CT ---
EXAMINATION TYPE: CT brain wo con DATE OF EXAM: 11/07/2017 COMPARISON: 06/04/2017 INDICATION: SOB, confusion DLP: 799.5 mGycm, Automated exposure control for dose reduction was used. CONTRAST: None CT of the brain is performed utilizing 3 mm thick sections through the posterior fossa and 3 mm thick sections through the remaining calvarium. Study is performed within 24 hours of arrival to the hosp ital. No abnormal hyperdensity is present to suggest an acute intracranial hemorrhage. No mass lesion is evident. No acute infarcts are evident. Some subtle periventricular white matter hypodensity may be present. V entricles and sulci are slightly prominent. Extra-axial hypodense area is stable. Ventricles and sulci are appropriate for the patient age. Paranasal sinuses and mastoid air cells within the [id number] are clear. IMPRESSIONS: 1. Atrophy with periventricular white matter ischemic change 2. Exam is stable from 06/04/2017.
[2017-11-07] MEDS ORDERED: IPRATROPIUM-ALBUTEROL 3 ML NEB INHALATION PRN (21:34)
[2017-11-07] MEDS: IPRATROPIUM-ALBUTEROL 3 ML NEB INHALATION SCH (21:34)
--- NOTE | 2017-11-07 21:34 | CT ---
CT CHEST FOR PULMONARY EMBOLISM. EXAMINATION TYPE: CT angio chest DATE OF EXAM: 11/07/2017 INDICATION: SOB, confusion CT DLP: 357 mGycm, Automated exposure control for dose reduction was used. CONTRAST: Patient injected with 100 mL of Isovue 370. COMPARISON: 07/11/2011 TECHNIQUE: CT of the chest is performed on a spiral scan at 2 mm thick sections. Study is performed with intravenous contrast timed for evaluation for pulmonary embolism. This will limit additional po rtions of the evaluation. 3-D MIP images reconstructed by the technologist are reviewed on the compu ter in the coronal and sagittal planes. FINDINGS: There are patchy infiltrates within the dependent portions of the lung bases. Correlate for atelectas is. There is a nodular density within the posterior lateral right lung base measuring 1.6 x 1.0 cm. T his was present previously although may be slightly larger from comparison. An additional mass measur ing 2.2 x 1.2 cm is in the periphery of the right midlung. This was present previously although may b e slightly larger from 2012. There is a large lymph node adjacent to the ascending thoracic aorta within the anterior mediastinum measuring 1.6 cm this is new. There is a 1.3 cm lymph node in the pretracheal space. Smaller ventricu loperitoneal peribronchial lymph nodes are present. There is a large node in the subcarinal region me asuring 2.3 cm. The ascending aorta diameter at the level of the main pulmonary artery is 3.4 cm. T he main pulmonary artery diameter at the bifurcation is 2.7 cm. Heart size is enlarged. Limited CT section through the upper abdomen. Sludge within the gallbladder. There is some reflux int o the inferior vena cava contrast. IMPRESSIONS: 1. No acute pulmonary embolism. 2. There are some chronic appearing oval nodules within the posterior lateral right lung discussed ab ove. These were present in 2011 but has slight increase in size over the interval. 3. Cardiomegaly. 4. Compressive atelectasis. Some early pulmonary edema may be considered. 5 sludge within the gallbla dder. 5. Enlarged mediastinal lymph nodes. These could be further evaluated with PET/CT
--- NOTE | 2017-11-07 21:38 | CT ---
EXAMINATION TYPE: CT abdomen pelvis w con DATE OF EXAM: 11/07/2017 COMPARISON: 06/26/2017 INDICATION: SOB, confusion DLP: 1470.5 mGycm, Automated exposure control for dose reduction was used. CONTRAST: 100 mL of Isovue 370. Study performed without Oral Contrast TECHNIQUE: Axial images were obtained from above the diaphragm to the pubic rami in the axial plane a t 5 mm thick sections. Reconstructed images are reviewed on the computer in the coronal plane. FINDINGS: Limited CT sections are obtained the lung bases. Please see CTA chest same date for additional evalu ation.. Note is made of coronary artery calcification. CT ABDOMEN: Liver: Normal Spleen: Normal Pancreas: Normal Adrenal glands: The adrenal glands are normal. Gallbladder: Sludge within the gallbladder. Kidneys: No masses are evident. No hydronephrosis is present. There is a small cortical renal cyst is present on the left mid kidney measuring 0.99 cm. There is a 2.5 cm cyst on the mid to inferior me dial right kidney. A mid lateral left renal cyst measuring 2.3 cm is present. Cortical calcification is present on the right. Delayed images were obtained through the kidneys, which remain unremarkabl e. Aorta: Vascular calcification is within the aorta. Inferior vena cava: Normal. CT PELVIS: Loops of bowel within the abdomen and pelvis are normal. Studies performed without oral contrast limiting the evaluation. Some fecal debris is within the colon. Appendix: Normal as visualized. Urinary bladder: Urinary bladder is decompressed with Mesa catheter and cannot be evaluated. Genitourinary structures: Prostate is normal Osseous structures: No suspicious lytic or sclerotic lesions. Facet degenerative changes are within t he lower lumbar spine. IMPRESSIONS: 1. Sludge within the gallbladder. 2. Bilateral renal cysts. 3. Please also see CT chest report same date.
[2017-11-07 22:37] LABS: Glucose,Whole Blood 161 mg/dL (75-99)
[2017-11-08] MEDS ORDERED: IPRATROPIUM-ALBUTEROL 3 ML NEB INHALATION SCH
[2017-11-08] MEDS: methylPREDNISolone SOD SUCCI 125 MG/2 ML VIAL IV SCH ×2 (00:14→06:44)
[2017-11-08] MEDS: HEPARIN SODIUM,PORCINE 5,000 UNIT/ML 1 ML VIAL SQ SCH ×3 (00:14→17:58)
[2017-11-08 05:10] LABS: Basophils % (A) 0 %; Eosinophils % (A) 0 %; HCT 39.3 % (39.0-53.0); HGB 12.3 gm/dL (13.0-17.5); Hypochromasia Slight; Lymphocytes # (A) 0.4 k/uL (1.0-4.8); Lymphocytes % (A) 6 %; MCH 29.6 pg (25.0-35.0); MCHC 31.2 g/dL (31.0-37.0); MCV 95.1 fL (80.0-100.0); Mean Platelet Volume 6.7; Monocytes # (A) 0.1 k/uL (0-1.0); Monocytes % (A) 2 %; Neutrophils # (A) 6.9 k/uL (1.3-7.7); Neutrophils % (A) 92 %; Platelet Count 170 k/uL (150-450); RBC 4.14 m/uL (4.30-5.90); RDW 14.5 % (11.5-15.5); WBC 7.5 k/uL (3.8-10.6)
[2017-11-08 05:20] LABS: ALT 15 U/L (21-72); AST 18 U/L (17-59); Albumin 3.6 g/dL (3.5-5.0); Alkaline Phosphatase 116 U/L (38-126); Anion Gap 12 mmol/L; Blood Urea Nitrogen 27 mg/dL (9-20); Calcium 8.4 mg/dL (8.4-10.2); Carbon Dioxide 14 mmol/L (22-30); Chloride 111 mmol/L (98-107); Glucose 235 mg/dL (74-99); Magnesium 1.9 mg/dL (1.6-2.3); Potassium 4.7 mmol/L (3.5-5.1); Sodium 137 mmol/L (137-145); Total Bilirubin 0.3 mg/dL (0.2-1.3); Total Protein 7.3 g/dL (6.3-8.2)
[2017-11-08] MEDS: MAGNESIUM SULFATE-D5W PMX 1 GM in DEXTROSE/WATER 1 100ML.BAG IVPB SCH ×2 (06:39→08:15)
--- NOTE | 2017-11-08 06:59 | XR ---
EXAMINATION TYPE: XR chest 1V DATE OF EXAM: 11/08/2017 HISTORY: shortness of breath. REFERENCE: Previous study dated 11/07/2017. FINDINGS: The patient's head projects over the upper chest. The heart is enlarged. There is vascular congestion and subtle interstitial change. Pleural spaces ar e clear. IMPRESSION: FINDINGS MOST COMPATIBLE WITH CONGESTIVE HEART FAILURE.
[2017-11-08 07:09] LABS: Glucose,Whole Blood 267 mg/dL (75-99)
[2017-11-08] MEDS: INSULIN ASPART 100 UNIT/ML 1 ML 10 ML VIAL SQ SCH ×4 (07:12→22:30)
[2017-11-08] MEDS: IPRATROPIUM-ALBUTEROL 3 ML NEB INHALATION SCH ×4 (08:09→19:58)
[2017-11-08] MEDS: SODIUM CHLORIDE 0.9% 1,000 ML IV SCH ×3 (09:35→17:44)
--- NOTE | 2017-11-08 10:04 | P.CNPUL ---
History of Present Illness Consult date: 11/08/17 Reason for consult: dyspnea, other Chief complaint: Mental status changes, shortness of breath, possible urosepsis History of present illness: Pulmonary consult dated 11/08/2017 This is a 62-year-old male who apparently was brought into the emergency department on November 07 and evaluated by one of the ER doctors for mental status changes and shortness of breath. The patient was apparently found to have a low pulse ox at [facility]. The patient was unable to give any history at the time of the evaluation in the ER. The ER physician was not really sure was going on with the patient and thought maybe it was related to a drug effect and/or possible sepsis/urinary tract infection. According to the ER suni, the patient has a history of heart failure, GERD, hyperlipidemia, hypertension, and myocardial infarction. The patient also probably has a history of borderline diabetes and a indwelling catheter as well as a previous history of rectal bleeding. He's also had a cardiac catheterization with stent placement. He suffers from anxiety schizophrenia and depression. He is apparently an every day smoker. The patient really can give no history today in the ICU. The patient is in no distress. Not receiving any supplemental patient's saturations are mid to high 90s. The patient's IV is a saline IV at 75 mL an hour. We believe the patient is probably at baseline. The patient had a chest x-ray which showed cardiomegaly. Brain CT showed atrophy and periventricular white matter but the exam was stable compared to a computed tomography scan done May 2017. CT of the abdomen and pelvis showed sludge within the gallbladder bilateral renal cyst but essentially was unremarkable. CT angiogram showed no evidence of pulmonary embolism. The rest of the CT was essentially on impressive. There were some enlarged mediastinal lymph nodes and a PET scan was recommended. Follow-up chest x-ray from the suggested possible heart failure. The patient had received aggressive fluid resuscitation. Review of Systems ROS unobtainable: due to mental status Past Medical History Past Medical History: Heart Failure, GERD/Reflux, Hyperlipidemia, Hypertension, Myocardial Infarction ([place]) Additional Past Medical History / Comment(s): RECTAL BLEEDING, Borderline diabetes. HAS IDC Last Myocardial Infarction Date:: 07/15/15 History of Any Multi-Drug Resistant Organisms: None Reported Past Surgical History: Heart Catheterization With Stent Past Anesthesia/Blood Transfusion Reactions: No Reported Reaction Date of Last Stent Placement:: 07/15/15 Past Psychological History: Anxiety, Schizoaffective Disorder, Schizophrenia Smoking Status: Current every day smoker Past Alcohol Use History: None Reported Past Drug Use History: None Reported - Past Family History Mother Family Medical History: Cancer Medications and Allergies Home Medications Medication Instructions Recorded Confirmed Type Pravastatin Sodium [Pravachol] 40 mg PO HS@2100 10/05/15 11/07/17 History Nitroglycerin Sl Tabs [Nitrostat] 0.4 mg SUBLINGUAL Q5M PRN #0 tab 11/16/15 Rx Ipratropium Nebulized [Atrovent 0.5 mg INHALATION RT-QID PRN 01/10/16 11/07/17 History Nebulized] Carvedilol [Coreg] 6.25 mg PO BID-W/MEALS #60 tab 01/15/16 11/07/17 Rx Cyclobenzaprine HCl 10 mg PO TID 06/04/17 11/07/17 History Ibuprofen [Motrin] 800 mg PO BID PRN 06/04/17 11/07/17 History Paliperidone IM [Invega Sustenna] 234 mg IM Q28D 06/04/17 11/07/17 History Potassium Chloride ER [K-Dur 20] 20 meq PO DAILY@1700 06/04/17 11/07/17 History Sertraline HCl [Zoloft] 100 mg PO DAILY 06/04/17 11/07/17 History Artificial Tears-Hypromellose 1 drops BOTH EYES TID PRN 06/13/17 11/07/17 History [Artificial Tear Drops] Aspirin 325 mg PO DAILY@1700 06/13/17 11/07/17 History Bisacodyl [Dulcolax] 10 mg RECTAL DAILY PRN 06/13/17 11/07/17 History Furosemide [Lasix] 40 mg PO DAILY@0600 06/13/17 11/07/17 History Magnesium Hydroxide [Milk of 2,400 mg PO DAILY PRN 06/13/17 11/07/17 History Magnesia] Na Phos,M-B/Na Phos,Di-Ba [Fleet 133 ml RECTAL DAILY PRN 06/13/17 11/07/17 History Adult] Omeprazole [PriLOSEC] 20 mg PO AC-BID #60 cap 08/27/17 11/07/17 Rx Albuterol Nebulized [Ventolin 2.5 mg INHALATION RT-QID PRN 11/07/17 11/07/17 History Nebulized] Clopidogrel [Plavix] 75 mg PO DAILY@0800 11/07/17 11/07/17 History Docusate [Colace] 100 mg PO DAILY PRN 11/07/17 11/07/17 History Famotidine [Pepcid] 20 mg PO DAILY@0711/07/17 11/07/17 History Insulin Aspart [NovoLOG 12 unit SQ BID@1100,1730 11/07/17 11/07/17 History (formulary)] Insulin Aspart [NovoLOG 16 unit SQ DAILY@0711/07/17 11/07/17 History (formulary)] Lisinopril [Zestril] 10 mg PO DAILY@0811/07/17 11/07/17 History Pioglitazone [Actos] 30 mg PO DAILY@0811/07/17 11/07/17 History Tamsulosin [Flomax] 0.4 mg PO DAILY@0811/07/17 11/07/17 History Ubidecarenone [Co Q-10] 100 mg PO DAILY@1700 11/07/17 11/07/17 History guaiFENesin [guaiFENesin Oral 200 mg PO Q4H PRN 11/07/17 11/07/17 History Solution] Allergies Allergy/AdvReac Type Severity Reaction Status Date / Time No Known Allergies Allergy Verified 11/07/17 18:16 Physical Exam Osteopathic Statement: *. No significant issues noted on an osteopathic structural exam other than those noted in the History and Physical/Consult. Vitals: Vital Signs Temp Pulse Resp BP Pulse Ox 11/08/17 08:24 95 11/08/17 08:12 93 11/08/17 07:00 100 21 128/60 91 L 11/08/17 06:30 98 28 H 133/62 91 L 11/08/17 06:00 101 H 24 129/60 93 L 11/08/17 05:30 105 H 29 H 145/72 91 L 11/08/17 05:00 95 19 142/65 94 L 11/08/17 04:30 97 30 H 150/68 94 L 11/08/17 04:00 97.8 F 97 20 139/63 94 L 11/08/17 03:30 95 25 H 137/67 94 L 11/08/17 03:00 98 26 H 128/58 98 11/08/17 02:30 105 H 41 H 117/65 11/08/17 02:00 100 30 H 114/55 97 11/08/17 01:30 26 H 132/64 96 11/08/17 01:00 99 19 102/60 94 L 11/08/17 00:30 92 26 H 103/62 95 11/08/17 00:27 95 11/08/17 00:00 92 28 H 142/58 95 11/07/17 23:30 90 24 121/63 93 L 11/07/17 23:00 97.8 F 90 117/56 95 11/07/17 21:59 97.1 F L 84 24 102/52 98 11/07/17 21:33 80 21 102/67 100 11/07/17 20:48 76 22 89/48 100 11/07/17 20:07 90/53 11/07/17 19:41 76 20 104/73 97 11/07/17 19:40 80/52 100 11/07/17 19:30 85/54 100 11/07/17 19:13 74 25 H 98/51 100 11/07/17 19:10 76 20 90/52 100 11/07/17 19:05 73 24 81/60 100 11/07/17 18:56 74 27 H 88/49 100 11/07/17 18:51 74 27 H 93/52 98 11/07/17 18:46 74 30 H 103/44 11/07/17 18:41 76 30 H 76/49 100 11/07/17 18:05 97.2 F L 77 30 H 81/46 93 L Intake and Output 11/07/17 11/08/17 11/08/17 22:59 06:59 14:59 Intake Total 675 175 Output Total 625 70 Balance 50 105 Intake: IV 675 175 Magnesium Sulfate-D5w Pmx 100 1 gm In Dextrose/Water 1 100ml.bag @ 100 mls/hr IVPB Q1H PAIGE Rx#: [id number] Sodium Chloride 0.9% 1, 675 75 000 ml @ 150 mls/hr IV . Q6H40M PAIGE Rx#:[id number] Output: Urine 625 70 Other: Voiding Method Indwelling Catheter Weight 83.6 kg No acute distress, oriented 3. Not requiring any supplemental oxygen. Very poor historian. HEENT examination is grossly unremarkable. Mucous membranes are moist. No oral lesions. Neck supple. Full range of motion. No adenopathy thyromegaly or neck vein distention. Cardiovascular examination reveals regular rhythm rate. S1-S2 normal. No S3 or S4. No discernible murmur noted. Heart rate is 97 bpm. Lungs reveal bibasilar crackles. There are a few scattered rhonchi. Breath sounds are diminished. No evidence of any stridor. No wheezes. Abdomen soft bowel sounds are heard. No masses or tenderness. Extremities are intact. No cyanosis or clubbing. Minimal edema. Skin is without rash or lesion. Neurologic examination is brief but nonfocal. Patient is difficult to evaluate. Results - Laboratory Findings CBC and BMP: 11/08/17 04:30 11/08/17 04:30 PT/INR, D-dimer PT 10.3 sec (9.0-12.0) 11/07/17 18:28 INR 1.0 (<1.2) 11/07/17 18:28 Abnormal lab findings: Abnormal Labs 11/07/17 11/07/17 11/07/17 18:28 18:28 18:28 RBC Hgb Neutrophils # 8.4 H Lymphocytes # 0.9 L VBG pH 7.25 L VBG HCO3 19 L Sodium Chloride Carbon Dioxide BUN Glucose POC Glucose (mg/dL) ALT Total Creatine Kinase 46 L Total Protein Urine pH Urine Protein Ur Leukocyte Esterase Urine RBC Triple Phos Crystals Amorphous Sediment Urine Bacteria Hyaline Casts Urine Mucus U Tricyclic Antidepress 11/07/17 11/07/17 11/07/17 18:28 19:38 22:35 RBC Hgb Neutrophils # Lymphocytes # VBG pH VBG HCO3 Sodium 135 L Chloride Carbon Dioxide 18 L BUN 32 H Glucose POC Glucose (mg/dL) 161 H ALT 15 L Total Creatine Kinase Total Protein 8.5 H Urine pH 8.5 H Urine Protein 2+ H Ur Leukocyte Esterase Large H Urine RBC 17 H Triple Phos Crystals Many H Amorphous Sediment Occasional H Urine Bacteria Rare H Hyaline Casts 43 H Urine Mucus Few H U Tricyclic Antidepress Detected H 11/08/17 11/08/17 11/08/17 04:30 04:30 07:07 RBC 4.14 L Hgb 12.3 L Neutrophils # Lymphocytes # 0.4 L VBG pH VBG HCO3 Sodium Chloride 111 H Carbon Dioxide 14 L BUN 27 H Glucose 235 H POC Glucose (mg/dL) 267 H ALT 15 L Total Creatine Kinase Total Protein Urine pH Urine Protein Ur Leukocyte Esterase Urine RBC Triple Phos Crystals Amorphous Sediment Urine Bacteria Hyaline Casts Urine Mucus U Tricyclic Antidepress - Diagnostic Findings Chest x-ray: report reviewed (Labs, x-rays, and medications are all reviewed.), image reviewed Assessment and Plan Assessment: Assessment Mental status changes, of unclear etiology. Sepsis secondary to urinary source is possible. Mild fluid overload, secondary to significant fluid resuscitation. History of CHF History of GERD History of hyperlipidemia History of hypertension Previous history of myocardial infarction History of CAD with previous stent placement History of anxiety and schizophrenia Probable COPD, secondary to heavy and ongoing tobacco dependence Plan: Plan dated 11/08/2017 The patient appears to be better this morning. The patient is not requiring any supplemental oxygen. Because of the chest x-ray and changes of fluid overload, the patient's IV fluids be turned down to KVO. Labs reviewed. Medications are reviewed. White count is 7.5, hemoglobin 12.3, hematocrit 39.3 and platelet count 170,000. Sodium and potassium are normal. Chloride 111 CO2 14, BUN 27 and creatinine 0.66. Anion gap is 12. N-terminal pro BNP was 1660. Drug screen was positive for tricyclic antidepressants. Urine evaluation is suggestive of a urinary tract infection. The patient is on ceftriaxone for a possible urinary tract infection. Steroids will be discontinued. The patient' s on updrafts. Additional recommendations and suggestions are forthcoming. Time with Patient: Greater than 30
[2017-11-08] MEDS: SODIUM CHLORIDE 0.9% 500 ML 500 ML IV SCH (10:18)
[2017-11-08 12:12] LABS: Glucose,Whole Blood 369 mg/dL (75-99)
[2017-11-08 12:29] LABS: Glucose,Whole Blood 263 mg/dL (75-99)
[2017-11-08 17:29] LABS: Glucose,Whole Blood 243 mg/dL (75-99)
--- NOTE | 2017-11-08 17:38 | P.HPIM ---
History of Present Illness H&P Date: 11/08/17 Chief Complaint: Unresponsive, short of breath and mental status changes Mr. Treviño is a 62-year-old male with a past medical history of heart failure, hyperlipidemia, hypertension, coronary artery disease, GERD sent to the hospital from wherever senior care as the patient was short of breath, unresponsive and had altered mental status changes. The patient is a poor historian so most of the history is taken from the nursing staff report and the ED notes. In the ED it was unclear why the patient was short of breath so he had a CT of the abdomen and CT angiogram of the chest that was negative for PE and no intra-abdominal pathology was noted on the CT of the abdomen. For a brief period of time the patient was started on BiPAP, and the patient was given IV steroids, breathing treatments after which his shortness of breath has resolved completely. Patient has history of coronary artery disease status post and placement in the past. He has extensive psychiatric disorder with anxiety issues of srinath and depression. Patient also had a CT of the head showing no acute intracranial process. The patient was also given a lot of IV fluids in the ER and a repeat chest x-ray was showing fluid overload, so his IV fluids have been discontinued. The patient was in the ICU overnight, and has been transferred to the general medical floors this afternoon. Today I am examining the patient on the general medical floors. He is lying in bed comfortably appears to be in no acute distress. Saturating at 97% on room air. The patient states he is not sure why he is in the hospital. Patient denies having any chest pain and difficulty in breathing or cough. Patient has a chronic indwelling Mesa's catheter. No change in and the color of his urine and the Mesa's catheter. Patient denies having any headaches blurring of vision or weakness of the extremities. He denies having any abdominal pain nausea vomiting or diarrhea. No blood or bleeding per rectum. At baseline patient is bedbound and he moves around with a walker and he has a thick speech. Review of system: Patient is a poor historian but on review of 12 systems he denies any except for the ones mentioned in the HPI. Past Medical History Past Medical History: Heart Failure, GERD/Reflux, Hyperlipidemia, Hypertension, Myocardial Infarction ([place]) Additional Past Medical History / Comment(s): RECTAL BLEEDING, Borderline diabetes. HAS IDC Last Myocardial Infarction Date:: 07/15/15 History of Any Multi-Drug Resistant Organisms: None Reported Past Surgical History: Heart Catheterization With Stent Past Anesthesia/Blood Transfusion Reactions: No Reported Reaction Date of Last Stent Placement:: 07/15/15 Past Psychological History: Anxiety, Schizoaffective Disorder, Schizophrenia Smoking Status: Current every day smoker Past Alcohol Use History: None Reported Past Drug Use History: None Reported - Past Family History Mother Family Medical History: Cancer Medications and Allergies Home Medications Medication Instructions Recorded Confirmed Type Pravastatin Sodium [Pravachol] 40 mg PO HS@2100 10/05/15 11/07/17 History Nitroglycerin Sl Tabs [Nitrostat] 0.4 mg SUBLINGUAL Q5M PRN #0 tab 11/16/15 Rx Ipratropium Nebulized [Atrovent 0.5 mg INHALATION RT-QID PRN 01/10/16 11/07/17 History Nebulized] Carvedilol [Coreg] 6.25 mg PO BID-W/MEALS #60 tab 01/15/16 11/07/17 Rx Cyclobenzaprine HCl 10 mg PO TID 06/04/17 11/07/17 History Ibuprofen [Motrin] 800 mg PO BID PRN 06/04/17 11/07/17 History Paliperidone IM [Invega Sustenna] 234 mg IM Q28D 06/04/17 11/07/17 History Potassium Chloride ER [K-Dur 20] 20 meq PO DAILY@1700 06/04/17 11/07/17 History Sertraline HCl [Zoloft] 100 mg PO DAILY 06/04/17 11/07/17 History Artificial Tears-Hypromellose 1 drops BOTH EYES TID PRN 06/13/17 11/07/17 History [Artificial Tear Drops] Aspirin 325 mg PO DAILY@1700 06/13/17 11/07/17 History Bisacodyl [Dulcolax] 10 mg RECTAL DAILY PRN 06/13/17 11/07/17 History Furosemide [Lasix] 40 mg PO DAILY@0600 06/13/17 11/07/17 History Magnesium Hydroxide [Milk of 2,400 mg PO DAILY PRN 06/13/17 11/07/17 History Magnesia] Na Phos,M-B/Na Phos,Di-Ba [Fleet 133 ml RECTAL DAILY PRN 06/13/17 11/07/17 History Adult] Omeprazole [PriLOSEC] 20 mg PO AC-BID #60 cap 08/27/17 11/07/17 Rx Albuterol Nebulized [Ventolin 2.5 mg INHALATION RT-QID PRN 11/07/17 11/07/17 History Nebulized] Clopidogrel [Plavix] 75 mg PO DAILY@0800 11/07/17 11/07/17 History Docusate [Colace] 100 mg PO DAILY PRN 11/07/17 11/07/17 History Famotidine [Pepcid] 20 mg PO DAILY@0700 11/07/17 11/07/17 History Insulin Aspart [NovoLOG 12 unit SQ BID@1100,1730 11/07/17 11/07/17 History (formulary)] Insulin Aspart [NovoLOG 16 unit SQ DAILY@0700 11/07/17 11/07/17 History (formulary)] Lisinopril [Zestril] 10 mg PO DAILY@0800 11/07/17 11/07/17 History Pioglitazone [Actos] 30 mg PO DAILY@0811/07/17 11/07/17 History Tamsulosin [Flomax] 0.4 mg PO DAILY@0800 11/07/17 11/07/17 History Ubidecarenone [Co Q-10] 100 mg PO DAILY@1700 11/07/17 11/07/17 History guaiFENesin [guaiFENesin Oral 200 mg PO Q4H PRN 11/07/17 11/07/17 History Solution] Allergies Allergy/AdvReac Type Severity Reaction Status Date / Time No Known Allergies Allergy Verified 11/07/17 18:16 Physical Exam Vitals: Vital Signs Temp Pulse Pulse Resp BP BP Pulse Ox 11/08/17 15:42 97.4 F L 96 24 128/74 94 L 11/08/17 12:00 98.2 F 97 19 100/69 94 L 11/08/17 11:58 99 11/08/17 11:47 97 11/08/17 11:30 96 20 125/59 94 L 11/08/17 11:00 97 33 H 109/56 95 11/08/17 10:30 96 22 104/53 96 11/08/17 10:00 95 16 146/83 97 09/30/18 09:30 93 20 141/57 96 11/08/17 09:00 140/52 93 L 11/08/17 08:30 92 20 129/39 96 11/08/17 08:24 95 11/08/17 08:12 93 11/08/17 08:00 97.9 F 97 20 105/62 95 11/08/17 07:30 95 19 124/64 96 11/08/17 07:00 100 21 128/60 91 L 11/08/17 06:30 98 28 H 133/62 91 L 11/08/17 06:00 101 H 24 129/60 93 L 11/08/17 05:30 105 H 29 H 145/72 91 L 11/08/17 05:00 95 19 142/65 94 L 11/08/17 04:30 97 30 H 150/68 94 L 11/08/17 04:00 97.8 F 97 20 139/63 94 L 11/08/17 03:30 95 25 H 137/67 94 L 11/08/17 03:00 98 26 H 128/58 98 11/08/17 02:30 105 H 41 H 117/65 11/08/17 02:00 100 30 H 114/55 97 11/08/17 01:30 26 H 132/64 96 11/08/17 01:00 99 19 102/60 94 L 11/08/17 00:30 92 26 H 103/62 95 11/08/17 00:27 95 11/08/17 00:00 92 28 H 142/58 95 11/07/17 23:30 90 24 121/63 93 L 11/07/17 23:00 97.8 F 90 117/56 95 11/07/17 21:59 97.1 F L 84 24 102/52 98 11/07/17 21:33 80 21 102/67 100 11/07/17 20:48 76 22 89/48 100 11/07/17 20:07 90/53 11/07/17 19:41 76 20 104/73 97 11/07/17 19:40 80/52 100 11/07/17 19:30 85/54 100 11/07/17 19:13 74 25 H 98/51 100 11/07/17 19:10 76 20 90/52 100 11/07/17 19:05 73 24 81/60 100 11/07/17 18:56 74 27 H 88/49 100 11/07/17 18:51 74 27 H 93/52 98 11/07/17 18:46 74 30 H 103/44 100 11/07/17 18:41 76 30 H 76/49 100 11/07/17 18:05 97.2 F L 77 30 H 81/46 93 L Intake and Output 11/08/17 11/08/17 11/08/17 06:59 14:59 22:59 Intake Total 675 535 Output Total 625 445 Balance 50 90 Intake: IV 675 335 Magnesium Sulfate-D5w Pmx 100 1 gm In Dextrose/Water 1 100ml.bag @ 100 mls/hr IVPB Q1H PAIGE Rx#: [id number] Sodium Chloride 0.9% 1, 675 175 000 ml @ 150 mls/hr IV . Q6H40M PAIGE Rx#:[id number] Sodium Chloride 0.9% 500 60 ml @ 20 mls/hr IV .Q24H PAIGE Rx#:[id number] Intake, IV Titration 200 Amount Magnesium Sulfate-D5w Pmx 100 1 gm In Dextrose/Water 1 100ml.bag @ 100 mls/hr IVPB Q1H PAIGE Rx#: [id number] cefTRIAXone 1,000 mg In 100 Sodium Chloride 0.9% 50 ml @ 100 mls/hr IVPB BID PAIGE Rx#:[id number] Output: Urine 625 445 Other: Voiding Method Indwelling Catheter Indwelling Catheter GENERAL EXAM GEN. APPEARANCE: alert, in no apparent distress HEAD EXAM: atraumatic, normocephalic, normal inspection EYE EXAM: normal appearance, PERRL, EOMI. Absent: scleral icterus, conjunctival injection, periorbital swelling ENT EXAM: normal exam, mucous membranes moist NECK EXAM: normal inspection. Absent: tenderness, meningismus, full ROM, lymphadenopathy RESPIRATORY EXAM: No wheezes or crackles. Diminished at the lower lung bases. CARDIOVASCULAR EXAM: regular rate, normal rhythm, normal heart sounds. Absent : systolic murmur, diastolic murmur, rubs, gallop, clicks GI/ABDOMINAL EXAM: soft, normal bowel sounds. Absent: distended, tenderness, guarding, rebound, rigid EXTREMITIES EXAM: normal inspection, full ROM, normal capillary refill. Absent : tenderness, pedal edema, joint swelling, calf tenderness BACK EXAM: normal inspection NEUROLOGICAL EXAM: No focal neurological deficits SKIN EXAM: warm, dry, intact, normal color. Absent: rash Results CBC & Chem 7: 11/08/17 04:30 11/08/17 04:30 Labs: Abnormal Lab Results - Last 24 Hours (Table) 11/07/17 11/07/17 11/07/17 Range/Units 18:28 18:28 18:28 RBC (4.30-5.90) m/uL Hgb (13.0-17.5) gm/dL Neutrophils # 8.4 H (1.3-7.7) k/uL Lymphocytes # 0.9 L (1.0-4.8) k/uL VBG pH 7.25 L (7.31-7.41) VBG HCO3 19 L (24-28) mmol/L Sodium (137-145) mmol/L Chloride (98-107) mmol/L Carbon Dioxide (22-30) mmol/L BUN (9-20) mg/dL Glucose (74-99) mg/dL POC Glucose (mg/dL) (75-99) mg/dL ALT (21-72) U/L Total Creatine Kinase 46 L (55-170) U/L Total Protein (6.3-8.2) g/dL Urine pH (5.0-8.0) Urine Protein (Negative) Ur Leukocyte Esterase (Negative) Urine RBC (0-5) /hpf Triple Phos Crystals (None) /hpf Amorphous Sediment (None) /hpf Urine Bacteria (None) /hpf Hyaline Casts (0-2) /lpf Urine Mucus (None) /hpf U Tricyclic Antidepress (NotDetected) 11/07/17 11/07/17 11/07/17 Range/Units 18:28 19:38 22:35 RBC (4.30-5.90) m/uL Hgb (13.0-17.5) gm/dL Neutrophils # (1.3-7.7) k/uL Lymphocytes # (1.0-4.8) k/uL VBG pH (7.31-7.41) VBG HCO3 (24-28) mmol/L Sodium 135 L (137-145) mmol/L Chloride (98-107) mmol/L Carbon Dioxide 18 L (22-30) mmol/L BUN 32 H (9-20) mg/dL Glucose (74-99) mg/dL POC Glucose (mg/dL) 161 H (75-99) mg/dL ALT 15 L (21-72) U/L Total Creatine Kinase (55-170) U/L Total Protein 8.5 H (6.3-8.2) g/dL Urine pH 8.5 H (5.0-8.0) Urine Protein 2+ H (Negative) Ur Leukocyte Esterase Large H (Negative) Urine RBC 17 H (0-5) /hpf Triple Phos Crystals Many H (None) /hpf Amorphous Sediment Occasional H (None) /hpf Urine Bacteria Rare H (None) /hpf Hyaline Casts 43 H (0-2) /lpf Urine Mucus Few H (None) /hpf U Tricyclic Antidepress Detected H (NotDetected) 11/08/17 11/08/17 11/08/17 Range/Units 04:30 04:30 07:07 RBC 4.14 L (4.30-5.90) m/uL Hgb 12.3 L (13.0-17.5) gm/dL Neutrophils # (1.3-7.7) k/uL Lymphocytes # 0.4 L (1.0-4.8) k/uL VBG pH (7.31-7.41) VBG HCO3 (24-28) mmol/L Sodium (137-145) mmol/L Chloride 111 H (98-107) mmol/L Carbon Dioxide 14 L (22-30) mmol/L BUN 27 H (9-20) mg/dL Glucose 235 H (74-99) mg/dL POC Glucose (mg/dL) 267 H (75-99) mg/dL ALT 15 L (21-72) U/L Total Creatine Kinase (55-170) U/L Total Protein (6.3-8.2) g/dL Urine pH (5.0-8.0) Urine Protein (Negative) Ur Leukocyte Esterase (Negative) Urine RBC (0-5) /hpf Triple Phos Crystals (None) /hpf Amorphous Sediment (None) /hpf Urine Bacteria (None) /hpf Hyaline Casts (0-2) /lpf Urine Mucus (None) /hpf U Tricyclic Antidepress (NotDetected) 11/08/17 11/08/17 Range/Units 12:10 12:28 RBC (4.30-5.90) m/uL Hgb (13.0-17.5) gm/dL Neutrophils # (1.3-7.7) k/uL Lymphocytes # (1.0-4.8) k/uL VBG pH (7.31-7.41) VBG HCO3 (24-28) mmol/L Sodium (137-145) mmol/L Chloride (98-107) mmol/L Carbon Dioxide (22-30) mmol/L BUN (9-20) mg/dL Glucose (74-99) mg/dL POC Glucose (mg/dL) 369 H 263 H (75-99) mg/dL ALT (21-72) U/L Total Creatine Kinase (55-170) U/L Total Protein (6.3-8.2) g/dL Urine pH (5.0-8.0) Urine Protein (Negative) Ur Leukocyte Esterase (Negative) Urine RBC (0-5) /hpf Triple Phos Crystals (None) /hpf Amorphous Sediment (None) /hpf Urine Bacteria (None) /hpf Hyaline Casts (0-2) /lpf Urine Mucus (None) /hpf U Tricyclic Antidepress (NotDetected) Microbiology - Last 24 Hours (Table) 11/07/17 19:38 Urine Culture - Preliminary Urine,Catheterized Thrombosis Risk Factor Assmnt - Choose All That Apply Each Factor Represents 1 point: Abnormal pulmonary function (COPD), Heart failure (<1month), Obesity (BMI >25) Each Risk Factor Represents 2 Points: Age 61-74 years Other congenital or acquired thrombophilia - If yes, enter type in comment: No Thrombosis Risk Factor Assessment Total Risk Factor Score: 5 Thrombosis Risk Factor Assessment Level: High Risk Assessment and Plan Assessment: Assessment Encephalopathy - unclear etiology Congestive heart failure - in acute exacerbation due to overt fluid resuscitation History of coronary artery disease status post stent placement Hypertension Hyperlipidemia Type 2 diabetes mellitus GERD Bipolar disorder with anxiety Schizophrenia ? COPD Nicotine dependence PLAN : Patient was brought in unresponsive/mental status changes, he was given IV fluids breathing treatments and steroids and patient's mentation is back to baseline. Patient labs do not show any signs of infection/sepsis. Patient is empirically started on ceftriaxone for possible UTI due to chronic indwelling Mesa's catheter and urine culture pending. Patient was resumed on his home medications. Further recommendations depending on the progress of the patient. Dr. Stearns following the patient from tomorrow.
[2017-11-08 20:24] LABS: Glucose,Whole Blood 352 mg/dL (75-99)
[2017-11-08] MEDS: SENNOSIDES 8.6 MG TAB PO SCH (23:03)
[2017-11-09] MEDS: HEPARIN SODIUM,PORCINE 5,000 UNIT/ML 1 ML VIAL SQ SCH ×4 (00:26→23:18)
[2017-11-09 07:17] LABS: Glucose,Whole Blood 114 mg/dL (75-99)
[2017-11-09] MEDS ORDERED: guaiFENesin SYRUP 100MG/5ML 200 MG/10 ML CUP PO PRN (07:30)
[2017-11-09] MEDS ORDERED: DOCUSATE 100 MG CAP PO PRN (07:30)
[2017-11-09] MEDS ORDERED: BISACODYL 10 MG SUPP RECTAL PRN (07:30)
[2017-11-09] MEDS ORDERED: NA PHOS,M-B/NA PHOS,DI-BA 133 ML ENEMA RECTAL PRN (07:30)
[2017-11-09] MEDS: IPRATROPIUM-ALBUTEROL 3 ML NEB INHALATION SCH ×4 (07:33→19:40)
--- NOTE | 2017-11-09 07:35 | P.PN ---
Subjective Progress Note Date: 11/09/17 Principal diagnosis: Shortness of breath This is a 62-year-old white male essentially admitted for altered mental status. He was given IV hydration and is now back to baseline. However, he seems to have significant dyspnea this morning. There is fluid overload on chest x-ray and he has negative intake and output balance so he is diuresing appropriately now. No dysuria is otherwise stated. However, there is positive urinary culture from chronic indwelling catheter. We will go ahead and obtain chest x-ray today. Objective - Vital Signs Vital signs: Vital Signs Temp 97.8 F 11/09/17 07:05 Pulse 108 H 11/09/17 07:05 Resp 40 H 11/09/17 07:05 BP 122/60 11/09/17 07:05 Pulse Ox 88 L 11/09/17 07:05 Intake & Output 11/08/17 11/09/17 11/09/17 18:59 06:59 18:59 Intake Total 535 1180 Output Total 445 1300 Balance 90 -120 Intake: IV 335 Magnesium Sulfate-D5w Pmx 100 1 gm In Dextrose/Water 1 100ml.bag @ 100 mls/hr IVPB Q1H PAIGE Rx#: [id number] Sodium Chloride 0.9% 1, 175 000 ml @ 150 mls/hr IV . Q6H40M PAIGE Rx#:[id number] Sodium Chloride 0.9% 500 60 ml @ 20 mls/hr IV .Q24H PAIGE Rx#:[id number] Intake, IV Titration 200 Amount Magnesium Sulfate-D5w Pmx 100 1 gm In Dextrose/Water 1 100ml.bag @ 100 mls/hr IVPB Q1H PAIGE Rx#: [id number] cefTRIAXone 1,000 mg In 100 Sodium Chloride 0.9% 50 ml @ 100 mls/hr IVPB BID PAIGE Rx#:[id number] Oral 1180 Output: Urine 445 1300 Straight 1300 Other: Voiding Method Indwelling Catheter Indwelling Catheter - Constitutional General appearance: Present: average body habitus - EENT Eyes: Absent: abnormal pupil - Respiratory Respiratory: bilateral: diminished - Cardiovascular Rhythm: regular Heart sounds: normal: S1, S2 Abnormal Heart Sounds: Absent: S3 Gallop - Gastrointestinal General gastrointestinal: Present: soft. Absent: tenderness, umbilical hernia - Integumentary Integumentary: Absent: cellulitis - Labs CBC & Chem 7: 11/08/17 04:30 11/08/17 04:30 Labs: Abnormal Lab Results - Last 24 Hours (Table) 11/08/17 11/08/17 11/08/17 Range/Units 12:10 12:28 17:28 POC Glucose (mg/dL) 369 H 263 H 243 H (75-99) mg/dL 11/08/17 11/09/17 Range/Units 20:22 07:11 POC Glucose (mg/dL) 352 H 114 H (75-99) mg/dL Microbiology - Last 24 Hours (Table) 11/07/17 18:28 Blood Culture - Preliminary Blood No Growth after 24 hours 11/07/17 19:38 Urine Culture - Preliminary Urine,Catheterized Gram Neg Bacilli Assessment and Plan (1) Acute exacerbation of chronic obstructive airways disease Current Visit: Yes Status: Acute Code(s): J44.1 - CHRONIC OBSTRUCTIVE PULMONARY DISEASE W (ACUTE) EXACERBATION SNOMED Code(s): 000207073 (2) Altered mental status Current Visit: Yes Status: Acute Code(s): R41.82 - ALTERED MENTAL STATUS, UNSPECIFIED SNOMED Code(s): 077487526 (3) Urinary tract infection Current Visit: Yes Status: Acute Code(s): N39.0 - URINARY TRACT INFECTION, SITE NOT SPECIFIED SNOMED Code(s): 92985245 (4) Hyperlipidemia Current Visit: No Status: Acute Code(s): E78.5 - HYPERLIPIDEMIA, UNSPECIFIED SNOMED Code(s): 50995216 (5) Hypertension Current Visit: No Status: Chronic Code(s): I10 - ESSENTIAL (PRIMARY) HYPERTENSION SNOMED Code(s): 86442230 Plan: Reconcile home medications. Check d-dimer. Prognosis is guarded secondary to his multiple comorbidities. Check CBC and CMP in a.m. Continue pulmonary support. We'll continue to follow closely with pulmonology. Time with Patient: Greater than 30
--- NOTE | 2017-11-09 08:22 | XR ---
EXAMINATION TYPE: XR chest 1V portable DATE OF EXAM: 11/09/2017 COMPARISON: 11/08/2017 HISTORY: Shortness of breath TECHNIQUE: Single portable view of the chest is submitted. FINDINGS: Patchy infiltrates are seen throughout both lung higgins progressive in nature. Correlate for underlyi ng pneumonia. Heart size is stable. Mediastinal structures are stable and grossly unremarkable. No evidence for hilar prominence. Degenerative changes dorsal spine. IMPRESSION: 1. Patchy infiltrates are seen throughout both lung higgins progressive in nature. Correlate for under lying pneumonia.
[2017-11-09 08:36] LABS: Basophils % (A) 0 %; Eosinophils % (A) 0 %; HCT 37.5 % (39.0-53.0); HGB 11.8 gm/dL (13.0-17.5); Lymphocytes % (A) 10 %; MCH 29.8 pg (25.0-35.0); MCHC 31.6 g/dL (31.0-37.0); MCV 94.2 fL (80.0-100.0); Mean Platelet Volume 6.2; Monocytes # (A) 0.6 k/uL (0-1.0); Monocytes % (A) 6 %; Neutrophils # (A) 8.9 k/uL (1.3-7.7); Neutrophils % (A) 83 %; Platelet Count 179 k/uL (150-450); RBC 3.98 m/uL (4.30-5.90); RDW 14.9 % (11.5-15.5); WBC 10.6 k/uL (3.8-10.6)
[2017-11-09 08:54] LABS: Anion Gap 9 mmol/L; Blood Urea Nitrogen 21 mg/dL (9-20); Calcium 8.6 mg/dL (8.4-10.2); Carbon Dioxide 16 mmol/L (22-30); Chloride 112 mmol/L (98-107); Glucose 113 mg/dL (74-99); Potassium 4.2 mmol/L (3.5-5.1); Sodium 137 mmol/L (137-145)
[2017-11-09] MEDS: PANTOPRAZOLE 40 MG TABLET PO SCH ×2 (09:11→17:38)
[2017-11-09] MEDS: CYCLOBENZAPRINE 10 MG TAB PO SCH ×3 (09:11→22:40)
[2017-11-09] MEDS: CARVEDILOL 6.25 MG TAB PO SCH ×2 (09:11→17:38)
[2017-11-09] MEDS: SERTRALINE 100 MG TAB PO SCH (09:11)
[2017-11-09] MEDS: CLOPIDOGREL 75 MG TAB PO SCH (09:11)
[2017-11-09] MEDS: LISINOPRIL 10 MG TAB PO SCH (09:11)
[2017-11-09] MEDS: TAMSULOSIN 0.4 MG CAP.ER.24H PO SCH (09:11)
[2017-11-09] MEDS: INSULIN ASPART 100 UNIT/ML 1 ML 10 ML VIAL SQ SCH ×4 (09:12→21:04)
[2017-11-09 09:27] LABS: Hemoglobin A1C 6.7 % (4.0-6.0)
[2017-11-09] MEDS ORDERED: FUROSEMIDE 10 MG/ML 4 ML VIAL IV STA (09:36)
[2017-11-09 11:23] LABS: Glucose,Whole Blood 133 mg/dL (75-99)
[2017-11-09] MEDS: SODIUM CHLORIDE 0.9% 500 ML 500 ML IV SCH (11:59)
[2017-11-09] MEDS ORDERED: NON-FORMULARY DRUG (Ubidecarenone [Co Q-10] 100 MG) PO SCH (17:00)
[2017-11-09 17:18] LABS: Glucose,Whole Blood 128 mg/dL (75-99)
[2017-11-09] MEDS: ASPIRIN 325 MG TAB PO SCH (17:38)
[2017-11-09 20:53] LABS: Glucose,Whole Blood 175 mg/dL (75-99)
[2017-11-09] MEDS: SENNOSIDES 8.6 MG TAB PO SCH (21:04)
[2017-11-10] MEDS ORDERED: ALPRAZolam 0.5 MG TAB PO STA (02:26)
[2017-11-10 05:12] LABS: Glucose,Whole Blood 128 mg/dL (75-99)
[2017-11-10] MEDS: FUROSEMIDE 40 MG TAB PO SCH (05:50)
[2017-11-10 07:15] LABS: Glucose,Whole Blood 134 mg/dL (75-99)
[2017-11-10 08:14] LABS: HCT 35.4 % (39.0-53.0); HGB 11.2 gm/dL (13.0-17.5); MCH 29.8 pg (25.0-35.0); MCHC 31.7 g/dL (31.0-37.0); MCV 94.1 fL (80.0-100.0); Mean Platelet Volume 6.4; Platelet Count 179 k/uL (150-450); RBC 3.77 m/uL (4.30-5.90); RDW 14.8 % (11.5-15.5); WBC 8.1 k/uL (3.8-10.6)
[2017-11-10 08:16] LABS: ALT 18 U/L (21-72); AST 20 U/L (17-59); Albumin 3.6 g/dL (3.5-5.0); Alkaline Phosphatase 99 U/L (38-126); Anion Gap 8 mmol/L; Blood Urea Nitrogen 22 mg/dL (9-20); Calcium 8.8 mg/dL (8.4-10.2); Carbon Dioxide 21 mmol/L (22-30); Chloride 110 mmol/L (98-107); Glucose 122 mg/dL (74-99); Potassium 3.9 mmol/L (3.5-5.1); Sodium 139 mmol/L (137-145); Total Bilirubin 0.7 mg/dL (0.2-1.3); Total Protein 7.1 g/dL (6.3-8.2)
[2017-11-10] MEDS: IPRATROPIUM-ALBUTEROL 3 ML NEB INHALATION SCH ×4 (08:49→20:32)
[2017-11-10 09:22] LABS: Glucose,Whole Blood 120 mg/dL (75-99)
[2017-11-10 11:31] LABS: Glucose,Whole Blood 120 mg/dL (75-99)
--- NOTE | 2017-11-10 11:48 | CDI ---
Last Revision, January 2017 Documentation Clarification Form Date: 11/10/2017 11:38:40 AM From: Masha Carreon, [facility], CCDS Admit Date: 11/07/2017 8:20:00 PM Patient Name: Sarkis Treviño Visit Number: [id number] Discharge Date: ATTENTION: The Clinical Documentation Specialists (CDI) and [facility] Coding Staff appreciate your assistance in clarifying documentation. Please respond to the clarification below the line at the bottom and electronically sign. The CDI & [facility] Coding staff will review the response and follow-up if needed. Please note: Queries are made part of the Legal Health Record. If you have any questions, please contact the author of this message via ITS. Juan Rader MD: Encephalopathy is documented in the History & Physical with unclear etiology. History/Risk factors: CHF, CAD with stent, Hypertension, Hyperlipidemia, DM II and nicotine dependence. Clinical Indicators: Presented from SNF unresponsive, SOB with altered mental status changes. VS: T 97.2*, R 30 (sob, labored, accessory muscle use & retractions), BP 81/46* , PO 93 ra-100 bipap. Admitted with acute exacerbation COPD. Labs: Neut 8.4^, pH 7.25*, HCO3 19*, Na 135*, CO2 18*, BUN 32^. UA: turbid, pH 8.5^, 2+ prot, Pos nitrite, Lg esterase. CT Brain: Atrophy w/periventricular white matter ischemic change, stable. Treatment: Telemetry, Albuterol INH, IV fl 100, IV fluid bolus, IV Rocephin, IV Solumedrol, Urine & blood cultures. Consults: Pulmonary In your professional opinion, can you please clarify the specific type of encephalopathy, if known? Anoxic Encephalopathy Hypertensive Encephalopathy Metabolic Encephalopathy Toxic Encephalopathy Other, please specify Unable to determine MTDD
--- NOTE | 2017-11-10 11:55 | CDI ---
Last Revision, January 2017 Documentation Clarification Form Date: 11/10/2017 11:49:19 AM From: Masha CarreonTIFFANIE, CCDS Admit Date: 11/07/2017 8:20:00 PM Patient Name: Sarkis Treviño Visit Number: [id number] Discharge Date: 11/18/2017 ATTENTION: The Clinical Documentation Specialists (CDI) and [facility] Coding Staff appreciate your assistance in clarifying documentation. Please respond to the clarification below the line at the bottom and electronically sign. The CDI & [facility] Coding staff will review the response and follow-up if needed. Please note: Queries are made part of the Legal Health Record. If you have any questions, please contact the author of this message via ITS. Juan Rader MD: A diagnosis of UTI has been documented in the 11/09 progress note. Per the History & Physical, the patient is admitted on Rocephin for possible UTI due to chronic indwelling Mesa catheter. History/Risk factors: Chronic Mesa catheter, resides in SNF, CHF, CAD, Hypertension, DM II. Clinical Indicators: Presented with SOB, altered mental status, unresponsive at SNF. Urinalysis: Turbid, pH 8.5^, 2+ prot^, Pos nitrite, Lg esterase, RBC 17, Rare bacteria, Hyaline cast: 43. Urine culture: Preliminary: Proteus vulgaris gm neg bacilli Treatment: IV fluid bolus, IV fluid rate 100, IV Rocephin In your professional opinion, can you please clarify the etiology of the UTI, if known? UTI related to Mesa catheter UTI not related to Mesa catheter Other condition, please specify Unable to determine If an infective organism is present, please specify cause and effect relationship if applicable. MTDD
[2017-11-10] MEDS: CARVEDILOL 6.25 MG TAB PO SCH ×2 (13:18→17:54)
[2017-11-10] MEDS: HEPARIN SODIUM,PORCINE 5,000 UNIT/ML 1 ML VIAL SQ SCH ×3 (13:18→23:56)
[2017-11-10] MEDS: INSULIN ASPART 100 UNIT/ML 1 ML 10 ML VIAL SQ SCH ×4 (13:19→21:52)
[2017-11-10] MEDS ORDERED: FUROSEMIDE 10 MG/ML 4 ML VIAL IV STA (13:41)
--- NOTE | 2017-11-10 14:00 | P.PN ---
Subjective Progress Note Date: 11/10/17 Principal diagnosis: Altered mental status, shortness of breath This is a 62-year-old male who apparently was brought into the emergency department on November 07 and evaluated by one of the ER doctors for mental status changes and shortness of breath. The patient was apparently found to have a low pulse ox at [facility]. The patient was unable to give any history at the time of the evaluation in the ER. The ER physician was not really sure was going on with the patient and thought maybe it was related to a drug effect and/or possible sepsis/urinary tract infection. According to the ER suni, the patient has a history of heart failure, GERD, hyperlipidemia, hypertension, and myocardial infarction. The patient also probably has a history of borderline diabetes and a indwelling catheter as well as a previous history of rectal bleeding. He's also had a cardiac catheterization with stent placement. He suffers from anxiety schizophrenia and depression. He is apparently an every day smoker. The patient really can give no history today in the ICU. The patient is in no distress. Not receiving any supplemental patient's saturations are mid to high 90s. The patient's IV is a saline IV at 75 mL an hour. We believe the patient is probably at baseline. The patient had a chest x-ray which showed cardiomegaly. Brain CT showed atrophy and periventricular white matter but the exam was stable compared to a computed tomography scan done May 2017. CT of the abdomen and pelvis showed sludge within the gallbladder bilateral renal cyst but essentially was unremarkable. CT angiogram showed no evidence of pulmonary embolism. The rest of the CT was essentially on impressive. There were some enlarged mediastinal lymph nodes and a PET scan was recommended. Follow-up chest x-ray from the suggested possible heart failure. The patient had received aggressive fluid resuscitation. The patient is seen again today 11/10/2017 in follow-up on the regular medical floor. He is currently resting comfortably in bed. He did have issues with anxiety and restlessness and was given Xanax 0.25 mg at 3:00 this morning. Since then he has been somewhat somnolent. He is arousing to verbal stimuli however. He is maintaining good O2 saturations in the upper 90s on 3 L/m per nasal cannula. He's been afebrile. Hemodynamically stable. Urine culture is positive for Proteus vulgaris and gram-negative bacilli. Blood culture reveals no growth. He is currently on ceftriaxone. White count 8.1. Hemoglobin 11.2. Bicarb 21. Creatinine 0.63. Objective - Vital Signs Vital signs: Vital Signs Temp 98.4 F 11/10/17 12:10 Pulse 96 11/10/17 12:10 Resp 26 H 11/10/17 12:10 BP 121/55 11/10/17 12:10 Pulse Ox 97 11/10/17 12:10 Intake & Output 11/09/17 11/10/17 11/10/17 18:59 06:59 18:59 Intake Total 510 Output Total 2847 235 3758 Balance -1400 -290 -1235 Intake: IV 160 Sodium Chloride 0.9% 500 160 ml @ 20 mls/hr IV .Q24H PAIGE Rx#:[id number] Intake, IV Titration 50 Amount cefTRIAXone 1,000 mg In 50 Sodium Chloride 0.9% 50 ml @ 100 mls/hr IVPB BID PAIGE Rx#:[id number] Oral 300 Output: Urine 6839 758 0578 Straight 1400 800 Other: Voiding Method Indwelling Catheter Indwelling Catheter Indwelling Catheter # Voids 3 - Exam No acute distress, arouses to verbal stimuli. Currently on oxygen at 3 L/m per nasal cannula. Very poor historian. HEENT examination is grossly unremarkable. Mucous membranes are moist. No oral lesions. Neck supple. Full range of motion. No adenopathy thyromegaly or neck vein distention. Cardiovascular examination reveals regular rhythm rate. S1-S2 normal. No S3 or S4. No discernible murmur noted. Heart rate is 97 bpm. Lungs reveal bibasilar crackles. There are a few scattered rhonchi. Breath sounds are diminished. No evidence of any stridor. No wheezes. Abdomen soft bowel sounds are heard. No masses or tenderness. Extremities are intact. No cyanosis or clubbing. Minimal edema. Skin is without rash or lesion. Neurologic examination is brief but nonfocal. Patient is difficult to evaluate. - Labs CBC & Chem 7: 11/10/17 07:32 11/10/17 07:32 Labs: Abnormal Lab Results - Last 24 Hours (Table) 11/09/17 11/09/17 11/10/17 Range/Units 17:16 20:51 05:10 RBC (4.30-5.90) m/uL Hgb (13.0-17.5) gm/dL Hct (39.0-53.0) % Chloride (98-107) mmol/L Carbon Dioxide (22-30) mmol/L BUN (9-20) mg/dL Creatinine (0.66-1.25) mg/dL Glucose (74-99) mg/dL POC Glucose (mg/dL) 128 H 175 H 128 H (75-99) mg/dL ALT (21-72) U/L 11/10/17 11/10/17 11/10/17 Range/Units 07:13 07:32 07:32 RBC 3.77 L (4.30-5.90) m/uL Hgb 11.2 L (13.0-17.5) gm/dL Hct 35.4 L (39.0-53.0) % Chloride 110 H (98-107) mmol/L Carbon Dioxide 21 L (22-30) mmol/L BUN 22 H (9-20) mg/dL Creatinine 0.63 L (0.66-1.25) mg/dL Glucose 122 H (74-99) mg/dL POC Glucose (mg/dL) 134 H (75-99) mg/dL ALT 18 L (21-72) U/L 11/10/17 11/10/17 Range/Units 09:21 11:29 RBC (4.30-5.90) m/uL Hgb (13.0-17.5) gm/dL Hct (39.0-53.0) % Chloride (98-107) mmol/L Carbon Dioxide (22-30) mmol/L BUN (9-20) mg/dL Creatinine (0.66-1.25) mg/dL Glucose (74-99) mg/dL POC Glucose (mg/dL) 120 H 120 H (75-99) mg/dL ALT (21-72) U/L Microbiology - Last 24 Hours (Table) 11/07/17 18:28 Blood Culture - Preliminary Blood No Growth after 48 hours 11/07/17 19:38 Urine Culture - Preliminary Urine,Catheterized Proteus vulgaris Gram Neg Bacilli Assessment and Plan Assessment: Assessment Mental status changes. Sepsis secondary to urinary tract infection secondary to Proteus vulgaris and gram-negative bacilli. Currently on ceftriaxone. Mild fluid overload, secondary to significant fluid resuscitation. We'll give additional Lasix today. History of CHF History of GERD History of hyperlipidemia History of hypertension Previous history of myocardial infarction History of CAD with previous stent placement History of anxiety and schizophrenia Probable COPD, secondary to heavy and ongoing tobacco dependence Enlarged mediastinal lymph nodes. To be further evaluated in the outpatient setting with possible PET scan Plan: The patient was seen and evaluated by Dr. Webb. We'll give additional Lasix 40 mg IV push times one. Continue antibiotics. Await final cultures. Utilize BiPAP if needed. Cautious use of anxiolytics, sedation, narcotics. We will repeat a chest x-ray in the a.m. We'll continue to follow. I, the cosigning physician, performed a history & physical examination of the patient. Lungs sounds with basilar crackles. Maintaining good O2 saturations in the 90s on 3 L/m per nasal cannula. I discussed the assessment and plan of care with my nurse practitioner, Jeana Garduno. I attest to the above note as dictated by her.
--- NOTE | 2017-11-10 15:11 | P.PN ---
Subjective Progress Note Date: 11/10/17 Principal diagnosis: Altered mentation, of unclear etiology, mild fluid overload, shortness of breath. Pulmonary consult dated 11/08/2017 This is a 62-year-old male who apparently was brought into the emergency department on November 07 and evaluated by one of the ER doctors for mental status changes and shortness of breath. The patient was apparently found to have a low pulse ox at [facility]. The patient was unable to give any history at the time of the evaluation in the ER. The ER physician was not really sure was going on with the patient and thought maybe it was related to a drug effect and/or possible sepsis/urinary tract infection. According to the ER suni, the patient has a history of heart failure, GERD, hyperlipidemia, hypertension, and myocardial infarction. The patient also probably has a history of borderline diabetes and a indwelling catheter as well as a previous history of rectal bleeding. He's also had a cardiac catheterization with stent placement. He suffers from anxiety schizophrenia and depression. He is apparently an every day smoker. The patient really can give no history today in the ICU. The patient is in no distress. Not receiving any supplemental patient's saturations are mid to high 90s. The patient's IV is a saline IV at 75 mL an hour. We believe the patient is probably at baseline. The patient had a chest x-ray which showed cardiomegaly. Brain CT showed atrophy and periventricular white matter but the exam was stable compared to a computed tomography scan done May 2017. CT of the abdomen and pelvis showed sludge within the gallbladder bilateral renal cyst but essentially was unremarkable. CT angiogram showed no evidence of pulmonary embolism. The rest of the CT was essentially on impressive. There were some enlarged mediastinal lymph nodes and a PET scan was recommended. Follow-up chest x-ray from the suggested possible heart failure. The patient had received aggressive fluid resuscitation. On 11/09/2017 patient was seen in follow-up on medical surgical floor. In the morning patient was noted to be hypoxemic, with a pulse ox of 88%, he was given a dose of IV Lasix, diuresed, and this afternoon he seen on medical surgical floor, parent distress, on 2 L per nasal cannula, and the pulse ox is 96%. CT angiogram of the chest was negative for any evidence of pulmonary embolism cardiomegaly, moderate edema, some sludge in the gallbladder. Her were enlarged mediastinal lymph nodes, that we will likely need follow-up outpatient basis. Blood culture is negative, urine culture was positive for Proteus vulgaris, and gram-negative bacilli. Patient is covered with Rocephin, no ongoing fever or chills. Objective - Vital Signs Vital signs: Vital Signs Temp 98.4 F 11/10/17 12:10 Pulse 96 11/10/17 12:10 Resp 26 H 11/10/17 12:10 BP 121/55 11/10/17 12:10 Pulse Ox 97 11/10/17 12:10 Intake & Output 11/09/17 11/10/17 11/10/17 18:59 06:59 18:59 Intake Total 510 Output Total 7202 420 8955 Balance -1400 -290 -1235 Intake: IV 160 Sodium Chloride 0.9% 500 160 ml @ 20 mls/hr IV .Q24H PAIGE Rx#:[id number] Intake, IV Titration 50 Amount cefTRIAXone 1,000 mg In 50 Sodium Chloride 0.9% 50 ml @ 100 mls/hr IVPB BID PAIGE Rx#:[id number] Oral 300 Output: Urine 7857 351 9624 Straight 1400 800 Other: Voiding Method Indwelling Catheter Indwelling Catheter Indwelling Catheter # Voids 3 - Exam No acute distress, oriented 3. On 3 L per nasal cannula. Very poor historian. HEENT examination is grossly unremarkable. Mucous membranes are moist. No oral lesions. Neck supple. Full range of motion. No adenopathy thyromegaly or neck vein distention. Cardiovascular examination reveals regular rhythm rate. S1-S2 normal. No S3 or S4. No discernible murmur noted. Heart rate is 97 bpm. Lungs reveal bibasilar crackles. There are a few scattered rhonchi. Breath sounds are diminished. No evidence of any stridor. No wheezes. Abdomen soft bowel sounds are heard. No masses or tenderness. Extremities are intact. No cyanosis or clubbing. Minimal edema. Skin is without rash or lesion. Neurologic examination is brief but nonfocal. Patient is difficult to evaluate. - Labs CBC & Chem 7: 11/10/17 07:32 11/10/17 07:32 Labs: Abnormal Lab Results - Last 24 Hours (Table) 11/09/17 11/09/17 11/10/17 Range/Units 17:16 20:51 05:10 RBC (4.30-5.90) m/uL Hgb (13.0-17.5) gm/dL Hct (39.0-53.0) % Chloride (98-107) mmol/L Carbon Dioxide (22-30) mmol/L BUN (9-20) mg/dL Creatinine (0.66-1.25) mg/dL Glucose (74-99) mg/dL POC Glucose (mg/dL) 128 H 175 H 128 H (75-99) mg/dL ALT (21-72) U/L 11/10/17 11/10/17 11/10/17 Range/Units 07:13 07:32 07:32 RBC 3.77 L (4.30-5.90) m/uL Hgb 11.2 L (13.0-17.5) gm/dL Hct 35.4 L (39.0-53.0) % Chloride 110 H (98-107) mmol/L Carbon Dioxide 21 L (22-30) mmol/L BUN 22 H (9-20) mg/dL Creatinine 0.63 L (0.66-1.25) mg/dL Glucose 122 H (74-99) mg/dL POC Glucose (mg/dL) 134 H (75-99) mg/dL ALT 18 L (21-72) U/L 11/10/17 11/10/17 Range/Units 09:21 11:29 RBC (4.30-5.90) m/uL Hgb (13.0-17.5) gm/dL Hct (39.0-53.0) % Chloride (98-107) mmol/L Carbon Dioxide (22-30) mmol/L BUN (9-20) mg/dL Creatinine (0.66-1.25) mg/dL Glucose (74-99) mg/dL POC Glucose (mg/dL) 120 H 120 H (75-99) mg/dL ALT (21-72) U/L Microbiology - Last 24 Hours (Table) 11/07/17 18:28 Blood Culture - Preliminary Blood No Growth after 48 hours 11/07/17 19:38 Urine Culture - Preliminary Urine,Catheterized Proteus vulgaris Gram Neg Bacilli Assessment and Plan Plan: Assessment: Mental status changes, of unclear etiology. Sepsis and the source is urinary tract infection, urine cultures were positive gram-negative bacilli, and Proteus vulgaris Mild fluid overload, secondary to significant fluid resuscitation. History of CHF History of GERD History of hyperlipidemia History of hypertension Previous history of myocardial infarction History of CAD with previous stent placement History of anxiety and schizophrenia Probable COPD, secondary to heavy and ongoing tobacco dependence Plan: Patient was given a dose of Lasix, continue with maintenance oral Lasix, easier this afternoon. No ongoing fever or chills, antibiotic coverage per ID service recommendations. Hemodynamically stable, maintain aspiration precautions, repeat chest x-ray tomorrow. I performed a history & physical examination of the patient and discussed their management with my nurse practitioner, Tamiko Roach. I reviewed the nurse practitioner's note and agree with the documented findings and plan of care. Lung sounds are positive for scattered rales. The findings and the impression was discussed with the patient. I attest to the documentation by the nurse practitioner. Time with Patient: Less than 30
--- NOTE | 2017-11-10 15:43 | XR ---
EXAMINATION TYPE: XR chest 1V DATE OF EXAM: 11/10/2017 COMPARISON: 10 HISTORY: Shortness of breath TECHNIQUE: Single frontal view of the chest is obtained. FINDINGS: Patchy infiltrates are seen throughout both lung higgins progressive in nature. Correlate f or underlying pneumonia. Heart size is stable. Mediastinal structures are stable and grossly unremark able. No evidence for hilar prominence. Degenerative changes dorsal spine. IMPRESSION: 1. Diffuse infiltrates demonstrated mild improvement. Underlying interstitial pattern also present. D ifferential diagnosis would include diffuse pneumonia or CHF. Atypical pneumonia in the differential diagnosis.
[2017-11-10] MEDS: SODIUM CHLORIDE 0.9% 500 ML 500 ML IV SCH (16:54)
[2017-11-10] MEDS: SERTRALINE 100 MG TAB PO SCH (16:54)
[2017-11-10] MEDS: LISINOPRIL 10 MG TAB PO SCH (16:54)
[2017-11-10] MEDS: CLOPIDOGREL 75 MG TAB PO SCH (16:54)
[2017-11-10] MEDS: PANTOPRAZOLE 40 MG TABLET PO SCH ×2 (16:54→17:54)
[2017-11-10] MEDS: CYCLOBENZAPRINE 10 MG TAB PO SCH ×3 (16:54→22:01)
[2017-11-10] MEDS: TAMSULOSIN 0.4 MG CAP.ER.24H PO SCH (16:54)
[2017-11-10] MEDS: FAMOTIDINE 20 MG TAB PO SCH (16:54)
[2017-11-10 17:22] LABS: Glucose,Whole Blood 133 mg/dL (75-99)
[2017-11-10] MEDS: ASPIRIN 325 MG TAB PO SCH (17:54)
[2017-11-10] MEDS: SENNOSIDES 8.6 MG TAB PO SCH (19:57)
[2017-11-10 20:33] LABS: Glucose,Whole Blood 116 mg/dL (75-99)
[2017-11-11] MEDS ORDERED: CARVEDILOL 6.25 MG TAB PO STA (04:25)
[2017-11-11] MEDS ORDERED: ACETAMINOPHEN IV (For NPO) 1,000 MG in EMPTY BAG 1 BAG IVPB STA (05:35)
[2017-11-11] MEDS ORDERED: LEVOFLOXACIN 750MG-D5W PMX 750 MG in DEXTROSE/WATER 1 150ML.BAG IVPB STA (05:35)
[2017-11-11] MEDS: FUROSEMIDE 40 MG TAB PO SCH (05:49)
[2017-11-11] MEDS: CARVEDILOL 6.25 MG TAB PO SCH ×2 (05:51→20:09)
[2017-11-11 06:22] LABS: Anion Gap 15 mmol/L; Blood Urea Nitrogen 23 mg/dL (9-20); Calcium 9.2 mg/dL (8.4-10.2); Carbon Dioxide 17 mmol/L (22-30); Chloride 107 mmol/L (98-107); Glucose 196 mg/dL (74-99); Potassium 3.9 mmol/L (3.5-5.1); Sodium 139 mmol/L (137-145)
[2017-11-11 06:23] LABS: Basophils % (A) 0 %; Eosinophils % (A) 0 %; HCT 42.7 % (39.0-53.0); HGB 13.2 gm/dL (13.0-17.5); Lymphocytes # (A) 0.5 k/uL (1.0-4.8); Lymphocytes % (A) 5 %; MCH 29.5 pg (25.0-35.0); MCHC 30.9 g/dL (31.0-37.0); MCV 95.3 fL (80.0-100.0); Mean Platelet Volume 6.8; Monocytes # (A) 0.5 k/uL (0-1.0); Monocytes % (A) 5 %; Neutrophils % (A) 89 %; Platelet Count 183 k/uL (150-450); RBC 4.48 m/uL (4.30-5.90); RDW 14.7 % (11.5-15.5); WBC 10.1 k/uL (3.8-10.6)
[2017-11-11] MEDS: IPRATROPIUM-ALBUTEROL 3 ML NEB INHALATION SCH ×4 (06:54→19:27)
[2017-11-11] MEDS ORDERED: ACETAMINOPHEN IV (For NPO) 1,000 MG in EMPTY BAG 1 BAG IVPB ONE ×2 (07:49→11:00)
[2017-11-11] MEDS: INSULIN ASPART 100 UNIT/ML 1 ML 10 ML VIAL SQ SCH ×3 (08:17→20:10)
[2017-11-11] MEDS: FAMOTIDINE 20 MG TAB PO SCH (08:22)
[2017-11-11] MEDS: PANTOPRAZOLE 40 MG TABLET PO SCH (08:23)
[2017-11-11] MEDS ORDERED: IBUPROFEN IV 800 MG in SODIUM CHLORIDE 0.9% 250 ML IV ONE (09:00)
[2017-11-11] MEDS: CYCLOBENZAPRINE 10 MG TAB PO SCH ×2 (09:09→20:06)
[2017-11-11] MEDS: TAMSULOSIN 0.4 MG CAP.ER.24H PO SCH (09:09)
[2017-11-11] MEDS: HEPARIN SODIUM,PORCINE 5,000 UNIT/ML 1 ML VIAL SQ SCH ×2 (09:10→20:06)
--- NOTE | 2017-11-11 09:46 | XR ---
EXAMINATION TYPE: XR chest 1V portable DATE OF EXAM: 11/11/2017 Comparison: 11/10/2017 Clinical History: 62 year-old male shortness of breath Findings: Heart mildly enlarged. Diffuse interstitial and patchy and confluent airspace opacities throughout, i ncreased from yesterday. No significant pleural effusion seen on the frontal view. Impression: Mild cardiomegaly and worsening diffuse interstitial and airspace disease. Correlate for worsening pu lmonary edema, interstitial pneumonitis, or multifocal pneumonia.
[2017-11-11 10:07] LABS: ABG Base Excess -4.4 mmol/L; ABG HCO3 20 mmol/L (21-25); ABG Oxygen Saturation 92.4 % (94-97); ABG PCO2 32 mmHg (35-45); ABG PH 7.41 (7.35-7.45); ABG TCO2 21 mmol/L (19-24)
[2017-11-11 10:16] LABS: ABG PO2 59 mmHg (83-108)
[2017-11-11 11:34] LABS: Glucose,Whole Blood 253 mg/dL (75-99)
[2017-11-11] MEDS: FUROSEMIDE 10 MG/ML 4 ML VIAL IV SCH (13:20)
--- NOTE | 2017-11-11 13:45 | P.PN ---
Subjective Principal diagnosis: Shortness of breath This is a continue present 62-year-old white male who was essentially admitted for altered mental status with element of urinary retention. The patient has had a rough night where he has become more to Begin this now spike temperature. We will go ahead and treat for UTI and workup for sepsis elements. He is less oriented today and not as responsive to following commands as he was yesterday. Objective - Vital Signs Vital signs: Vital Signs Temp 100.4 F H 11/11/17 10:18 Pulse 108 H 11/11/17 12:09 Resp 36 H 11/11/17 10:18 BP 121/71 11/11/17 10:18 Pulse Ox 96 11/11/17 10:18 Intake & Output 11/10/17 11/11/17 11/11/17 18:59 06:59 18:59 Intake Total 170 Output Total 4035 500 450 Balance -4035 -330 -450 Weight 53.5 kg Intake: Intake, IV Titration 50 Amount cefTRIAXone 1,000 mg In 50 Sodium Chloride 0.9% 50 ml @ 100 mls/hr IVPB BID [facility] Rx#:[id number] Oral 120 Output: Urine 4035 500 450 Straight 2800 Other: Voiding Method Indwelling Catheter Indwelling Catheter Indwelling Catheter - Constitutional General appearance: Present: average body habitus - EENT Eyes: Absent: abnormal pupil - Respiratory Details: Tachypneic Respiratory: bilateral: diminished - Cardiovascular Rhythm: regular Heart sounds: normal: S1, S2 Abnormal Heart Sounds: Absent: S3 Gallop - Gastrointestinal General gastrointestinal: Present: soft - Psychiatric Psychiatric: Absent: A&O x's 3 - Labs CBC & Chem 7: 11/11/17 05:53 11/11/17 05:53 Labs: Abnormal Lab Results - Last 24 Hours (Table) 11/10/17 11/10/17 11/11/17 Range/Units 17:21 20:31 05:53 MCHC (31.0-37.0) g/dL Neutrophils # (1.3-7.7) k/uL Lymphocytes # (1.0-4.8) k/uL ABG pCO2 (35-45) mmHg ABG pO2 (83-108) mmHg ABG HCO3 (21-25) mmol/L ABG O2 Saturation (94-97) % Carbon Dioxide 17 L (22-30) mmol/L BUN 23 H (9-20) mg/dL Glucose 196 H (74-99) mg/dL POC Glucose (mg/dL) 133 H 116 H (75-99) mg/dL 11/11/17 11/11/17 11/11/17 Range/Units 05:53 09:49 11:18 MCHC 30.9 L (31.0-37.0) g/dL Neutrophils # 9.0 H (1.3-7.7) k/uL Lymphocytes # 0.5 L (1.0-4.8) k/uL ABG pCO2 32 L (35-45) mmHg ABG pO2 59 L* (83-108) mmHg ABG HCO3 20 L (21-25) mmol/L ABG O2 Saturation 92.4 L (94-97) % Carbon Dioxide (22-30) mmol/L BUN (9-20) mg/dL Glucose (74-99) mg/dL POC Glucose (mg/dL) 253 H (75-99) mg/dL Microbiology - Last 24 Hours (Table) 11/07/17 18:28 Blood Culture - Preliminary Blood No Growth after 72 hours 11/07/17 19:38 Urine Culture - Final Urine,Catheterized Proteus vulgaris Escherichia coli Assessment and Plan (1) Acute exacerbation of chronic obstructive airways disease Current Visit: Yes Status: Acute Code(s): J44.1 - CHRONIC OBSTRUCTIVE PULMONARY DISEASE W (ACUTE) EXACERBATION SNOMED Code(s): 548986049 (2) Altered mental status Current Visit: Yes Status: Acute Code(s): R41.82 - ALTERED MENTAL STATUS, UNSPECIFIED SNOMED Code(s): 700550569 (3) Urinary tract infection Current Visit: Yes Status: Acute Code(s): N39.0 - URINARY TRACT INFECTION, SITE NOT SPECIFIED SNOMED Code(s): 84094400 (4) Hyperlipidemia Current Visit: No Status: Acute Code(s): E78.5 - HYPERLIPIDEMIA, UNSPECIFIED SNOMED Code(s): 28465364 (5) Hypertension Current Visit: No Status: Chronic Code(s): I10 - ESSENTIAL (PRIMARY) HYPERTENSION SNOMED Code(s): 32505382 Plan: We will go ahead and transfer to [facility]. Check CBC and CMP in a.m. per Sepsis workup and empiric antibiotic treatment. See orders otherwise. Prognosis is guarded. Time with Patient: Greater than 30
--- NOTE | 2017-11-11 14:55 | P.PN ---
Subjective Progress Note Date: 11/11/17 Principal diagnosis: Altered mentation, of unclear etiology, mild fluid overload, shortness of breath. Pulmonary consult dated 11/08/2017 This is a 62-year-old male who apparently was brought into the emergency department on November 07 and evaluated by one of the ER doctors for mental status changes and shortness of breath. The patient was apparently found to have a low pulse ox at [facility]. The patient was unable to give any history at the time of the evaluation in the ER. The ER physician was not really sure was going on with the patient and thought maybe it was related to a drug effect and/or possible sepsis/urinary tract infection. According to the ER suni, the patient has a history of heart failure, GERD, hyperlipidemia, hypertension, and myocardial infarction. The patient also probably has a history of borderline diabetes and a indwelling catheter as well as a previous history of rectal bleeding. He's also had a cardiac catheterization with stent placement. He suffers from anxiety schizophrenia and depression. He is apparently an every day smoker. The patient really can give no history today in the ICU. The patient is in no distress. Not receiving any supplemental patient's saturations are mid to high 90s. The patient's IV is a saline IV at 75 mL an hour. We believe the patient is probably at baseline. The patient had a chest x-ray which showed cardiomegaly. Brain CT showed atrophy and periventricular white matter but the exam was stable compared to a computed tomography scan done May 2017. CT of the abdomen and pelvis showed sludge within the gallbladder bilateral renal cyst but essentially was unremarkable. CT angiogram showed no evidence of pulmonary embolism. The rest of the CT was essentially on impressive. There were some enlarged mediastinal lymph nodes and a PET scan was recommended. Follow-up chest x-ray from the suggested possible heart failure. The patient had received aggressive fluid resuscitation. On 11/09/2017 patient was seen in follow-up on medical surgical floor. In the morning patient was noted to be hypoxemic, with a pulse ox of 88%, he was given a dose of IV Lasix, diuresed, and this afternoon he seen on medical surgical floor, parent distress, on 2 L per nasal cannula, and the pulse ox is 96%. CT angiogram of the chest was negative for any evidence of pulmonary embolism cardiomegaly, moderate edema, some sludge in the gallbladder. Her were enlarged mediastinal lymph nodes, that we will likely need follow-up outpatient basis. Blood culture is negative, urine culture was positive for Proteus vulgaris, and gram-negative bacilli. Patient is covered with Rocephin, no ongoing fever or chills. On 11/11/2017 patient seen in follow-up on selective care unit. This morning he became febrile, with a T-max of 102.2F, tachycardic with a heart rate up to 124 BPM, increased and more lethargic, and tachypneic. He was also noted to be more hypoxic, and she was placed on 5 L per high flow nasal cannula. In view of symptoms compatible with sepsis patient was transferred to selective care unit. Blood cultures were sent. Repeat chest x-ray was obtained and shows worsening diffuse interstitial and airspace disease, worsening pulmonary edema, interstitial pneumonitis or multifocal pneumonia. Blood gases show pO2 of 59, pCO2 30, pH 7.41. This was done and FiO2 of 40%. Today's blood work shows WBC of 10.1, hemoglobin 13.2, sodium was 1:30 3.9, chloride is 17, co2 is 17, bun is 23, creatinine 0.68. plasma lactic is within normal limits at 1.1. patient yesterday was given a dose of lasix, today he remains on oral lasix, patient is making urine, fluid balance is negative for 4365 ML over the last 24 hours, patient was covered with Rocephin for evidence of Proteus vulgaris and E. coli in his urine, blood cultures were negative from admission. Her sensitivity screen showed E. coli was resistant to ceftriaxone, and Proteus was susceptible to it. And she was switched to IV Levaquin, and Zosyn was added for possibility of aspiration pneumonia. Remains quite typically tachypneic, patient was placed on BiPAP support, and a few of continuing respiratory difficulty, and altered mentation patient will be transferred to intensive care unit for further monitoring. Objective - Vital Signs Vital signs: Vital Signs Temp 100.4 F H 11/11/17 10:18 Pulse 108 H 11/11/17 12:09 Resp 36 H 11/11/17 10:18 BP 121/71 11/11/17 10:18 Pulse Ox 96 11/11/17 10:18 Intake & Output 11/10/17 11/11/17 11/11/17 18:59 06:59 18:59 Intake Total 170 Output Total 4035 500 450 Balance -4035 -330 -450 Weight 53.5 kg Intake: Intake, IV Titration 50 Amount cefTRIAXone 1,000 mg In 50 Sodium Chloride 0.9% 50 ml @ 100 mls/hr IVPB BID [facility] Rx#:[id number] Oral 120 Output: Urine 4035 500 450 Straight 2800 Other: Voiding Method Indwelling Catheter Indwelling Catheter Indwelling Catheter - Exam GENERAL EXAM: Lethargic, currently on BiPAP, quite tachypneic. At his baseline patient is nonverbal, patient is lethargic currently HEAD: Normocephalic/atraumatic. EYES: Normal reaction of pupils, equal size. Conjunctiva pink, sclera white. NOSE: Clear with pink turbinates. THROAT: No erythema or exudates. NECK: No masses, no JVD, no thyroid enlargement, no adenopathy. CHEST: No chest wall deformity. Symmetrical expansion. LUNGS: Equal air entry with diffuse crackles, he is quite tachypneic, on BiPAP support, on tendon 5, and 50%. CVS: Regular rate and rhythm, normal S1 and S2, no gallops, no murmurs, no rubs. Is quite tachypneic and tachycardic, with a heart rate in the 120 BPM ABDOMEN: Soft, nontender. No hepatosplenomegaly, normal bowel sounds, no guarding or rigidity. EXTREMITIES: No clubbing, no edema, no cyanosis, 2+ pulses and upper and lower extremities. MUSCULOSKELETAL: Muscle strength and tone normal. SPINE: No scoliosis or deformity SKIN: No rashes CENTRAL NERVOUS SYSTEM: Patient is lethargic, currently on BiPAP support - Labs CBC & Chem 7: 11/11/17 05:53 11/11/17 05:53 Labs: Abnormal Lab Results - Last 24 Hours (Table) 11/10/17 11/10/17 11/11/17 Range/Units 17:21 20:31 05:53 MCHC (31.0-37.0) g/dL Neutrophils # (1.3-7.7) k/uL Lymphocytes # (1.0-4.8) k/uL ABG pCO2 (35-45) mmHg ABG pO2 (83-108) mmHg ABG HCO3 (21-25) mmol/L ABG O2 Saturation (94-97) % Carbon Dioxide 17 L (22-30) mmol/L BUN 23 H (9-20) mg/dL Glucose 196 H (74-99) mg/dL POC Glucose (mg/dL) 133 H 116 H (75-99) mg/dL 11/11/17 11/11/17 11/11/17 Range/Units 05:53 09:49 11:18 MCHC 30.9 L (31.0-37.0) g/dL Neutrophils # 9.0 H (1.3-7.7) k/uL Lymphocytes # 0.5 L (1.0-4.8) k/uL ABG pCO2 32 L (35-45) mmHg ABG pO2 59 L* (83-108) mmHg ABG HCO3 20 L (21-25) mmol/L ABG O2 Saturation 92.4 L (94-97) % Carbon Dioxide (22-30) mmol/L BUN (9-20) mg/dL Glucose (74-99) mg/dL POC Glucose (mg/dL) 253 H (75-99) mg/dL Microbiology - Last 24 Hours (Table) 11/07/17 18:28 Blood Culture - Preliminary Blood No Growth after 72 hours 11/07/17 19:38 Urine Culture - Final Urine,Catheterized Proteus vulgaris Escherichia coli Assessment and Plan Plan: Assessment: Altered mental status, increased dyspnea, respiratory distress likely related to sepsis, chest x-ray today shows worsening bilateral diffuse interstitial and airspace disease, the possibility of bilateral multifocal pneumonia and there is a component of fluid overload. In addition patient has urinary tract infection, with urine cultures positive for Proteus vulgaris and E-coli. Acute hypoxic respiratory failure secondary to above History of CHF History of GERD History of hyperlipidemia History of hypertension Previous history of myocardial infarction History of CAD with previous stent placement History of anxiety and schizophrenia Probable COPD, secondary to heavy and ongoing tobacco dependence Plan: Patient's antibiotic coverage has been switched to Levaquin and Zosyn. Continue with Lasix, will increase it to once daily 40 mg IV. Lactic acid was within normal limits, blood cultures have been collected and sent, and are pending at this time, BiPAP support, transfer the patient to the intensive care for further monitoring. repeat chest x-ray in the morning, I performed a history & physical examination of the patient and discussed their management with my nurse practitioner, Tamiko Roach. I reviewed the nurse practitioner's note and agree with the documented findings and plan of care. Lung sounds are positive for scattered rales. The findings and the impression was discussed with the patient. I attest to the documentation by the nurse practitioner. Time with Patient: Greater than 30
[2017-11-11 15:10] LABS: Glucose,Whole Blood 236 mg/dL (75-99)
[2017-11-11] MEDS ORDERED: PROPOFOL 10 MG/ML 100 ML VIAL IV ONE (15:26)
[2017-11-11] MEDS ORDERED: SUCCINYLCHOLINE CHLORIDE VIAL 200 MG/10 ML VIAL IV ONE (15:27)
[2017-11-11] MEDS ORDERED: CISATRACURIUM 2 MG/ML 5 ML VIAL IV ONE (15:30)
[2017-11-11] MEDS ORDERED: VANCOMYCIN IV PER PHARMACY 1 EACH MISC MISCELLANE PRN (15:32)
[2017-11-11] MEDS ORDERED: SODIUM CHLORIDE 0.9% 1,000 ML IV ONE (15:46)
[2017-11-11 15:47] LABS: ABG Base Excess -6.6 mmol/L; ABG HCO3 20 mmol/L (21-25); ABG Oxygen Saturation 99.6 % (94-97); ABG PCO2 40 mmHg (35-45); ABG PO2 322 mmHg (83-108); ABG TCO2 21 mmol/L (19-24)
--- NOTE | 2017-11-11 15:55 | XR ---
EXAMINATION TYPE: XR chest 1V portable DATE OF EXAM: 11/11/2017 COMPARISON: 11/11/2017 earlier exam INDICATION: Tube placement, difficulty breathing. TECHNIQUE: Single frontal view of the chest is obtained. FINDINGS: The heart size is enlarged. The pulmonary vasculature is normal. There is improved aeration of the bilateral lungs. Bibasilar infiltrates remain present. There is placement of an endotracheal tube with the tip 2.6 cm above the fela. Nasogastric tube tra nsverses the thorax the tip in the left upper quadrant of the abdomen. There is placement of a left c entral venous catheter. The tip is in the region of the proximal right atrium. No pneumothorax is gerson dent. IMPRESSION: 1. Endotracheal tube and nasogastric tube discussed above. Left central venous catheter is tip in rig ht atrium. 2. Improved aeration with residual bibasilar infiltrates greater at the right.
[2017-11-11] MEDS ORDERED: NOREPINEPHRINE 16 MG in SODIUM CHLORIDE 0.9% 250 ML IV SCH (16:00)
[2017-11-11] MEDS ORDERED: PIPERACILLIN-TAZOBACTAM 3.375 GM in DEXTROSE/WATER 1 50ML.BAG IVPB SCH (16:00)
[2017-11-11] MEDS: SODIUM CHLORIDE 0.9% 1,000 ML IV SCH (17:00)
[2017-11-11] MEDS: PIPERACILLIN-TAZOBACTAM 3.375 GM in DEXTROSE/WATER 1 50ML.BAG IVPB SCH ×2 (17:09→22:40)
[2017-11-11] MEDS: VANCOMYCIN 1,250 MG in SODIUM CHLORIDE 0.9% 250 ML IVPB SCH (19:07)
--- NOTE | 2017-11-11 19:12 | CT ---
EXAMINATION TYPE: CT chest wo con DATE OF EXAM: 11/11/2017 COMPARISON: 11/07/2017 HISTORY: Bilateral pulmonary infiltrates, hypoxic respiratory failure. CT DLP: 420.4 mGycm. Automated Exposure Control for Dose Reduction was Utilized. TECHNIQUE: CT scan of the thorax is performed without IV contrast. FINDINGS: There is interstitial infiltrates and atelectasis at the lung bases. There is small pleural fluid. He art is enlarged. There is a 3 cm area of rounded infiltrate in this some pleural lateral right lower lobe. The bony thorax appears intact. There are no hilar masses. There is pretracheal lymph nodes jesika t measure up to 2 cm. There is no evidence of aortic aneurysm.. IMPRESSION: Cardiomegaly with interstitial infiltrates probably due to heart failure. There is stable rounded infiltrate in the posterior lateral right lower lobe compared to last exam. Nonspecific medi astinal lymph nodes.
--- NOTE | 2017-11-11 19:14 | CT ---
EXAMINATION TYPE: CT brain wo con DATE OF EXAM: 11/11/2017 COMPARISON: 11/07/2017 HISTORY: Unequal pupils. CT DLP: 776.2 mGycm Automated exposure control for dose reduction was used. FINDINGS: There is cerebral atrophy. There is no mass effect nor midline shift. There is no sign of intracrania l hemorrhage. The calvarium is intact. IMPRESSION: CEREBRAL ATROPHY. NO ACUTE INTRACRANIAL ABNORMALITY. NO CHANGE.
[2017-11-11 19:24] LABS: Glucose,Whole Blood 234 mg/dL (75-99)
[2017-11-11] MEDS: ASPIRIN 325 MG TAB PO SCH (20:05)
[2017-11-11] MEDS: CLOPIDOGREL 75 MG TAB PO SCH (20:08)
[2017-11-11] MEDS: LISINOPRIL 10 MG TAB PO SCH (20:08)
[2017-11-11] MEDS: SERTRALINE 100 MG TAB PO SCH (20:09)
[2017-11-11] MEDS: SODIUM CHLORIDE 0.9% 500 ML 500 ML IV SCH (20:10)
--- NOTE | 2017-11-11 20:33 | OP ---
OPERATIVE REPORT ENDOTRACHEAL INTUBATION: PREOPERATIVE DIAGNOSIS: Acute hypoxic respiratory failure/pneumonia. POSTOPERATIVE DIAGNOSIS: Acute hypoxic respiratory failure/pneumonia. A time-out was completed verifying correct patient, procedure, site, positioning, and implant(s) or special equipment if applicable. The patient was positioned appropriately and I used a #4 Mac blade to intubate the patient with a #8 endotracheal tube under direct laryngoscopy. The tube was anchored at 22 cm at the teeth. Correct placement was confirmed by presence of bilateral breath sounds without air sounds in the abdomen on auscultation. An end-tidal CO2 monitor was also used to confirm tracheal placement of the ET tube. A chest x-ray was ordered to assess for pneumothorax and verify endotracheal tube placement. The patient tolerated the procedure well and there were no complications. MMODL / IJN: [id number] /
--- NOTE | 2017-11-11 20:36 | OP ---
OPERATIVE REPORT ARTERIAL LINE PLACEMENT: Indications: Hemodynamic monitoring. A time-out was completed verifying correct patient, procedure, site, positioning, and implant(s) or special equipment if applicable. Son's test was performed to ensure adequate perfusion. The patient's left wrist was prepped and draped in sterile fashion. 1% Lidocaine was used to anesthetize the area. An 18G Arrow arterial line was introduced into the left radial artery. The catheter was threaded over the guide wire and the needle was removed with appropriate pulsatile blood return. Blood loss was minimal. The catheter was then sutured in place to the skin and a sterile dressing applied. Perfusion to the extremity distal to the point of catheter insertion was checked and found to be adequate. The patient tolerated the procedure well and there were no bedside complications or bleeding. MMODL / IJN: [id number] /
--- NOTE | 2017-11-11 20:36 | OP ---
OPERATIVE REPORT TRIPLE LUMEN CATHETER PLACEMENT: Indication Hemodynamic monitoring/Intravenous access. A time-out was completed verifying correct patient, procedure, site, positioning, and implant(s) or special equipment if applicable. The patient was placed in a dependent position appropriate for triple lumen catheter placement based on the vein to be cannulated. The patient's left neck was prepped and draped in sterile fashion. 1% Lidocaine was used to anesthetize the surrounding skin area. A triple lumen 9F Cordis catheter was introduced into the left subclavian vein using Seldinger technique. The catheter was threaded smoothly over the guide wire and appropriate blood return was obtained. Each lumen of the catheter was evacuated of air and flushed with sterile saline. The catheter was then sutured in place to the skin and a sterile dressing applied. Perfusion to the extremity distal to the point of catheter insertion was checked and found to be adequate. There were no bedside complications or bleeding. MMODL / IJN: [id number] /
[2017-11-11] MEDS: PROPOFOL 1,000 MG in EMPTY BAG 1 BAG IV SCH ×2 (21:30→23:59)
[2017-11-11 22:01] LABS: Basophils % (A) 0 %; Eosinophils # (A) 0.1 k/uL (0-0.7); Eosinophils % (A) 1 %; HCT 36.6 % (39.0-53.0); HGB 12.1 gm/dL (13.0-17.5); Lymphocytes % (A) 12 %; MCH 30.7 pg (25.0-35.0); MCV 92.9 fL (80.0-100.0); Mean Platelet Volume 7.1; Monocytes # (A) 0.8 k/uL (0-1.0); Monocytes % (A) 9 %; Neutrophils # (A) 6.2 k/uL (1.3-7.7); Neutrophils % (A) 76 %; Platelet Count 179 k/uL (150-450); RBC 3.94 m/uL (4.30-5.90); RDW 14.7 % (11.5-15.5); WBC 8.2 k/uL (3.8-10.6)
[2017-11-11 22:09] LABS: Anion Gap 9 mmol/L; Blood Urea Nitrogen 36 mg/dL (9-20); Calcium 8.4 mg/dL (8.4-10.2); Carbon Dioxide 19 mmol/L (22-30); Chloride 116 mmol/L (98-107); Glucose 216 mg/dL (74-99); Magnesium 2.2 mg/dL (1.6-2.3); Phosphorus 2.9 mg/dL (2.5-4.5); Potassium 2.9 mmol/L (3.5-5.1); Sodium 144 mmol/L (137-145)
[2017-11-11] MEDS ORDERED: Potassium Replacement Protocol 1 EACH MISC MISCELLANE PRN (22:09)
[2017-11-11] MEDS: POTASSIUM BICARBONATE/CIT AC 20 MEQ TABLET.EFF NG-TUBE SCH ×2 (22:14→22:57)
[2017-11-11] MEDS: SENNOSIDES 8.6 MG TAB PO SCH (22:24)
[2017-11-11] MEDS: CHLORHEXIDINE GLUCONATE 15 ML CUP MUCOUS MEM SCH (22:24)
[2017-11-12] MEDS: HEPARIN SODIUM,PORCINE 5,000 UNIT/ML 1 ML VIAL SQ SCH ×3 (00:01→16:50)
[2017-11-12] MEDS: POTASSIUM BICARBONATE/CIT AC 20 MEQ TABLET.EFF NG-TUBE SCH ×6 (00:02→22:42)
[2017-11-12] MEDS: INSULIN ASPART 100 UNIT/ML 1 ML 10 ML VIAL SQ SCH ×4 (00:30→18:43)
[2017-11-12] MEDS: CYCLOBENZAPRINE 10 MG TAB PO SCH ×4 (01:21→22:32)
[2017-11-12] MEDS: VANCOMYCIN 1,250 MG in SODIUM CHLORIDE 0.9% 250 ML IVPB SCH ×2 (01:21→08:32)
[2017-11-12 01:29] LABS: Glucose,Whole Blood 203 mg/dL (75-99)
[2017-11-12 01:52] LABS: Anion Gap 7 mmol/L; Blood Urea Nitrogen 32 mg/dL (9-20); Carbon Dioxide 20 mmol/L (22-30); Chloride 116 mmol/L (98-107); Sodium 143 mmol/L (137-145)
[2017-11-12 01:53] LABS: Calcium 8.5 mg/dL (8.4-10.2); Glucose 198 mg/dL (74-99); Potassium 3.4 mmol/L (3.5-5.1)
[2017-11-12] MEDS ORDERED: LEVOFLOXACIN 750MG-D5W PMX 750 MG in DEXTROSE/WATER 1 150ML.BAG IVPB SCH (05:00)
[2017-11-12 05:10] LABS: Basophils % (A) 0 %; Eosinophils # (A) 0.1 k/uL (0-0.7); Eosinophils % (A) 1 %; HCT 38.1 % (39.0-53.0); HGB 12.2 gm/dL (13.0-17.5); Lymphocytes # (A) 1.3 k/uL (1.0-4.8); Lymphocytes % (A) 14 %; MCH 29.8 pg (25.0-35.0); MCHC 32.2 g/dL (31.0-37.0); MCV 92.6 fL (80.0-100.0); Mean Platelet Volume 7.8; Monocytes # (A) 0.8 k/uL (0-1.0); Monocytes % (A) 9 %; Neutrophils # (A) 7.1 k/uL (1.3-7.7); Neutrophils % (A) 75 %; Platelet Count 192 k/uL (150-450); RBC 4.11 m/uL (4.30-5.90); RDW 14.8 % (11.5-15.5); WBC 9.5 k/uL (3.8-10.6)
[2017-11-12 05:12] LABS: ABG Base Excess -2.4 mmol/L; ABG HCO3 22 mmol/L (21-25); ABG Oxygen Saturation 99.5 % (94-97); ABG PCO2 36 mmHg (35-45); ABG PO2 223 mmHg (83-108); ABG TCO2 23 mmol/L (19-24)
[2017-11-12] MEDS: PIPERACILLIN-TAZOBACTAM 3.375 GM in DEXTROSE/WATER 1 50ML.BAG IVPB SCH ×3 (05:21→22:32)
[2017-11-12 05:51] LABS: Anion Gap 8 mmol/L; Blood Urea Nitrogen 30 mg/dL (9-20); Calcium 8.4 mg/dL (8.4-10.2); Carbon Dioxide 20 mmol/L (22-30); Chloride 115 mmol/L (98-107); Glucose 179 mg/dL (74-99); Magnesium 2.3 mg/dL (1.6-2.3); Phosphorus 2.2 mg/dL (2.5-4.5); Potassium 4.1 mmol/L (3.5-5.1); Sodium 143 mmol/L (137-145)
[2017-11-12 06:28] LABS: Glucose,Whole Blood 173 mg/dL (75-99)
[2017-11-12] MEDS: IPRATROPIUM-ALBUTEROL 3 ML NEB INHALATION SCH ×4 (07:00→19:32)
--- NOTE | 2017-11-12 07:08 | XR ---
EXAMINATION TYPE: XR chest 1V portable DATE OF EXAM: 11/12/2017 COMPARISON: 11/11/2017 INDICATION: Tube placement TECHNIQUE: Single frontal view of the chest is obtained. FINDINGS: The heart size is upper limits of normal. The pulmonary vasculature is normal. The lungs are clear. Endotracheal tube is present above the fela. Nasogastric tube transverses the thorax. Left central venous catheter with tip near the level of the superior vena cava right atrial junction. IMPRESSION: 1. Lines and catheters discussed above. 2. There may be some improvement of some basilar atelectasis.
[2017-11-12] MEDS: PROPOFOL 1,000 MG in EMPTY BAG 1 BAG IV SCH ×3 (07:10→18:42)
[2017-11-12] MEDS: CARVEDILOL 6.25 MG TAB PO SCH ×2 (08:27→17:47)
[2017-11-12] MEDS: LISINOPRIL 10 MG TAB PO SCH (08:27)
[2017-11-12] MEDS: FUROSEMIDE 10 MG/ML 4 ML VIAL IV SCH ×3 (08:31→20:10)
[2017-11-12] MEDS: CHLORHEXIDINE GLUCONATE 15 ML CUP MUCOUS MEM SCH ×2 (08:31→20:10)
[2017-11-12] MEDS: TAMSULOSIN 0.4 MG CAP.ER.24H PO SCH (08:32)
[2017-11-12] MEDS: CLOPIDOGREL 75 MG TAB PO SCH (08:32)
[2017-11-12] MEDS: PANTOPRAZOLE 40 MG/10 ML VIAL IVP SCH (08:33)
[2017-11-12] MEDS: SODIUM CHLORIDE 0.9% 1,000 ML IV SCH (09:35)
[2017-11-12] MEDS: SERTRALINE 100 MG TAB PO SCH (09:35)
[2017-11-12 11:57] LABS: Glucose,Whole Blood 126 mg/dL (75-99)
[2017-11-12] MEDS ORDERED: PALIPERIDONE IM 234 MG/1.5 ML SYG IM SCH (12:00)
--- NOTE | 2017-11-12 14:00 | P.PN ---
Subjective Progress Note Date: 11/12/17 This is a 62-year-old male who apparently was brought into the emergency department on November 07 and evaluated by one of the ER doctors for mental status changes and shortness of breath. The patient was apparently found to have a low pulse ox at [facility]. The patient was unable to give any history at the time of the evaluation in the ER. The ER physician was not really sure was going on with the patient and thought maybe it was related to a drug effect and/or possible sepsis/urinary tract infection. According to the ER suni, the patient has a history of heart failure, GERD, hyperlipidemia, hypertension, and myocardial infarction. The patient also probably has a history of borderline diabetes and a indwelling catheter as well as a previous history of rectal bleeding. He's also had a cardiac catheterization with stent placement. He suffers from anxiety schizophrenia and depression. He is apparently an every day smoker. The patient really can give no history today in the ICU. The patient is in no distress. Not receiving any supplemental patient's saturations are mid to high 90s. The patient's IV is a saline IV at 75 mL an hour. We believe the patient is probably at baseline. The patient had a chest x-ray which showed cardiomegaly. Brain CT showed atrophy and periventricular white matter but the exam was stable compared to a computed tomography scan done May 2017. CT of the abdomen and pelvis showed sludge within the gallbladder bilateral renal cyst but essentially was unremarkable. CT angiogram showed no evidence of pulmonary embolism. The rest of the CT was essentially on impressive. There were some enlarged mediastinal lymph nodes and a PET scan was recommended. Follow-up chest x-ray from the suggested possible heart failure. The patient had received aggressive fluid resuscitation. On 11/09/2017 patient was seen in follow-up on medical surgical floor. In the morning patient was noted to be hypoxemic, with a pulse ox of 88%, he was given a dose of IV Lasix, diuresed, and this afternoon he seen on medical surgical floor, parent distress, on 2 L per nasal cannula, and the pulse ox is 96%. CT angiogram of the chest was negative for any evidence of pulmonary embolism cardiomegaly, moderate edema, some sludge in the gallbladder. Her were enlarged mediastinal lymph nodes, that we will likely need follow-up outpatient basis. Blood culture is negative, urine culture was positive for Proteus vulgaris, and gram-negative bacilli. Patient is covered with Rocephin, no ongoing fever or chills. On 11/11/2017 patient seen in follow-up on selective care unit. This morning he became febrile, with a T-max of 102.2F, tachycardic with a heart rate up to 124 BPM, increased and more lethargic, and tachypneic. He was also noted to be more hypoxic, and she was placed on 5 L per high flow nasal cannula. In view of symptoms compatible with sepsis patient was transferred to selective care unit. Blood cultures were sent. Repeat chest x-ray was obtained and shows worsening diffuse interstitial and airspace disease, worsening pulmonary edema, interstitial pneumonitis or multifocal pneumonia. Blood gases show pO2 of 59, pCO2 30, pH 7.41. This was done and FiO2 of 40%. Today's blood work shows WBC of 10.1, hemoglobin 13.2, sodium was 1:30 3.9, chloride is 17, co2 is 17, bun is 23, creatinine 0.68. plasma lactic is within normal limits at 1.1. patient yesterday was given a dose of lasix, today he remains on oral lasix, patient is making urine, fluid balance is negative for 4365 ML over the last 24 hours, patient was covered with Rocephin for evidence of Proteus vulgaris and E. coli in his urine, blood cultures were negative from admission. Her sensitivity screen showed E. coli was resistant to ceftriaxone, and Proteus was susceptible to it. And she was switched to IV Levaquin, and Zosyn was added for possibility of aspiration pneumonia. Remains quite typically tachypneic, patient was placed on BiPAP support, and a few of continuing respiratory difficulty, and altered mentation patient will be transferred to intensive care unit for further monitoring. On 11/12/2017, I'm seeing this patient follow-up in the intensive care unit. Mother the patient was having high-grade fever yesterday and he presented to the ICU being lethargic tachypneic tachycardic and his significant respiratory distress. He was briefly placed on BiPAP to which she failed and following that I had to intubate the patient put him on a mechanical ventilator. Subsequently he was also placed on sedation with propofol and a triple-lumen catheter was inserted and an outlying catheter inserted for aggressive hemodynamic monitoring. The patient this morning is intubated on a mechanical ventilator. He is sedated and is calm and comfortable. He is arousable and he withdraws to painful stimulation. He is on a mechanical ventilator within assist-control mode and based on the morning blood gases, the patient's FiO2 was weaned down to 35%. He is blood gases on 50% FiO2 showed a pH of 7.4 with a pCO2 of 36 and pO2 of 223. He has a tidal volume of 450 with a rate of 26. He is also on a PEEP of 5. The chest x-ray from today shows adequate positioning of the ET tube. Some limited infiltration of the lung bases bilaterally. Orogastric tube is also in place. CAT scan of the brain was done yesterday and showed no acute abnormalities. CAT scan of the chest was also done that showed cardiomegaly and some interstitial infiltrates in lung bases bilaterally especially in the posterior lateral segment of the right lower lobe and the left lower lobe. #Lymphadenopathy was noted. No significant orotracheal secretions. The patient is currently covered with a combination of Zosyn and Levaquin. There is a suspicion that he may have an underlying urine checked infection that was suboptimally treated with Rocephin knowing that sensitivities indicated that the patient's E. coli was culture media laboratory assistant to Rocephin and the Proteus vulgaris was sensitive. Currently the patient is on IV Zosyn. He is well resuscitated. The patient was taken off pressors which was only at 2 g per KG pigmented. His been off pressors for around 12 hours. White cell count is at 9.5. Rest of the blood work shows a normal renal function. I's and O within normal limits. Objective - Vital Signs Vital signs: Vital Signs Temp 98.2 F 11/12/17 12:00 Pulse 98 11/12/17 12:00 Resp 21 11/12/17 12:00 BP 122/56 11/12/17 12:00 Pulse Ox 100 11/12/17 12:00 Intake & Output 11/11/17 11/12/17 11/12/17 18:59 06:59 18:59 Intake Total 630.984 9953.051 790.523 Output Total 675 1505 1000 Balance -253.829 -376.949 -209.477 Weight 75.7 kg 75.7 kg 75.7 kg Intake: IV 120.0 1087.5 712.5 Piperacillin-Tazobactam 3 25.0 62.5 12.5 .375 gm In Dextrose/Water 1 50ml.bag @ 12.5 mls/hr IVPB Q8HR [facility] Rx#: [id number] Sodium Chloride 0.9% 500 95 900 450 ml @ 20 mls/hr IV .Q24H [facility] Rx#:[id number] Vancomycin 1,250 mg In 125 250 Sodium Chloride 0.9% 250 ml @ 125 mls/hr IVPB Q8H [facility] Rx#:[id number] Intake, IV Titration 301.171 40.551 78.023 Amount ACETAMINOPHEN IV (For NPO 50 ) 1,000 mg In Empty Bag 1 bag @ 400 mls/hr IVPB ONCE ONE Rx#:[id number] Ibuprofen IV 800 mg In 250 Sodium Chloride 0.9% 250 ml @ 500 mls/hr IV ONCE ONE Rx#:[id number] Norepinephrine 16 mg In 1.171 17.208 10.5 Sodium Chloride 0.9% 250 ml @ Titrate IV .Q0M [facility] Rx#:[id number] Propofol 1,000 mg In 23.343 67.523 Empty Bag 1 bag @ Titrate IV .Q0M [facility] Rx#: [id number] Output: Urine 675 1505 1000 Other: Voiding Method Indwelling Catheter Indwelling Catheter Indwelling Catheter ABP, PAP, CO, CI - Last Documented Arterial Blood Pressure 138/54 - Exam GENERAL EXAM: Sedated, comfortable likely distress intubated on a mechanical ventilator. HEAD: Normocephalic/atraumatic. EYES: Normal reaction of pupils, equal size. Conjunctiva pink, sclera white. NOSE: Clear with pink turbinates. THROAT: No erythema or exudates. NECK: No masses, no JVD, no thyroid enlargement, no adenopathy. Orogastric and orotracheal tube are both in place. CHEST: No chest wall deformity. Symmetrical expansion. LUNGS:Lungs were clear to auscultation and percussion, and with normal diaphragmatic excursion. No wheezes or rales were noted. Breath sounds are diminished in lung bases bilaterally otherwise there is no significant rhonchi or wheezes. CVS: Regular rate and rhythm, normal S1 and S2, no gallops, no murmurs, no rubs. I ABDOMEN: Soft, nontender. No hepatosplenomegaly, normal bowel sounds, no guarding or rigidity. EXTREMITIES: No clubbing, no edema, no cyanosis, 2+ pulses and upper and lower extremities. MUSCULOSKELETAL: Muscle strength and tone normal. SPINE: No scoliosis or deformity SKIN: No rashes CENTRAL NERVOUS SYSTEM: Patient is sedated for now his, comfortable and is very symptoms with the mechanical ventilator. - Labs CBC & Chem 7: 11/12/17 05:00 11/12/17 05:00 Labs: Abnormal Lab Results - Last 24 Hours (Table) 11/11/17 11/11/17 11/11/17 Range/Units 15:09 15:45 19:13 RBC (4.30-5.90) m/uL Hgb (13.0-17.5) gm/dL Hct (39.0-53.0) % ABG pH 7.30 L (7.35-7.45) ABG pO2 322 H (83-108) mmHg ABG HCO3 20 L (21-25) mmol/L ABG O2 Saturation 99.6 H (94-97) % Potassium (3.5-5.1) mmol/L Chloride (98-107) mmol/L Carbon Dioxide (22-30) mmol/L BUN (9-20) mg/dL Glucose (74-99) mg/dL POC Glucose (mg/dL) 236 H 234 H (75-99) mg/dL Phosphorus (2.5-4.5) mg/dL 11/11/17 11/11/17 11/12/17 Range/Units 21:40 21:40 01:27 RBC 3.94 L (4.30-5.90) m/uL Hgb 12.1 L (13.0-17.5) gm/dL Hct 36.6 L (39.0-53.0) % ABG pH (7.35-7.45) ABG pO2 (83-108) mmHg ABG HCO3 (21-25) mmol/L ABG O2 Saturation (94-97) % Potassium 2.9 L (3.5-5.1) mmol/L Chloride 116 H (98-107) mmol/L Carbon Dioxide 19 L (22-30) mmol/L BUN 36 H (9-20) mg/dL Glucose 216 H (74-99) mg/dL POC Glucose (mg/dL) 203 H (75-99) mg/dL Phosphorus (2.5-4.5) mg/dL 11/12/17 11/12/17 11/12/17 Range/Units 01:30 05:00 05:00 RBC 4.11 L (4.30-5.90) m/uL Hgb 12.2 L (13.0-17.5) gm/dL Hct 38.1 L (39.0-53.0) % ABG pH (7.35-7.45) ABG pO2 (83-108) mmHg ABG HCO3 (21-25) mmol/L ABG O2 Saturation (94-97) % Potassium 3.4 L (3.5-5.1) mmol/L Chloride 116 H 115 H (98-107) mmol/L Carbon Dioxide 20 L 20 L (22-30) mmol/L BUN 32 H 30 H (9-20) mg/dL Glucose 198 H 179 H (74-99) mg/dL POC Glucose (mg/dL) (75-99) mg/dL Phosphorus 2.2 L (2.5-4.5) mg/dL 11/12/17 11/12/17 11/12/17 Range/Units 05:08 06:16 11:55 RBC (4.30-5.90) m/uL Hgb (13.0-17.5) gm/dL Hct (39.0-53.0) % ABG pH (7.35-7.45) ABG pO2 223 H (83-108) mmHg ABG HCO3 (21-25) mmol/L ABG O2 Saturation 99.5 H (94-97) % Potassium (3.5-5.1) mmol/L Chloride (98-107) mmol/L Carbon Dioxide (22-30) mmol/L BUN (9-20) mg/dL Glucose (74-99) mg/dL POC Glucose (mg/dL) 173 H 126 H (75-99) mg/dL Phosphorus (2.5-4.5) mg/dL Microbiology - Last 24 Hours (Table) 11/12/17 00:35 Gram Stain - Preliminary Sputum Sputum Culture - Preliminary 11/11/17 05:53 Blood Culture - Preliminary Blood No Growth after 24 hours 11/11/17 16:19 Urine Culture - Preliminary Urine,Catheterized 11/07/17 18:28 Blood Culture - Preliminary Blood No Growth after 96 hours Assessment and Plan Plan: Assessment 1 acute hypoxic respiratory failure requiring intubation mechanical ventilation. This is most likely secondary to underlying sepsis/infection which most likely is of a urinary source. The patient initially presented with altered mental status, increased dyspnea, respiratory distress likely related to sepsis, chest x-ray today shows worsening bilateral diffuse interstitial and airspace disease, the possibility of bilateral multifocal pneumonia versus a component of fluid overload. In addition patient has urinary tract infection, with urine cultures positive for Proteus vulgaris and E-coli. Currently intubated on a mechanical ventilator. Oxidation is improved. CAT scan of the chest shows some limited infiltration of the lung bases bilaterally otherwise no other major abnormalities were noted. 2 urine tract infection with E. coli and Proteus 3 Acute hypoxic respiratory failure secondary to above 4 History of CHF, impaired left a ejection fraction with an ejection fraction of around 30-35%. 5 History of GERD 6 History of hyperlipidemia 7 History of hypertension 8 coronary artery disease with previous coronary stenting and a Previous history of myocardial infarction 9 History of anxiety and schizophrenia 10 Probable COPD, secondary to heavy and ongoing tobacco dependence Plan Modify the antibiotics to include only IV Zosyn. Follow blood culture and urine culture were sent and the results are still pending for now. Continue vent support for today. Kept on the fluids to KVO. Restart diuretics 40 mg of IV Lasix every 12 hours. Continue vent support for another 24 hours. Keep the patient sedated for another 24 hours. Initiate enteral feeding for nutritional support. Continue bronchodilators [id number]. Monitor fever pattern. Monitor renal function. Monitor electrolytes. Sedation holiday and possible assessment for candidacy to weaning as of tomorrow. We'll continue to follow. This is a critically care evaluation that was done and 35 minutes. Time with Patient: Greater than 30
[2017-11-12 15:17] LABS: Potassium 3.3 mmol/L (3.5-5.1)
[2017-11-12] MEDS ORDERED: Potassium Replacement Protocol 1 EACH MISC MISCELLANE PRN (15:59)
[2017-11-12] MEDS: ASPIRIN 325 MG TAB PO SCH (16:50)
[2017-11-12 18:41] LABS: Glucose,Whole Blood 177 mg/dL (75-99)
[2017-11-12 19:58] LABS: Anion Gap 6 mmol/L; Blood Urea Nitrogen 28 mg/dL (9-20); Calcium 8.1 mg/dL (8.4-10.2); Carbon Dioxide 24 mmol/L (22-30); Chloride 116 mmol/L (98-107); Glucose 159 mg/dL (74-99); Potassium 3.6 mmol/L (3.5-5.1); Sodium 146 mmol/L (137-145)
[2017-11-12] MEDS: SENNOSIDES 8.6 MG TAB PO SCH (20:10)
[2017-11-12 20:38] LABS: Glucose,Whole Blood 147 mg/dL (75-99)
[2017-11-12] MEDS ORDERED: HYDROmorphone 1 MG/ML 1 ML SYRINGE IVP PRN (20:52)
[2017-11-12] MEDS ORDERED: POTASSIUM BICARBONATE/CIT AC 20 MEQ TABLET.EFF NG-TUBE ONE (21:00)
--- NOTE | 2017-11-12 22:11 | P.PN ---
Subjective Principal diagnosis: Respiratory failure This is a 62-year-old white male essentially admitted for altered mental status who started developing significant tachypnea. Chest x-ray several days ago showed fluid overload and he was diuresed but still continued to have tachypnea. After transferring to the selective unit and being placed on BiPAP, the patient still had struggles and is now intubated this morning. Minimally if at has been given. Objective - Vital Signs Vital signs: Vital Signs Temp 99.8 F H 11/12/17 16:00 Pulse 95 11/12/17 21:00 Resp 22 11/12/17 21:00 BP 102/48 11/12/17 21:00 Pulse Ox 99 11/12/17 21:00 Intake & Output 11/12/17 11/12/17 11/13/17 06:59 18:59 06:59 Intake Total 0016.294 2139.457 248.148 Output Total 1505 1600 575 Balance -376.949 -202.543 -326.852 Weight 75.7 kg 75.7 kg Intake: IV 1087.5 987.5 120 Piperacillin-Tazobactam 3 62.5 12.5 .375 gm In Dextrose/Water 1 50ml.bag @ 12.5 mls/hr IVPB Q8HR [facility] Rx#: [id number] Sodium Chloride 0.9% 500 900 725 120 ml @ 20 mls/hr IV .Q24H [facility] Rx#:[id number] Vancomycin 1,250 mg In 125 250 Sodium Chloride 0.9% 250 ml @ 125 mls/hr IVPB Q8H [facility] Rx#:[id number] Intake, IV Titration 40.551 289.957 28.148 Amount Norepinephrine 16 mg In 17.208 15.615 Sodium Chloride 0.9% 250 ml @ Titrate IV .Q0M [facility] Rx#:[id number] Piperacillin-Tazobactam 3 50.0 .375 gm In Dextrose/Water 1 50ml.bag @ 12.5 mls/hr IVPB Q8H [facility] Rx#: [id number] Propofol 1,000 mg In 23.343 224.342 28.148 Empty Bag 1 bag @ Titrate IV .Q0M [facility] Rx#: [id number] Tube Feeding 120 100 Output: Urine 1505 1600 575 Other: Voiding Method Indwelling Catheter Indwelling Catheter ABP, PAP, CO, CI - Last Documented Arterial Blood Pressure 107/46 - Constitutional General appearance: Present: average body habitus - EENT Eyes: Absent: abnormal pupil - Respiratory Respiratory: bilateral: diminished - Cardiovascular Rhythm: regular Heart sounds: normal: S1, S2 Abnormal Heart Sounds: Absent: S3 Gallop - Gastrointestinal General gastrointestinal: Present: soft. Absent: tenderness - Psychiatric Psychiatric: Absent: A&O x's 3 - Labs CBC & Chem 7: 11/12/17 05:00 11/12/17 19:35 Labs: Abnormal Lab Results - Last 24 Hours (Table) 11/11/17 11/12/17 11/12/17 Range/Units 21:40 01:27 01:30 RBC (4.30-5.90) m/uL Hgb (13.0-17.5) gm/dL Hct (39.0-53.0) % ABG pO2 (83-108) mmHg ABG O2 Saturation (94-97) % Sodium (137-145) mmol/L Potassium 2.9 L 3.4 L (3.5-5.1) mmol/L Chloride 116 H 116 H (98-107) mmol/L Carbon Dioxide 19 L 20 L (22-30) mmol/L BUN 36 H 32 H (9-20) mg/dL Glucose 216 H 198 H (74-99) mg/dL POC Glucose (mg/dL) 203 H (75-99) mg/dL Calcium (8.4-10.2) mg/dL Phosphorus (2.5-4.5) mg/dL 11/12/17 11/12/17 11/12/17 Range/Units 05:00 05:00 05:08 RBC 4.11 L (4.30-5.90) m/uL Hgb 12.2 L (13.0-17.5) gm/dL Hct 38.1 L (39.0-53.0) % ABG pO2 223 H (83-108) mmHg ABG O2 Saturation 99.5 H (94-97) % Sodium (137-145) mmol/L Potassium (3.5-5.1) mmol/L Chloride 115 H (98-107) mmol/L Carbon Dioxide 20 L (22-30) mmol/L BUN 30 H (9-20) mg/dL Glucose 179 H (74-99) mg/dL POC Glucose (mg/dL) (75-99) mg/dL Calcium (8.4-10.2) mg/dL Phosphorus 2.2 L (2.5-4.5) mg/dL 11/12/17 11/12/17 11/12/17 Range/Units 06:16 11:55 15:01 RBC (4.30-5.90) m/uL Hgb (13.0-17.5) gm/dL Hct (39.0-53.0) % ABG pO2 (83-108) mmHg ABG O2 Saturation (94-97) % Sodium (137-145) mmol/L Potassium 3.3 L (3.5-5.1) mmol/L Chloride (98-107) mmol/L Carbon Dioxide (22-30) mmol/L BUN (9-20) mg/dL Glucose (74-99) mg/dL POC Glucose (mg/dL) 173 H 126 H (75-99) mg/dL Calcium (8.4-10.2) mg/dL Phosphorus (2.5-4.5) mg/dL 11/12/17 11/12/17 11/12/17 Range/Units 18:39 19:35 20:36 RBC (4.30-5.90) m/uL Hgb (13.0-17.5) gm/dL Hct (39.0-53.0) % ABG pO2 (83-108) mmHg ABG O2 Saturation (94-97) % Sodium 146 H (137-145) mmol/L Potassium (3.5-5.1) mmol/L Chloride 116 H (98-107) mmol/L Carbon Dioxide (22-30) mmol/L BUN 28 H (9-20) mg/dL Glucose 159 H (74-99) mg/dL POC Glucose (mg/dL) 177 H 147 H (75-99) mg/dL Calcium 8.1 L (8.4-10.2) mg/dL Phosphorus (2.5-4.5) mg/dL Microbiology - Last 24 Hours (Table) 11/12/17 00:35 Gram Stain - Preliminary Sputum Sputum Culture - Preliminary 11/11/17 05:53 Blood Culture - Preliminary Blood No Growth after 24 hours 11/11/17 16:19 Urine Culture - Preliminary Urine,Catheterized 11/07/17 18:28 Blood Culture - Preliminary Blood No Growth after 96 hours - Imaging and Cardiology Chest x-ray: report reviewed Assessment and Plan (1) Acute exacerbation of chronic obstructive airways disease Current Visit: Yes Status: Acute Code(s): J44.1 - CHRONIC OBSTRUCTIVE PULMONARY DISEASE W (ACUTE) EXACERBATION SNOMED Code(s): 306929796 (2) Altered mental status Current Visit: Yes Status: Acute Code(s): R41.82 - ALTERED MENTAL STATUS, UNSPECIFIED SNOMED Code(s): 391946305 (3) Urinary tract infection Current Visit: Yes Status: Acute Code(s): N39.0 - URINARY TRACT INFECTION, SITE NOT SPECIFIED SNOMED Code(s): 57581443 (4) Hyperlipidemia Current Visit: No Status: Acute Code(s): E78.5 - HYPERLIPIDEMIA, UNSPECIFIED SNOMED Code(s): 37681346 (5) Hypertension Current Visit: No Status: Chronic Code(s): I10 - ESSENTIAL (PRIMARY) HYPERTENSION SNOMED Code(s): 86016676 Plan: Continue supportive management. I appreciate pulmonology input. Check CBC CMP and chest x-ray in a.m. Prognosis is guarded secondary to his respiratory state. See orders otherwise.
[2017-11-13] MEDS: POTASSIUM BICARBONATE/CIT AC 20 MEQ TABLET.EFF NG-TUBE SCH (00:16)
[2017-11-13] MEDS: PROPOFOL 1,000 MG in EMPTY BAG 1 BAG IV SCH ×2 (00:16→06:08)
[2017-11-13] MEDS: HEPARIN SODIUM,PORCINE 5,000 UNIT/ML 1 ML VIAL SQ SCH ×3 (00:30→18:05)
[2017-11-13] MEDS: INSULIN ASPART 100 UNIT/ML 1 ML 10 ML VIAL SQ SCH ×4 (01:14→18:11)
[2017-11-13] MEDS: SODIUM CHLORIDE 0.9% 1,000 ML IV SCH (01:15)
[2017-11-13 01:19] LABS: Glucose,Whole Blood 223 mg/dL (75-99)
[2017-11-13 04:46] LABS: Basophils % (A) 0 %; Eosinophils # (A) 0.4 k/uL (0-0.7); Eosinophils % (A) 4 %; HCT 37.1 % (39.0-53.0); Lymphocytes # (A) 1.2 k/uL (1.0-4.8); Lymphocytes % (A) 13 %; MCH 30.2 pg (25.0-35.0); MCHC 32.2 g/dL (31.0-37.0); MCV 93.9 fL (80.0-100.0); Mean Platelet Volume 8.4; Monocytes # (A) 0.7 k/uL (0-1.0); Monocytes % (A) 8 %; Neutrophils # (A) 6.8 k/uL (1.3-7.7); Neutrophils % (A) 73 %; Platelet Count 172 k/uL (150-450); RBC 3.95 m/uL (4.30-5.90); RDW 14.8 % (11.5-15.5); WBC 9.4 k/uL (3.8-10.6)
[2017-11-13 05:00] LABS: ABG Base Excess 2.1 mmol/L; ABG HCO3 27 mmol/L (21-25); ABG Oxygen Saturation 99.8 % (94-97); ABG PCO2 42 mmHg (35-45); ABG PH 7.42 (7.35-7.45); ABG PO2 127 mmHg (83-108); ABG TCO2 28 mmol/L (19-24)
[2017-11-13 05:45] LABS: Anion Gap 7 mmol/L; Blood Urea Nitrogen 32 mg/dL (9-20); Calcium 8.4 mg/dL (8.4-10.2); Carbon Dioxide 25 mmol/L (22-30); Chloride 113 mmol/L (98-107); Glucose 172 mg/dL (74-99); Magnesium 2.3 mg/dL (1.6-2.3); Phosphorus 2.9 mg/dL (2.5-4.5); Potassium 3.7 mmol/L (3.5-5.1); Sodium 145 mmol/L (137-145)
[2017-11-13] MEDS: PIPERACILLIN-TAZOBACTAM 3.375 GM in DEXTROSE/WATER 1 50ML.BAG IVPB SCH ×3 (06:09→21:43)
[2017-11-13 06:15] LABS: Glucose,Whole Blood 164 mg/dL (75-99)
[2017-11-13] MEDS ORDERED: POTASSIUM BICARBONATE/CIT AC 20 MEQ TABLET.EFF NG-TUBE SCH (07:00)
[2017-11-13] MEDS: IPRATROPIUM-ALBUTEROL 3 ML NEB INHALATION SCH ×4 (07:14→20:31)
--- NOTE | 2017-11-13 07:38 | XR ---
EXAMINATION TYPE: XR chest 1V portable DATE OF EXAM: 11/13/2017 COMPARISON: 11/12/2017 HISTORY: Tube placement TECHNIQUE: Single frontal view of the chest is obtained. FINDINGS: ET and NG tube stable. Heart is enlarged and is bilateral consolidation and interstitial p attern. Left-sided central line stable. No pneumothorax. Underlying COPD suspected. Atherosclerotic c hange aorta. IMPRESSION: 1. Bilateral lower lobe infiltrate or atelectasis stable. Underlying interstitial lung disease or hermila ous congestion in the differential diagnosis.
--- NOTE | 2017-11-13 07:39 | P.PN ---
Subjective Principal diagnosis: Respiratory failure This continue progress on a 62-year-old white male essentially admitted for altered mental status ended up having respiratory failure. The patient is currently intubated with minimal support. Hopefully we can wean her today. He is unresponsive to commands this morning. He does appear tired. Objective - Vital Signs Vital signs: Vital Signs Temp 98.9 F 11/13/17 04:00 Pulse 78 11/13/17 07:32 Resp 22 11/13/17 07:00 BP 106/47 11/13/17 07:00 Pulse Ox 99 11/13/17 07:00 Intake & Output 11/12/17 11/13/17 11/13/17 18:59 06:59 18:59 Intake Total 2354.554 9702.550 102 Output Total 1600 1470 45 Balance -202.543 -287.450 57 Weight 75.7 kg Intake: IV 987.5 480 40 Piperacillin-Tazobactam 3 12.5 .375 gm In Dextrose/Water 1 50ml.bag @ 12.5 mls/hr IVPB Q8HR [facility] Rx#: [id number] Sodium Chloride 0.9% 500 725 480 40 ml @ 20 mls/hr IV .Q24H [facility] Rx#:[id number] Vancomycin 1,250 mg In 250 Sodium Chloride 0.9% 250 ml @ 125 mls/hr IVPB Q8H [facility] Rx#:[id number] Intake, IV Titration 289.957 178.550 Amount Norepinephrine 16 mg In 15.615 0 Sodium Chloride 0.9% 250 ml @ Titrate IV .Q0M [facility] Rx#:[id number] Piperacillin-Tazobactam 3 50.0 .375 gm In Dextrose/Water 1 50ml.bag @ 12.5 mls/hr IVPB Q8H [facility] Rx#: [id number] Propofol 1,000 mg In 224.342 178.550 Empty Bag 1 bag @ Titrate IV .Q0M [facility] Rx#: [id number] Tube Feeding 120 524 62 Output: Urine 1600 1470 45 Other: Voiding Method Indwelling Catheter Indwelling Catheter ABP, PAP, CO, CI - Last Documented Arterial Blood Pressure 127/55 - Constitutional General appearance: Present: average body habitus - EENT Eyes: Absent: abnormal pupil - Neck Neck: Absent: lymphadenopathy - Respiratory Respiratory: bilateral: CTA - Cardiovascular Rhythm: regular Heart sounds: normal: S1, S2 Abnormal Heart Sounds: Absent: S3 Gallop - Gastrointestinal General gastrointestinal: Present: soft. Absent: tenderness - Labs CBC & Chem 7: 11/13/17 04:40 11/13/17 04:40 Labs: Abnormal Lab Results - Last 24 Hours (Table) 11/12/17 11/12/17 11/12/17 Range/Units 11:55 15:01 18:39 RBC (4.30-5.90) m/uL Hgb (13.0-17.5) gm/dL Hct (39.0-53.0) % ABG pO2 (83-108) mmHg ABG HCO3 (21-25) mmol/L ABG Total CO2 (19-24) mmol/L ABG O2 Saturation (94-97) % Sodium (137-145) mmol/L Potassium 3.3 L (3.5-5.1) mmol/L Chloride (98-107) mmol/L BUN (9-20) mg/dL Glucose (74-99) mg/dL POC Glucose (mg/dL) 126 H 177 H (75-99) mg/dL Calcium (8.4-10.2) mg/dL 11/12/17 11/12/17 11/12/17 Range/Units 19:35 20:36 21:55 RBC (4.30-5.90) m/uL Hgb (13.0-17.5) gm/dL Hct (39.0-53.0) % ABG pO2 (83-108) mmHg ABG HCO3 (21-25) mmol/L ABG Total CO2 (19-24) mmol/L ABG O2 Saturation (94-97) % Sodium 146 H (137-145) mmol/L Potassium 3.4 L (3.5-5.1) mmol/L Chloride 116 H (98-107) mmol/L BUN 28 H (9-20) mg/dL Glucose 159 H (74-99) mg/dL POC Glucose (mg/dL) 147 H (75-99) mg/dL Calcium 8.1 L (8.4-10.2) mg/dL 11/13/17 11/13/17 11/13/17 Range/Units 01:08 04:40 04:40 RBC 3.95 L (4.30-5.90) m/uL Hgb 12.0 L (13.0-17.5) gm/dL Hct 37.1 L (39.0-53.0) % ABG pO2 (83-108) mmHg ABG HCO3 (21-25) mmol/L ABG Total CO2 (19-24) mmol/L ABG O2 Saturation (94-97) % Sodium (137-145) mmol/L Potassium (3.5-5.1) mmol/L Chloride 113 H (98-107) mmol/L BUN 32 H (9-20) mg/dL Glucose 172 H (74-99) mg/dL POC Glucose (mg/dL) 223 H (75-99) mg/dL Calcium (8.4-10.2) mg/dL 11/13/17 11/13/17 Range/Units 04:55 06:13 RBC (4.30-5.90) m/uL Hgb (13.0-17.5) gm/dL Hct (39.0-53.0) % ABG pO2 127 H (83-108) mmHg ABG HCO3 27 H (21-25) mmol/L ABG Total CO2 28 H (19-24) mmol/L ABG O2 Saturation 99.8 H (94-97) % Sodium (137-145) mmol/L Potassium (3.5-5.1) mmol/L Chloride (98-107) mmol/L BUN (9-20) mg/dL Glucose (74-99) mg/dL POC Glucose (mg/dL) 164 H (75-99) mg/dL Calcium (8.4-10.2) mg/dL Microbiology - Last 24 Hours (Table) 11/11/17 16:19 Urine Culture - Final Urine,Catheterized 11/07/17 18:28 Blood Culture - Preliminary Blood No Growth after 120 hours 11/12/17 00:35 Gram Stain - Preliminary Sputum Sputum Culture - Preliminary 11/11/17 05:53 Blood Culture - Preliminary Blood No Growth after 24 hours Assessment and Plan (1) Acute exacerbation of chronic obstructive airways disease Current Visit: Yes Status: Acute Code(s): J44.1 - CHRONIC OBSTRUCTIVE PULMONARY DISEASE W (ACUTE) EXACERBATION SNOMED Code(s): 792100138 (2) Altered mental status Current Visit: Yes Status: Acute Code(s): R41.82 - ALTERED MENTAL STATUS, UNSPECIFIED SNOMED Code(s): 060609947 (3) Urinary tract infection Current Visit: Yes Status: Acute Code(s): N39.0 - URINARY TRACT INFECTION, SITE NOT SPECIFIED SNOMED Code(s): 08873858 (4) Hyperlipidemia Current Visit: No Status: Acute Code(s): E78.5 - HYPERLIPIDEMIA, UNSPECIFIED SNOMED Code(s): 88248077 (5) Hypertension Current Visit: No Status: Chronic Code(s): I10 - ESSENTIAL (PRIMARY) HYPERTENSION SNOMED Code(s): 65906957 Plan: Continue current supportive care. Hopefully we can slowly wean from ventilator support and Levothroid. Check CBC and CMP in a.m. Dr. Ragsdale's group will be covering the weekend. See orders otherwise. Prognosis is guarded secondary to multiple comorbidities. Time with Patient: Less than 30
[2017-11-13] MEDS: FUROSEMIDE 10 MG/ML 4 ML VIAL IV SCH ×2 (08:36→21:43)
[2017-11-13] MEDS: CLOPIDOGREL 75 MG TAB PO SCH (08:36)
[2017-11-13] MEDS: TAMSULOSIN 0.4 MG CAP.ER.24H PO SCH (08:36)
[2017-11-13] MEDS: PANTOPRAZOLE 40 MG/10 ML VIAL IVP SCH (08:36)
[2017-11-13] MEDS: CHLORHEXIDINE GLUCONATE 15 ML CUP MUCOUS MEM SCH ×2 (08:36→21:39)
[2017-11-13] MEDS: SERTRALINE 100 MG TAB PO SCH (08:37)
[2017-11-13] MEDS: CYCLOBENZAPRINE 10 MG TAB PO SCH ×3 (08:37→22:16)
[2017-11-13] MEDS: CARVEDILOL 6.25 MG TAB PO SCH ×2 (09:00→17:16)
[2017-11-13] MEDS: LISINOPRIL 10 MG TAB PO SCH (09:01)
--- NOTE | 2017-11-13 11:02 | P.PN ---
Subjective Progress Note Date: 11/13/17 This is a 62-year-old male who apparently was brought into the emergency department on November 07 and evaluated by one of the ER doctors for mental status changes and shortness of breath. The patient was apparently found to have a low pulse ox at [facility]. The patient was unable to give any history at the time of the evaluation in the ER. The ER physician was not really sure was going on with the patient and thought maybe it was related to a drug effect and/or possible sepsis/urinary tract infection. According to the ER suni, the patient has a history of heart failure, GERD, hyperlipidemia, hypertension, and myocardial infarction. The patient also probably has a history of borderline diabetes and a indwelling catheter as well as a previous history of rectal bleeding. He's also had a cardiac catheterization with stent placement. He suffers from anxiety schizophrenia and depression. He is apparently an every day smoker. The patient really can give no history today in the ICU. The patient is in no distress. Not receiving any supplemental patient's saturations are mid to high 90s. The patient's IV is a saline IV at 75 mL an hour. We believe the patient is probably at baseline. The patient had a chest x-ray which showed cardiomegaly. Brain CT showed atrophy and periventricular white matter but the exam was stable compared to a computed tomography scan done May 2017. CT of the abdomen and pelvis showed sludge within the gallbladder bilateral renal cyst but essentially was unremarkable. CT angiogram showed no evidence of pulmonary embolism. The rest of the CT was essentially on impressive. There were some enlarged mediastinal lymph nodes and a PET scan was recommended. Follow-up chest x-ray from the suggested possible heart failure. The patient had received aggressive fluid resuscitation. On 11/09/2017 patient was seen in follow-up on medical surgical floor. In the morning patient was noted to be hypoxemic, with a pulse ox of 88%, he was given a dose of IV Lasix, diuresed, and this afternoon he seen on medical surgical floor, parent distress, on 2 L per nasal cannula, and the pulse ox is 96%. CT angiogram of the chest was negative for any evidence of pulmonary embolism cardiomegaly, moderate edema, some sludge in the gallbladder. Her were enlarged mediastinal lymph nodes, that we will likely need follow-up outpatient basis. Blood culture is negative, urine culture was positive for Proteus vulgaris, and gram-negative bacilli. Patient is covered with Rocephin, no ongoing fever or chills. On 11/11/2017 patient seen in follow-up on selective care unit. This morning he became febrile, with a T-max of 102.2F, tachycardic with a heart rate up to 124 BPM, increased and more lethargic, and tachypneic. He was also noted to be more hypoxic, and she was placed on 5 L per high flow nasal cannula. In view of symptoms compatible with sepsis patient was transferred to selective care unit. Blood cultures were sent. Repeat chest x-ray was obtained and shows worsening diffuse interstitial and airspace disease, worsening pulmonary edema, interstitial pneumonitis or multifocal pneumonia. Blood gases show pO2 of 59, pCO2 30, pH 7.41. This was done and FiO2 of 40%. Today's blood work shows WBC of 10.1, hemoglobin 13.2, sodium was 1:30 3.9, chloride is 17, co2 is 17, bun is 23, creatinine 0.68. plasma lactic is within normal limits at 1.1. patient yesterday was given a dose of lasix, today he remains on oral lasix, patient is making urine, fluid balance is negative for 4365 ML over the last 24 hours, patient was covered with Rocephin for evidence of Proteus vulgaris and E. coli in his urine, blood cultures were negative from admission. Her sensitivity screen showed E. coli was resistant to ceftriaxone, and Proteus was susceptible to it. And she was switched to IV Levaquin, and Zosyn was added for possibility of aspiration pneumonia. Remains quite typically tachypneic, patient was placed on BiPAP support, and a few of continuing respiratory difficulty, and altered mentation patient will be transferred to intensive care unit for further monitoring. On 11/12/2017, I'm seeing this patient follow-up in the intensive care unit. Mother the patient was having high-grade fever yesterday and he presented to the ICU being lethargic tachypneic tachycardic and his significant respiratory distress. He was briefly placed on BiPAP to which she failed and following that I had to intubate the patient put him on a mechanical ventilator. Subsequently he was also placed on sedation with propofol and a triple-lumen catheter was inserted and an outlying catheter inserted for aggressive hemodynamic monitoring. The patient this morning is intubated on a mechanical ventilator. He is sedated and is calm and comfortable. He is arousable and he withdraws to painful stimulation. He is on a mechanical ventilator within assist-control mode and based on the morning blood gases, the patient's FiO2 was weaned down to 35%. He is blood gases on 50% FiO2 showed a pH of 7.4 with a pCO2 of 36 and pO2 of 223. He has a tidal volume of 450 with a rate of 26. He is also on a PEEP of 5. The chest x-ray from today shows adequate positioning of the ET tube. Some limited infiltration of the lung bases bilaterally. Orogastric tube is also in place. CAT scan of the brain was done yesterday and showed no acute abnormalities. CAT scan of the chest was also done that showed cardiomegaly and some interstitial infiltrates in lung bases bilaterally especially in the posterior lateral segment of the right lower lobe and the left lower lobe. #Lymphadenopathy was noted. No significant orotracheal secretions. The patient is currently covered with a combination of Zosyn and Levaquin. There is a suspicion that he may have an underlying urine checked infection that was suboptimally treated with Rocephin knowing that sensitivities indicated that the patient's E. coli was gynecological assistant to Rocephin and the Proteus vulgaris was sensitive. Currently the patient is on IV Zosyn. He is well resuscitated. The patient was taken off pressors which was only at 2 g per KG pigmented. His been off pressors for around 12 hours. White cell count is at 9.5. Rest of the blood work shows a normal renal function. I's and O within normal limits. On 11/14/2079 I'm seeing this patient for a follow-up. The patient remains intubated on a mechanical ventilator and the patient remains sedated with propofol. He is on extremely well. He remains hemodynamically stable. Chest x -ray shows no new acute abnormality. He remains on a tidal volume of 450 with an FiO2 of 35% % and a PEEP of 5 and a rate of 26. The blood gases from today showed a pH of 7.42 with a pCO2 of 42 and pO2 of 127.. No significant orotracheal secretions. He remains hemodynamically stable. He is on no pressors at this point in time. He was diuresed over the past 48 hours and the patient is a negative fluid balance and the patient has diabetes aggressively for the past 48 hours in the order of 5 L plus. No fever. No chills. Tolerating diet. Remains on IV antibiotics for potential UTI/aspiration pneumonia. The patient is currently on IV Zosyn. Lasix is a dose of 40 mg every 12 hours. Note that the patient's mental status has been poor at baseline. He doesn't communicate on a regular basis. We are going to proceed to assess his candidacy to further weaning. We'll going to stop the sedation and give the patient spontaneous breathing trial. Unfortunately were not be able to get records weaning parameters on this patient. I think overall he is stable and he should potentially extubated. Objective - Vital Signs Vital signs: Vital Signs Temp 97.9 F 11/13/17 08:00 Pulse 81 11/13/17 10:00 Resp 22 11/13/17 10:00 BP 100/45 11/13/17 10:00 Pulse Ox 98 11/13/17 10:00 Intake & Output 11/12/17 11/13/17 11/13/17 18:59 06:59 18:59 Intake Total 7723.104 9246.550 475.5 Output Total 1600 1470 620 Balance -202.543 -287.450 -144.5 Weight 75.7 kg 75.7 kg Intake: IV 987.5 480 160 Piperacillin-Tazobactam 3 12.5 .375 gm In Dextrose/Water 1 50ml.bag @ 12.5 mls/hr IVPB Q8HR [facility] Rx#: [id number] Sodium Chloride 0.9% 500 725 480 160 ml @ 20 mls/hr IV .Q24H [facility] Rx#:[id number] Vancomycin 1,250 mg In 250 Sodium Chloride 0.9% 250 ml @ 125 mls/hr IVPB Q8H [facility] Rx#:[id number] Intake, IV Titration 289.957 178.550 37.5 Amount Norepinephrine 16 mg In 15.615 0 Sodium Chloride 0.9% 250 ml @ Titrate IV .Q0M [facility] Rx#:[id number] Piperacillin-Tazobactam 3 50.0 37.5 .375 gm In Dextrose/Water 1 50ml.bag @ 12.5 mls/hr IVPB Q8H [facility] Rx#: [id number] Propofol 1,000 mg In 224.342 178.550 Empty Bag 1 bag @ Titrate IV .Q0M [facility] Rx#: [id number] Tube Feeding 120 524 248 Other 30 Output: Urine 1600 1470 620 Other: Voiding Method Indwelling Catheter Indwelling Catheter Indwelling Catheter ABP, PAP, CO, CI - Last Documented Arterial Blood Pressure 121/54 - Exam GENERAL EXAM: Sedated, comfortable likely distress intubated on a mechanical ventilator. The patient is arousable upon stimulation. He withdraws to painful stimulation. HEAD: Normocephalic/atraumatic. EYES: Normal reaction of pupils, equal size. Conjunctiva pink, sclera white. NOSE: Clear with pink turbinates. THROAT: No erythema or exudates. NECK: No masses, no JVD, no thyroid enlargement, no adenopathy. Orogastric and orotracheal tube are both in place. CHEST: No chest wall deformity. Symmetrical expansion. LUNGS:Lungs were clear to auscultation and percussion, and with normal diaphragmatic excursion. No wheezes or rales were noted. Breath sounds are diminished in lung bases bilaterally otherwise there is no significant rhonchi or wheezes. CVS: Regular rate and rhythm, normal S1 and S2, no gallops, no murmurs, no rubs. I ABDOMEN: Soft, nontender. No hepatosplenomegaly, normal bowel sounds, no guarding or rigidity. EXTREMITIES: No clubbing, no edema, no cyanosis, 2+ pulses and upper and lower extremities. MUSCULOSKELETAL: Muscle strength and tone normal. SPINE: No scoliosis or deformity SKIN: No rashes CENTRAL NERVOUS SYSTEM: Patient is sedated for now his, comfortable and is very symptoms with the mechanical ventilator. He withdraws to painful stimulation. He is arousable upon repeated stimulation. We are the process of giving this patient a sedation holiday. - Labs CBC & Chem 7: 11/13/17 04:40 11/13/17 04:40 Labs: Abnormal Lab Results - Last 24 Hours (Table) 11/12/17 11/12/17 11/12/17 Range/Units 11:55 15:01 18:39 RBC (4.30-5.90) m/uL Hgb (13.0-17.5) gm/dL Hct (39.0-53.0) % ABG pO2 (83-108) mmHg ABG HCO3 (21-25) mmol/L ABG Total CO2 (19-24) mmol/L ABG O2 Saturation (94-97) % Sodium (137-145) mmol/L Potassium 3.3 L (3.5-5.1) mmol/L Chloride (98-107) mmol/L BUN (9-20) mg/dL Glucose (74-99) mg/dL POC Glucose (mg/dL) 126 H 177 H (75-99) mg/dL Calcium (8.4-10.2) mg/dL 11/12/17 11/12/17 11/12/17 Range/Units 19:35 20:36 21:55 RBC (4.30-5.90) m/uL Hgb (13.0-17.5) gm/dL Hct (39.0-53.0) % ABG pO2 (83-108) mmHg ABG HCO3 (21-25) mmol/L ABG Total CO2 (19-24) mmol/L ABG O2 Saturation (94-97) % Sodium 146 H (137-145) mmol/L Potassium 3.4 L (3.5-5.1) mmol/L Chloride 116 H (98-107) mmol/L BUN 28 H (9-20) mg/dL Glucose 159 H (74-99) mg/dL POC Glucose (mg/dL) 147 H (75-99) mg/dL Calcium 8.1 L (8.4-10.2) mg/dL 11/13/17 11/13/17 11/13/17 Range/Units 01:08 04:40 04:40 RBC 3.95 L (4.30-5.90) m/uL Hgb 12.0 L (13.0-17.5) gm/dL Hct 37.1 L (39.0-53.0) % ABG pO2 (83-108) mmHg ABG HCO3 (21-25) mmol/L ABG Total CO2 (19-24) mmol/L ABG O2 Saturation (94-97) % Sodium (137-145) mmol/L Potassium (3.5-5.1) mmol/L Chloride 113 H (98-107) mmol/L BUN 32 H (9-20) mg/dL Glucose 172 H (74-99) mg/dL POC Glucose (mg/dL) 223 H (75-99) mg/dL Calcium (8.4-10.2) mg/dL 11/13/17 11/13/17 Range/Units 04:55 06:13 RBC (4.30-5.90) m/uL Hgb (13.0-17.5) gm/dL Hct (39.0-53.0) % ABG pO2 127 H (83-108) mmHg ABG HCO3 27 H (21-25) mmol/L ABG Total CO2 28 H (19-24) mmol/L ABG O2 Saturation 99.8 H (94-97) % Sodium (137-145) mmol/L Potassium (3.5-5.1) mmol/L Chloride (98-107) mmol/L BUN (9-20) mg/dL Glucose (74-99) mg/dL POC Glucose (mg/dL) 164 H (75-99) mg/dL Calcium (8.4-10.2) mg/dL Microbiology - Last 24 Hours (Table) 11/11/17 05:53 Blood Culture - Preliminary Blood No Growth after 48 hours 11/11/17 16:19 Urine Culture - Final Urine,Catheterized 11/07/17 18:28 Blood Culture - Preliminary Blood No Growth after 120 hours 11/12/17 00:35 Gram Stain - Preliminary Sputum Sputum Culture - Preliminary Assessment and Plan Plan: Assessment 1 acute hypoxic respiratory failure requiring intubation mechanical ventilation. Because of the respiratory failure was not clear. I suspected aspiration pneumonia/UTI in addition to a component of fluid overload. All of these conditions were treated with a combination of antibiotics and diuretics and the patient was supported a mechanical ventilator. On today's evaluation is hemodynamically stable on no pressors. His blood. A favorable. When the process of getting this patient a sedation holiday and assessing his candidacy for further weaning. 2 urine tract infection with E. coli and Proteus 3 Acute hypoxic respiratory failure secondary to above 4 History of CHF, impaired left a ejection fraction with an ejection fraction of around 30-35%. 5 History of GERD 6 History of hyperlipidemia 7 History of hypertension 8 coronary artery disease with previous coronary stenting and a Previous history of myocardial infarction 9 History of anxiety and schizophrenia 10 Probable COPD, secondary to heavy and ongoing tobacco dependence Plan Stop sedation. Sedation holiday. Checked her weaning parameters if possible. Proceed with a spontaneous breathing trial. Assess the candidacy for weaning. Possible extubation today. The patient is able to perform a spontaneous breathing trial without any major difficulties. We'll monitor the hemodynamics. We'll continue IV Zosyn. Hold tube feeds for now. We'll monitor the progress and potentially extubated this patient if he is able to assess the above-mentioned interventions. Critically care evaluation, more than 30 minutes. Time with Patient: Greater than 30
[2017-11-13 12:46] LABS: Glucose,Whole Blood 161 mg/dL (75-99)
[2017-11-13] MEDS: ASPIRIN 325 MG TAB PO SCH (18:05)
[2017-11-13] MEDS: NYSTATIN 100,000 UNIT/ML SUSP 500,000 UNIT/5 ML CUP PO SCH ×2 (18:05→21:42)
[2017-11-13 18:13] LABS: Glucose,Whole Blood 123 mg/dL (75-99)
[2017-11-13] MEDS: POTASSIUM CHLORIDE 20 MEQ in WATER FOR INJECTION 1 100ML.BAG IVPB SCH ×2 (18:34→21:39)
[2017-11-13] MEDS: SENNOSIDES 8.6 MG TAB PO SCH (21:42)
[2017-11-14 01:11] LABS: Glucose,Whole Blood 151 mg/dL (75-99)
[2017-11-14] MEDS: INSULIN ASPART 100 UNIT/ML 1 ML 10 ML VIAL SQ SCH ×5 (01:16→21:33)
[2017-11-14] MEDS: HEPARIN SODIUM,PORCINE 5,000 UNIT/ML 1 ML VIAL SQ SCH ×4 (01:16→23:46)
[2017-11-14] MEDS: SODIUM CHLORIDE 0.9% 1,000 ML IV SCH (02:24)
[2017-11-14 06:36] LABS: Glucose,Whole Blood 126 mg/dL (75-99)
--- NOTE | 2017-11-14 06:47 | XR ---
EXAMINATION TYPE: XR chest 1V portable DATE OF EXAM: 11/14/2017 HISTORY: Tube placement. REFERENCE: Previous study dated 11/13/2017. FINDINGS: The patient has been extubated. The patient is NG tube is been removed. The heart is enlarged. There is vascular congestion and mild interstitial change. There is some confl uent airspace disease in the right lung base. I could not exclude tiny, bilateral effusions. IMPRESSION: 1. WORSENING CHANGES OF CONGESTIVE HEART FAILURE. 2. CONFLUENT RIGHT BASILAR AIRSPACE DISEASE MAY REPRESENT ATELECTASIS, PNEUMONIA OR CONFLUENT EDEMA.
[2017-11-14 07:06] LABS: Basophils % (A) 0 %; Eosinophils # (A) 0.4 k/uL (0-0.7); Eosinophils % (A) 4 %; HCT 35.5 % (39.0-53.0); HGB 11.9 gm/dL (13.0-17.5); Lymphocytes # (A) 0.9 k/uL (1.0-4.8); Lymphocytes % (A) 11 %; MCH 30.9 pg (25.0-35.0); MCHC 33.5 g/dL (31.0-37.0); MCV 92.2 fL (80.0-100.0); Mean Platelet Volume 7.1; Monocytes # (A) 0.5 k/uL (0-1.0); Monocytes % (A) 6 %; Neutrophils # (A) 6.4 k/uL (1.3-7.7); Neutrophils % (A) 77 %; Platelet Count 175 k/uL (150-450); RBC 3.85 m/uL (4.30-5.90); RDW 14.8 % (11.5-15.5); WBC 8.4 k/uL (3.8-10.6)
[2017-11-14 07:21] LABS: Anion Gap 9 mmol/L; Blood Urea Nitrogen 29 mg/dL (9-20); Calcium 8.5 mg/dL (8.4-10.2); Carbon Dioxide 25 mmol/L (22-30); Chloride 115 mmol/L (98-107); Glucose 130 mg/dL (74-99); Magnesium 2.3 mg/dL (1.6-2.3); Phosphorus 4.6 mg/dL (2.5-4.5); Potassium 3.9 mmol/L (3.5-5.1); Sodium 149 mmol/L (137-145)
[2017-11-14] MEDS: PIPERACILLIN-TAZOBACTAM 3.375 GM in DEXTROSE/WATER 1 50ML.BAG IVPB SCH ×3 (07:52→21:33)
[2017-11-14] MEDS: IPRATROPIUM-ALBUTEROL 3 ML NEB INHALATION SCH ×4 (08:19→20:26)
[2017-11-14] MEDS: CLOPIDOGREL 75 MG TAB PO SCH (09:05)
[2017-11-14] MEDS: PANTOPRAZOLE 40 MG/10 ML VIAL IVP SCH (09:05)
[2017-11-14] MEDS: TAMSULOSIN 0.4 MG CAP.ER.24H PO SCH (09:05)
[2017-11-14] MEDS: CYCLOBENZAPRINE 10 MG TAB PO SCH ×3 (09:05→21:33)
[2017-11-14] MEDS: LISINOPRIL 10 MG TAB PO SCH (09:05)
[2017-11-14] MEDS: FUROSEMIDE 10 MG/ML 4 ML VIAL IV SCH (09:05)
[2017-11-14] MEDS: SERTRALINE 100 MG TAB PO SCH (09:05)
[2017-11-14] MEDS: CHLORHEXIDINE GLUCONATE 15 ML CUP MUCOUS MEM SCH ×2 (09:06→21:35)
[2017-11-14] MEDS: NYSTATIN 100,000 UNIT/ML SUSP 500,000 UNIT/5 ML CUP PO SCH ×4 (09:07→21:33)
[2017-11-14] MEDS: CARVEDILOL 6.25 MG TAB PO SCH ×2 (09:07→17:01)
--- NOTE | 2017-11-14 11:29 | P.PN ---
Subjective Progress Note Date: 11/14/17 Principal diagnosis: Altered mental status, shortness of breath This is a 62-year-old male who apparently was brought into the emergency department on November 07 and evaluated by one of the ER doctors for mental status changes and shortness of breath. The patient was apparently found to have a low pulse ox at [facility]. The patient was unable to give any history at the time of the evaluation in the ER. The ER physician was not really sure was going on with the patient and thought maybe it was related to a drug effect and/or possible sepsis/urinary tract infection. According to the ER suni, the patient has a history of heart failure, GERD, hyperlipidemia, hypertension, and myocardial infarction. The patient also probably has a history of borderline diabetes and a indwelling catheter as well as a previous history of rectal bleeding. He's also had a cardiac catheterization with stent placement. He suffers from anxiety schizophrenia and depression. He is apparently an every day smoker. The patient really can give no history today in the ICU. The patient is in no distress. Not receiving any supplemental patient's saturations are mid to high 90s. The patient's IV is a saline IV at 75 mL an hour. We believe the patient is probably at baseline. The patient had a chest x-ray which showed cardiomegaly. Brain CT showed atrophy and periventricular white matter but the exam was stable compared to a computed tomography scan done May 2017. CT of the abdomen and pelvis showed sludge within the gallbladder bilateral renal cyst but essentially was unremarkable. CT angiogram showed no evidence of pulmonary embolism. The rest of the CT was essentially on impressive. There were some enlarged mediastinal lymph nodes and a PET scan was recommended. Follow-up chest x-ray from the suggested possible heart failure. The patient had received aggressive fluid resuscitation. The patient is seen again today 11/10/2017 in follow-up on the regular medical floor. He is currently resting comfortably in bed. He did have issues with anxiety and restlessness and was given Xanax 0.25 mg at 3:00 this morning. Since then he has been somewhat somnolent. He is arousing to verbal stimuli however. He is maintaining good O2 saturations in the upper 90s on 3 L/m per nasal cannula. He's been afebrile. Hemodynamically stable. Urine culture is positive for Proteus vulgaris and gram-negative bacilli. Blood culture reveals no growth. He is currently on ceftriaxone. White count 8.1. Hemoglobin 11.2. Bicarb 21. Creatinine 0.63. On 11/11/2017 patient seen in follow-up on selective care unit. This morning he became febrile, with a T-max of 102.2F, tachycardic with a heart rate up to 124 BPM, increased and more lethargic, and tachypneic. He was also noted to be more hypoxic, and she was placed on 5 L per high flow nasal cannula. In view of symptoms compatible with sepsis patient was transferred to selective care unit. Blood cultures were sent. Repeat chest x-ray was obtained and shows worsening diffuse interstitial and airspace disease, worsening pulmonary edema, interstitial pneumonitis or multifocal pneumonia. Blood gases show pO2 of 59, pCO2 30, pH 7.41. This was done and FiO2 of 40%. Today's blood work shows WBC of 10.1, hemoglobin 13.2, sodium was 1:30 3.9, chloride is 17, co2 is 17, bun is 23, creatinine 0.68. plasma lactic is within normal limits at 1.1. patient yesterday was given a dose of lasix, today he remains on oral lasix, patient is making urine, fluid balance is negative for 4365 ML over the last 24 hours, patient was covered with Rocephin for evidence of Proteus vulgaris and E. coli in his urine, blood cultures were negative from admission. Her sensitivity screen showed E. coli was resistant to ceftriaxone, and Proteus was susceptible to it. And she was switched to IV Levaquin, and Zosyn was added for possibility of aspiration pneumonia. Remains quite typically tachypneic, patient was placed on BiPAP support, and a few of continuing respiratory difficulty, and altered mentation patient will be transferred to intensive care unit for further monitoring. On 11/12/2017, I'm seeing this patient follow-up in the intensive care unit. Mother the patient was having high-grade fever yesterday and he presented to the ICU being lethargic tachypneic tachycardic and his significant respiratory distress. He was briefly placed on BiPAP to which she failed and following that I had to intubate the patient put him on a mechanical ventilator. Subsequently he was also placed on sedation with propofol and a triple-lumen catheter was inserted and an outlying catheter inserted for aggressive hemodynamic monitoring. The patient this morning is intubated on a mechanical ventilator. He is sedated and is calm and comfortable. He is arousable and he withdraws to painful stimulation. He is on a mechanical ventilator within assist-control mode and based on the morning blood gases, the patient's FiO2 was weaned down to 35%. He is blood gases on 50% FiO2 showed a pH of 7.4 with a pCO2 of 36 and pO2 of 223. He has a tidal volume of 450 with a rate of 26. He is also on a PEEP of 5. The chest x-ray from today shows adequate positioning of the ET tube. Some limited infiltration of the lung bases bilaterally. Orogastric tube is also in place. CAT scan of the brain was done yesterday and showed no acute abnormalities. CAT scan of the chest was also done that showed cardiomegaly and some interstitial infiltrates in lung bases bilaterally especially in the posterior lateral segment of the right lower lobe and the left lower lobe. #Lymphadenopathy was noted. No significant orotracheal secretions. The patient is currently covered with a combination of Zosyn and Levaquin. There is a suspicion that he may have an underlying urine checked infection that was suboptimally treated with Rocephin knowing that sensitivities indicated that the patient's E. coli was timber management assistant to Rocephin and the Proteus vulgaris was sensitive. Currently the patient is on IV Zosyn. He is well resuscitated. The patient was taken off pressors which was only at 2 g per KG pigmented. His been off pressors for around 12 hours. White cell count is at 9.5. Rest of the blood work shows a normal renal function. I's and O within normal limits. On 11/14/2079 I'm seeing this patient for a follow-up. The patient remains intubated on a mechanical ventilator and the patient remains sedated with propofol. He is on extremely well. He remains hemodynamically stable. Chest x -ray shows no new acute abnormality. He remains on a tidal volume of 450 with an FiO2 of 35% % and a PEEP of 5 and a rate of 26. The blood gases from today showed a pH of 7.42 with a pCO2 of 42 and pO2 of 127.. No significant orotracheal secretions. He remains hemodynamically stable. He is on no pressors at this point in time. He was diuresed over the past 48 hours and the patient is a negative fluid balance and the patient has diabetes aggressively for the past 48 hours in the order of 5 L plus. No fever. No chills. Tolerating diet. Remains on IV antibiotics for potential UTI/aspiration pneumonia. The patient is currently on IV Zosyn. Lasix is a dose of 40 mg every 12 hours. Note that the patient's mental status has been poor at baseline. He doesn't communicate on a regular basis. We are going to proceed to assess his candidacy to further weaning. We'll going to stop the sedation and give the patient spontaneous breathing trial. Unfortunately were not be able to get records weaning parameters on this patient. I think overall he is stable and he should potentially extubated. The patient is seen again today 11/14/2017 in follow-up in the intensive care unit. He was successfully extubated yesterday. He is currently awake and alert and following commands. He is taking sips of water. He is now maintaining good O2 saturations in the 90s on 2 L/m per nasal cannula. He's been afebrile. Hemodynamically stable. Follow-up urine culture reveals no growth. Sputum culture pending. Remains on Zosyn and bronchodilators. White count 8.4. Hemoglobin 11.9. Creatinine 0.79. Currently on IV Lasix 40 mg every 12 hours. Objective - Vital Signs Vital signs: Vital Signs Temp 98.1 F 11/14/17 08:00 Pulse 81 11/14/17 11:23 Resp 8 L 11/14/17 11:00 BP 107/54 11/14/17 11:00 Pulse Ox 90 L 11/14/17 11:00 Intake & Output 11/13/17 11/14/17 11/14/17 18:59 06:59 18:59 Intake Total 817.9 480 404.5 Output Total 1940 910 740 Balance -1122.1 -430 -335.5 Weight 76.8 kg 75.7 kg Intake: IV 480 480 120 Sodium Chloride 0.9% 500 480 480 120 ml @ 20 mls/hr IV .Q24H [facility] Rx#:[id number] Intake, IV Titration 59.9 32.5 Amount Piperacillin-Tazobactam 3 37.5 12.5 .375 gm In Dextrose/Water 1 50ml.bag @ 12.5 mls/hr IVPB Q8H [facility] Rx#: [id number] Propofol 1,000 mg In 22.4 Empty Bag 1 bag @ Titrate IV .Q0M [facility] Rx#: [id number] Sodium Chloride 0.9% 1, 20 000 ml @ 40 mls/hr IV . Q24H [facility] Rx#:[id number] Oral 252 Tube Feeding 248 Other 30 Output: Urine 1940 910 740 Other: Voiding Method Indwelling Catheter Indwelling Catheter Indwelling Catheter ABP, PAP, CO, CI - Last Documented Arterial Blood Pressure 144/49 - Exam No acute distress, arouses to verbal stimuli. Currently on oxygen at 2 L/m per nasal cannula. Very poor historian. HEENT examination is grossly unremarkable. Mucous membranes are moist. No oral lesions. Neck supple. Full range of motion. No adenopathy thyromegaly or neck vein distention. Cardiovascular examination reveals regular rhythm rate. S1-S2 normal. No S3 or S4. No discernible murmur noted. Heart rate is 97 bpm. Lungs reveal bibasilar crackles. There are a few scattered rhonchi. Breath sounds are diminished. No evidence of any stridor. No wheezes. Abdomen soft bowel sounds are heard. No masses or tenderness. Extremities are intact. No cyanosis or clubbing. Minimal edema. Skin is without rash or lesion. Neurologic examination is brief but nonfocal. Patient is difficult to evaluate. - Labs CBC & Chem 7: 11/14/17 06:00 11/14/17 06:00 Labs: Abnormal Lab Results - Last 24 Hours (Table) 11/13/17 11/13/17 11/13/17 Range/Units 12:44 17:00 18:10 RBC (4.30-5.90) m/uL Hgb (13.0-17.5) gm/dL Hct (39.0-53.0) % Lymphocytes # (1.0-4.8) k/uL Sodium (137-145) mmol/L Potassium 3.4 L (3.5-5.1) mmol/L Chloride (98-107) mmol/L BUN (9-20) mg/dL Glucose (74-99) mg/dL POC Glucose (mg/dL) 161 H 123 H (75-99) mg/dL Phosphorus (2.5-4.5) mg/dL 11/14/17 11/14/17 11/14/17 Range/Units 01:09 06:00 06:00 RBC 3.85 L (4.30-5.90) m/uL Hgb 11.9 L (13.0-17.5) gm/dL Hct 35.5 L (39.0-53.0) % Lymphocytes # 0.9 L (1.0-4.8) k/uL Sodium 149 H (137-145) mmol/L Potassium (3.5-5.1) mmol/L Chloride 115 H (98-107) mmol/L BUN 29 H (9-20) mg/dL Glucose 130 H (74-99) mg/dL POC Glucose (mg/dL) 151 H (75-99) mg/dL Phosphorus 4.6 H (2.5-4.5) mg/dL 11/14/17 Range/Units 06:34 RBC (4.30-5.90) m/uL Hgb (13.0-17.5) gm/dL Hct (39.0-53.0) % Lymphocytes # (1.0-4.8) k/uL Sodium (137-145) mmol/L Potassium (3.5-5.1) mmol/L Chloride (98-107) mmol/L BUN (9-20) mg/dL Glucose (74-99) mg/dL POC Glucose (mg/dL) 126 H (75-99) mg/dL Phosphorus (2.5-4.5) mg/dL Microbiology - Last 24 Hours (Table) 11/11/17 05:53 Blood Culture - Preliminary Blood No Growth after 72 hours 11/07/17 18:28 Blood Culture - Final Blood No Growth after 144 hours 11/12/17 00:35 Gram Stain - Preliminary Sputum Sputum Culture - Preliminary Assessment and Plan Assessment: Assessment Mental status changes. Sepsis secondary to urinary tract infection secondary to Proteus vulgaris and gram-negative bacilli. Follow-up culture was negative. He remains on Zosyn. Mild fluid overload, secondary to significant fluid resuscitation. History of CHF History of GERD History of hyperlipidemia History of hypertension Previous history of myocardial infarction History of CAD with previous stent placement History of anxiety and schizophrenia Probable COPD, secondary to heavy and ongoing tobacco dependence Enlarged mediastinal lymph nodes. To be further evaluated in the outpatient setting with possible PET scan Plan: The patient was seen and evaluated by Dr. Webb. We will discontinue the Lasix. Initiate gentle hydration. Bedside swallow evaluation. Aspiration precautions. We'll transfer him out of the intensive care unit today. We'll continue to follow and make further recommendations based on his clinical status. I, the cosigning physician, performed a history & physical examination of the patient. Lungs sounds with basilar crackles. Maintaining good O2 saturations in the 90s on 2 L/m per nasal cannula. I discussed the assessment and plan of care with my nurse practitioner, Jeana Garduno. I attest to the above note as dictated by her.
[2017-11-14 11:47] LABS: Glucose,Whole Blood 221 mg/dL (75-99)
[2017-11-14] MEDS: DEXTROSE 5%-0.45% NACL 1,000 ML IV SCH (12:42)
[2017-11-14 17:19] LABS: Glucose,Whole Blood 137 mg/dL (75-99)
[2017-11-14] MEDS: ASPIRIN 325 MG TAB PO SCH (18:12)
[2017-11-14] MEDS: SENNOSIDES 8.6 MG TAB PO SCH (21:33)
[2017-11-14 21:41] LABS: Glucose,Whole Blood 205 mg/dL (75-99)
--- NOTE | 2017-11-14 22:47 | PN ---
PROGRESS NOTE I am covering for Dr. Stearns. DATE OF SERVICE: 11/14/2017. This 62-year-old gentleman who was admitted with change in mental status and shortness of breath also had UTI with sepsis. The patient also had possibly COPD acute exacerbation as well. Patient is confused. Patient extubated. Patient is still confused. The hemoglobin is 8.5, white count is 11.2, sodium 149. Patient being transferred to Med/Surg floor at this time. PAST MEDICAL HISTORY: Reviewed. REVIEW OF SYSTEMS: Could not be taken. The patient is confused. CURRENT MEDICATIONS: 1. DuoNeb q.i.d. and p.r.n. 2. Aspirin 320 mg p.o. daily. 3. Dulcolax 10 mg daily p.r.n. 4. Coreg 6.25 mg p.o. b.i.d. 5. Peridex. 6. Plavix 75 mg. 7. Flexeril 10 mg p.o. t.i.d. 8. Colace 100 mg p.o. 10.Dilaudid. 11.NovoLog. 12.Zestril 10 mg p.o. daily. 13.Narcan. 14.Mycostatin. 15.Protonix. 16.Zosyn 3.375 IV q.8h. 17.Senokot. 18.Zoloft. 19.Fleet's. 20.Flomax. PHYSICAL EXAM: Patient is alert, oriented x2. Pulse 79, blood pressure 130/61, respiration 18, temperature 98.7, pulse ox 98% on 2 L. HEENT: Conjunctivae normal. Oral mucosa moist. Neck is no jugular venous distention. No carotid bruit. No lymph node enlargement. Cardiovascular system: S1, S2. Respiratory: Breath sounds diminished in the bases. Scattered rhonchi and crackles. ABDOMEN: Soft, nontender. Legs are no edema. No swelling. Central nervous system: Diffusely weak. LABS: WBC 8.8, hemoglobin 11.2, sodium 149. ASSESSMENT: 1. Urinary tract infection with sepsis secondary to Proteus vulgaris. 2. Change in mental status acute metabolic encephalopathy. 3. Chronic obstructive pulmonary disease acute exacerbation possibly with some fluid overload as well. 4. Increased sodium. 5. History of congestive heart failure. 6. Hypertension. 7. Hyperlipidemia. 8. History of myocardial infarction. 9. History of rectal bleeding. 10.History of anxiety and schizoaffective disorder. 12.History of nicotine dependence. 13.Gait dysfunction. DISCUSSION AND RECOMMENDATIONS: This 62-year-old gentleman who presented with multiple complex medical issues, we will monitor the patient closely, continue the current medications, management and symptomatic treatment. We will initiate PT/OT evaluation and possible ECF rehab in [facility]. Otherwise, rest of recommendations per pulmonary. Continue the rest of medications. Repeat labs will be ordered and prognosis guarded because of multiple complex medical issues. Further recommendations to follow. DVT prophylaxis. MMODL / IJN: [id number] / KARYN
[2017-11-15] MEDS: PIPERACILLIN-TAZOBACTAM 3.375 GM in DEXTROSE/WATER 1 50ML.BAG IVPB SCH ×3 (05:33→20:53)
[2017-11-15 07:39] LABS: Glucose,Whole Blood 155 mg/dL (75-99)
[2017-11-15] MEDS: IPRATROPIUM-ALBUTEROL 3 ML NEB INHALATION SCH ×4 (07:54→19:51)
[2017-11-15] MEDS: INSULIN ASPART 100 UNIT/ML 1 ML 10 ML VIAL SQ SCH ×4 (07:57→21:59)
[2017-11-15] MEDS: CARVEDILOL 6.25 MG TAB PO SCH ×2 (07:58→16:27)
[2017-11-15] MEDS: PANTOPRAZOLE 40 MG/10 ML VIAL IVP SCH (07:58)
[2017-11-15] MEDS: CHLORHEXIDINE GLUCONATE 15 ML CUP MUCOUS MEM SCH ×2 (07:58→20:03)
[2017-11-15] MEDS: NYSTATIN 100,000 UNIT/ML SUSP 500,000 UNIT/5 ML CUP PO SCH ×4 (07:58→20:53)
[2017-11-15] MEDS: CLOPIDOGREL 75 MG TAB PO SCH (07:59)
[2017-11-15] MEDS: LISINOPRIL 10 MG TAB PO SCH (07:59)
[2017-11-15] MEDS: HEPARIN SODIUM,PORCINE 5,000 UNIT/ML 1 ML VIAL SQ SCH ×3 (07:59→23:18)
[2017-11-15] MEDS: SERTRALINE 100 MG TAB PO SCH (07:59)
[2017-11-15] MEDS: TAMSULOSIN 0.4 MG CAP.ER.24H PO SCH (07:59)
[2017-11-15] MEDS: CYCLOBENZAPRINE 10 MG TAB PO SCH ×3 (07:59→20:53)
[2017-11-15] MEDS: DEXTROSE 5%-0.45% NACL 1,000 ML IV SCH ×2 (07:59→23:18)
[2017-11-15 09:29] LABS: Basophils % (A) 1 %; Eosinophils # (A) 0.5 k/uL (0-0.7); Eosinophils % (A) 7 %; HCT 36.2 % (39.0-53.0); HGB 11.7 gm/dL (13.0-17.5); Lymphocytes % (A) 15 %; MCH 30.4 pg (25.0-35.0); MCHC 32.2 g/dL (31.0-37.0); MCV 94.4 fL (80.0-100.0); Mean Platelet Volume 7.3; Monocytes # (A) 0.3 k/uL (0-1.0); Monocytes % (A) 4 %; Neutrophils # (A) 5.1 k/uL (1.3-7.7); Neutrophils % (A) 73 %; Platelet Count 151 k/uL (150-450); RBC 3.84 m/uL (4.30-5.90); RDW 14.7 % (11.5-15.5)
[2017-11-15 09:44] LABS: Anion Gap 8 mmol/L; Blood Urea Nitrogen 25 mg/dL (9-20); Calcium 8.6 mg/dL (8.4-10.2); Carbon Dioxide 26 mmol/L (22-30); Chloride 107 mmol/L (98-107); Glucose 205 mg/dL (74-99); Magnesium 2.2 mg/dL (1.6-2.3); Phosphorus 3.5 mg/dL (2.5-4.5); Potassium 3.3 mmol/L (3.5-5.1); Sodium 141 mmol/L (137-145)
[2017-11-15 11:43] LABS: Glucose,Whole Blood 192 mg/dL (75-99)
--- NOTE | 2017-11-15 15:35 | P.PN ---
Subjective Progress Note Date: 11/15/17 This is a 62-year-old male who apparently was brought into the emergency department on November 07 and evaluated by one of the ER doctors for mental status changes and shortness of breath. The patient was apparently found to have a low pulse ox at [facility]. The patient was unable to give any history at the time of the evaluation in the ER. The ER physician was not really sure was going on with the patient and thought maybe it was related to a drug effect and/or possible sepsis/urinary tract infection. According to the ER suni, the patient has a history of heart failure, GERD, hyperlipidemia, hypertension, and myocardial infarction. The patient also probably has a history of borderline diabetes and a indwelling catheter as well as a previous history of rectal bleeding. He's also had a cardiac catheterization with stent placement. He suffers from anxiety schizophrenia and depression. He is apparently an every day smoker. The patient really can give no history today in the ICU. The patient is in no distress. Not receiving any supplemental patient's saturations are mid to high 90s. The patient's IV is a saline IV at 75 mL an hour. We believe the patient is probably at baseline. The patient had a chest x-ray which showed cardiomegaly. Brain CT showed atrophy and periventricular white matter but the exam was stable compared to a computed tomography scan done May 2017. CT of the abdomen and pelvis showed sludge within the gallbladder bilateral renal cyst but essentially was unremarkable. CT angiogram showed no evidence of pulmonary embolism. The rest of the CT was essentially on impressive. There were some enlarged mediastinal lymph nodes and a PET scan was recommended. Follow-up chest x-ray from the suggested possible heart failure. The patient had received aggressive fluid resuscitation. The patient is seen again today 11/10/2017 in follow-up on the regular medical floor. He is currently resting comfortably in bed. He did have issues with anxiety and restlessness and was given Xanax 0.25 mg at 3:00 this morning. Since then he has been somewhat somnolent. He is arousing to verbal stimuli however. He is maintaining good O2 saturations in the upper 90s on 3 L/m per nasal cannula. He's been afebrile. Hemodynamically stable. Urine culture is positive for Proteus vulgaris and gram-negative bacilli. Blood culture reveals no growth. He is currently on ceftriaxone. White count 8.1. Hemoglobin 11.2. Bicarb 21. Creatinine 0.63. On 11/11/2017 patient seen in follow-up on selective care unit. This morning he became febrile, with a T-max of 102.2F, tachycardic with a heart rate up to 124 BPM, increased and more lethargic, and tachypneic. He was also noted to be more hypoxic, and she was placed on 5 L per high flow nasal cannula. In view of symptoms compatible with sepsis patient was transferred to selective care unit. Blood cultures were sent. Repeat chest x-ray was obtained and shows worsening diffuse interstitial and airspace disease, worsening pulmonary edema, interstitial pneumonitis or multifocal pneumonia. Blood gases show pO2 of 59, pCO2 30, pH 7.41. This was done and FiO2 of 40%. Today's blood work shows WBC of 10.1, hemoglobin 13.2, sodium was 1:30 3.9, chloride is 17, co2 is 17, bun is 23, creatinine 0.68. plasma lactic is within normal limits at 1.1. patient yesterday was given a dose of lasix, today he remains on oral lasix, patient is making urine, fluid balance is negative for 4365 ML over the last 24 hours, patient was covered with Rocephin for evidence of Proteus vulgaris and E. coli in his urine, blood cultures were negative from admission. Her sensitivity screen showed E. coli was resistant to ceftriaxone, and Proteus was susceptible to it. And she was switched to IV Levaquin, and Zosyn was added for possibility of aspiration pneumonia. Remains quite typically tachypneic, patient was placed on BiPAP support, and a few of continuing respiratory difficulty, and altered mentation patient will be transferred to intensive care unit for further monitoring. On 11/12/2017, I'm seeing this patient follow-up in the intensive care unit. Mother the patient was having high-grade fever yesterday and he presented to the ICU being lethargic tachypneic tachycardic and his significant respiratory distress. He was briefly placed on BiPAP to which she failed and following that I had to intubate the patient put him on a mechanical ventilator. Subsequently he was also placed on sedation with propofol and a triple-lumen catheter was inserted and an outlying catheter inserted for aggressive hemodynamic monitoring. The patient this morning is intubated on a mechanical ventilator. He is sedated and is calm and comfortable. He is arousable and he withdraws to painful stimulation. He is on a mechanical ventilator within assist-control mode and based on the morning blood gases, the patient's FiO2 was weaned down to 35%. He is blood gases on 50% FiO2 showed a pH of 7.4 with a pCO2 of 36 and pO2 of 223. He has a tidal volume of 450 with a rate of 26. He is also on a PEEP of 5. The chest x-ray from today shows adequate positioning of the ET tube. Some limited infiltration of the lung bases bilaterally. Orogastric tube is also in place. CAT scan of the brain was done yesterday and showed no acute abnormalities. CAT scan of the chest was also done that showed cardiomegaly and some interstitial infiltrates in lung bases bilaterally especially in the posterior lateral segment of the right lower lobe and the left lower lobe. #Lymphadenopathy was noted. No significant orotracheal secretions. The patient is currently covered with a combination of Zosyn and Levaquin. There is a suspicion that he may have an underlying urine checked infection that was suboptimally treated with Rocephin knowing that sensitivities indicated that the patient's E. coli was school office assistant to Rocephin and the Proteus vulgaris was sensitive. Currently the patient is on IV Zosyn. He is well resuscitated. The patient was taken off pressors which was only at 2 g per KG pigmented. His been off pressors for around 12 hours. White cell count is at 9.5. Rest of the blood work shows a normal renal function. I's and O within normal limits. On 11/14/2079 I'm seeing this patient for a follow-up. The patient remains intubated on a mechanical ventilator and the patient remains sedated with propofol. He is on extremely well. He remains hemodynamically stable. Chest x -ray shows no new acute abnormality. He remains on a tidal volume of 450 with an FiO2 of 35% % and a PEEP of 5 and a rate of 26. The blood gases from today showed a pH of 7.42 with a pCO2 of 42 and pO2 of 127.. No significant orotracheal secretions. He remains hemodynamically stable. He is on no pressors at this point in time. He was diuresed over the past 48 hours and the patient is a negative fluid balance and the patient has diabetes aggressively for the past 48 hours in the order of 5 L plus. No fever. No chills. Tolerating diet. Remains on IV antibiotics for potential UTI/aspiration pneumonia. The patient is currently on IV Zosyn. Lasix is a dose of 40 mg every 12 hours. Note that the patient's mental status has been poor at baseline. He doesn't communicate on a regular basis. We are going to proceed to assess his candidacy to further weaning. We'll going to stop the sedation and give the patient spontaneous breathing trial. Unfortunately were not be able to get records weaning parameters on this patient. I think overall he is stable and he should potentially extubated. The patient is seen again today 11/14/2017 in follow-up in the intensive care unit. He was successfully extubated yesterday. He is currently awake and alert and following commands. He is taking sips of water. He is now maintaining good O2 saturations in the 90s on 2 L/m per nasal cannula. He's been afebrile. Hemodynamically stable. Follow-up urine culture reveals no growth. Sputum culture pending. Remains on Zosyn and bronchodilators. White count 8.4. Hemoglobin 11.9. Creatinine 0.79. Currently on IV Lasix 40 mg every 12 hours. On 11/15/2017 the patient is being seen in follow-up on the medical floor. Note that the patient was extubated and he was discharged out of the intensive care unit yesterday. He is doing well. He is alert and awake. No signs of respiratory distress. He is on 2 L of oxygen by nasal cannula. His tolerating his diet. No aspiration. No nausea or vomiting or emesis. He is afebrile. Hemodynamically stable. Antibiotic coverage including a combination of Zosyn and Levaquin. His renal function is stable with a creatinine of 0.6. White cell count is not elevated. The patient has been on D5 half-normal saline at the rate of 50 mL an hour. The patient also is on DuoNeb nebulized treatments around the clock. He is a poor historian. He is debilitated secondary to a long-term psychiatric disorder. He is known to have coronary artery disease with previous CO. He also has hypertension and hyperlipidemia on previous history of CHF. He has been taken off the diuretics and the sodium level is also normalized as the patient was having some degree of hypernatremia on yesterday's evaluation. Objective - Vital Signs Vital signs: Vital Signs Temp 96.5 F L 11/15/17 14:32 Pulse 73 11/15/17 14:32 Resp 18 11/15/17 14:32 BP 120/63 11/15/17 14:32 Pulse Ox 96 11/15/17 14:32 Intake & Output 11/14/17 11/15/17 11/15/17 18:59 06:59 18:59 Intake Total 454.5 300 Output Total 890 300 Balance -435.5 -300 300 Weight 75.7 kg 75.7 kg 78 kg Intake: IV 120 Sodium Chloride 0.9% 500 120 ml @ 20 mls/hr IV .Q24H PAIGE Rx#:[id number] Intake, IV Titration 82.5 Amount Dextrose 5%-0.45% NaCl 1, 50 000 ml @ 50 mls/hr IV . Q20H PAIGE Rx#:[id number] Piperacillin-Tazobactam 3 12.5 .375 gm In Dextrose/Water 1 50ml.bag @ 12.5 mls/hr IVPB Q8H PAIGE Rx#: [id number] Sodium Chloride 0.9% 1, 20 000 ml @ 40 mls/hr IV . Q24H PAIGE Rx#:[id number] Oral 252 300 Output: Urine 890 300 Other: Voiding Method Indwelling Catheter Indwelling Catheter Indwelling Catheter ABP, PAP, CO, CI - Last Documented Arterial Blood Pressure 144/49 - Exam No acute distress, arouses to verbal stimuli. Currently on oxygen at 2 L/m per nasal cannula. Very poor historian. HEENT examination is grossly unremarkable. Mucous membranes are moist. No oral lesions. Neck supple. Full range of motion. No adenopathy thyromegaly or neck vein distention. Cardiovascular examination reveals regular rhythm rate. S1-S2 normal. No S3 or S4. No discernible murmur noted. Heart rate is 97 bpm. Lungs reveal bibasilar crackles. There are a few scattered rhonchi. Breath sounds are diminished. No evidence of any stridor. No wheezes. Abdomen soft bowel sounds are heard. No masses or tenderness. Extremities are intact. No cyanosis or clubbing. Minimal edema. Skin is without rash or lesion. Neurologic examination is brief but nonfocal. Patient is difficult to evaluate. - Labs CBC & Chem 7: 11/15/17 09:00 11/15/17 09:00 Labs: Abnormal Lab Results - Last 24 Hours (Table) 11/14/17 11/14/17 11/15/17 Range/Units 17:12 21:25 07:01 RBC (4.30-5.90) m/uL Hgb (13.0-17.5) gm/dL Hct (39.0-53.0) % Potassium (3.5-5.1) mmol/L BUN (9-20) mg/dL Glucose (74-99) mg/dL POC Glucose (mg/dL) 137 H 205 H 155 H (75-99) mg/dL 11/15/17 11/15/17 11/15/17 Range/Units 09:00 09:00 11:37 RBC 3.84 L (4.30-5.90) m/uL Hgb 11.7 L (13.0-17.5) gm/dL Hct 36.2 L (39.0-53.0) % Potassium 3.3 L (3.5-5.1) mmol/L BUN 25 H (9-20) mg/dL Glucose 205 H (74-99) mg/dL POC Glucose (mg/dL) 192 H (75-99) mg/dL Microbiology - Last 24 Hours (Table) 11/11/17 05:53 Blood Culture - Preliminary Blood No Growth after 96 hours 11/12/17 00:35 Gram Stain - Final Sputum Sputum Culture - Final Assessment and Plan Plan: Assessment 1 acute hypoxic respiratory failure requiring intubation mechanical ventilation. Because of the respiratory failure was not clear. I suspected aspiration pneumonia/UTI in addition to a component of fluid overload. All of these conditions were treated with a combination of antibiotics and diuretics and the patient was supported a mechanical ventilator. Subsequently the patient was extubated and the patient is currently on 2 L of oxygen by nasal cannula. The patient is off diuretics. He is on accommodation Zosyn and Levaquin covering for pneumonia. The chest x-ray shows some right basilar airspace disease and atelectasis. This was a chest x-rays were done yesterday. A repeat chest x-ray was not performed. 2 urine tract infection with E. coli and Proteus 3 Acute hypoxic respiratory failure secondary to above, recovered and the patient is currently on 2 L of oxygen by nasal cannula 4 History of CHF, impaired left a ejection fraction with an ejection fraction of around 30-35%. 5 History of GERD 6 History of hyperlipidemia 7 History of hypertension 8 coronary artery disease with previous coronary stenting and a Previous history of myocardial infarction 9 History of anxiety and schizophrenia 10 Probable COPD, secondary to heavy and ongoing tobacco dependence 11 hypernatremia, recovered Plan The patient is doing extremely well. Continue same antibiotic coverage. Aspiration precautions. No need for diuretics. Sodium level is normalized. Advance diet as tolerated.
[2017-11-15] MEDS: FUROSEMIDE 10 MG/ML 4 ML VIAL IV SCH (16:27)
[2017-11-15] MEDS: ASPIRIN 325 MG TAB PO SCH (16:27)
[2017-11-15 17:41] LABS: Glucose,Whole Blood 173 mg/dL (75-99)
--- NOTE | 2017-11-15 18:19 | PN ---
PROGRESS NOTE I am covering for Dr. Stearns. DATE OF SERVICE: 11/15/2017. INTERVAL HISTORY: This 62-year-old gentleman admitted with change in mental status, shortness of breath, also had UTI with sepsis. The patient also has COPD. Patient also had metabolic encephalopathy, gait dysfunction also. Patient being closely monitored at this time. The most recent chest x-ray done yesterday showed some CHF at this time. PAST MEDICAL HISTORY: Reviewed. REVIEW OF SYSTEMS: Could not be taken, the patient is mildly confused. CURRENT MEDICATIONS: Reviewed and include: 1. DuoNeb q.i.d. and p.r.n. 2. Aspirin 320 mg daily. 4. Coreg 6.5 mg b.i.d. 5. Peridex. 6. Plavix. 7. Flexeril. 8. Colace. 9. Robitussin. 10.Dilaudid. 11.Zestril. 12.Narcan. 13.Protonix. 14.Zoloft. 15.Fleets enema. 16.Flomax. PHYSICAL EXAMINATION: The patient is alert and oriented times three. Pulse 73, blood pressure 120/65, respiration 18. Temperature 96.5, pulse ox 98% on 2 L. HEENT: Conjunctivae normal. Oral mucosa moist. Neck is no jugular venous distention. No carotid bruit. No thyroid enlargement. Cardiovascular systems: S1, S2. Respirations: Breath sounds diminished in the bases. A few scattered rhonchi and crackles. ABDOMEN: Soft, nontender. No mass palpable. Legs are no edema. No swelling. Nervous system: No focal deficits. LABS: WBC 7, hemoglobin 11.2, potassium 3.8. Other labs are noted. ASSESSMENT: 1. Urinary tract infection with possible sepsis secondary to Proteus vulgaris. 2. Change in mental status, acute metabolic encephalopathy, multifactorial. 3. Chronic obstructive pulmonary disease exacerbation possibly. 4. Congestive heart failure acute exacerbation with acute on chronic systolic dysfunction, ejection fraction 35-40%. 5. Increased sodium. 6. Hypertension. 7. Hyperlipidemia. 8. History of myocardial infarction. 9. History of rectal bleed. 10.History of anxiety, schizoaffective disorder. 11.Nicotine dependence. 12.Gait dysfunction. RECOMMENDATIONS AND DISCUSSION: Recommend to continue current medications, monitoring and management and symptomatic treatment. Continue the bronchodilators. Continue the rest of medications. I would also recommend a small dose of diuretics as well. Otherwise, prognosis guarded because of multiple complex medical issues. Further recommendations to follow. Continue the rest of medication. PT/OT evaluation, possible ECF rehab. Dr. Stearns will follow tomorrow. BESSY / JESICAN: [id number] / MTDD
[2017-11-15] MEDS: POTASSIUM CHLORIDE ER 20 MEQ TAB.ER PO SCH (20:53)
[2017-11-15] MEDS: SENNOSIDES 8.6 MG TAB PO SCH (20:53)
[2017-11-15 20:57] LABS: Glucose,Whole Blood 133 mg/dL (75-99)
[2017-11-16] MEDS: PIPERACILLIN-TAZOBACTAM 3.375 GM in DEXTROSE/WATER 1 50ML.BAG IVPB SCH ×3 (06:17→22:19)
[2017-11-16] MEDS: IPRATROPIUM-ALBUTEROL 3 ML NEB INHALATION SCH ×4 (07:11→19:13)
[2017-11-16 07:25] LABS: Glucose,Whole Blood 146 mg/dL (75-99)
--- NOTE | 2017-11-16 07:42 | P.PN ---
Subjective Principal diagnosis: Respiratory failure This is a continue progress on a 62-year-old white male essentially admitted for altered mental status. The patient had significant respiratory failure and was intubated several days ago for respiratory failure. The patient is now stabilized and doing well. The patient is somewhat lethargic this morning and does not follow commands. However, he is typically only oriented to one sphere. No overt fever or chills. Objective - Vital Signs Vital signs: Vital Signs Temp 98.7 F 11/16/17 06:15 Pulse 76 11/16/17 07:26 Resp 20 11/16/17 06:15 BP 113/49 11/16/17 06:15 Pulse Ox 96 11/16/17 06:15 Intake & Output 11/15/17 11/16/17 11/16/17 18:59 06:59 18:59 Intake Total 300 300 Output Total 1375 Balance 300 -1075 Weight 78 kg 78 kg Intake: Oral 300 300 Output: Urine 1375 Other: Voiding Method Indwelling Catheter Indwelling Catheter # Bowel Movements 0 ABP, PAP, CO, CI - Last Documented Arterial Blood Pressure 144/49 - Constitutional General appearance: Present: average body habitus - Cardiovascular Rhythm: regular Heart sounds: normal: S1, S2 Abnormal Heart Sounds: Absent: S3 Gallop - Gastrointestinal General gastrointestinal: Present: soft. Absent: splenomegaly, tenderness - Neurologic Neurologic: Absent: focal deficits - Musculoskeletal Musculoskeletal: Present: generalized weakness - Psychiatric Psychiatric: Absent: A&O x's 3 - Labs CBC & Chem 7: 11/15/17 09:00 11/15/17 09:00 Labs: Abnormal Lab Results - Last 24 Hours (Table) 11/15/17 11/15/17 11/15/17 Range/Units 07:01 09:00 09:00 RBC 3.84 L (4.30-5.90) m/uL Hgb 11.7 L (13.0-17.5) gm/dL Hct 36.2 L (39.0-53.0) % Potassium 3.3 L (3.5-5.1) mmol/L BUN 25 H (9-20) mg/dL Glucose 205 H (74-99) mg/dL POC Glucose (mg/dL) 155 H (75-99) mg/dL 11/15/17 11/15/17 11/15/17 Range/Units 11:37 17:22 20:56 RBC (4.30-5.90) m/uL Hgb (13.0-17.5) gm/dL Hct (39.0-53.0) % Potassium (3.5-5.1) mmol/L BUN (9-20) mg/dL Glucose (74-99) mg/dL POC Glucose (mg/dL) 192 H 173 H 133 H (75-99) mg/dL 11/16/17 Range/Units 07:22 RBC (4.30-5.90) m/uL Hgb (13.0-17.5) gm/dL Hct (39.0-53.0) % Potassium (3.5-5.1) mmol/L BUN (9-20) mg/dL Glucose (74-99) mg/dL POC Glucose (mg/dL) 146 H (75-99) mg/dL Microbiology - Last 24 Hours (Table) 11/11/17 05:53 Blood Culture - Preliminary Blood No Growth after 96 hours Assessment and Plan (1) Acute exacerbation of chronic obstructive airways disease Current Visit: Yes Status: Acute Code(s): J44.1 - CHRONIC OBSTRUCTIVE PULMONARY DISEASE W (ACUTE) EXACERBATION SNOMED Code(s): 622913809 (2) Altered mental status Current Visit: Yes Status: Acute Code(s): R41.82 - ALTERED MENTAL STATUS, UNSPECIFIED SNOMED Code(s): 589490296 (3) Urinary tract infection Current Visit: Yes Status: Acute Code(s): N39.0 - URINARY TRACT INFECTION, SITE NOT SPECIFIED SNOMED Code(s): 00194614 (4) Hyperlipidemia Current Visit: No Status: Acute Code(s): E78.5 - HYPERLIPIDEMIA, UNSPECIFIED SNOMED Code(s): 39465206 (5) Hypertension Current Visit: No Status: Chronic Code(s): I10 - ESSENTIAL (PRIMARY) HYPERTENSION SNOMED Code(s): 15632373 Plan: Improving prognosis given decreased oxygen supplement requirements. Appreciate critical care/pulmonology input. Check CBC and CMP in a.m. Finish antibiotic course. Hopefully we can transition back to ECF in the next several days. Continue [place] catheter given his history of retention. See orders otherwise. Time with Patient: Greater than 30
[2017-11-16] MEDS: INSULIN ASPART 100 UNIT/ML 1 ML 10 ML VIAL SQ SCH ×4 (08:05→22:12)
[2017-11-16] MEDS: CHLORHEXIDINE GLUCONATE 15 ML CUP MUCOUS MEM SCH ×2 (08:06→22:11)
[2017-11-16] MEDS: CLOPIDOGREL 75 MG TAB PO SCH (08:06)
[2017-11-16] MEDS: LISINOPRIL 10 MG TAB PO SCH (08:06)
[2017-11-16] MEDS: TAMSULOSIN 0.4 MG CAP.ER.24H PO SCH (08:06)
[2017-11-16] MEDS: HEPARIN SODIUM,PORCINE 5,000 UNIT/ML 1 ML VIAL SQ SCH ×2 (08:06→16:35)
[2017-11-16] MEDS: NYSTATIN 100,000 UNIT/ML SUSP 500,000 UNIT/5 ML CUP PO SCH ×4 (08:07→22:12)
[2017-11-16] MEDS: PANTOPRAZOLE 40 MG/10 ML VIAL IVP SCH (08:07)
[2017-11-16] MEDS: POTASSIUM CHLORIDE ER 20 MEQ TAB.ER PO SCH ×2 (08:07→22:11)
[2017-11-16] MEDS: CYCLOBENZAPRINE 10 MG TAB PO SCH ×3 (08:07→22:12)
[2017-11-16] MEDS: FUROSEMIDE 10 MG/ML 4 ML VIAL IV SCH (08:07)
[2017-11-16] MEDS: SERTRALINE 100 MG TAB PO SCH (08:08)
[2017-11-16] MEDS: CARVEDILOL 6.25 MG TAB PO SCH ×2 (08:31→16:36)
[2017-11-16 11:02] LABS: Basophils # (A) 0.1 k/uL (0-0.2); Basophils % (A) 1 %; Eosinophils # (A) 0.7 k/uL (0-0.7); Eosinophils % (A) 9 %; HCT 36.2 % (39.0-53.0); HGB 11.8 gm/dL (13.0-17.5); Lymphocytes # (A) 0.9 k/uL (1.0-4.8); Lymphocytes % (A) 12 %; MCH 30.2 pg (25.0-35.0); MCHC 32.5 g/dL (31.0-37.0); Mean Platelet Volume 7.1; Monocytes # (A) 0.3 k/uL (0-1.0); Monocytes % (A) 4 %; Neutrophils # (A) 5.5 k/uL (1.3-7.7); Neutrophils % (A) 73 %; Platelet Count 173 k/uL (150-450); RBC 3.89 m/uL (4.30-5.90); RDW 14.7 % (11.5-15.5); WBC 7.6 k/uL (3.8-10.6)
[2017-11-16 11:17] LABS: Anion Gap 9 mmol/L; Blood Urea Nitrogen 17 mg/dL (9-20); Calcium 8.4 mg/dL (8.4-10.2); Carbon Dioxide 22 mmol/L (22-30); Chloride 105 mmol/L (98-107); Glucose 241 mg/dL (74-99); Magnesium 2.1 mg/dL (1.6-2.3); Phosphorus 3.6 mg/dL (2.5-4.5); Potassium 3.9 mmol/L (3.5-5.1); Sodium 136 mmol/L (137-145)
[2017-11-16 11:34] LABS: Glucose,Whole Blood 212 mg/dL (75-99)
[2017-11-16 14:56] VITALS: BMI 28.6
[2017-11-16] MEDS: ASPIRIN 325 MG TAB PO SCH (16:36)
[2017-11-16 17:11] LABS: Glucose,Whole Blood 131 mg/dL (75-99)
[2017-11-16 20:48] LABS: Glucose,Whole Blood 131 mg/dL (75-99)
[2017-11-16] MEDS: SENNOSIDES 8.6 MG TAB PO SCH (22:11)
[2017-11-17] MEDS: HEPARIN SODIUM,PORCINE 5,000 UNIT/ML 1 ML VIAL SQ SCH ×3 (00:23→17:09)
[2017-11-17] MEDS: DEXTROSE 5%-0.45% NACL 1,000 ML IV SCH ×2 (00:23→21:58)
[2017-11-17] MEDS: PIPERACILLIN-TAZOBACTAM 3.375 GM in DEXTROSE/WATER 1 50ML.BAG IVPB SCH ×3 (06:58→21:49)
[2017-11-17 07:14] LABS: Glucose,Whole Blood 127 mg/dL (75-99)
[2017-11-17] MEDS: IPRATROPIUM-ALBUTEROL 3 ML NEB INHALATION SCH ×4 (07:23→19:34)
[2017-11-17] MEDS: CLOPIDOGREL 75 MG TAB PO SCH (08:26)
[2017-11-17] MEDS: CYCLOBENZAPRINE 10 MG TAB PO SCH ×3 (08:26→21:48)
[2017-11-17] MEDS: LISINOPRIL 10 MG TAB PO SCH (08:26)
[2017-11-17] MEDS: SERTRALINE 100 MG TAB PO SCH (08:26)
[2017-11-17] MEDS: POTASSIUM CHLORIDE ER 20 MEQ TAB.ER PO SCH ×2 (08:26→21:49)
[2017-11-17] MEDS: TAMSULOSIN 0.4 MG CAP.ER.24H PO SCH (08:26)
[2017-11-17] MEDS: NYSTATIN 100,000 UNIT/ML SUSP 500,000 UNIT/5 ML CUP PO SCH ×4 (08:27→21:49)
[2017-11-17] MEDS: CHLORHEXIDINE GLUCONATE 15 ML CUP MUCOUS MEM SCH ×2 (08:27→21:50)
[2017-11-17] MEDS: CARVEDILOL 6.25 MG TAB PO SCH ×2 (08:27→17:09)
[2017-11-17] MEDS: INSULIN ASPART 100 UNIT/ML 1 ML 10 ML VIAL SQ SCH ×4 (08:27→21:53)
[2017-11-17] MEDS: FUROSEMIDE 10 MG/ML 4 ML VIAL IV SCH (08:27)
[2017-11-17] MEDS: PANTOPRAZOLE 40 MG/10 ML VIAL IVP SCH (08:35)
[2017-11-17 11:19] LABS: Glucose,Whole Blood 169 mg/dL (75-99)
[2017-11-17 16:56] LABS: Glucose,Whole Blood 124 mg/dL (75-99)
[2017-11-17] MEDS: ASPIRIN 325 MG TAB PO SCH (17:09)
[2017-11-17] MEDS: GENTAMICIN 0.3% OPHTH OINT 3.5 GM TUBE RIGHT EYE SCH (17:09)
[2017-11-17] MEDS ORDERED: LOPERAMIDE 2 MG CAP PO SCH (20:00)
[2017-11-17 21:29] LABS: Glucose,Whole Blood 170 mg/dL (75-99)
[2017-11-17] MEDS: SENNOSIDES 8.6 MG TAB PO SCH (21:48)
[2017-11-17] MEDS: LOPERAMIDE 2 MG CAP PO SCH (21:48)
[2017-11-18] MEDS: LOPERAMIDE 2 MG CAP PO SCH ×3 (00:17→13:01)
[2017-11-18] MEDS: HEPARIN SODIUM,PORCINE 5,000 UNIT/ML 1 ML VIAL SQ SCH ×2 (00:19→09:26)
[2017-11-18] MEDS: GENTAMICIN 0.3% OPHTH OINT 3.5 GM TUBE RIGHT EYE SCH ×2 (00:21→09:26)
[2017-11-18] MEDS: PIPERACILLIN-TAZOBACTAM 3.375 GM in DEXTROSE/WATER 1 50ML.BAG IVPB SCH (06:37)
[2017-11-18 07:14] VITALS: BP 122/68; RESP 16; TEMP 97.9
[2017-11-18 07:30] LABS: Glucose,Whole Blood 123 mg/dL (75-99)
--- NOTE | 2017-11-18 08:10 | P.DS ---
Providers Date of admission: 11/07/17 20:20 Attending physician: Juan Stearns Consults: 11/07/17 20:20 Consult Physician Routine Consulting Provider: Dick Chisholm Reason/Comments: ivu Do you want consulting provider notified?: Yes Primary care physician: Juan Stearns - Discharge Diagnosis(es) (1) Acute exacerbation of chronic obstructive airways disease Current Visit: Yes Status: Acute (2) Altered mental status Current Visit: Yes Status: Acute (3) Urinary tract infection Current Visit: Yes Status: Acute (4) Hyperlipidemia Current Visit: No Status: Acute (5) Hypertension Current Visit: No Status: Chronic Hospital Course: This is a discharge summary 62-year-old white male who came in with altered mental status and history of UTI. The patient was placed on appropriate antibiotic treatment but started developing restaurant failure. He ended up in the ICU intubated and was stabilized. Pulmonology and multiple consultants, on a course of this patient stabilized the patient properly. He developed a little bit of conjunctivitis post ICU and is now tolerating diet back to his normal baseline. He'll discharged in stable condition to follow-up with me in about one week. Patient Condition at Discharge: Stable Plan - Discharge Summary Discharge Rx Participant: No New Discharge Prescriptions: New Gentamicin 0.3% Ophth Oint [Gentak 0.3% Ophth Oint] 1 applic RIGHT EYE Q8HR gm Nystatin 100,000 Unit/ml Susp [Mycostatin Oral Susp] 500,000 unit PO QID # 200 ml Continue Pravastatin Sodium [Pravachol] 40 mg PO HS@2100 Nitroglycerin Sl Tabs [Nitrostat] 0.4 mg SUBLINGUAL Q5M PRN #0 tab PRN Reason: Chest Pain Ipratropium Nebulized [Atrovent Nebulized] 0.5 mg INHALATION RT-QID PRN PRN Reason: Shortness Of Breath Carvedilol [Coreg] 6.25 mg PO BID-W/MEALS #60 tab Potassium Chloride ER [K-Dur 20] 20 meq PO DAILY@1700 Ibuprofen [Motrin] 800 mg PO BID PRN PRN Reason: Pain Sertraline HCl [Zoloft] 100 mg PO DAILY Paliperidone IM [Invega Sustenna] 234 mg IM Q28D Artificial Tears-Hypromellose [Artificial Tear Drops] 1 drops BOTH EYES TID PRN PRN Reason: DRY EYES Aspirin 325 mg PO DAILY@1700 Bisacodyl [Dulcolax] 10 mg RECTAL DAILY PRN PRN Reason: Constipation Furosemide [Lasix] 40 mg PO DAILY@0600 Magnesium Hydroxide [Milk of Magnesia] 2,400 mg PO DAILY PRN PRN Reason: Constipation Na Phos,M-B/Na Phos,Di-Ba [Fleet Adult] 133 ml RECTAL DAILY PRN PRN Reason: Constipation Omeprazole [PriLOSEC] 20 mg PO AC-BID #60 cap Albuterol Nebulized [Ventolin Nebulized] 2.5 mg INHALATION RT-QID PRN PRN Reason: Shortness Of Breath Clopidogrel [Plavix] 75 mg PO DAILY@0800 Docusate [Colace] 100 mg PO DAILY PRN PRN Reason: Constipation Famotidine [Pepcid] 20 mg PO DAILY@0700 guaiFENesin [guaiFENesin Oral Solution] 200 mg PO Q4H PRN PRN Reason: Cough Insulin Aspart [NovoLOG (formulary)] 12 unit SQ BID@1100,1730 Insulin Aspart [NovoLOG (formulary)] 16 unit SQ DAILY@0700 Lisinopril [Zestril] 10 mg PO DAILY@0800 Pioglitazone [Actos] 30 mg PO DAILY@0800 Tamsulosin [Flomax] 0.4 mg PO DAILY@0800 Ubidecarenone [Co Q-10] 100 mg PO DAILY@1700 Discontinued Cyclobenzaprine HCl 10 mg PO TID Discharge Medication List Pravastatin Sodium [Pravachol] 40 mg PO HS@2100 10/05/15 [History] Nitroglycerin Sl Tabs [Nitrostat] 0.4 mg SUBLINGUAL Q5M PRN #0 tab 11/16/15 [Rx] Ipratropium Nebulized [Atrovent Nebulized] 0.5 mg INHALATION RT-QID PRN [History] Carvedilol [Coreg] 6.25 mg PO BID-W/MEALS #60 tab 01/15/16 [Rx] Ibuprofen [Motrin] 800 mg PO BID PRN 06/04/17 [History] Paliperidone IM [Invega Sustenna] 234 mg IM Q28D 06/04/17 [History] Potassium Chloride ER [K-Dur 20] 20 meq PO DAILY@1700 06/04/17 [History] Sertraline HCl [Zoloft] 100 mg PO DAILY 06/04/17 [History] Artificial Tears-Hypromellose [Artificial Tear Drops] 1 drops BOTH EYES TID PRN 06/13/17 [History] Aspirin 325 mg PO DAILY@169906/13/17 [History] Bisacodyl [Dulcolax] 10 mg RECTAL DAILY PRN 06/13/17 [History] Furosemide [Lasix] 40 mg PO DAILY@0606/13/17 [History] Magnesium Hydroxide [Milk of Magnesia] 2,400 mg PO DAILY PRN 06/13/17 [History] Na Phos,M-B/Na Phos,Di-Ba [Fleet Adult] 133 ml RECTAL DAILY PRN 06/13/17 [ History] Omeprazole [PriLOSEC] 20 mg PO AC-BID #60 cap 08/27/17 [Rx] Albuterol Nebulized [Ventolin Nebulized] 2.5 mg INHALATION RT-QID PRN 11/07/17 [ History] Clopidogrel [Plavix] 75 mg PO DAILY@0811/07/17 [History] Docusate [Colace] 100 mg PO DAILY PRN 11/07/17 [History] Famotidine [Pepcid] 20 mg PO DAILY@69911/07/17 [History] Insulin Aspart [NovoLOG (formulary)] 12 unit SQ BID@1100,1730 11/07/17 [History] Insulin Aspart [NovoLOG (formulary)] 16 unit SQ DAILY@0711/07/17 [History] Lisinopril [Zestril] 10 mg PO DAILY@79911/07/17 [History] Pioglitazone [Actos] 30 mg PO DAILY@79911/07/17 [History] Tamsulosin [Flomax] 0.4 mg PO DAILY@79911/07/17 [History] Ubidecarenone [Co Q-10] 100 mg PO DAILY@169911/07/17 [History] guaiFENesin [guaiFENesin Oral Solution] 200 mg PO Q4H PRN 11/07/17 [History] Gentamicin 0.3% Ophth Oint [Gentak 0.3% Ophth Oint] 1 applic RIGHT EYE Q8HR gm 11/18/17 [Rx] Nystatin 100,000 Unit/ml Susp [Mycostatin Oral Susp] 500,000 unit PO QID #200 ml 11/18/17 [Rx] Follow up Appointment(s)/Referral(s): Juan Stearns MD [Primary Care Provider] - 3 Days Discharge Disposition: TRANSFER TO SNF/ECF
[2017-11-18] MEDS: IPRATROPIUM-ALBUTEROL 3 ML NEB INHALATION SCH ×3 (08:48→13:51)
[2017-11-18] MEDS: FUROSEMIDE 10 MG/ML 4 ML VIAL IV SCH (09:26)
[2017-11-18] MEDS: CHLORHEXIDINE GLUCONATE 15 ML CUP MUCOUS MEM SCH (09:26)
[2017-11-18] MEDS: NYSTATIN 100,000 UNIT/ML SUSP 500,000 UNIT/5 ML CUP PO SCH ×2 (09:26→13:00)
[2017-11-18] MEDS: CYCLOBENZAPRINE 10 MG TAB PO SCH (09:26)
[2017-11-18] MEDS: LISINOPRIL 10 MG TAB PO SCH (09:27)
[2017-11-18] MEDS: POTASSIUM CHLORIDE ER 20 MEQ TAB.ER PO SCH (09:27)
[2017-11-18] MEDS: SERTRALINE 100 MG TAB PO SCH (09:27)
[2017-11-18] MEDS: CARVEDILOL 6.25 MG TAB PO SCH (09:28)
[2017-11-18] MEDS: CLOPIDOGREL 75 MG TAB PO SCH (09:28)
[2017-11-18] MEDS: INSULIN ASPART 100 UNIT/ML 1 ML 10 ML VIAL SQ SCH ×2 (09:28→13:00)
[2017-11-18] MEDS: TAMSULOSIN 0.4 MG CAP.ER.24H PO SCH (09:28)
[2017-11-18] MEDS: PANTOPRAZOLE 40 MG/10 ML VIAL IVP SCH (09:33)
[2017-11-18 12:23] LABS: Glucose,Whole Blood 156 mg/dL (75-99)
[2017-11-18 13:50] VITALS: PULSE 82
--- NOTE | 2017-11-19 13:21 | P.PN ---
Subjective Progress Note Date: 11/10/17 Principal diagnosis: Respiratory failure This is a continue progress on a 62-year-old white male essentially admitted for altered mental status. The patient had significant respiratory failure and was intubated several days ago for respiratory failure. The patient is now stabilized and doing well. The patient is somewhat lethargic this morning and does not follow commands. However, he is typically only oriented to one sphere. No overt fever or chills. Objective - Vital Signs Vital signs: Vital Signs Temp 97.9 F 11/18/17 07:13 Pulse 82 11/18/17 08:58 Resp 16 11/18/17 07:13 BP 122/68 11/18/17 07:13 Pulse Ox 95 11/18/17 07:13 Intake & Output 11/18/17 11/19/17 11/19/17 18:59 06:59 18:59 Output Total 1700 Balance -1700 Weight 81.5 kg Output: Urine 1700 Other: Voiding Method Indwelling Catheter # Bowel Movements 2 ABP, PAP, CO, CI - Last Documented Arterial Blood Pressure 144/49 - Constitutional General appearance: Present: average body habitus, cooperative - EENT Eyes: Absent: abnormal pupil - Neck Neck: Absent: lymphadenopathy - Respiratory Respiratory: bilateral: diminished - Cardiovascular Rhythm: regular Heart sounds: normal: S1, S2 Abnormal Heart Sounds: Absent: S3 Gallop - Integumentary Integumentary: Absent: cellulitis - Psychiatric Psychiatric: Present: appropriate affect. Absent: A&O x's 3 - Labs CBC & Chem 7: 11/16/17 10:35 11/16/17 10:35 Assessment and Plan (1) Acute exacerbation of chronic obstructive airways disease Status: Acute Code(s): J44.1 - CHRONIC OBSTRUCTIVE PULMONARY DISEASE W (ACUTE ) EXACERBATION SNOMED Code(s): 920606214 (2) Altered mental status Status: Acute Code(s): R41.82 - ALTERED MENTAL STATUS, UNSPECIFIED SNOMED Code(s): 954756093 (3) Urinary tract infection Status: Acute Code(s): N39.0 - URINARY TRACT INFECTION, SITE NOT SPECIFIED SNOMED Code(s): 73398369 (4) Hyperlipidemia Status: Acute Code(s): E78.5 - HYPERLIPIDEMIA, UNSPECIFIED SNOMED Code(s): 93266598 (5) Hypertension Status: Chronic Code(s): I10 - ESSENTIAL (PRIMARY) HYPERTENSION SNOMED Code( s): 23318557 Plan: The patient is improving significantly. We will continue to follow. See orders otherwise.
--- NOTE | 2017-11-19 13:24 | P.PN ---
Subjective Progress Note Date: 11/17/17 Principal diagnosis: Respiratory failure This is a continue progress on a 62-year-old white male essentially admitted for altered mental status. The patient had significant respiratory failure and was intubated several days ago for respiratory failure. The patient is now stabilized and doing well. The patient is somewhat lethargic this morning and does not follow commands. However, he is typically only oriented to one sphere. No overt fever or chills.The patient is improving significantly and should hopefully be discharged in the next 24-48 hours. Objective - Vital Signs Vital signs: Vital Signs Temp 97.9 F 11/18/17 07:13 Pulse 82 11/18/17 08:58 Resp 16 11/18/17 07:13 BP 122/68 11/18/17 07:13 Pulse Ox 95 11/18/17 07:13 Intake & Output 11/18/17 11/19/17 11/19/17 18:59 06:59 18:59 Output Total 1700 Balance -1700 Weight 81.5 kg Output: Urine 1700 Other: Voiding Method Indwelling Catheter # Bowel Movements 2 ABP, PAP, CO, CI - Last Documented Arterial Blood Pressure 144/49 - Constitutional General appearance: Absent: average body habitus - Neck Neck: Absent: lymphadenopathy - Respiratory Respiratory: bilateral: diminished - Cardiovascular Rhythm: regular Heart sounds: normal: S1, S2 Abnormal Heart Sounds: Absent: S3 Gallop - Gastrointestinal General gastrointestinal: Present: soft. Absent: tenderness - Neurologic Neurologic: Present: CNII-XII intact. Absent: focal deficits - Psychiatric Psychiatric: Present: A&O x's 3. Absent: appropriate affect - Labs CBC & Chem 7: 11/16/17 10:35 11/16/17 10:35 Assessment and Plan (1) Acute exacerbation of chronic obstructive airways disease Status: Acute Code(s): J44.1 - CHRONIC OBSTRUCTIVE PULMONARY DISEASE W (ACUTE ) EXACERBATION SNOMED Code(s): 116487975 (2) Altered mental status Status: Acute Code(s): R41.82 - ALTERED MENTAL STATUS, UNSPECIFIED SNOMED Code(s): 446862621 (3) Urinary tract infection Status: Acute Code(s): N39.0 - URINARY TRACT INFECTION, SITE NOT SPECIFIED SNOMED Code(s): 55366309 (4) Hyperlipidemia Status: Acute Code(s): E78.5 - HYPERLIPIDEMIA, UNSPECIFIED SNOMED Code(s): 92837944 (5) Hypertension Status: Chronic Code(s): I10 - ESSENTIAL (PRIMARY) HYPERTENSION SNOMED Code( s): 05927134 Plan: Continue to follow closely. He has significant improvement. Increase ambulation if possible. Continue current regimen of treatment. Anticipate discharge in the next 24-48 hours. Time with Patient: Less than 30
== END 2017-11-18 14:27 | DRG 698 ==
LOC: EC 18:00 → 6ICU 20:20 → 5MS5E 11-08 13:35 → 6SEL 11-11 09:38 → 6ICU 11-11 15:04 → 4MS4W 11-14 13:15
PROVIDERS: ADMIT Family Medicine; ATTEND Family Medicine
PROC: 02H633Z Insertion of Infusion Device into Right Atrium, Percutaneous Approach (ICD-10-PCS; principal; 2017-11-11)
PROC: 03HY32Z Insertion of Monitoring Device into Upper Artery, Percutaneous Approach (ICD-10-PCS; principal; 2017-11-11)
PROC: 0BH18EZ Insertion of Endotracheal Airway into Trachea, Via Natural or Artificial Opening Endoscopic (ICD-10-PCS; principal; 2017-11-11)
PROC: 5A1945Z Respiratory Ventilation, 24-96 Consecutive Hours (ICD-10-PCS; principal; 2017-11-11)
PROC: 4A133B1 Monitoring of Arterial Pressure, Peripheral, Percutaneous Approach (ICD-10-PCS; principal; 2017-11-11)
PROC: 4A133J1 Monitoring of Arterial Pulse, Peripheral, Percutaneous Approach (ICD-10-PCS; principal; 2017-11-11)
DX: T83.511A Infection and inflammatory reaction due to indwelling urethral catheter, initial encounter (principal); A41.59 Other Gram-negative sepsis; G93.41 Metabolic encephalopathy; J96.01 Acute respiratory failure with hypoxia; J69.0 Pneumonitis due to inhalation of food and vomit; I50.23 Acute on chronic systolic (congestive) heart failure; E87.0 Hyperosmolality and hypernatremia; J44.0 Chronic obstructive pulmonary disease with (acute) lower respiratory infection; J44.1 Chronic obstructive pulmonary disease with (acute) exacerbation; J98.11 Atelectasis; N39.0 Urinary tract infection, site not specified; B96.4 Proteus (mirabilis) (morganii) as the cause of diseases classified elsewhere; E11.9 Type 2 diabetes mellitus without complications; E78.5 Hyperlipidemia, unspecified; E86.0 Dehydration; F17.200 Nicotine dependence, unspecified, uncomplicated; F25.0 Schizoaffective disorder, bipolar type; F41.9 Anxiety disorder, unspecified; H10.9 Unspecified conjunctivitis; I11.0 Hypertensive heart disease with heart failure; I25.10 Atherosclerotic heart disease of native coronary artery without angina pectoris; I25.2 Old myocardial infarction; J84.89 Other specified interstitial pulmonary diseases; K21.9 Gastro-esophageal reflux disease without esophagitis; N28.1 Cyst of kidney, acquired; Z16.19 Resistance to other specified beta lactam antibiotics; Z74.01 Bed confinement status; Z79.02 Long term (current) use of antithrombotics/antiplatelets; Z79.4 Long term (current) use of insulin; Z79.82 Long term (current) use of aspirin; Z87.440 Personal history of urinary (tract) infections; Z95.5 Presence of coronary angioplasty implant and graft; Z79.899 Other long term (current) drug therapy; Y84.6 Urinary catheterization as the cause of abnormal reaction of the patient, or of later complication, without mention of misadventure at the time of the procedure
CPT/HCPCS: 36415; 36600; 70450; 71045; 71250; 71275; 74177; 80048; 80053; 80306; 81001; 82009; 82140; 82550; 82553; 82803; 82805; 83036; 83520; 83605; 83735; 83880; 84100; 84132; 84484; 85025; 85027; 85379; 85610; 85730; 87040; 87070; 87077; 87086; 87186; 87205; 87324; 93005; 94002; 94003; 94640; 94660; 94760; 96361; 96365; 96375; 99291

== ENCOUNTER 2018-04-02 15:19 | Inpatient (IN) | payer MEDICARE, OTHER ==
[2018-04-02] MEDS ORDERED: MAGNESIUM SULFATE-D5W PMX 1 GM in DEXTROSE/WATER 1 100ML.BAG IVPB SCH (15:45)
--- NOTE | 2018-04-02 15:54 | ED ---
General Adult HPI - General Chief complaint: Shortness of Breath Stated complaint: DANIEL Time Seen by Provider: 04/02/18 15:35 Source: EMS Mode of arrival: EMS - History of Present Illness Initial comments: Dictation was produced using [employer] dictation software. please excuse any grammatical, word or spelling errors. Chief Complaint: Patient is 62-year-old male transferred from [facility] for respiratory symptoms, concern of pneumonia hypoxia and hypoglycemia. History of Present Illness: 62-year-old male. [facility] for [facility], chronic debility. He is a poor historian at this time. He has no specific complaints. Patient is a poor historian. According to chart review patient was sent here for respiratory symptoms, worsening over the last 4 days. Was found to be hypoxic. There is no documentation that patient requires home O2. Patient also had a hypoglycemic episode. No further detail is provided. Patient has no complaints at this time. The ROS documented in this emergency department record has been reviewed and confirmed by me. Those systems with pertinent positive or negative responses have been documented in the HPI. All other systems are other negative and/or noncontributory. PHYSICAL EXAM: General Impression: Alert and oriented x3, not in acute distress HEENT: Normocephalic atraumatic, extra-ocular movements intact, pupils equal and reactive to light bilaterally, mucous membranes moist. Cardiovascular: Heart regular rate and rhythm, S1&S2 audible, no murmurs, rubs or gallops Chest: Lungs clear to auscultation bilaterally Abdomen: Bowel sounds present, abdomen soft, non-tender, non-distended, no organomegaly Musculoskeletal: Pulses present and equal in all extremities, no peripheral edema Motor: Power 5/5 bilaterally, no focal deficits noted Neurological: CN II-XII grossly intact, no focal motor or sensory deficits noted Skin: Intact with no visualized rashes Psych: Normal affect and mood ED course: 62-year-old male transferred from [facility] for respiratory symptoms. According to EMS who gave report to our nurse his roommate allegedly was recently diagnosed with pneumonia. Patient was found to have a hypoglycemic episode. Patient has also had documentation of his chart that he had a hypoxic episode as well.Return evaluation obtained. CBC, coag panel, metabolic panel is unremarkable. 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 Patient has a history congestive heart failure. He was seen here in emergency department had echocardiogram done middle of last year showing EF 35%. Patient is mildly hypoxic. Chest x-ray shows findings to show acute onset heart failure. Patient's clinical presentation consistent with congestive heart failure. Given 40 mg of Lasix. No intensive blood pressure intervention at this time patient be admitted. No jugular consultation. EKG interpretation: Ventricular rate 68, normal sinus rhythm, SC interval 186, QS duration 118, QTc 542.. They're to EKG from 11/07/2017. Overall, this EKG is unremarkable - Related Data Home Medications Medication Instructions Recorded Confirmed Pravastatin Sodium [Pravachol] 40 mg PO HS@2100 10/05/15 04/02/18 Ipratropium Nebulized [Atrovent 0.5 mg INHALATION RT-QID PRN 01/10/16 04/02/18 Nebulized 0.2 MG/ML] Ibuprofen [Motrin] 800 mg PO BID PRN 06/04/17 04/02/18 Paliperidone IM [Invega Sustenna] 234 mg IM Q28D 06/04/17 04/02/18 Potassium Chloride ER [K-Dur 20] 20 meq PO DAILY@1700 06/04/17 04/02/18 Sertraline HCl [Zoloft] 100 mg PO DAILY@0800 06/04/17 04/02/18 Artificial Tears-Hypromellose 1 drops BOTH EYES TID PRN 06/13/17 04/02/18 [Artificial Tear Drops] Aspirin 325 mg PO DAILY@1700 06/13/17 04/02/18 Bisacodyl [Dulcolax] 10 mg RECTAL DAILY PRN 06/13/17 04/02/18 Furosemide [Lasix] 40 mg PO DAILY 06/13/17 04/02/18 Magnesium Hydroxide [Milk of 2,400 mg PO DAILY PRN 06/13/17 04/02/18 Magnesia] Na Phos,M-B/Na Phos,Di-Ba [Fleet 133 ml RECTAL DAILY PRN 06/13/17 04/02/18 Adult] Clopidogrel [Plavix] 75 mg PO DAILY@0800 11/07/17 04/02/18 Docusate [Colace] 100 mg PO DAILY PRN 11/07/17 04/02/18 Lisinopril [Zestril] 10 mg PO DAILY@0800 11/07/17 04/02/18 Pioglitazone [Actos] 30 mg PO DAILY@0800 11/07/17 04/02/18 Tamsulosin [Flomax] 0.4 mg PO DAILY@0800 11/07/17 04/02/18 Ubidecarenone [Co Q-10] 100 mg PO DAILY@1700 11/07/17 04/02/18 guaiFENesin [guaiFENesin Oral 200 mg PO Q4H PRN 11/07/17 04/02/18 Solution] Ensure 1 can PO DAILY 04/02/18 04/02/18 Furosemide [Lasix] 20 mg PO DAILY@1700 04/02/18 04/02/18 Hydrocortisone Lotion [Hytone 2.5% 1 applic TOPICAL DAILY PRN 04/02/18 04/02/18 Lotion] Insulin Aspart [NovoLOG] 8 unit SQ DAILY@1730 04/02/18 04/02/18 Insulin Aspart [NovoLOG] 10 unit SQ DAILY@0700 04/02/18 04/02/18 Insulin Aspart [NovoLOG] 10 unit SQ DAILY@1100 04/02/18 04/02/18 Omeprazole 20 mg PO DAILY PRN 04/02/18 04/02/18 traZODone HCL [TraZODone HCl] 75 mg PO HS 04/02/18 04/02/18 Previous Rx's Medication Instructions Recorded Nitroglycerin Sl Tabs [Nitrostat] 0.4 mg SUBLINGUAL Q5M PRN #0 tab 11/16/15 Carvedilol [Coreg] 6.25 mg PO BID-W/MEALS #60 tab 01/15/16 Allergies Allergy/AdvReac Type Severity Reaction Status Date / Time No Known Allergies Allergy Verified 04/02/18 16:25 Review of Systems ROS Statement: Those systems with pertinent positive or pertinent negative responses have been documented in the HPI. ROS Other: All systems not noted in ROS Statement are negative. Past Medical History Past Medical History: Heart Failure, GERD/Reflux, Hyperlipidemia, Hypertension, Myocardial Infarction (RI) Additional Past Medical History / Comment(s): RECTAL BLEEDING, Borderline diabetes, esophagitis, barretts esophagus. HAS IDC Last Myocardial Infarction Date:: 07/15/15 History of Any Multi-Drug Resistant Organisms: Other MDRO Past Surgical History: Heart Catheterization With Stent Past Anesthesia/Blood Transfusion Reactions: No Reported Reaction Date of Last Stent Placement:: 07/15/15 Past Psychological History: Anxiety, Schizoaffective Disorder, Schizophrenia Smoking Status: Current every day smoker Past Alcohol Use History: None Reported Past Drug Use History: None Reported - Past Family History Mother Family Medical History: Cancer Course Vital Signs 04/02/18 04/02/18 15:29 16:00 Temperature 96.8 F L Pulse Rate 70 64 Respiratory 22 22 Rate Blood Pressure 96/56 101/52 O2 Sat by Pulse 96 93 L Oximetry Medical Decision Making - Lab Data Result diagrams: 04/02/18 15:50 04/02/18 15:50 Lab Results 04/02/18 04/02/18 04/02/18 Range/Units 15:50 15:50 15:50 WBC 6.6 (3.8-10.6) k/uL RBC 4.56 (4.30-5.90) m/uL Hgb 13.9 (13.0-17.5) gm/dL Hct 42.6 (39.0-53.0) % MCV 93.4 (80.0-100.0) fL MCH 30.4 (25.0-35.0) pg MCHC 32.6 (31.0-37.0) g/dL RDW 14.8 (11.5-15.5) % Plt Count 207 (150-450) k/uL Neutrophils % 75 % Lymphocytes % 13 % Monocytes % 6 % Eosinophils % 5 % Basophils % 1 % Neutrophils # 5.0 (1.3-7.7) k/uL Lymphocytes # 0.9 L (1.0-4.8) k/uL Monocytes # 0.4 (0-1.0) k/uL Eosinophils # 0.3 (0-0.7) k/uL Basophils # 0.1 (0-0.2) k/uL PT (9.0-12.0) sec INR (<1.2) APTT (22.0-30.0) sec Sodium 135 L (137-145) mmol/L Potassium 4.4 (3.5-5.1) mmol/L Chloride 106 (98-107) mmol/L Carbon Dioxide 18 L (22-30) mmol/L Anion Gap 11 mmol/L BUN 13 (9-20) mg/dL Creatinine 0.71 (0.66-1.25) mg/dL Est GFR (CKD-EPI)AfAm >90 (>60 ml/min/1.73 sqM) Est GFR (CKD-EPI)NonAf >90 (>60 ml/min/1.73 sqM) Glucose 113 H (74-99) mg/dL Plasma Lactic Acid Fernie 1.5 (0.7-2.0) mmol/L Calcium 9.0 (8.4-10.2) mg/dL Total Bilirubin 0.6 (0.2-1.3) mg/dL AST 31 (17-59) U/L ALT 25 (21-72) U/L Alkaline Phosphatase 109 (38-126) U/L Troponin I (0.000-0.034) ng/mL NT-Pro-B Natriuret Pep pg/mL Total Protein 8.1 (6.3-8.2) g/dL Albumin 4.0 (3.5-5.0) g/dL 04/02/18 04/02/18 04/02/18 Range/Units 15:50 15:50 15:50 WBC (3.8-10.6) k/uL RBC (4.30-5.90) m/uL Hgb (13.0-17.5) gm/dL Hct (39.0-53.0) % MCV (80.0-100.0) fL MCH (25.0-35.0) pg MCHC (31.0-37.0) g/dL RDW (11.5-15.5) % Plt Count (150-450) k/uL Neutrophils % % Lymphocytes % % Monocytes % % Eosinophils % % Basophils % % Neutrophils # (1.3-7.7) k/uL Lymphocytes # (1.0-4.8) k/uL Monocytes # (0-1.0) k/uL Eosinophils # (0-0.7) k/uL Basophils # (0-0.2) k/uL PT 11.0 (9.0-12.0) sec INR 1.0 (<1.2) APTT 25.3 (22.0-30.0) sec Sodium (137-145) mmol/L Potassium (3.5-5.1) mmol/L Chloride (98-107) mmol/L Carbon Dioxide (22-30) mmol/L Anion Gap mmol/L BUN (9-20) mg/dL Creatinine (0.66-1.25) mg/dL Est GFR (CKD-EPI)AfAm (>60 ml/min/1.73 sqM) Est GFR (CKD-EPI)NonAf (>60 ml/min/1.73 sqM) Glucose (74-99) mg/dL Plasma Lactic Acid Fernie (0.7-2.0) mmol/L Calcium (8.4-10.2) mg/dL Total Bilirubin (0.2-1.3) mg/dL AST (17-59) U/L ALT (21-72) U/L Alkaline Phosphatase (38-126) U/L Troponin I 0.017 (0.000-0.034) ng/mL NT-Pro-B Natriuret Pep 3270 pg/mL Total Protein (6.3-8.2) g/dL Albumin (3.5-5.0) g/dL Disposition Clinical Impression: Acute decompensated heart failure Disposition: ADMITTED IP TO THIS HOSP Condition: Fair Referrals: Jerome Osborn MD [Primary Care Provider] - 1-2 days Decision Time: 17:39
[2018-04-02 16:18] LABS: Basophils # (A) 0.1 k/uL (0-0.2); Basophils % (A) 1 %; Eosinophils # (A) 0.3 k/uL (0-0.7); Eosinophils % (A) 5 %; HCT 42.6 % (39.0-53.0); HGB 13.9 gm/dL (13.0-17.5); Lymphocytes # (A) 0.9 k/uL (1.0-4.8); Lymphocytes % (A) 13 %; MCH 30.4 pg (25.0-35.0); MCHC 32.6 g/dL (31.0-37.0); MCV 93.4 fL (80.0-100.0); Mean Platelet Volume 6.9; Monocytes # (A) 0.4 k/uL (0-1.0); Monocytes % (A) 6 %; Neutrophils % (A) 75 %; Platelet Count 207 k/uL (150-450); RBC 4.56 m/uL (4.30-5.90); RDW 14.8 % (11.5-15.5); WBC 6.6 k/uL (3.8-10.6)
[2018-04-02 16:28] LABS: Partial Thromboplastin Time 25.3 sec (22.0-30.0)
--- NOTE | 2018-04-02 16:29 | XR ---
EXAMINATION TYPE: XR chest 2V DATE OF EXAM: 04/02/2018 COMPARISON: 11/14/2017 HISTORY: Unresponsive. Difficulty breathing. TECHNIQUE: Frontal and lateral views of the chest are obtained. FINDINGS: There is moderate interstitial edema and pulmonary vascular congestion. Findings are simil ar in degree to the prior of 11/14/2017. There is enlargement of the cardiomediastinal silhouette. No sizable pleural effusion or pneumothorax. Osseous structures are grossly intact. IMPRESSION: Moderate pulmonary vascular congestion and interstitial edema likely on the basis of dec ompensated congestive heart failure.
[2018-04-02 16:37] LABS: ALT 25 U/L (21-72); AST 31 U/L (17-59); Alkaline Phosphatase 109 U/L (38-126); Anion Gap 11 mmol/L; Blood Urea Nitrogen 13 mg/dL (9-20); Carbon Dioxide 18 mmol/L (22-30); Chloride 106 mmol/L (98-107); Glucose 113 mg/dL (74-99); Sodium 135 mmol/L (137-145); Total Bilirubin 0.6 mg/dL (0.2-1.3); Total Protein 8.1 g/dL (6.3-8.2)
[2018-04-02 16:44] LABS: Potassium 4.4 mmol/L (3.5-5.1)
[2018-04-02] MEDS ORDERED: FUROSEMIDE 10 MG/ML 4 ML VIAL IV STA (17:30)
[2018-04-02 18:49] LABS: Appearance,Urine Clear (Clear); Color,Urine Light Yellow; Glucose,Urine (UA) Negative (Negative); PH, Urine 6.5 (5.0-8.0); Protein,Urine Trace (Negative); Specific Gravity,Urine 1.003 (1.001-1.035)
[2018-04-02 18:50] LABS: Bacteria,Urine Occasional /hpf; Bilirubin,Urine Negative (Negative); Blood,Urine Negative (Negative); Hyaline Casts,Urine 1 /lpf (0-2); Ketones,Urine Negative (Negative); Leukocyte Esterase,Urine Moderate (Negative); Nitrite,Urine Positive (Negative); RBC,Urine 1 /hpf (0-5); Urobilinogen,Urine <2.0 mg/dL (<2.0)
[2018-04-02] MEDS ORDERED: TRIAMCINOLONE 0.1% CREAM 80 GM TUBE TOPICAL PRN (18:56)
[2018-04-02] MEDS ORDERED: PANTOPRAZOLE 40 MG TABLET PO PRN (18:56)
[2018-04-02] MEDS ORDERED: guaiFENesin SYRUP 100MG/5ML 200 MG/10 ML CUP PO PRN (18:56)
[2018-04-02] MEDS ORDERED: NA PHOS,M-B/NA PHOS,DI-BA 133 ML ENEMA RECTAL PRN (18:56)
[2018-04-02] MEDS ORDERED: IPRATROPIUM 0.5 MG/2.5 ML NEBU INHALATION PRN (18:56)
[2018-04-02] MEDS ORDERED: MAGNESIUM HYDROXIDE 2,400 MG/10 ML CUP PO PRN (18:56)
[2018-04-02] MEDS ORDERED: ARTIFICIAL TEARS-HYPROMELLOSE DROPS 15 ML BTL BOTH EYES PRN (18:56)
[2018-04-02] MEDS ORDERED: BISACODYL 10 MG SUPP RECTAL PRN (18:56)
[2018-04-02] MEDS ORDERED: NITROGLYCERIN SL TABS 0.4 MG TAB SUBLINGUAL PRN (18:56)
--- NOTE | 2018-04-02 20:00 | P.HPIM ---
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 Patient was hospitalized last time in October 2017 for acute COPD exacerbation and CHF along with altered mental status with urinary tract infection and urinary retention was treated and had [facility] [place] catheter which was removed recently. Patient is known to have history of schizoaffective disorders he is isolated person doesn't socialize and is not easy to talk to cannot express himself that well. patient [facility] today because worsening dyspnea and shortness of breath with mild fluid overload his roommate apparently had pneumonia and influenza patient was study for influenza which was negative, chest x-ray shows more sign of heart failure than pneumonia. Patient had mild congestion with mild wheezes with mild COPD was started on IV diuretics and will be admitted to the hospital with above problem. Review of Systems CONSTITUTIONAL: Well-developed and mild respiratory distress. EYES: No icterus sclerae, no conjunctivitis. EARS, NOSE, MOUTH, THROAT, and FACE: No sore throat, lymphadenopathy, carotid bruits or deformity. RESPIRATORY: Positive shortness of breath cough wheezes. CARDIOVASCULAR: Positive PND orthopnea palpitation with mild edema. GASTROINTESTINAL: No Abd pain, Nausea or vomiting, no Diarrhea or constipation, No GI Bleed, no distention or masses. GENITOURINARY: Mild urinary incontinence with BPH symptoms. INTEGUMENT/BREAST: Negative for any muscular injury with mild osteoarthritis.. HEMATOLOGIC/LYMPHATIC: Negative for bleed or purpura. MUSCULOSKELTAL: Negative for Myalgia or arthralgia. NEURLOGICAL: No LOC, Sz or syncope, blurred vision dizziness or abnormality.. BEHAVIORAL/PSYCH: Positive depression and schizoaffective disorders. ENDOCRINE: Negative. Past Medical History Past Medical History: Heart Failure, GERD/Reflux, Hyperlipidemia, Hypertension, Myocardial Infarction ([place]) Additional Past Medical History / Comment(s): RECTAL BLEEDING, Borderline diabetes, esophagitis, barretts esophagus. HAS IDC Last Myocardial Infarction Date:: 07/15/15 History of Any Multi-Drug Resistant Organisms: Other MDRO Past Surgical History: Heart Catheterization With Stent Past Anesthesia/Blood Transfusion Reactions: No Reported Reaction Date of Last Stent Placement:: 07/15/15 Past Psychological History: Anxiety, Schizoaffective Disorder, Schizophrenia Smoking Status: Current every day smoker Past Alcohol Use History: None Reported Past Drug Use History: None Reported - Past Family History Mother Family Medical History: Cancer Medications and Allergies Home Medications Medication Instructions Recorded Confirmed Type Pravastatin Sodium [Pravachol] 40 mg PO HS@2100 10/05/15 04/02/18 History Nitroglycerin Sl Tabs [Nitrostat] 0.4 mg SUBLINGUAL Q5M PRN #0 tab 11/16/15 Rx Ipratropium Nebulized [Atrovent 0.5 mg INHALATION RT-QID PRN 01/10/16 04/02/18 History Nebulized 0.2 MG/ML] Carvedilol [Coreg] 6.25 mg PO BID-W/MEALS #60 tab 01/15/16 04/02/18 Rx Ibuprofen [Motrin] 800 mg PO BID PRN 06/04/17 04/02/18 History Paliperidone IM [Invega Sustenna] 234 mg IM Q28D 06/04/17 04/02/18 History Potassium Chloride ER [K-Dur 20] 20 meq PO DAILY@1700 06/04/17 04/02/18 History Sertraline HCl [Zoloft] 100 mg PO DAILY@0800 06/04/17 04/02/18 History Artificial Tears-Hypromellose 1 drops BOTH EYES TID PRN 06/13/17 04/02/18 History [Artificial Tear Drops] Aspirin 325 mg PO DAILY@1700 06/13/17 04/02/18 History Bisacodyl [Dulcolax] 10 mg RECTAL DAILY PRN 06/13/17 04/02/18 History Furosemide [Lasix] 40 mg PO DAILY 06/13/17 04/02/18 History Magnesium Hydroxide [Milk of 2,400 mg PO DAILY PRN 06/13/17 04/02/18 History Magnesia] Na Phos,M-B/Na Phos,Di-Ba [Fleet 133 ml RECTAL DAILY PRN 06/13/17 04/02/18 History Adult] Clopidogrel [Plavix] 75 mg PO DAILY@0800 11/07/17 04/02/18 History Docusate [Colace] 100 mg PO DAILY PRN 11/07/17 04/02/18 History Lisinopril [Zestril] 10 mg PO DAILY@0800 11/07/17 04/02/18 History Pioglitazone [Actos] 30 mg PO DAILY@0800 11/07/17 04/02/18 History Tamsulosin [Flomax] 0.4 mg PO DAILY@0800 11/07/17 04/02/18 History Ubidecarenone [Co Q-10] 100 mg PO DAILY@1700 11/07/17 04/02/18 History guaiFENesin [guaiFENesin Oral 200 mg PO Q4H PRN 11/07/17 04/02/18 History Solution] Ensure 1 can PO DAILY 04/02/18 04/02/18 History Furosemide [Lasix] 20 mg PO DAILY@1700 04/02/18 04/02/18 History Hydrocortisone Lotion [Hytone 2.5% 1 applic TOPICAL DAILY PRN 04/02/18 04/02/18 History Lotion] Insulin Aspart [NovoLOG] 8 unit SQ DAILY@1730 04/02/18 04/02/18 History Insulin Aspart [NovoLOG] 10 unit SQ DAILY@0700 04/02/18 04/02/18 History Insulin Aspart [NovoLOG] 10 unit SQ DAILY@1100 04/02/18 04/02/18 History Omeprazole 20 mg PO DAILY PRN 04/02/18 04/02/18 History traZODone HCL [TraZODone HCl] 75 mg PO HS 04/02/18 04/02/18 History Allergies Allergy/AdvReac Type Severity Reaction Status Date / Time No Known Allergies Allergy Verified 04/02/18 16:25 Physical Exam Vitals: Vital Signs Temp Pulse Resp BP Pulse Ox 04/02/18 17:30 60 20 126/62 92 L 04/02/18 16:00 64 22 101/52 93 L 04/02/18 15:29 96.8 F L 70 22 96/56 96 Intake and Output 04/02/18 04/02/18 04/02/18 06:59 14:59 22:59 Other: Weight 90.718 kg General Appearance: Alert, cooperative, mild distress, appears stated age. Neck HEENT: Supple, no lymphadenopathy, no thyroid enlargement, no carotid bruits. Lungs: Decreased breath sound bilaterally with fine rhonchi possible mild expiratory wheezes. Chest Wall: Decreased expansion with deep inspiration no tenderness and no deformity was found on exam, no costochondral pain or discomfort. Heart: Regular rate and rhythm, S1, S2 positive S3, positive systolic murmur with mild JVD Back: Symmetric, no curvature, ROM normal, no CVA tenderness. Abdomen: Soft distended positive bowel sound no organomegaly. Extremities: 1+ edema with decreased pulse. Pulses: 2+ and symmetric. Skin: Skin color, texture, tugor normal, no rashes or lesions. Neurologic: Alert oriented x3 cranial nerves II through XII intact, no motor deficit, no abnormal balance or gait. Results CBC & Chem 7: 04/02/18 15:50 04/02/18 15:50 Labs: Abnormal Lab Results - Last 24 Hours (Table) 04/02/18 04/02/18 04/02/18 Range/Units 15:50 15:50 18:35 Lymphocytes # 0.9 L (1.0-4.8) k/uL Sodium 135 L (137-145) mmol/L Carbon Dioxide 18 L (22-30) mmol/L Glucose 113 H (74-99) mg/dL Urine Protein Trace H (Negative) Ur Leukocyte Esterase Moderate H (Negative) Urine WBC 10 H (0-5) /hpf Urine Bacteria Occasional H (None) /hpf Thrombosis Risk Factor Assmnt - DVT/VTE Prophylaxis DVT/VTE Prophylaxis: Pharmacologic Prophylaxis ordered, Mechanical Prophylaxis ordered Assessment and Plan Assessment: 1 acute respiratory failure: Combination of systolic congestive heart failure, cardiomyopathy, COPD and severe bronchitis. 2 acute exacerbation of systolic dysfunction congestive heart failure with ischemic cardiomyopathy: Patient will continue with diuretics with titrate furosemide 40 mg IV twice a day and add spironolactone continue patient on Coreg we'll consult cardiology echocardiogram will be requested continue Zestril at 10 mg daily. 3 mild COPD: Patient will be continue on DuoNeb and Pulmicort continue O2 try to titrate O2 to keep pulse ox above 92 percentile. 4 advance ischemic cardiomyopathy with ejection fraction of 25 percentile repeat echocardiogram this time consult cardiology patient had loss ischemic event with angioplasty and stent back in 2015 with no anginal symptoms no intervention since. 5 severe bronchitis: Patient will be on Rocephin as single agent for now continue to watch for any worsening symptom is influenza was negative. 6 type 2 diabetes: On insulin continue long and short-acting insulin switch Actos to Januvia Actos can cause further fluid retention and exacerbation of congestive heart failure. 7 schizoaffective disorders: Has been on trazodone Zoloft and Invega. 8 hyperlipidemia: Continue Pravachol at 40 mg daily. 9 severe BPH with urinary retention: Has been on Flomax 0.4 mg daily continue medication. 10 GI prophylaxis: Patient will be on omeprazole 20 mg daily. 11 DVT prophylaxis: Patient will be on heparin 5000 units subcutaneous twice a day. CODE STATUS: Full code. Admit patient to inpatient status for more than 2 nights.
[2018-04-02 20:37] LABS: Glucose,Whole Blood 157 mg/dL (75-99)
[2018-04-02] MEDS: traZODone HCL 50 MG TAB PO SCH (21:19)
[2018-04-02] MEDS: PRAVASTATIN SODIUM 40 MG TAB PO SCH (21:19)
[2018-04-02] MEDS: HEPARIN SODIUM,PORCINE 5,000 UNIT/ML 1 ML VIAL SQ SCH (21:19)
[2018-04-03 05:35] LABS: Glucose,Whole Blood 97 mg/dL (75-99)
[2018-04-03] MEDS ORDERED: FUROSEMIDE 10 MG/ML 4 ML VIAL IV SCH (06:00)
[2018-04-03] MEDS: CARVEDILOL 6.25 MG TAB PO SCH ×2 (07:00→16:18)
[2018-04-03 07:07] LABS: Basophils % (A) 1 %; Eosinophils # (A) 0.3 k/uL (0-0.7); Eosinophils % (A) 4 %; HCT 41.2 % (39.0-53.0); HGB 13.6 gm/dL (13.0-17.5); Lymphocytes # (A) 1.2 k/uL (1.0-4.8); Lymphocytes % (A) 20 %; MCHC 32.9 g/dL (31.0-37.0); MCV 90.9 fL (80.0-100.0); Monocytes # (A) 0.4 k/uL (0-1.0); Monocytes % (A) 6 %; Neutrophils # (A) 4.1 k/uL (1.3-7.7); Neutrophils % (A) 67 %; Platelet Count 209 k/uL (150-450); RBC 4.53 m/uL (4.30-5.90); RDW 14.8 % (11.5-15.5); WBC 6.2 k/uL (3.8-10.6)
[2018-04-03 07:26] LABS: ALT 29 U/L (21-72); AST 22 U/L (17-59); Albumin 3.6 g/dL (3.5-5.0); Alkaline Phosphatase 114 U/L (38-126); Anion Gap 8 mmol/L; Blood Urea Nitrogen 11 mg/dL (9-20); Calcium 9.2 mg/dL (8.4-10.2); Carbon Dioxide 21 mmol/L (22-30); Chloride 106 mmol/L (98-107); Glucose 98 mg/dL (74-99); Potassium 4.2 mmol/L (3.5-5.1); Sodium 135 mmol/L (137-145); Total Bilirubin 0.6 mg/dL (0.2-1.3); Total Protein 7.4 g/dL (6.3-8.2)
[2018-04-03] MEDS ORDERED: CLOPIDOGREL 75 MG TAB PO SCH (08:00)
[2018-04-03] MEDS ORDERED: LISINOPRIL 10 MG TAB PO SCH (08:00)
[2018-04-03] MEDS ORDERED: PIOGLITAZONE 30 MG TAB PO SCH (08:00)
[2018-04-03] MEDS: INSULIN ASPART (NovoLOG) 100 UNIT/ML VIAL SQ SCH ×3 (08:50→18:05)
[2018-04-03] MEDS ORDERED: FUROSEMIDE 40 MG TAB PO SCH (09:00)
[2018-04-03] MEDS ORDERED: NON-FORMULARY DRUG (Ensure 1 CAN) PO SCH (09:00)
[2018-04-03] MEDS: TAMSULOSIN 0.4 MG CAP.ER.24H PO SCH (09:18)
[2018-04-03] MEDS: FUROSEMIDE 10 MG/ML 4 ML VIAL IV SCH ×2 (09:18→23:22)
[2018-04-03] MEDS: HEPARIN SODIUM,PORCINE 5,000 UNIT/ML 1 ML VIAL SQ SCH ×2 (09:18→23:22)
[2018-04-03] MEDS: LINAGLIPTIN 5 MG TABLET PO SCH (09:18)
[2018-04-03] MEDS: SERTRALINE 100 MG TAB PO SCH (09:18)
[2018-04-03 10:07] VITALS: BMI 25.2
[2018-04-03 10:57] LABS: Glucose,Whole Blood 135 mg/dL (75-99)
--- NOTE | 2018-04-03 11:35 | P.PN ---
Subjective Progress Note Date: 04/03/18 62-year-old male who of known for this past year and have from [facility] was known to have history of ischemic cardiomyopathy, COPD, schizoaffective disorders, hypertension and hyperlipidemia who also had history of rectal bleed and chronic history of Webb esophagus and esophagitis who had history of CAD post angioplasty and stent placement back in July 2015. Patient was hospitalized last time in October 2017 for acute COPD exacerbation and CHF along with altered mental status with urinary tract infection and urinary retention was treated and had [employer] [place] catheter which was removed recently. Patient is known to have history of schizoaffective disorders he is isolated person doesn't socialize and is not easy to talk to cannot express himself that well. patient was sent [facility] from [facility] today because worsening dyspnea and shortness of breath with mild fluid overload his roommate apparently had pneumonia and influenza patient was study for influenza which was negative, chest x-ray shows more sign of heart failure than pneumonia. Patient had mild congestion with mild wheezes with mild COPD was started on IV diuretics and will be admitted to the hospital with above problem. 04/03: Patient is sitting up in bed in no acute distress. Patient's pulse ox on room air 93%. O2 applied via nasal cannula at 2 L. Patient appears to be less congested compared to yesterday. Influenza was negative no signs of pneumonia at this time. No edema noted to bilateral extremities. WBC 6.2, hemoglobin 13.6, sodium 135, potassium 4.2, chloride 106, BUN 11, creatinine 0.65, blood glucose 98, albumin is 3.6. Review of Systems CONSTITUTIONAL: Well-developed and mild respiratory distress. EYES: No icterus sclerae, no conjunctivitis. EARS, NOSE, MOUTH, THROAT, and FACE: No sore throat, lymphadenopathy, carotid bruits or deformity. RESPIRATORY: Positive shortness of breath cough wheezes. CARDIOVASCULAR: Positive PND orthopnea palpitation with mild edema. GASTROINTESTINAL: No Abd pain, Nausea or vomiting, no Diarrhea or constipation, No GI Bleed, no distention or masses. GENITOURINARY: Mild urinary incontinence with BPH symptoms. INTEGUMENT/BREAST: Negative for any muscular injury with mild osteoarthritis.. HEMATOLOGIC/LYMPHATIC: Negative for bleed or purpura. MUSCULOSKELTAL: Negative for Myalgia or arthralgia. NEURLOGICAL: No LOC, Sz or syncope, blurred vision dizziness or abnormality.. BEHAVIORAL/PSYCH: Positive depression and schizoaffective disorders. ENDOCRINE: Negative. Objective - Vital Signs Vital signs: Vital Signs Temp 98.1 F 04/03/18 08:00 Pulse 77 04/03/18 08:00 Resp 16 04/03/18 08:00 BP 97/56 04/03/18 08:00 Pulse Ox 92 L 04/03/18 08:00 Intake & Output 04/02/18 04/03/18 04/03/18 18:59 06:59 18:59 Intake Total 60 Output Total 2800 150 Balance -2800 -90 Weight 90.718 kg 84.5 kg 84.5 kg Intake: Oral 60 Output: Urine 2800 150 Other: # Voids 6 - Exam General Appearance: Alert, cooperative, mild distress, appears stated age. Neck HEENT: Supple, no lymphadenopathy, no thyroid enlargement, no carotid bruits. Lungs: Decreased breath sound bilaterally with fine rhonchi possible mild expiratory wheezes. Chest Wall: Decreased expansion with deep inspiration no tenderness and no deformity was found on exam, no costochondral pain or discomfort. Heart: Regular rate and rhythm, S1, S2 positive S3, positive systolic murmur with mild JVD Back: Symmetric, no curvature, ROM normal, no CVA tenderness. Abdomen: Soft distended positive bowel sound no organomegaly. Extremities: 1+ edema with decreased pulse. Pulses: 2+ and symmetric. Skin: Skin color, texture, tugor normal, no rashes or lesions. Neurologic: Alert oriented x3 cranial nerves II through XII intact, no motor deficit, no abnormal balance or gait. - Labs CBC & Chem 7: 04/03/18 06:19 04/03/18 06:19 Labs: Abnormal Lab Results - Last 24 Hours (Table) 04/02/18 04/02/18 04/02/18 Range/Units 15:50 15:50 18:35 Lymphocytes # 0.9 L (1.0-4.8) k/uL Sodium 135 L (137-145) mmol/L Carbon Dioxide 18 L (22-30) mmol/L Creatinine (0.66-1.25) mg/dL Glucose 113 H (74-99) mg/dL POC Glucose (mg/dL) (75-99) mg/dL Urine Protein Trace H (Negative) Ur Leukocyte Esterase Moderate H (Negative) Urine WBC 10 H (0-5) /hpf Urine Bacteria Occasional H (None) /hpf 04/02/18 04/03/18 04/03/18 Range/Units 20:36 06:19 10:54 Lymphocytes # (1.0-4.8) k/uL Sodium 135 L (137-145) mmol/L Carbon Dioxide 21 L (22-30) mmol/L Creatinine 0.65 L (0.66-1.25) mg/dL Glucose (74-99) mg/dL POC Glucose (mg/dL) 157 H 135 H (75-99) mg/dL Urine Protein (Negative) Ur Leukocyte Esterase (Negative) Urine WBC (0-5) /hpf Urine Bacteria (None) /hpf Microbiology - Last 24 Hours (Table) 04/02/18 18:35 Urine Culture - Preliminary Urine,Voided Assessment and Plan Plan: 1 acute respiratory failure: Combination of systolic congestive heart failure, cardiomyopathy, COPD and severe bronchitis. 2 acute exacerbation of systolic dysfunction congestive heart failure with ischemic cardiomyopathy: Patient will continue with diuretics with titrate furosemide 40 mg IV twice a day and add spironolactone continue patient on Coreg we'll consult cardiology echocardiogram will be requested continue Zestril at 10 mg daily. 3 mild COPD: Patient will be continue on DuoNeb and Pulmicort continue O2 try to titrate O2 to keep pulse ox above 92 percentile. 4 advance ischemic cardiomyopathy with ejection fraction of 25 percentile repeat echocardiogram this time consult cardiology patient had loss ischemic event with angioplasty and stent back in 2016 with no anginal symptoms no intervention since. 5 severe bronchitis: Patient will be on Rocephin as single agent for now continue to watch for any worsening symptom is influenza was negative. 6 type 2 diabetes: On insulin continue long and short-acting insulin switch Actos to Januvia Actos can cause further fluid retention and exacerbation of congestive heart failure. 7 schizoaffective disorders: Has been on trazodone Zoloft and Invega. 8 hyperlipidemia: Continue Pravachol at 40 mg daily. 9 severe BPH with urinary retention: Has been on Flomax 0.4 mg daily continue medication. 10 GI prophylaxis: Patient will be on omeprazole 20 mg daily. 11 DVT prophylaxis: Patient will be on heparin 5000 units subcutaneous twice a day. CODE STATUS: Full code. Admit patient to inpatient status for more than 2 nights. Impression and plan of care have been directed as dictated by the signing physician. Prema Bartlett nurse practitioner acting as scribe for signing physician.
--- NOTE | 2018-04-03 12:24 | P.CRDCN ---
History of Present Illness History of present illness: This is a pleasant 62-year-old male past medical history significant for chronic systolic heart failure, ischemic cardiomyopathy, COPD, hypertension , dyslipidemia, schizoaffective disorder and coronary artery disease status post stent placement. 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 He resides at [facility]. He presented to the hospital with symptoms of increasing shortness of breath. He states he has a level of shortness of breath as a baseline but it has increased significantly over the previous few days. He denies chest pain, dizziness or palpitations. He is seen and examined laying flat in bed in no acute distress. He was initially started on IV lasix that has been changed to oral per primary care team. Chest x-ray on admission reveals moderate pulmonary vascular congestion and interstitial edema. laboratory data reviewed, WBC 6.2, hemoglobin 13.6, platelets 209, sodium 135, potassium 4.2, creatinine 0.65, NT proBNP 3270, cardiac enzymes negative 1. home cardiac medications include aspirin 325 mg daily, Coreg 6.25 mg twice a day , Plavix 75 mg daily, Lasix 40 mg in the morning and 20 mg in the evening, lisinopril 10 mg daily, pravastatin 40 mg daily. most recent echocardiogram obtained June 2017 reveals moderately. LV systolic function with ejection fraction 30-35%, inferior hypokinesia, severely dilated left atrium, moderate aortic regurgitation, moderate mitral regurgitation and mild tricuspid regurgitation. most recent cardiac catheterization 2011 revealed evidence of single vessel coronary artery disease involving the distal RCA with a lesion of approximately 80%, a patent stent in the mid RCA and ejection fraction at that time was about 20% with global hypokinesia. At that time he underwent successful percutaneous coronary intervention of the distal RCA. At the time of my exam: CONSTITUTIONAL: Denies fever. Denies chills. EYES: Denies blurred vision. Denies vision changes. Denies eye pain. EARS, NOSE, MOUTH & THROAT: Denies headache. Denies sore throat. Denies ear pain. CARDIOVASCULAR: Denies chest pain. Denies shortness of breath. Denies orthopnea. Denies PND. Denies palpitations. RESPIRATORY: Denies cough. GASTROINTESTINAL: Denies abdominal pain. Denies diarrhea. Denies constipation. Denies nausea. Denies vomiting. MUSCULOSKELETAL: Denies myalgias. INTEGUMENTARY: Denies pruitis. Denies rash. NEUROLOGIC: Denies numbness. Denies tingling. Denies weakness. PSYCHIATRIC: Denies anxiety. Denies depression. ENDOCRINE: Denies fatigue. Denies weight change. Denies polydipsia. Denies polyurina. GENITOURINARY: Denies burning, hematuria or urgency with micturation. HEMATOLOGIC: Denies history of anemia. Denies bleeding. blood pressure 97/56 heart rate 77 afebrile maintaining oxygen saturation on room air GENERAL: This is a 62-year-old male in no apparent distress at the time of my examination. HEENT: Head is atraumatic, normocephalic. Pupils are equal, round. Sclerae anicteric. Conjunctivae are clear. Mucous membranes of the mouth are moist. Neck is supple. There is no jugular venous distention. No carotid bruit is heard. LUNGS: Bibasilar rales. No wheezes or rhonchi. No chest wall tenderness is noted on palpation or with deep breathing. HEART: Regular rate and rhythm with systolic ejection murmur at the left sternal border, no rubs or gallops. S1 and S2 heard. ABDOMEN: Soft, nontender. Bowel sounds are heard. No organomegaly noted. EXTREMITIES: No evidence of peripheral edema and no calf tenderness noted. VASCULAR: Radial and dorsalis pedis pulses palpated, no evidence of clubbing. NEUROLOGIC: Patient is awake, alert and oriented x3. Sleepy. ASSESSMENT AcuteOn chronic systolic heart failure Hypertension Dyslipidemia Ischemic cardiomyopathy History of coronary artery disease status post stent placement to the RCA in 2011 Mitral regurgitation PLAN Obtain repeat 2D echocardiogram and doppler study to assess cardiac structure and function. Resume lasix 40 mg IV BID. Repeat chest xray tomorrow morning. Discontinue plavix since his last stent placement was 2011. Discontinue lisinopril, last dose was yesterday and initiate on entresto tomorrow morning first dose. Document accurate intake and output along with daily weights. Follow electrolytes and kidney function in the morning. May require a ASTON to further assess the mitral valve next week once his fluid status has improved. Further recommendations to follow based on clinical course. Thank you kindly for this consultation. Nurse Practitioner note has been reviewed, I agree with a documented findings and plan of care. Patient was seen and examined. Past Medical History Past Medical History: Heart Failure, GERD/Reflux, Hyperlipidemia, Hypertension, Myocardial Infarction (MS) Additional Past Medical History / Comment(s): RECTAL BLEEDING, Borderline diabetes, esophagitis, barretts esophagus Last Myocardial Infarction Date:: 07/15/15 History of Any Multi-Drug Resistant Organisms: None Reported Past Surgical History: Heart Catheterization With Stent Past Anesthesia/Blood Transfusion Reactions: No Reported Reaction Date of Last Stent Placement:: 07/15/15 Past Psychological History: Anxiety, Schizoaffective Disorder, Schizophrenia Smoking Status: Current every day smoker Past Alcohol Use History: None Reported Additional Past Alcohol Use History / Comment(s): STARTED SMOKING AT AGE 13 Past Drug Use History: None Reported - Past Family History Mother Family Medical History: Cancer Medications and Allergies Home Medications Medication Instructions Recorded Confirmed Type Pravastatin Sodium [Pravachol] 40 mg PO HS@2100 10/05/15 04/02/18 History Nitroglycerin Sl Tabs [Nitrostat] 0.4 mg SUBLINGUAL Q5M PRN #0 tab 11/16/15 Rx Ipratropium Nebulized [Atrovent 0.5 mg INHALATION RT-QID PRN 01/10/16 04/02/18 History Nebulized 0.2 MG/ML] Carvedilol [Coreg] 6.25 mg PO BID-W/MEALS #60 tab 01/15/16 04/02/18 Rx Ibuprofen [Motrin] 800 mg PO BID PRN 06/04/17 04/02/18 History Paliperidone IM [Invega Sustenna] 234 mg IM Q28D 06/04/17 04/02/18 History Potassium Chloride ER [K-Dur 20] 20 meq PO DAILY@17006/04/17 04/02/18 History Sertraline HCl [Zoloft] 100 mg PO DAILY@0800 06/04/17 04/02/18 History Artificial Tears-Hypromellose 1 drops BOTH EYES TID PRN 06/13/17 04/02/18 History [Artificial Tear Drops] Aspirin 325 mg PO DAILY@1700 06/13/17 04/02/18 History Bisacodyl [Dulcolax] 10 mg RECTAL DAILY PRN 06/13/17 04/02/18 History Furosemide [Lasix] 40 mg PO DAILY 06/13/17 04/02/18 History Magnesium Hydroxide [Milk of 2,400 mg PO DAILY PRN 06/13/17 04/02/18 History Magnesia] Na Phos,M-B/Na Phos,Di-Ba [Fleet 133 ml RECTAL DAILY PRN 06/13/17 04/02/18 History Adult] Clopidogrel [Plavix] 75 mg PO DAILY@0800 11/07/17 04/02/18 History Docusate [Colace] 100 mg PO DAILY PRN 11/07/17 04/02/18 History Lisinopril [Zestril] 10 mg PO DAILY@0811/07/17 04/02/18 History Pioglitazone [Actos] 30 mg PO DAILY@0811/07/17 04/02/18 History Tamsulosin [Flomax] 0.4 mg PO DAILY@0811/07/17 04/02/18 History Ubidecarenone [Co Q-10] 100 mg PO DAILY@1700 11/07/17 04/02/18 History guaiFENesin [guaiFENesin Oral 200 mg PO Q4H PRN 11/07/17 04/02/18 History Solution] Ensure 1 can PO DAILY 04/02/18 04/02/18 History Furosemide [Lasix] 20 mg PO DAILY@1700 04/02/18 04/02/18 History Hydrocortisone Lotion [Hytone 2.5% 1 applic TOPICAL DAILY PRN 04/02/18 04/02/18 History Lotion] Insulin Aspart [NovoLOG] 8 unit SQ DAILY@1730 04/02/18 04/02/18 History Insulin Aspart [NovoLOG] 10 unit SQ DAILY@0700 04/02/18 04/02/18 History Insulin Aspart [NovoLOG] 10 unit SQ DAILY@1100 04/02/18 04/02/18 History Omeprazole 20 mg PO DAILY PRN 04/02/18 04/02/18 History traZODone HCL [TraZODone HCl] 75 mg PO HS 04/02/18 04/02/18 History Allergies Allergy/AdvReac Type Severity Reaction Status Date / Time No Known Allergies Allergy Verified 04/02/18 16:25 Physical Exam Vitals: Vital Signs Temp Pulse Pulse Resp BP BP Pulse Ox 04/03/18 04:00 97.6 F 70 20 150/68 93 L 04/03/18 00:00 98.0 F 72 20 118/56 94 L 04/02/18 22:08 98.4 F 74 18 132/60 95 04/02/18 20:00 98.4 F 74 18 132/60 95 04/02/18 19:30 73 18 139/65 98 04/02/18 17:30 60 20 126/62 92 L 04/02/18 16:00 64 22 101/52 93 L 04/02/18 15:29 96.8 F L 70 22 96/56 96 Intake and Output 04/02/18 04/03/18 04/03/18 22:59 06:59 14:59 Output Total 550 2250 150 Balance -550 -2250 -150 Output: Urine 550 2250 150 Other: # Voids 1 6 Weight 90.718 kg 84.5 kg Results 04/03/18 06:19 04/03/18 06:19 Cardiac Enzymes 04/02/18 04/02/18 04/03/18 Range/Units 15:50 15:50 06:19 AST 31 22 (17-59) U/L Troponin I 0.017 (0.000-0.034) ng/mL Coagulation 04/02/18 Range/Units 15:50 PT 11.0 (9.0-12.0) sec APTT 25.3 (22.0-30.0) sec CBC 04/02/18 04/03/18 Range/Units 15:50 06:19 WBC 6.6 6.2 (3.8-10.6) k/uL RBC 4.56 4.53 (4.30-5.90) m/uL Hgb 13.9 13.6 (13.0-17.5) gm/dL Hct 42.6 41.2 (39.0-53.0) % Plt Count 207 209 (150-450) k/uL Comprehensive Metabolic Panel 04/02/18 04/03/18 Range/Units 15:50 06:19 Sodium 135 L 135 L (137-145) mmol/L Potassium 4.4 4.2 (3.5-5.1) mmol/L Chloride 106 106 (98-107) mmol/L Carbon Dioxide 18 L 21 L (22-30) mmol/L BUN 13 11 (9-20) mg/dL Creatinine 0.71 0.65 L (0.66-1.25) mg/dL Glucose 113 H 98 (74-99) mg/dL Calcium 9.0 9.2 (8.4-10.2) mg/dL AST 31 22 (17-59) U/L ALT 25 29 (21-72) U/L Alkaline Phosphatase 109 114 (38-126) U/L Total Protein 8.1 7.4 (6.3-8.2) g/dL Albumin 4.0 3.6 (3.5-5.0) g/dL Current Medications Generic Name Dose Route Start Last Admin Trade Name Freq PRN Reason Stop Dose Admin Artificial Tears 1 drops 04/02/18 18:56 Artificial Tear Drops BOTH EYES TID PRN DRY EYES Aspirin 325 mg 04/03/18 17:00 Aspirin PO DAILY@1700 [facility] Bisacodyl 10 mg 04/02/18 18:56 Dulcolax RECTAL DAILY PRN Constipation Carvedilol 6.25 mg 04/03/18 07:30 04/03/18 07:00 Coreg PO 6.25 mg BID-W/MEALS [facility] Administration Clopidogrel Bisulfate 75 mg 04/03/18 08:00 Plavix PO DAILY@0800 [facility] Furosemide 40 mg 04/03/18 09:00 Lasix PO DAILY [facility] Furosemide 20 mg 04/03/18 17:00 Lasix PO DAILY@1700 [facility] Guaifenesin 200 mg 04/02/18 18:56 Robitussin PO Q4H PRN Cough Heparin Sodium (Porcine) 5,000 unit 04/02/18 21:00 04/02/18 21:19 Heparin SQ 5,000 unit Q12HR [facility] Administration Ceftriaxone Sodium 1 gm/ 50 mls @ 100 mls/hr 04/02/18 20:00 04/02/18 21:18 Sodium Chloride IVPB 100 mls/hr Q24H [facility] Administration Insulin Aspart 8 unit 04/03/18 17:30 Novolog SQ DAILY@1730 [facility] Insulin Aspart 10 unit 04/03/18 07:00 Novolog SQ DAILY@0700 [facility] Insulin Aspart 10 unit 04/03/18 11:00 Novolog SQ DAILY@1100 [facility] Ipratropium Wendell 0.5 mg 04/02/18 18:56 Atrovent Nebulized INHALATION RT-QID PRN Shortness Of Breath Linagliptin 5 mg 04/03/18 09:00 Tradjenta PO DAILY [facility] Lisinopril 10 mg 04/03/18 08:00 Zestril PO DAILY@0800 [facility] Magnesium Hydroxide 2,400 mg 04/02/18 18:56 Milk Of Magnesia PO DAILY PRN Constipation Nitroglycerin 0.4 mg 04/02/18 18:56 Nitrostat SUBLINGUAL Q5M PRN Chest Pain Paliperidone Palmitate 234 mg 04/23/18 09:00 Invega Sustenna IM Q28D [facility] Pantoprazole Sodium 40 mg 04/02/18 18:56 Protonix PO DAILY PRN GERD Potassium Chloride 20 meq 04/03/18 17:00 K-Dur 20 PO DAILY@1700 [facility] Pravastatin Sodium 40 mg 04/02/18 21:00 04/02/18 21:19 Pravachol PO 40 mg HS@2100 [facility] Administration Sertraline HCl 100 mg 04/03/18 08:00 Zoloft PO DAILY@0800 [facility] Sodium Biphosphate/Sodium Phosphate 133 ml 04/02/18 18:56 Fleet Adult RECTAL DAILY PRN Constipation Tamsulosin HCl 0.4 mg 04/03/18 08:00 Flomax PO DAILY@0800 [facility] Trazodone HCl 75 mg 04/02/18 21:00 04/02/18 21:19 Desyrel PO 75 mg HS [facility] Administration Triamcinolone Acetonide 1 applic 04/02/18 18:56 Kenalog TOPICAL DAILY PRN Itching Intake and Output 04/02/18 04/03/18 04/03/18 22:59 06:59 14:59 Output Total 550 2250 150 Balance -550 -2250 -150 Output: Urine 550 2250 150 Other: # Voids 1 6 Weight 90.718 kg 84.5 kg 04/03/18 06:19 04/03/18 06:19
--- NOTE | 2018-04-03 13:53 | ECHOF ---
Referral Reason:lvfunction MEASUREMENTS -------- HEIGHT: 182.9 cm WEIGHT: 84.4 kg BP: RVIDd: 2.9 cm (< 3.3) IVSd: 1.0 cm (0.6 - 1.1) LVIDd: 7.6 cm (3.9 - 5.3) IVSs: 1.1 cm LVIDs: 6.5 cm LVPWs: 0.8 cm LA Diam: 5.0 cm (2.7 - 3.8) LAESV Index (A-L): 62.93 ml/m Ao Diam: 3.5 cm (2.0 - 3.7) AV Cusp: 1.7 cm (1.5 - 2.6) MV EXCURSION: 16.659 mm (> 18.000) MV EF SLOPE: 101 mm/s (70 - 150) EPSS: 2.4 cm MV E Tommy: 1.17 m/s MV DecT: 153 ms MV A Tommy: 0.96 m/s MV E/A Ratio: 1.23 AR PHT: 332 ms RAP: 5.00 mmHg RVSP: 11.86 mmHg FINDINGS -------- Undetermined rhythm. This was a techncally difficult study with suboptimal views, , Lumason utilized for enhancement of im ages. The left ventricle is severely dilated. There is severe global hypokinesis of LV . Overall left v entricular systolic function is severely impaired with, an EF between 25 - 30 %. The right ventricle is normal in size. The left atrium is markedly dilated. LA is severely dilated >40 ml/m2 The right atrial size is normal. 5.0mg OF Lumason UTLIZED: 2 OR MORE WALL SEGMENTS NOT VISUALIZED. There is mild aortic valve sclerosis. There is moderate aortic regurgitation. The mitral valve leaflets are mildly thickened. Mild mitral annular calcification present. Severe mitral regurgitation is present. Mild tricuspid regurgitation present. There is no evidence of pulmonary hypertension. Unable to e stimate RVSP due to inadequate TR jet spectral doppler profile. Trace/mild (physiologic) pulmonic regurgitation. The aortic root size is normal. There is no pericardial effusion. CONCLUSIONS -------- 1. This was a techncally difficult study with suboptimal views, , Lumason utilized for enhancement of images. 2. The left ventricle is severely dilated. 3. The right ventricle is normal in size. 4. The left atrium is markedly dilated. 5. LA is severely dilated >40 ml/m2 6. The right atrial size is normal. 7. 5.0mg OF Lumason UTLIZED: 2 OR MORE WALL SEGMENTS NOT VISUALIZED. 8. There is mild aortic valve sclerosis. 9. There is moderate aortic regurgitation. 10. The mitral valve leaflets are mildly thickened. 11. Mild mitral annular calcification present. 12. Severe mitral regurgitation is present. 13. Mild tricuspid regurgitation present. 14. There is no evidence of pulmonary hypertension. 15. Unable to estimate RVSP due to inadequate TR jet spectral doppler profile. 16. Trace/mild (physiologic) pulmonic regurgitation. 17. The aortic root size is normal. 18. There is no pericardial effusion. FRONT END DRIVER: Veena Batista RDCS
[2018-04-03] MEDS: ASPIRIN 325 MG TAB PO SCH (16:18)
[2018-04-03] MEDS: POTASSIUM CHLORIDE ER 20 MEQ TAB.ER PO SCH (16:18)
[2018-04-03] MEDS ORDERED: FUROSEMIDE 20 MG TAB PO SCH (17:00)
[2018-04-03] MEDS ORDERED: NON-FORMULARY DRUG (Ubidecarenone [Co Q-10] 100 MG) PO SCH (17:00)
[2018-04-03 17:47] LABS: Glucose,Whole Blood 121 mg/dL (75-99)
[2018-04-03] MEDS ORDERED: INSULIN ASPART (NovoLOG) 100 UNIT/ML VIAL SQ ONE (18:14)
[2018-04-03 20:19] LABS: Glucose,Whole Blood 114 mg/dL (75-99)
[2018-04-03] MEDS: PRAVASTATIN SODIUM 40 MG TAB PO SCH (23:23)
[2018-04-03] MEDS: traZODone HCL 50 MG TAB PO SCH (23:23)
[2018-04-04 07:53] LABS: Anion Gap 10 mmol/L; Blood Urea Nitrogen 12 mg/dL (9-20); Calcium 9.2 mg/dL (8.4-10.2); Carbon Dioxide 21 mmol/L (22-30); Chloride 103 mmol/L (98-107); Glucose 101 mg/dL (74-99); Potassium 4.2 mmol/L (3.5-5.1); Sodium 134 mmol/L (137-145)
[2018-04-04] MEDS: INSULIN ASPART (NovoLOG) 100 UNIT/ML VIAL SQ SCH ×3 (07:58→17:14)
[2018-04-04] MEDS: TAMSULOSIN 0.4 MG CAP.ER.24H PO SCH (07:59)
[2018-04-04] MEDS: SACUBITRIL/VALSARTAN 24 MG-26 MG TABLET PO SCH ×2 (07:59→21:53)
[2018-04-04] MEDS: FUROSEMIDE 10 MG/ML 4 ML VIAL IV SCH ×2 (07:59→21:20)
[2018-04-04] MEDS: HEPARIN SODIUM,PORCINE 5,000 UNIT/ML 1 ML VIAL SQ SCH ×2 (07:59→21:20)
[2018-04-04] MEDS: LINAGLIPTIN 5 MG TABLET PO SCH (07:59)
[2018-04-04] MEDS: SERTRALINE 100 MG TAB PO SCH (07:59)
[2018-04-04] MEDS: CARVEDILOL 6.25 MG TAB PO SCH ×2 (07:59→15:47)
[2018-04-04 08:02] LABS: Glucose,Whole Blood 97 mg/dL (75-99)
--- NOTE | 2018-04-04 11:26 | P.PN ---
Subjective Progress Note Date: 04/04/18 62-year-old male who of known for this past year and have from [facility] was known to have history of ischemic cardiomyopathy, COPD, schizoaffective disorders, hypertension and hyperlipidemia who also had history of rectal bleed and chronic history of Webb esophagus and esophagitis who had history of CAD post angioplasty and stent placement back in July 2015. Patient was hospitalized last time in October 2017 for acute COPD exacerbation and CHF along with altered mental status with urinary tract infection and urinary retention was treated and had medical terminologist [place] catheter which was removed recently. Patient is known to have history of schizoaffective disorders he is isolated person doesn't socialize and is not easy to talk to cannot express himself that well. patient was sent to [facility] from [facility] today because worsening dyspnea and shortness of breath with mild fluid overload his roommate apparently had pneumonia and influenza patient was study for influenza which was negative, chest x-ray shows more sign of heart failure than pneumonia. Patient had mild congestion with mild wheezes with mild COPD was started on IV diuretics and will be admitted to the hospital with above problem. 04/03: Patient is sitting up in bed in no acute distress. Patient's pulse ox on room air 93%. O2 applied via nasal cannula at 2 L. Patient appears to be less congested compared to yesterday. Influenza was negative no signs of pneumonia at this time. No edema noted to bilateral extremities. WBC 6.2, hemoglobin 13.6, sodium 135, potassium 4.2, chloride 106, BUN 11, creatinine 0.65, blood glucose 98, albumin is 3.6. 04/04: Patient is resting in bed with no acute distress. Patient's pulse ox on 3 L is 96% via nasal cannula. Patient is less congested today as compared to yesterday. No noticeable edema to bilateral extremities. Echo cardiogram showed severe to the dilated left ventricle with EES between 25 and 30%, severe mitral regurg is present, mild aortic valve sclerosis and moderate aortic regurgitation. Review of Systems CONSTITUTIONAL: Well-developed and mild respiratory distress. EYES: No icterus sclerae, no conjunctivitis. EARS, NOSE, MOUTH, THROAT, and FACE: No sore throat, lymphadenopathy, carotid bruits or deformity. RESPIRATORY: Denies shortness of breath denies cough or wheezes. CARDIOVASCULAR: Positive PND & orthopnea no palpitation denies edema to lower extremities GASTROINTESTINAL: No Abd pain, Nausea or vomiting, no Diarrhea or constipation, No GI Bleed, no distention or masses. GENITOURINARY: Mild urinary incontinence with BPH symptoms. INTEGUMENT/BREAST: Negative for any muscular injury with mild osteoarthritis.. HEMATOLOGIC/LYMPHATIC: Negative for bleed or purpura. MUSCULOSKELTAL: Negative for Myalgia or arthralgia. NEURLOGICAL: No LOC, Sz or syncope, blurred vision dizziness or abnormality.. BEHAVIORAL/PSYCH: Positive depression and schizoaffective disorders. ENDOCRINE: Negative. Objective - Vital Signs Vital signs: Vital Signs Temp 99.3 F 04/04/18 07:49 Pulse 77 04/04/18 07:49 Resp 20 04/04/18 07:49 BP 116/65 04/04/18 07:49 Pulse Ox 96 04/04/18 07:49 Intake & Output 04/03/18 04/04/18 04/04/18 18:59 06:59 18:59 Intake Total 60 Output Total 150 900 500 Balance -90 -900 -500 Weight 84.5 kg Intake: Oral 60 Output: Urine 150 900 500 Other: Voiding Method Urinal Urinal Urinal # Voids 0 - Exam General Appearance: Alert, cooperative, mild distress, appears stated age. Neck HEENT: Supple, no lymphadenopathy, no thyroid enlargement, no carotid bruits. Lungs: Decreased breath sound bilaterally otherwise CTA Chest Wall: Decreased expansion with deep inspiration no tenderness and no deformity was found on exam, no costochondral pain or discomfort. Heart: Regular rate and rhythm, S1, S2 positive S3, positive systolic murmur with mild JVD Back: Symmetric, no curvature, ROM normal, no CVA tenderness. Abdomen: Soft distended positive bowel sound no organomegaly. Extremities: 1+ edema with decreased pulse. Pulses: 2+ and symmetric. Skin: Skin color, texture, tugor normal, no rashes or lesions. Neurologic: Alert oriented x3 cranial nerves II through XII intact, no motor deficit, no abnormal balance or gait. - Labs CBC & Chem 7: 04/03/18 06:19 04/04/18 07:30 Labs: Abnormal Lab Results - Last 24 Hours (Table) 04/03/18 04/03/18 04/04/18 Range/Units 17:42 20:15 07:30 Sodium 134 L (137-145) mmol/L Carbon Dioxide 21 L (22-30) mmol/L Creatinine 0.65 L (0.66-1.25) mg/dL Glucose 101 H (74-99) mg/dL POC Glucose (mg/dL) 121 H 114 H (75-99) mg/dL Microbiology - Last 24 Hours (Table) 04/02/18 18:35 Urine Culture - Preliminary Urine,Voided Gram Neg Bacilli Group D Enterococcus 04/02/18 15:50 Blood Culture - Preliminary Blood No Growth after 24 hours Assessment and Plan Plan: 1 acute respiratory failure: Combination of systolic congestive heart failure, cardiomyopathy, COPD and severe bronchitis. 2-D echo completed, shows EF between 25 and 30%, severe global hypokinesis of left ventricle, severe mitral regurgitation 2 acute exacerbation of systolic dysfunction congestive heart failure with ischemic cardiomyopathy: Patient will continue with diuretics with titrate furosemide 40 mg IV twice a day and add spironolactone continue patient on Coreg. Cardiology consult appreciated. 2-D echo completed results are above. 3 mild COPD: Patient will be continue on DuoNeb and Pulmicort continue O2 try to titrate O2 to keep pulse ox above 92 percentile. 4 advance ischemic cardiomyopathy with ejection fraction of 25 percentile 2-D echo completed results as noted above. 5 severe bronchitis: Patient will be on Rocephin as single agent for now continue to watch for any worsening symptom is influenza was negative. 6 type 2 diabetes: On insulin continue long and short-acting insulin switch Actos to Januvia Actos can cause further fluid retention and exacerbation of congestive heart failure. 7 schizoaffective disorders: Has been on trazodone Zoloft and Invega. 8 hyperlipidemia: Continue Pravachol at 40 mg daily. 9 severe BPH with urinary retention: Has been on Flomax 0.4 mg daily continue medication. 10 GI prophylaxis: Patient will be on omeprazole 20 mg daily. 11 DVT prophylaxis: Patient will be on heparin 5000 units subcutaneous twice a day. CODE STATUS: Full code. Admit patient to inpatient status for more than 2 nights. Discharge plan: Possible return to [facility] tomorrow Impression and plan of care have been directed as dictated by the signing physician. Prema Bartlett nurse practitioner acting as scribe for signing physician.
[2018-04-04 11:47] LABS: Glucose,Whole Blood 118 mg/dL (75-99)
--- NOTE | 2018-04-04 11:54 | XR ---
EXAMINATION TYPE: XR chest 2V DATE OF EXAM: 04/04/2018 COMPARISON: 04/02/2018 INDICATION: Follow-up previous abnormal TECHNIQUE: Frontal and lateral views of the chest are obtained. FINDINGS: The heart size is enlarged. The pulmonary vasculature is prominent. Diffuse increased lung markings are present. Correlate for pulmonary edema. Findings are slightly imp roved from comparison. IMPRESSION: 1. Improving congestive heart failure. 2. Stable cardiomegaly. 3. Continued follow-up is recommended.
[2018-04-04] MEDS: ASPIRIN 325 MG TAB PO SCH (15:47)
[2018-04-04] MEDS: POTASSIUM CHLORIDE ER 20 MEQ TAB.ER PO SCH (15:47)
[2018-04-04 17:26] LABS: Glucose,Whole Blood 115 mg/dL (75-99)
[2018-04-04 20:36] LABS: Glucose,Whole Blood 131 mg/dL (75-99)
[2018-04-04] MEDS: PRAVASTATIN SODIUM 40 MG TAB PO SCH (21:20)
[2018-04-04] MEDS: traZODone HCL 50 MG TAB PO SCH (21:20)
[2018-04-04 23:15] VITALS: PULSE 70
[2018-04-04 23:17] VITALS: RESP 16
[2018-04-05 06:34] VITALS: BP 96/56; TEMP 98
[2018-04-05 07:32] LABS: Glucose,Whole Blood 120 mg/dL (75-99)
[2018-04-05] MEDS: FUROSEMIDE 10 MG/ML 4 ML VIAL IV SCH (08:16)
[2018-04-05] MEDS: HEPARIN SODIUM,PORCINE 5,000 UNIT/ML 1 ML VIAL SQ SCH (08:17)
[2018-04-05] MEDS: TAMSULOSIN 0.4 MG CAP.ER.24H PO SCH (08:17)
[2018-04-05] MEDS: SACUBITRIL/VALSARTAN 24 MG-26 MG TABLET PO SCH (08:17)
[2018-04-05] MEDS: SERTRALINE 100 MG TAB PO SCH (08:17)
[2018-04-05] MEDS: CARVEDILOL 6.25 MG TAB PO SCH (08:17)
[2018-04-05] MEDS: LINAGLIPTIN 5 MG TABLET PO SCH (08:17)
[2018-04-05] MEDS: INSULIN ASPART (NovoLOG) 100 UNIT/ML VIAL SQ SCH ×2 (08:18→11:56)
[2018-04-05 11:49] LABS: Glucose,Whole Blood 91 mg/dL (75-99)
--- NOTE | 2018-04-05 13:38 | P.DS ---
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 Patient was hospitalized last time in October 2017 for acute COPD exacerbation and CHF along with altered mental status with urinary tract infection and urinary retention was treated and had halfway [place] catheter which was removed recently. Patient is known to have history of schizoaffective disorders he is isolated person doesn't socialize and is not easy to talk to cannot express himself that well. patient was sent to [facility] from [facility] today because worsening dyspnea and shortness of breath with mild fluid overload his roommate apparently had pneumonia and influenza patient was study for influenza which was negative, chest x-ray shows more sign of heart failure than pneumonia. Patient had mild congestion with mild wheezes with mild COPD was started on IV diuretics and will be admitted to the hospital with above problem. 04/03: Patient is sitting up in bed in no acute distress. Patient's pulse ox on room air 93%. O2 applied via nasal cannula at 2 L. Patient appears to be less congested compared to yesterday. Influenza was negative no signs of pneumonia at this time. No edema noted to bilateral extremities. WBC 6.2, hemoglobin 13.6, sodium 135, potassium 4.2, chloride 106, BUN 11, creatinine 0.65, blood glucose 98, albumin is 3.6. 04/04: Patient is resting in bed with no acute distress. Patient's pulse ox on 3 L is 96% via nasal cannula. Patient is less congested today as compared to yesterday. No noticeable edema to bilateral extremities. Echo cardiogram showed severe to the dilated left ventricle with EES between 25 and 30%, severe mitral regurg is present, mild aortic valve sclerosis and moderate aortic regurgitation. 04/05: Patient has been seen by shoe singer and currently on Lasix 40 mg IV every 12 hours and Entresto was started. Patient is found sitting up in a chair waiting for his lunch. He denies any new complaints. Shortness of breath is controlled. Pulse ox is currently 92-98% on room air. He has been afebrile, heart rate running in the 60s and 70s, blood pressure 139/65. Patient will be discharged back to [facility] today in stable condition once all arrangements are completed. Discharge diagnoses: 1 acute hypoxic respiratory failure secondary to acute on chronic systolic heart failure, ischemic cardiomyopathy, COPD exacerbation and severe bronchitis. 2 acute exacerbation of systolic heart failure with ischemic cardiomyopathy 3 mild COPD 4 advance ischemic cardiomyopathy 5 severe bronchitis 6 type 2 diabetes 7 schizoaffective disorder 8 hyperlipidemia 9 severe BPH with urinary retention Discharge plan: return to [facility] Impression and plan of care have been directed as dictated by the signing physician. Lucy Steele nurse practitioner acting as scribe for signing physician. Patient Condition at Discharge: Good Plan - Discharge Summary New Discharge Prescriptions: New Cefuroxime [Ceftin] 250 mg PO BID #10 tablet Sacubitril/Valsartan [Entresto 24 mg-26 mg Tablet] 1 each PO BID tablet sitaGLIPtin PHOSPHATE [Januvia] 100 mg PO DAILY #30 tab Continue Pravastatin Sodium [Pravachol] 40 mg PO HS@2100 Nitroglycerin Sl Tabs [Nitrostat] 0.4 mg SUBLINGUAL Q5M PRN #0 tab PRN Reason: Chest Pain Ipratropium Nebulized [Atrovent Nebulized 0.2 MG/ML] 0.5 mg INHALATION RT- QID PRN PRN Reason: Shortness Of Breath Carvedilol [Coreg] 6.25 mg PO BID-W/MEALS #60 tab Potassium Chloride ER [K-Dur 20] 20 meq PO DAILY@1700 Sertraline HCl [Zoloft] 100 mg PO DAILY@0800 Paliperidone IM [Invega Sustenna] 234 mg IM Q28D Artificial Tears-Hypromellose [Artificial Tear Drops] 1 drops BOTH EYES TID PRN PRN Reason: DRY EYES Aspirin 325 mg PO DAILY@1700 Bisacodyl [Dulcolax] 10 mg RECTAL DAILY PRN PRN Reason: Constipation Magnesium Hydroxide [Milk of Magnesia] 2,400 mg PO DAILY PRN PRN Reason: Constipation Na Phos,M-B/Na Phos,Di-Ba [Fleet Adult] 133 ml RECTAL DAILY PRN PRN Reason: Constipation Docusate [Colace] 100 mg PO DAILY PRN PRN Reason: Constipation guaiFENesin [guaiFENesin Oral Solution] 200 mg PO Q4H PRN PRN Reason: Cough Tamsulosin [Flomax] 0.4 mg PO DAILY@0800 Ubidecarenone [Co Q-10] 100 mg PO DAILY@1700 traZODone HCL 75 mg PO HS Insulin Aspart [NovoLOG] 10 unit SQ DAILY@1100 Omeprazole 20 mg PO DAILY PRN PRN Reason: GERD Insulin Aspart [NovoLOG] 8 unit SQ DAILY@1730 Insulin Aspart [NovoLOG] 10 unit SQ DAILY@0700 Hydrocortisone Lotion [Hytone 2.5% Lotion] 1 applic TOPICAL DAILY PRN PRN Reason: Itching Ensure 1 can PO DAILY Changed Furosemide [Lasix] 40 mg PO BID #0 Discontinued Ibuprofen [Motrin] 800 mg PO BID PRN PRN Reason: Pain Clopidogrel [Plavix] 75 mg PO DAILY@0800 Lisinopril [Zestril] 10 mg PO DAILY@0800 Pioglitazone [Actos] 30 mg PO DAILY@0800 Furosemide [Lasix] 20 mg PO DAILY@1700 Discharge Medication List Pravastatin Sodium [Pravachol] 40 mg PO HS@2100 10/05/15 [History] Nitroglycerin Sl Tabs [Nitrostat] 0.4 mg SUBLINGUAL Q5M PRN #0 tab 11/16/15 [Rx] Ipratropium Nebulized [Atrovent Nebulized 0.2 MG/ML] 0.5 mg INHALATION RT-QID PRN 01/10/16 [History] Carvedilol [Coreg] 6.25 mg PO BID-W/MEALS #60 tab 01/15/16 [Rx] Paliperidone IM [Invega Sustenna] 234 mg IM Q28D 06/04/17 [History] Potassium Chloride ER [K-Dur 20] 20 meq PO DAILY@1700 06/04/17 [History] Sertraline HCl [Zoloft] 100 mg PO DAILY@0800 06/04/17 [History] Artificial Tears-Hypromellose [Artificial Tear Drops] 1 drops BOTH EYES TID PRN 06/13/17 [History] Aspirin 325 mg PO DAILY@1700 06/13/17 [History] Bisacodyl [Dulcolax] 10 mg RECTAL DAILY PRN 06/13/17 [History] Magnesium Hydroxide [Milk of Magnesia] 2,400 mg PO DAILY PRN 06/13/17 [History] Na Phos,M-B/Na Phos,Di-Ba [Fleet Adult] 133 ml RECTAL DAILY PRN 06/13/17 [ History] Docusate [Colace] 100 mg PO DAILY PRN 11/07/17 [History] Tamsulosin [Flomax] 0.4 mg PO DAILY@0800 11/07/17 [History] Ubidecarenone [Co Q-10] 100 mg PO DAILY@1700 11/07/17 [History] guaiFENesin [guaiFENesin Oral Solution] 200 mg PO Q4H PRN 11/07/17 [History] Ensure 1 can PO DAILY 04/02/18 [History] Hydrocortisone Lotion [Hytone 2.5% Lotion] 1 applic TOPICAL DAILY PRN 04/02/18 [ History] Insulin Aspart [NovoLOG] 8 unit SQ DAILY@1730 04/02/18 [History] Insulin Aspart [NovoLOG] 10 unit SQ DAILY@0700 04/02/18 [History] Insulin Aspart [NovoLOG] 10 unit SQ DAILY@1100 04/02/18 [History] Omeprazole 20 mg PO DAILY PRN 04/02/18 [History] traZODone HCL 75 mg PO HS 04/02/18 [History] Cefuroxime [Ceftin] 250 mg PO BID #10 tablet 04/05/18 [Rx] Furosemide [Lasix] 40 mg PO BID #0 04/05/18 [Rx] Sacubitril/Valsartan [Entresto 24 mg-26 mg Tablet] 1 each PO BID tablet [Rx] sitaGLIPtin PHOSPHATE [Januvia] 100 mg PO DAILY #30 tab 04/05/18 [Rx] Follow up Appointment(s)/Referral(s): Jerome Osborn MD [Primary Care Provider] - 1-2 days
[2018-04-23] MEDS ORDERED: PALIPERIDONE IM 234 MG/1.5 ML SYG IM SCH (09:00)
== END 2018-04-05 13:55 | DRG 291 ==
LOC: EC 15:19 → EEVIPCON 15:19 → 3SCARD 17:54 → 4MS4W 04-03 13:47 → OBSVTOIN 04-03 14:05
PROVIDERS: ADMIT Internal Medicine Geriatric Medicine; ATTEND Internal Medicine Geriatric Medicine
DX: I11.0 Hypertensive heart disease with heart failure (principal); J96.01 Acute respiratory failure with hypoxia; J44.1 Chronic obstructive pulmonary disease with (acute) exacerbation; J44.0 Chronic obstructive pulmonary disease with (acute) lower respiratory infection; I50.23 Acute on chronic systolic (congestive) heart failure; E11.649 Type 2 diabetes mellitus with hypoglycemia without coma; F25.9 Schizoaffective disorder, unspecified; I08.3 Combined rheumatic disorders of mitral, aortic and tricuspid valves; J40 Bronchitis, not specified as acute or chronic; I25.10 Atherosclerotic heart disease of native coronary artery without angina pectoris; I25.5 Ischemic cardiomyopathy; F41.9 Anxiety disorder, unspecified; E78.5 Hyperlipidemia, unspecified; I25.2 Old myocardial infarction; K22.70 Barrett's esophagus without dysplasia; N40.1 Benign prostatic hyperplasia with lower urinary tract symptoms; R33.8 Other retention of urine; K21.0 Gastro-esophageal reflux disease with esophagitis; F17.200 Nicotine dependence, unspecified, uncomplicated; Z79.82 Long term (current) use of aspirin; Z79.02 Long term (current) use of antithrombotics/antiplatelets; Z79.4 Long term (current) use of insulin; Z79.899 Other long term (current) drug therapy; Z87.01 Personal history of pneumonia (recurrent); Z95.5 Presence of coronary angioplasty implant and graft; Z80.9 Family history of malignant neoplasm, unspecified
CPT/HCPCS: 36415; 71046; 80048; 80053; 81001; 83605; 83880; 84484; 85025; 85610; 85730; 87040; 87077; 87086; 87186; 93005; 93306; 96374; 99285

== ENCOUNTER 2018-05-18 15:03 | Emergency (ER) | payer MEDICARE, OTHER ==
[2018-05-18 15:23] VITALS: TEMP 97.7
[2018-05-18] MEDS ORDERED: SODIUM CHLORIDE 0.9% 1,000 ML IV STA (15:29)
--- NOTE | 2018-05-18 15:40 | ED ---
Chest Pain HPI - General Chief Complaint: Chest Pain Stated Complaint: chest pain Time Seen by Provider: 05/18/18 15:03 Source: patient, EMS, RN notes reviewed Mode of arrival: EMS Limitations: no limitations - History of Present Illness Initial Comments: This is a 63-year-old male who presents by EMS with complaints of chest pain he points to his mid epigastric area apparently is been going on for about a month. He is here for evaluation. Is of a history of schizophrenia pneumonia acute chronic systolic heart failure and ischemic cardiomyopathy depression among other medical issues. He denies any fevers chills sweats noted reported no cough or phlegm production no nausea vomiting diarrhea the patient does point to his epigastric areas area pain he does have the ability at this time to quantify or qualify the pain. MD Complaint: chest pain - Related Data Home Medications Medication Instructions Recorded Confirmed Pravastatin Sodium [Pravachol] 40 mg PO HS 10/05/15 05/18/18 Paliperidone IM [Invega Sustenna] 234 mg IM Q28D 06/04/17 05/18/18 Potassium Chloride ER [K-Dur 20] 20 meq PO DAILY@1700 06/04/17 05/18/18 Sertraline HCl [Zoloft] 100 mg PO DAILY@0800 06/04/17 05/18/18 Aspirin 325 mg PO DAILY@1700 06/13/17 05/18/18 Tamsulosin [Flomax] 0.4 mg PO DAILY@0800 11/07/17 05/18/18 Ubidecarenone [Co Q-10] 100 mg PO DAILY@1700 11/07/17 05/18/18 Insulin Aspart [NovoLOG] 6 unit SQ DAILY@1100 04/02/18 05/18/18 Insulin Aspart [NovoLOG] 6 unit SQ DAILY@1730 04/02/18 05/18/18 Insulin Aspart [NovoLOG] 8 unit SQ DAILY@0700 04/02/18 05/18/18 traZODone HCL 75 mg PO HS 04/02/18 05/18/18 Sacubitril/Valsartan [Entresto 24 1 tab PO BID 05/18/18 05/18/18 mg-26 mg Tablet] Previous Rx's Medication Instructions Recorded Nitroglycerin Sl Tabs [Nitrostat] 0.4 mg SUBLINGUAL Q5M PRN #0 tab 11/16/15 Carvedilol [Coreg] 6.25 mg PO BID-W/MEALS #60 tab 01/15/16 Furosemide [Lasix] 40 mg PO BID #0 04/05/18 sitaGLIPtin PHOSPHATE [Januvia] 100 mg PO DAILY #30 tab 04/05/18 Pantoprazole Sodium [Protonix] 40 mg PO DAILY #14 tablet. 05/18/18 Allergies Allergy/AdvReac Type Severity Reaction Status Date / Time No Known Allergies Allergy Verified 05/18/18 16:19 Review of Systems ROS Statement: Those systems with pertinent positive or pertinent negative responses have been documented in the HPI. ROS Other: All systems not noted in ROS Statement are negative. EKG Findings - EKG Results: EKG: interpreted by REY, sinus rhythm (EKG shows sinus rhythm a 67 appear interval 190 QRS duration 118 daily since QTC 502/5:30 poor R-wave progression prolonged QT is consistent with the 1 presented by EMS.) Past Medical History Past Medical History: Heart Failure, GERD/Reflux, Hyperlipidemia, Hypertension, Myocardial Infarction ([place]) Additional Past Medical History / Comment(s): RECTAL BLEEDING, Borderline diabetes, esophagitis, barretts esophagus Last Myocardial Infarction Date:: 07/15/15 History of Any Multi-Drug Resistant Organisms: None Reported Past Surgical History: Heart Catheterization With Stent Past Anesthesia/Blood Transfusion Reactions: No Reported Reaction Date of Last Stent Placement:: 07/15/15 Past Psychological History: Anxiety, Schizoaffective Disorder, Schizophrenia Smoking Status: Current every day smoker Past Alcohol Use History: None Reported Additional Past Alcohol Use History / Comment(s): STARTED SMOKING AT AGE 13 Past Drug Use History: None Reported - Past Family History Mother Family Medical History: Cancer General Exam - General Exam Comments Initial Comments: This is a well-developed well-nourished awake alert male who does demonstrate a stigmata of schizophrenia Limitations: no limitations General appearance: alert, in no apparent distress Head exam: Present: atraumatic, normocephalic, normal inspection Eye exam: Present: normal appearance, PERRL, EOMI. Absent: scleral icterus, conjunctival injection, periorbital swelling ENT exam: Present: normal exam, mucous membranes moist Neck exam: Present: normal inspection. Absent: tenderness, meningismus, lymphadenopathy Respiratory exam: Present: normal lung sounds bilaterally. Absent: respiratory distress, wheezes, rales, rhonchi, stridor Cardiovascular Exam: Present: regular rate, normal rhythm, normal heart sounds. Absent: systolic murmur, diastolic murmur, rubs, gallop, clicks GI/Abdominal exam: Present: soft, normal bowel sounds. Absent: distended, tenderness, guarding, rebound, rigid Extremities exam: Present: normal inspection, full ROM, normal capillary refill. Absent: tenderness, pedal edema, joint swelling, calf tenderness Back exam: Present: normal inspection Neurological exam: Present: alert, oriented X3, CN II-XII intact Psychiatric exam: Present: normal affect, normal mood Skin exam: Present: warm, dry, intact, normal color. Absent: rash Course Vital Signs 05/18/18 15:18 Temperature 97.7 F Pulse Rate 68 Respiratory 16 Rate Blood Pressure 98/54 O2 Sat by Pulse 94 L Oximetry Chest Pain MDM - MDM I did review the imaging and report no acute findings. I did discuss the case with Dr. Castañeda who is covering for Dr. Osborn patient presents with atypical chest pain likely epigastric for last month. Workup was negative thus far he will be discharged after discussion with Dr. Castañeda on a proton pump inhibitor. Disposition Clinical Impression: Atypical chest pain, Gastritis Disposition: HOME SELF-CARE Condition: Good Instructions (If sedation given, give patient instructions): Chest Pain (ED), Gastritis (ED) Prescriptions: Pantoprazole Sodium [Protonix] 40 mg PO DAILY #14 tablet.dr Is patient prescribed a controlled substance at d/c from ED?: No Referrals: Jerome Osborn MD [Primary Care Provider] - 1-2 days
[2018-05-18 15:56] LABS: Basophils % (A) 0 %; Eosinophils # (A) 0.3 k/uL (0-0.7); Eosinophils % (A) 4 %; HCT 40.4 % (39.0-53.0); HGB 13.7 gm/dL (13.0-17.5); Lymphocytes # (A) 1.1 k/uL (1.0-4.8); Lymphocytes % (A) 14 %; MCH 29.9 pg (25.0-35.0); MCHC 33.8 g/dL (31.0-37.0); MCV 88.3 fL (80.0-100.0); Mean Platelet Volume 6.4; Monocytes # (A) 0.5 k/uL (0-1.0); Monocytes % (A) 6 %; Neutrophils # (A) 5.9 k/uL (1.3-7.7); Neutrophils % (A) 74 %; Platelet Count 151 k/uL (150-450); RBC 4.58 m/uL (4.30-5.90); RDW 14.6 % (11.5-15.5)
[2018-05-18 16:04] LABS: ALT 37 U/L (21-72); AST 26 U/L (17-59); Albumin 3.7 g/dL (3.5-5.0); Alkaline Phosphatase 93 U/L (38-126); Amylase 55 U/L (30-110); Anion Gap 8 mmol/L; Blood Urea Nitrogen 7 mg/dL (9-20); Calcium 8.6 mg/dL (8.4-10.2); Carbon Dioxide 19 mmol/L (22-30); Chloride 106 mmol/L (98-107); Creatine Kinase 108 U/L (55-170); Glucose 117 mg/dL (74-99); Lipase 126 U/L (23-300); Magnesium 1.8 mg/dL (1.6-2.3); Sodium 133 mmol/L (137-145); Total Bilirubin 0.4 mg/dL (0.2-1.3); Total Protein 6.8 g/dL (6.3-8.2)
--- NOTE | 2018-05-18 16:05 | XR ---
EXAMINATION TYPE: XR chest 2V DATE OF EXAM: 05/18/2018 COMPARISON: 04/04/2018 HISTORY: Shortness of breath TECHNIQUE: Frontal and lateral views of the chest are obtained. FINDINGS: Scattered senescent parenchymal changes noted. Hyperinflation compatible with COPD. No evidence for infiltrate. No evidence for atelectasis. Heart size is stable. Mediastinal structures are stable and grossly unremarkable. No evidence for hilar prominence. Degenerative changes dorsal spine. IMPRESSION: 1. No evidence for acute pulmonary disease.
[2018-05-18 16:19] LABS: Partial Thromboplastin Time 25.9 sec (22.0-30.0); Prothrombin Time 10.9 sec (9.0-12.0)
[2018-05-18 17:50] VITALS: BP 108/55; PULSE 70; RESP 18
== END 2018-05-18 17:47 | disposition home or self-care (01) ==
LOC: EC 15:03
DX: K29.70 Gastritis, unspecified, without bleeding (principal); R07.89 Other chest pain; I11.0 Hypertensive heart disease with heart failure; I50.22 Chronic systolic (congestive) heart failure; E78.5 Hyperlipidemia, unspecified; F41.9 Anxiety disorder, unspecified; F17.200 Nicotine dependence, unspecified, uncomplicated; I25.2 Old myocardial infarction; Z79.82 Long term (current) use of aspirin; Z79.4 Long term (current) use of insulin; Z79.899 Other long term (current) drug therapy; Z95.5 Presence of coronary angioplasty implant and graft
CPT/HCPCS: 36415; 71046; 80053; 82150; 82550; 83690; 83735; 84484; 85025; 85610; 85730; 93005; 99285

== ENCOUNTER 2019-05-30 12:36 | Emergency (ER) | payer MEDICARE, OTHER ==
[2019-05-30 12:51] VITALS: RESP 18; TEMP 98
[2019-05-30] MEDS ORDERED: ONDANSETRON 4 MG/2 ML VIAL IVP STA (13:10)
[2019-05-30] MEDS ORDERED: SODIUM CHLORIDE 0.9% 500 ML 500 ML IV STA (13:10)
[2019-05-30] MEDS ORDERED: KETOROLAC 30 MG/ML 1 ML VIAL IVP STA (13:10)
[2019-05-30 13:40] VITALS: PULSE 61
[2019-05-30 13:42] VITALS: BP 95/36
[2019-05-30 13:43] LABS: ALT 27 U/L (4-49); AST 29 U/L (17-59); African American GFR (CKD) >90 (>60 ml/min/1.73 sqM); Albumin 4.2 g/dL (3.5-5.0); Alkaline Phosphatase 89 U/L (38-126); Amylase 58 U/L (30-110); Anion Gap 10 mmol/L; Basophils % (A) 0 %; Blood Urea Nitrogen 17 mg/dL (9-20); Calcium 8.9 mg/dL (8.4-10.2); Carbon Dioxide 20 mmol/L (22-30); Chloride 105 mmol/L (98-107); Eosinophils # (A) 0.1 k/uL (0-0.7); Eosinophils % (A) 2 %; Glucose 131 mg/dL (74-99); HCT 43.2 % (39.0-53.0); HGB 14.5 gm/dL (13.0-17.5); Lymphocytes # (A) 1.1 k/uL (1.0-4.8); Lymphocytes % (A) 18 %; MCH 31.6 pg (25.0-35.0); MCHC 33.7 g/dL (31.0-37.0); Mean Platelet Volume 7.1; Monocytes # (A) 0.3 k/uL (0-1.0); Monocytes % (A) 6 %; Neutrophils # (A) 4.4 k/uL (1.3-7.7); Neutrophils % (A) 73 %; Non-African American GFR(CKD) >90 (>60 ml/min/1.73 sqM); Platelet Count 133 k/uL (150-450); Potassium 3.9 mmol/L (3.5-5.1); RDW 13.2 % (11.5-15.5); Sodium 135 mmol/L (137-145); Total Bilirubin 0.5 mg/dL (0.2-1.3); Total Protein 7.5 g/dL (6.3-8.2)
[2019-05-30 13:49] LABS: INR 1.1 (<1.2); Partial Thromboplastin Time 24.3 sec (22.0-30.0); Prothrombin Time 10.9 sec (9.0-12.0)
--- NOTE | 2019-05-30 14:49 | CT ---
EXAMINATION TYPE: CT abdomen pelvis w con DATE OF EXAM: 05/30/2019 COMPARISON: 11/07/2017 INDICATION: Generalized pain DLP: 1284.5 mGycm, Automated exposure control for dose reduction was used. CONTRAST: 100 mL of Isovue 300. Study performed without Oral Contrast TECHNIQUE: Axial images were obtained from above the diaphragm to the pubic rami in the axial plane a t 5 mm thick sections. Reconstructed images are reviewed on the computer in the coronal plane. FINDINGS: Limited CT sections are obtained the lung bases. There is a density in the posterior lateral right l checo base measuring 2.0 x 1.0 cm, present previously. This may be minimally smaller or at least stabl e from comparison. There is some cardiomegaly present. Small hiatal hernia is present. CT ABDOMEN: Liver: There may be minimal fatty infiltration of liver. Spleen: Normal Pancreas: Normal Adrenal glands: The adrenal glands are normal. Gallbladder: Cholelithiasis is present. Kidneys: No masses are evident. No hydronephrosis is present. There is a 2.2 cm cyst measuring -4 H [place]unsfield units on the superior medial right kidney. There is a 1.9 cm cyst mid lateral left kidney m easuring 12 Hounsfield units. Tiny cortical renal cysts at the inferior pole right kidney. Delayed i mages were obtained through the kidneys, which remain unremarkable. Aorta: Vascular calcification is within the aorta. Inferior vena cava: Normal. CT PELVIS: Loops of bowel without oral contrast appear unremarkable. Some fecal debris is within the ascending a nd transverse colon. Fecal debris is near the rectum Appendix: Normal as visualized. Urinary bladder: Some minimal air is within the urinary bladder. Correlate for recent instrumentation . Cystitis could be considered. Some diffuse wall prominence may be present. This could be related to the degree of distention. Genitourinary structures: Prostate appears normal Osseous structures: No suspicious lytic or sclerotic lesions. IMPRESSIONS: 1. Right lateral lung nodule, present in October 29, 2017. 2. Small hiatal hernia. 3. Cardiomegaly. 4. Mild fatty infiltration liver. 5. Renal cysts. 6. Cholelithiasis. 7. Consider cystitis versus recent instrumentation of the punctate amount of air within urinary bladd er mild prominence of the urinary bladder galindo
--- NOTE | 2019-05-30 14:57 | ED ---
Abdominal Pain HPI - General Chief Complaint: Abdominal Pain Stated Complaint: bowel obstruction Time Seen by Provider: 05/30/19 12:54 Source: patient, EMS Mode of arrival: EMS - History of Present Illness Initial Comments: Patient is a 64-year-old male, with history of COPD, CHF, diabetes, schizophrenia, presenting to the emergency department via EMS for abdominal pain. Patient is currently at [facility]. States he has mild nausea, no vomiting. Patient is a poor historian and there is nobody else here with him. Patient states he had bowel movement yesterday. He is describing pain on the left side of the abdomen, slightly lower quadrant. He denies recent fever, chills, diarrhea. He denies any chest pain or fever. He denies shortness of breath. He has no other complaints. Upon arrival to the ER, his vital signs are stable. - Related Data Home Medications Medication Instructions Recorded Confirmed Pravastatin Sodium [Pravachol] 40 mg PO HS 10/05/15 05/18/18 Paliperidone IM [Invega Sustenna] 234 mg IM Q28D 06/04/17 05/18/18 Potassium Chloride ER [K-Dur 20] 20 meq PO DAILY@1700 06/04/17 05/18/18 Sertraline HCl [Zoloft] 100 mg PO DAILY@0806/04/17 05/18/18 Aspirin 325 mg PO DAILY@1700 06/13/17 05/18/18 Tamsulosin [Flomax] 0.4 mg PO DAILY@0800 11/07/17 05/18/18 Ubidecarenone [Co Q-10] 100 mg PO DAILY@1700 11/07/17 05/18/18 Insulin Aspart [NovoLOG] 6 unit SQ DAILY@1100 04/02/18 05/18/18 Insulin Aspart [NovoLOG] 6 unit SQ DAILY@1730 04/02/18 05/18/18 Insulin Aspart [NovoLOG] 8 unit SQ DAILY@0700 04/02/18 05/18/18 traZODone HCL 75 mg PO HS 04/02/18 05/18/18 Sacubitril/Valsartan [Entresto 24 1 tab PO BID 05/18/18 05/18/18 mg-26 mg Tablet] Previous Rx's Medication Instructions Recorded Nitroglycerin Sl Tabs [Nitrostat] 0.4 mg SUBLINGUAL Q5M PRN #0 tab 11/16/15 Carvedilol [Coreg] 6.25 mg PO BID-W/MEALS #60 tab 01/15/16 Furosemide [Lasix] 40 mg PO BID #0 04/05/18 sitaGLIPtin PHOSPHATE [Januvia] 100 mg PO DAILY #30 tab 04/05/18 Pantoprazole Sodium [Protonix] 40 mg PO DAILY #14 tablet. 05/18/18 Cephalexin [Keflex] 500 mg PO Q6HR 7 Days #28 cap 05/30/19 Allergies Allergy/AdvReac Type Severity Reaction Status Date / Time No Known Allergies Allergy Verified 05/30/19 12:51 Review of Systems ROS Statement: Those systems with pertinent positive or pertinent negative responses have been documented in the HPI. ROS Other: All systems not noted in ROS Statement are negative. Past Medical History Past Medical History: Heart Failure, GERD/Reflux, Hearing Disorder / Deafness, Hyperlipidemia, Hypertension, Myocardial Infarction (MD) Additional Past Medical History / Comment(s): RECTAL BLEEDING, Borderline diabetes, esophagitis, barretts esophagus Last Myocardial Infarction Date:: 07/15/15 History of Any Multi-Drug Resistant Organisms: None Reported Past Surgical History: Heart Catheterization With Stent Past Anesthesia/Blood Transfusion Reactions: No Reported Reaction Date of Last Stent Placement:: 07/15/15 Past Psychological History: Anxiety, Schizoaffective Disorder, Schizophrenia Smoking Status: Current every day smoker Past Alcohol Use History: None Reported Past Drug Use History: None Reported - Past Family History Mother Family Medical History: Cancer General Exam - General Exam Comments Initial Comments: GENERAL: Well-appearing, well-nourished and in no acute distress. HEAD: Atraumatic, normocephalic. EYES: Pupils equal round and reactive to light, extraocular movements intact, sclera anicteric, conjunctiva are normal. ENT: TMs normal, nares patent, oropharynx clear without exudates. Moist mucous membranes. NECK: Normal range of motion, supple without lymphadenopathy or JVD. LUNGS: Breath sounds clear to auscultation bilaterally and equal. No wheezes rales or rhonchi. HEART: Regular rate and rhythm without murmurs, rubs or gallops. ABDOMEN: Tender to palpation on left side of the abdomen, slightly left lower quadrant. Soft, normoactive bowel sounds. No guarding, no rebound. No masses appreciated. : Deferred EXTREMITIES: Normal range of motion, no pitting or edema. No clubbing or cyanosis. NEUROLOGICAL: Cranial nerves II through XII grossly intact. Normal speech. PSYCH: Normal mood, normal affect. SKIN: Warm, Dry, normal turgor, no rashes or lesions noted. Course Vital Signs 05/30/19 05/30/19 12:45 13:38 Temperature 98.0 F Pulse Rate 74 61 Respiratory 18 18 Rate Blood Pressure 125/62 95/36 O2 Sat by Pulse 95 94 L Oximetry Medical Decision Making - Medical Decision Making Patient is a 64-year-old male presenting with lower abdominal pain 3 days. Patient came from [facility]. His vitals are stable. On exam patient has some mild left-sided abdominal tenderness, suprapubic tenderness. Lab work shows no acute abnormalities. Lactic acid is 1.0. Computed tomography scan shows no acute abnormalities, small hiatal hernia. Possible cystitis. Urine was obtained and is positive for nitrates, moderate amount of leukocyte Estrace. Patient will be given 1 g of Rocephin. Patient will be discharged back to [facility] and will continue with Keflex as an outpatient. Patient is agreement with this plan of care. Return parameters were discussed with the patient and he verbalized understanding. - Lab Data Result diagrams: 05/30/19 13:22 05/30/19 13:22 Lab Results 05/30/19 05/30/19 05/30/19 Range/Units 13:22 13:22 13:22 WBC 6.0 (3.8-10.6) k/uL RBC 4.60 (4.30-5.90) m/uL Hgb 14.5 (13.0-17.5) gm/dL Hct 43.2 (39.0-53.0) % MCV 94.0 (80.0-100.0) fL MCH 31.6 (25.0-35.0) pg MCHC 33.7 (31.0-37.0) g/dL RDW 13.2 (11.5-15.5) % Plt Count 133 L (150-450) k/uL Neutrophils % 73 % Lymphocytes % 18 % Monocytes % 6 % Eosinophils % 2 % Basophils % 0 % Neutrophils # 4.4 (1.3-7.7) k/uL Lymphocytes # 1.1 (1.0-4.8) k/uL Monocytes # 0.3 (0-1.0) k/uL Eosinophils # 0.1 (0-0.7) k/uL Basophils # 0.0 (0-0.2) k/uL PT 10.9 (9.0-12.0) sec INR 1.1 (<1.2) APTT 24.3 (22.0-30.0) sec Sodium 135 L (137-145) mmol/L Potassium 3.9 (3.5-5.1) mmol/L Chloride 105 (98-107) mmol/L Carbon Dioxide 20 L (22-30) mmol/L Anion Gap 10 mmol/L BUN 17 (9-20) mg/dL Creatinine 0.83 (0.66-1.25) mg/dL Est GFR (CKD-EPI)AfAm >90 (>60 ml/min/1.73 sqM) Est GFR (CKD-EPI)NonAf >90 (>60 ml/min/1.73 sqM) Glucose 131 H (74-99) mg/dL Plasma Lactic Acid Fernie (0.7-2.0) mmol/L Calcium 8.9 (8.4-10.2) mg/dL Total Bilirubin 0.5 (0.2-1.3) mg/dL AST 29 (17-59) U/L ALT 27 (4-49) U/L Alkaline Phosphatase 89 (38-126) U/L Total Protein 7.5 (6.3-8.2) g/dL Albumin 4.2 (3.5-5.0) g/dL Amylase 58 (30-110) U/L Lipase 132 (23-300) U/L Urine Color Urine Appearance (Clear) Urine pH (5.0-8.0) Ur Specific [place] (1.001-1.035) Urine Protein (Negative) Urine Glucose (UA) (Negative) Urine Ketones (Negative) Urine Blood (Negative) Urine Nitrite (Negative) Urine Bilirubin (Negative) Urine Urobilinogen (<2.0) mg/dL Ur Leukocyte Esterase (Negative) Urine WBC (0-5) /hpf Ur Squamous Epith Cells (0-4) /hpf Amorphous Sediment (None) /hpf 05/30/19 05/30/19 Range/Units 13:22 16:15 WBC (3.8-10.6) k/uL RBC (4.30-5.90) m/uL Hgb (13.0-17.5) gm/dL Hct (39.0-53.0) % MCV (80.0-100.0) fL MCH (25.0-35.0) pg MCHC (31.0-37.0) g/dL RDW (11.5-15.5) % Plt Count (150-450) k/uL Neutrophils % % Lymphocytes % % Monocytes % % Eosinophils % % Basophils % % Neutrophils # (1.3-7.7) k/uL Lymphocytes # (1.0-4.8) k/uL Monocytes # (0-1.0) k/uL Eosinophils # (0-0.7) k/uL Basophils # (0-0.2) k/uL PT (9.0-12.0) sec INR (<1.2) APTT (22.0-30.0) sec Sodium (137-145) mmol/L Potassium (3.5-5.1) mmol/L Chloride (98-107) mmol/L Carbon Dioxide (22-30) mmol/L Anion Gap mmol/L BUN (9-20) mg/dL Creatinine (0.66-1.25) mg/dL Est GFR (CKD-EPI)AfAm (>60 ml/min/1.73 sqM) Est GFR (CKD-EPI)NonAf (>60 ml/min/1.73 sqM) Glucose (74-99) mg/dL Plasma Lactic Acid Fernie 1.0 (0.7-2.0) mmol/L Calcium (8.4-10.2) mg/dL Total Bilirubin (0.2-1.3) mg/dL AST (17-59) U/L ALT (4-49) U/L Alkaline Phosphatase (38-126) U/L Total Protein (6.3-8.2) g/dL Albumin (3.5-5.0) g/dL Amylase (30-110) U/L Lipase (23-300) U/L Urine Color Light Yellow Urine Appearance Cloudy (Clear) Urine pH 7.5 (5.0-8.0) Ur Specific [place] 1.024 (1.001-1.035) Urine Protein Negative (Negative) Urine Glucose (UA) Negative (Negative) Urine Ketones Negative (Negative) Urine Blood Negative (Negative) Urine Nitrite Positive (Negative) Urine Bilirubin Negative (Negative) Urine Urobilinogen <2.0 (<2.0) mg/dL Ur Leukocyte Esterase Moderate H (Negative) Urine WBC 4 (0-5) /hpf Ur Squamous Epith Cells <1 (0-4) /hpf Amorphous Sediment Rare H (None) /hpf Disposition Clinical Impression: Abdominal pain, UTI (urinary tract infection) Disposition: HOME SELF-CARE Condition: Stable Instructions (If sedation given, give patient instructions): Urinary Tract Infection in Men (ED) Additional Instructions: Please return to the Emergency Department if symptoms worsen or any other concerns. Take antibiotic as prescribed. Follow-up with PCP. Prescriptions: Cephalexin [Keflex] 500 mg PO Q6HR 7 Days #28 cap Is patient prescribed a controlled substance at d/c from ED?: No Referrals: Jerome Osborn MD [Primary Care Provider] - 1-2 days
[2019-05-30 16:33] LABS: Amorphous Sediment,Urine Rare /hpf; Appearance,Urine Cloudy (Clear); Bilirubin,Urine Negative (Negative); Blood,Urine Negative (Negative); Color,Urine Light Yellow; Glucose,Urine (UA) Negative (Negative); Ketones,Urine Negative (Negative); Leukocyte Esterase,Urine Moderate (Negative); Nitrite,Urine Positive (Negative); PH, Urine 7.5 (5.0-8.0); Protein,Urine Negative (Negative); Specific Gravity,Urine 1.024 (1.001-1.035); Squamous Epithelial Cell,Urine <1 /hpf (0-4); Urobilinogen,Urine <2.0 mg/dL (<2.0); WBC,Urine 4 /hpf (0-5)
[2019-05-30] MEDS ORDERED: cefTRIAXone IN SWFI 1,000 MG/10 ML SYRINGE IVP STA (16:36)
== END 2019-05-30 17:01 | disposition home or self-care (01) ==
LOC: EC 12:36
DX: N39.0 Urinary tract infection, site not specified (principal); E11.9 Type 2 diabetes mellitus without complications; I11.0 Hypertensive heart disease with heart failure; I50.9 Heart failure, unspecified; I25.2 Old myocardial infarction; E78.5 Hyperlipidemia, unspecified; F41.9 Anxiety disorder, unspecified; F17.200 Nicotine dependence, unspecified, uncomplicated; Z79.82 Long term (current) use of aspirin; Z79.4 Long term (current) use of insulin; Z79.899 Other long term (current) drug therapy; Z95.5 Presence of coronary angioplasty implant and graft
CPT/HCPCS: 36415; 80053; 82150; 83605; 83690; 85025; 85610; 85730; 81001; 74177; 99284; 96374; 96375 ×2; 96361; J2405; J0696; J1885; Q9967

== ENCOUNTER → 2020-05-17 | Outpatient (CLI) | payer MEDICARE, OTHER ==
--- NOTE | 2020-05-17 12:56 | CT ---
EXAMINATION TYPE: CT soft tissue neck w con DATE OF EXAM: 05/17/2020 COMPARISON: None HISTORY: 65 year-old male shortness of breath, DANIEL and Difficulty swallowing. R13.10 Dysphagia ,R49. 0 Dysphonia TECHNIQUE: Contiguous axial scanning of the soft tissues of the neck performed with IV Contrast, yordy ent injected with 100 mL of Isovue 300. Coronal/sagittal reconstructions performed. CT DLP: 647.3 mGycm Automated exposure control for dose reduction was used. FINDINGS: The thyroid, submandibular, parotid glands show no gross abnormality. 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 Moderate mucosal thickening throughout the ethmoid air cells and mild throughout the maxillary sinuse s. Mastoid air cells are opacified on the left. The left mesotympanum is also opacified. Nasopharynx appears clear. Oropharynx appears clear. Epiglottis and prevertebral soft tissues are satisfactory. Glottic and subglottic structures as well as the tracheal column appear clear. Groundglass changes in the visualized upper lungs may reflect generalized atelectasis. Mildly enlarged subcarinal lymph node and a 1.6 cm. Dense LAD coronary artery calcifications. Prevasc ular space lymph node enlargement 1.4 cm. Upper paratracheal lymph node prominent but nonenlarged and 9 mm. At least moderate atherosclerotic changes at both carotid bifurcations. No cervical lymphadenopathy seen. Bones: Hypertrophic facet arthropathy with degenerative grade 1 anterolisthesis C4-C5. IMPRESSION: 1. CERVICAL MUCOSAL SPACE SHOWS NO GROSS ABNORMALITY. NO CERVICAL LYMPHADENOPATHY OR SUSPICIOUS NECK MASS IDENTIFIED. 2. SOME PARTIALLY VISUALIZED MEDIASTINAL LYMPHADENOPATHY MEASURING UP TO 1.[address] CONTRAST-ENHANCED CT CHEST RECOMMENDED TO FURTHER EVALUATE. 3. IF PATIENT HAS TROUBLE SWALLOWING, CONSIDER SPEECH PATHOLOGY EVALUATION.
== END | disposition home or self-care (01) ==
LOC: RADCTMAIN 12:10
PROVIDERS: ATTEND Otolaryngology
DX: R59.0 Localized enlarged lymph nodes (principal); R13.10 Dysphagia, unspecified; R49.0 Dysphonia
CPT/HCPCS: 70491; Q9967

== ENCOUNTER → 2020-06-22 | Outpatient (CLI) | payer MEDICARE, OTHER ==
[2020-06-22 14:27] LABS: African American GFR (CKD) >90 (>60 ml/min/1.73 sqM); Blood Urea Nitrogen 18 mg/dL (9-20); Non-African American GFR(CKD) >90 (>60 ml/min/1.73 sqM)
--- NOTE | 2020-06-22 19:53 | CT ---
EXAMINATION TYPE: CT chest wo/w con DATE OF EXAM: 06/22/2020 COMPARISON: 11/11/2017 HISTORY: Enlarged lymph nodes CT DLP: 1375 mGycm Automated exposure control for dose reduction was used. TECHNIQUE: CT scan of the chest is performed with IV Contrast, patient injected with 100 mL of Isovue 300. MIP Images are created on CT scanner and reviewed. 3D reconstructed images are created on an independent workstation and reviewed. FINDINGS: LUNGS: There is a stable subpleural area of nodularity measuring 1.5 cm. Previously measured 1.5 cm. Additional subpleural nodule measuring 1.4 cm posteriorly was obscured by the area of consolidation o n prior exam. There remains a perihilar interstitial infiltrates. There is a 3 mm subpleural nodule l eft upper lobe axial image 43. No pneumothorax. Tiny bilateral pleural effusion. MEDIASTINUM: The heart is enlarged and there is dense coronary artery calcification and atherosclerot ic change of the aorta. No aneurysm. There is lymphadenopathy in the mediastinum the largest measurin g 1.2 cm in the prevascular space. Additional subcarinal adenopathy measuring 1.7 cm in short axis. S hotty adenopathy in the axilla. Tiny right pleural effusion noted. OTHER: Hypertrophic and degenerative changes of the spine. IMPRESSION: 1. Persistent diffuse interstitial infiltrates correlate for interstitial pneumonia. Less likely etio logy would include lymphangitic metastases or interstitial edema. There are 2 subpleural nodules with in the right lower lobe measuring approximately 1.5 and 1.4 cm. Smaller lesion was obscured by consol idation on the prior exam. Recommend PET scan. 2. Pathologic adenopathy in the mediastinum. PET scan recommended. 3. Dense coronary artery calcification correlate for coronary atherosclerotic disease with cardiomega ly.
== END | disposition home or self-care (01) ==
LOC: RADCTMAIN 13:42
PROVIDERS: ATTEND Otolaryngology
DX: J84.9 Interstitial pulmonary disease, unspecified (principal); R91.8 Other nonspecific abnormal finding of lung field; R59.0 Localized enlarged lymph nodes; I25.10 Atherosclerotic heart disease of native coronary artery without angina pectoris
CPT/HCPCS: 82565; 84520; 71270; 36415; Q9967

== ENCOUNTER → 2020-07-13 | Outpatient (CLI) | payer MEDICARE, OTHER ==
--- NOTE | 2020-07-16 06:19 | PE ---
EXAMINATION TYPE: PET CT fusion skull to thigh DATE OF EXAM: 07/13/2020 COMPARISON: Chest CT June 22, [address] neck May 17, 2020 HISTORY: Dysphagia. Paralysis of vocal cords and larynx. TECHNIQUE: Following the intravenous administration of 8.8 mCi of F-18 FDG, whole body images are pe rformed from the skull base to the midthigh. Images are reviewed on the computer in the coronal, axi al, and sagittal planes. Reconstructed rotating images are created on independent workstation and re viewed on the computer. A localization and attenuation correction CT is performed in conjunction wi th the PET scan. Dedicated PET/CT imaging of the neck is performed. Blood glucose level equals 133. SCAN: FINDINGS: SKULL BASE AND NECK: No areas of abnormal hypermetabolic uptake. CHEST, MEDIASTINUM, AND HILAR REGION: No areas of abnormal hypermetabolic uptake. ABDOMEN AND PELVIS: Normal excretion. No areas of abnormal hypermetabolic uptake. OSSEOUS STRUCTURES: No areas of abnormal hypermetabolic uptake. OTHER CT: Redemonstration of magna cisterna magna on the posterior fossa. Mild to moderate mucosal th ickening involving anterior inferior right maxillary sinus. There is severe three-vessel coronary artery calcification. Cardiomegaly redemonstrated. Subareolar f lame-shaped gynecomastia again seen. Small dependent gallstones and/or gallbladder sludge. There is thin-walled partially exophytic 2.0 cm cyst medially upper to midpole level right kidney. Moderate calcified plaque of the aorta extends in to branch vessels. Underlying scoliotic curvature. Facet arthropathy lower lumbar spine. IMPRESSION: No areas of abnormal hypermetabolic uptake to suggest malignancy.
== END | disposition home or self-care (01) ==
LOC: RADPETMAIN 07:19
PROVIDERS: ATTEND Otolaryngology
DX: J38.00 Paralysis of vocal cords and larynx, unspecified (principal); R13.10 Dysphagia, unspecified
CPT/HCPCS: 78815; A9552

== ENCOUNTER 2020-08-23 11:47 | Inpatient (IN) | payer MEDICARE, OTHER ==
[2020-08-23] MEDS ORDERED: IPRATROPIUM 0.5 MG/2.5 ML NEBU INHALATION STA (12:21)
[2020-08-23] MEDS ORDERED: ALBUTEROL NEBULIZED 2.5 MG/3 ML INHALATION STA (12:21)
[2020-08-23 12:33] LABS: Basophils # (A) 0.1 k/uL (0-0.2); Basophils % (A) 1 %; Eosinophils # (A) 0.4 k/uL (0-0.7); Eosinophils % (A) 6 %; HCT 41.3 % (39.0-53.0); HGB 13.7 gm/dL (13.0-17.5); Lymphocytes % (A) 15 %; MCH 29.2 pg (25.0-35.0); MCHC 33.2 g/dL (31.0-37.0); Monocytes # (A) 0.3 k/uL (0-1.0); Monocytes % (A) 5 %; Neutrophils # (A) 4.5 k/uL (1.3-7.7); Neutrophils % (A) 70 %; Platelet Count 148 k/uL (150-450); RDW 14.7 % (11.5-15.5); WBC 6.5 k/uL (3.8-10.6)
[2020-08-23 12:42] LABS: ALT 14 U/L (4-49); AST 20 U/L (17-59); African American GFR (CKD) >90 (>60 ml/min/1.73 sqM); Albumin 3.6 g/dL (3.5-5.0); Alkaline Phosphatase 117 U/L (38-126); Anion Gap 9 mmol/L; Blood Urea Nitrogen 16 mg/dL (9-20); Calcium 8.6 mg/dL (8.4-10.2); Carbon Dioxide 17 mmol/L (22-30); Chloride 111 mmol/L (98-107); Glucose 165 mg/dL (74-99); Non-African American GFR(CKD) >90 (>60 ml/min/1.73 sqM); Potassium 4.1 mmol/L (3.5-5.1); Sodium 137 mmol/L (137-145); Total Bilirubin 0.5 mg/dL (0.2-1.3); Total Protein 6.9 g/dL (6.3-8.2)
[2020-08-23 12:50] LABS: Partial Thromboplastin Time 26.1 sec (22.0-30.0); Prothrombin Time 10.4 sec (9.0-12.0)
--- NOTE | 2020-08-23 12:57 | ED ---
General Adult HPI - General Chief complaint: Shortness of Breath Stated complaint: DANIEL Time Seen by Provider: 08/23/20 11:48 Source: patient, EMS, RN notes reviewed, old records reviewed Mode of arrival: EMS Limitations: physical limitation - History of Present Illness Initial comments: 65-year-old male presenting for evaluation of dyspnea and hypoxia. History is obtained somewhat from the patient although he is very hard of hearing and from EMS who states that the patient was noted to be dyspneic and hypoxic by EMS staff. There is no reported history of an oxygen dependence in this patient. He does have history of COPD. He was found somewhat altered with low oxygenation. There was no reported cough or fever. The patient denies any pain complaints. He was transported by EMS with significant ectopy on EKG which didn't resolve with supplemental oxygen. He is alert and oriented but difficult to get a detailed history secondary to hearing loss. - Related Data Home Medications Medication Instructions Recorded Confirmed Pravastatin Sodium [Pravachol] 40 mg PO HS 10/05/15 08/23/20 Paliperidone IM [Invega Sustenna] 234 mg IM Q30D 06/04/17 08/23/20 Potassium Chloride ER [K-Dur 20] 20 meq PO BID@0800,1700 06/04/17 08/23/20 Sertraline HCl [Zoloft] 100 mg PO DAILY@0800 06/04/17 08/23/20 Aspirin 325 mg PO DAILY@0800 06/13/17 08/23/20 Tamsulosin [Flomax] 0.4 mg PO DAILY@0800 11/07/17 08/23/20 Ubidecarenone [Co Q-10] 100 mg PO DAILY@0800 11/07/17 08/23/20 Sacubitril/Valsartan [Entresto 24 1 tab PO BID@0800,1700 05/18/18 08/23/20 mg-26 mg Tablet] Acetaminophen Tab [Tylenol Tab] 500 mg PO BID@0800,2100 08/23/20 08/23/20 Acetaminophen [Tylenol Arthritis] 650 mg PO Q4H PRN MDD 3000 MG 08/23/20 08/23/20 Artificial Tears-Hypromellose 1 drops BOTH EYES Q2H PRN 08/23/20 08/23/20 [Artificial Tear Drops] Baclofen [Lioresal] 10 mg PO BID@0800,1700 08/23/20 08/23/20 Benzocaine Gel 20% 1 applic TOPICAL QID PRN 08/23/20 08/23/20 Bisacodyl 5 mg PO DAILY PRN 08/23/20 08/23/20 Docusate [Colace] 100 mg PO BID@0800,1700 08/23/20 08/23/20 Fluticasone Propionate [Flonase 1 spray EA NOSTRIL DAILY 08/23/20 08/23/20 Allergy Relief] Furosemide [Lasix] 40 mg PO BID@0800,1700 08/23/20 08/23/20 Hydrocortisone 1% Lotion 1 applic TOPICAL BID PRN 08/23/20 08/23/20 Ipratropium-Albuterol Nebulize 3 ml INHALATION RT-Q6H 08/23/20 08/23/20 [Duoneb 0.5 mg-3 mg/3 ml Soln] Loperamide HCl [Imodium A-D] 2 mg PO Q6H PRN 08/23/20 08/23/20 Magnesium Hydroxide [Milk of 7,200 mg PO DAILY PRN 08/23/20 08/23/20 Magnesia Concentrate] Menthol [Biofreeze] 1 applic TOPICAL DAILY PRN 08/23/20 08/23/20 Mirtazapine 7.5 mg PO HS 08/23/20 08/23/20 Na Phos,M-B/Na Phos,Di-Ba [Fleet 133 ml RECTAL DAILY PRN 08/23/20 08/23/20 Adult] Omeprazole Magnesium [PriLOSEC] 20 mg PO DAILY@0800 08/23/20 08/23/20 Polyethylene Glycol 3350 [Miralax] 17 gm PO DAILY@0800 08/23/20 08/23/20 Sodium Chloride [Saline Nasal 2 spray EA NOSTRIL BID PRN 08/23/20 08/23/20 [place]] bisacodyL [Dulcolax] 10 mg RECTAL DAILY PRN 08/23/20 08/23/20 carvediloL [Coreg] 6.25 mg PO BID@0800,1700 08/23/20 08/23/20 sitaGLIPtin PHOSPHATE [Januvia] 100 mg PO DAILY@0800 08/23/20 08/23/20 Previous Rx's Medication Instructions Recorded Nitroglycerin Sl Tabs [Nitrostat] 0.4 mg SUBLINGUAL Q5M PRN #0 tab 11/16/15 Allergies Allergy/AdvReac Type Severity Reaction Status Date / Time No Known Allergies Allergy Verified 08/23/20 13:40 Review of Systems ROS Statement: Those systems with pertinent positive or pertinent negative responses have been documented in the HPI. ROS Other: All systems not noted in ROS Statement are negative. Past Medical History Past Medical History: Heart Failure, GERD/Reflux, Hearing Disorder / Deafness, Hyperlipidemia, Hypertension, Myocardial Infarction (SD) Additional Past Medical History / Comment(s): RECTAL BLEEDING, Borderline diabetes, esophagitis, barretts esophagus Last Myocardial Infarction Date:: 07/15/15 History of Any Multi-Drug Resistant Organisms: None Reported Past Surgical History: Heart Catheterization With Stent Past Anesthesia/Blood Transfusion Reactions: No Reported Reaction Date of Last Stent Placement:: 07/15/15 Past Psychological History: Anxiety, Schizoaffective Disorder, Schizophrenia Smoking Status: Unknown if ever smoked Past Alcohol Use History: None Reported Past Drug Use History: None Reported - Past Family History Mother Family Medical History: Cancer General Exam Limitations: no limitations General appearance: alert, in no apparent distress Head exam: Present: atraumatic, normocephalic Eye exam: Present: normal appearance, PERRL ENT exam: Present: normal exam Neck exam: Present: normal inspection, tenderness Respiratory exam: Present: decreased breath sounds. Absent: respiratory distress, wheezes Cardiovascular Exam: Present: regular rate, normal rhythm GI/Abdominal exam: Present: soft. Absent: distended, tenderness Extremities exam: Present: normal inspection, normal capillary refill. Absent: pedal edema, calf tenderness Neurological exam: Present: alert. Absent: motor sensory deficit Psychiatric exam: Present: flat affect Skin exam: Present: warm, dry, intact. Absent: cyanosis, diaphoretic Course Vital Signs 08/23/20 08/23/20 08/23/20 11:51 12:49 13:03 Pulse Rate 79 77 73 Respiratory 22 Rate Blood Pressure 104/65 O2 Sat by Pulse 99 Oximetry 08/23/20 13:56 Pulse Rate 80 Respiratory 18 Rate Blood Pressure 112/69 O2 Sat by Pulse 97 Oximetry EKG Findings - EKG Comments: EKG Findings:: EKG: Normal sinus rhythm, left atrial enlargement, rate of 80, WV interval 186, QRS duration 122, QTC 528, no ST segment elevation Medical Decision Making - Medical Decision Making Referral male presenting with hypoxia, increased work of breathing. History of COPD and CHF. History limited. Patient does respond well to supplemental oxygen. He has a CBC within normal limits. He has a mildly elevated BNP at 1690. Negative troponin. Chest x-ray showing bilateral likely pulmonary edema, there is some concern for infectious etiology although I suspect this is more related to heart failure. He is given IV antibiotics in the emergency department, IV Lasix. As well as steroids and breathing treatments. He will be admitted to Dr. Perez who is aware of the patient. Multifactorial dyspnea. - Lab Data Result diagrams: 08/23/20 12:26 08/23/20 12:26 Lab Results 08/23/20 08/23/20 08/23/20 Range/Units 12:26 12:26 12:26 WBC 6.5 (3.8-10.6) k/uL RBC 4.70 (4.30-5.90) m/uL Hgb 13.7 (13.0-17.5) gm/dL Hct 41.3 (39.0-53.0) % MCV 88.0 (80.0-100.0) fL MCH 29.2 (25.0-35.0) pg MCHC 33.2 (31.0-37.0) g/dL RDW 14.7 (11.5-15.5) % Plt Count 148 L (150-450) k/uL MPV 7.0 Neutrophils % 70 % Lymphocytes % 15 % Monocytes % 5 % Eosinophils % 6 % Basophils % 1 % Neutrophils # 4.5 (1.3-7.7) k/uL Lymphocytes # 1.0 (1.0-4.8) k/uL Monocytes # 0.3 (0-1.0) k/uL Eosinophils # 0.4 (0-0.7) k/uL Basophils # 0.1 (0-0.2) k/uL PT 10.4 (9.0-12.0) sec INR 1.0 (<1.2) APTT 26.1 (22.0-30.0) sec Sodium 137 (137-145) mmol/L Potassium 4.1 (3.5-5.1) mmol/L Chloride 111 H (98-107) mmol/L Carbon Dioxide 17 L (22-30) mmol/L Anion Gap 9 mmol/L BUN 16 (9-20) mg/dL Creatinine 0.72 (0.66-1.25) mg/dL Est GFR (CKD-EPI)AfAm >90 (>60 ml/min/1.73 sqM) Est GFR (CKD-EPI)NonAf >90 (>60 ml/min/1.73 sqM) Glucose 165 H (74-99) mg/dL Plasma Lactic Acid Fernie (0.7-2.0) mmol/L Calcium 8.6 (8.4-10.2) mg/dL Magnesium 2.0 (1.6-2.3) mg/dL Total Bilirubin 0.5 (0.2-1.3) mg/dL AST 20 (17-59) U/L ALT 14 (4-49) U/L Alkaline Phosphatase 117 (38-126) U/L Troponin I (0.000-0.034) ng/mL NT-Pro-B Natriuret Pep pg/mL Total Protein 6.9 (6.3-8.2) g/dL Albumin 3.6 (3.5-5.0) g/dL 08/23/20 08/23/20 08/23/20 Range/Units 12:26 12:26 12:26 WBC (3.8-10.6) k/uL RBC (4.30-5.90) m/uL Hgb (13.0-17.5) gm/dL Hct (39.0-53.0) % MCV (80.0-100.0) fL MCH (25.0-35.0) pg MCHC (31.0-37.0) g/dL RDW (11.5-15.5) % Plt Count (150-450) k/uL MPV Neutrophils % % Lymphocytes % % Monocytes % % Eosinophils % % Basophils % % Neutrophils # (1.3-7.7) k/uL Lymphocytes # (1.0-4.8) k/uL Monocytes # (0-1.0) k/uL Eosinophils # (0-0.7) k/uL Basophils # (0-0.2) k/uL PT (9.0-12.0) sec INR (<1.2) APTT (22.0-30.0) sec Sodium (137-145) mmol/L Potassium (3.5-5.1) mmol/L Chloride (98-107) mmol/L Carbon Dioxide (22-30) mmol/L Anion Gap mmol/L BUN (9-20) mg/dL Creatinine (0.66-1.25) mg/dL Est GFR (CKD-EPI)AfAm (>60 ml/min/1.73 sqM) Est GFR (CKD-EPI)NonAf (>60 ml/min/1.73 sqM) Glucose (74-99) mg/dL Plasma Lactic Acid Fernie 1.3 (0.7-2.0) mmol/L Calcium (8.4-10.2) mg/dL Magnesium (1.6-2.3) mg/dL Total Bilirubin (0.2-1.3) mg/dL AST (17-59) U/L ALT (4-49) U/L Alkaline Phosphatase (38-126) U/L Troponin I 0.019 (0.000-0.034) ng/mL NT-Pro-B Natriuret Pep 1690 pg/mL Total Protein (6.3-8.2) g/dL Albumin (3.5-5.0) g/dL Disposition Clinical Impression: Acute exacerbation of chronic obstructive airways disease, Congestive heart failure Disposition: ADMITTED IP TO THIS [facility] Condition: Stable Is patient prescribed a controlled substance at d/c from ED?: No Referrals: Jerome Osborn MD [Primary Care Provider] - 1-2 days Decision to Admit Reason: Admit from EC Decision Date: 08/23/20 Decision Time: 14:26
--- NOTE | 2020-08-23 13:02 | XR ---
EXAMINATION TYPE: XR chest 2V DATE OF EXAM: 08/23/2020 COMPARISON: 05/18/2018 HISTORY: Difficulty breathing TECHNIQUE: Frontal and lateral views of the chest are obtained. FINDINGS: There is patchy airspace disease seen bilaterally of uncertain etiology. Cardiac silhouette appears similar in size to the prior exam. IMPRESSION: There is patchy airspace disease seen bilaterally of uncertain etiology. Infection versus neoplasm ve rsus other less likely etiologies are possible.
[2020-08-23] MEDS ORDERED: cefTRIAXone IN SWFI 1,000 MG/10 ML SYRINGE IVP STA (13:56)
[2020-08-23] MEDS ORDERED: AZITHROMYCIN 500 MG in SODIUM CHLORIDE 0.9% 250 ML IVPB STA (13:56)
[2020-08-23] MEDS ORDERED: FUROSEMIDE 10 MG/ML 4 ML VIAL IV STA (13:57)
[2020-08-23] MEDS ORDERED: predniSONE 50 MG TAB PO STA (13:59)
[2020-08-23] MEDS ORDERED: IPRATROPIUM-ALBUTEROL 3 ML NEB INHALATION PRN (14:23)
[2020-08-23] MEDS: IPRATROPIUM-ALBUTEROL 3 ML NEB INHALATION SCH ×2 (16:00→20:18)
[2020-08-23 17:12] LABS: Glucose,Whole Blood 148 mg/dL (75-99)
[2020-08-23] MEDS ORDERED: HYDROCORTISONE 1% CREAM 30 GM TUBE TOPICAL PRN (18:14)
[2020-08-23] MEDS ORDERED: ARTIFICIAL TEARS-HYPROMELLOSE DROPS 15 ML BTL BOTH EYES PRN (18:14)
[2020-08-23] MEDS ORDERED: MAGNESIUM HYDROXIDE 2,400 MG/10 ML CUP PO PRN (18:14)
[2020-08-23] MEDS ORDERED: bisacodyL 10 MG SUPP RECTAL PRN (18:14)
[2020-08-23] MEDS ORDERED: BENZOCAINE 20 % GEL 15 GM TUBE MM PRN (18:14)
[2020-08-23] MEDS ORDERED: ACETAMINOPHEN TAB 325 MG TAB PO PRN (18:14)
[2020-08-23] MEDS ORDERED: LOPERAMIDE 2 MG CAP PO PRN (18:14)
[2020-08-23] MEDS ORDERED: bisacodyL 5 MG TABLET.DR PO PRN (18:14)
[2020-08-23] MEDS ORDERED: ONDANSETRON 4 MG/2 ML VIAL IVP PRN (18:18)
[2020-08-23] MEDS ORDERED: IPRATROPIUM-ALBUTEROL 3 ML NEB INHALATION SCH (20:00)
--- NOTE | 2020-08-23 20:04 | P.HPIM ---
History of Present Illness H&P Date: 08/23/20 65 years old male patient of Dr. Osborn with past medical history of ischemic cardiomyopathy with EF last in 2019 was 25-30%, COPD, she has affected disorder, hypertension hyperlipidemia, history of coronary artery disease status post angioplasty and stent placement in RCA in 2011, mitral regurgitation who comes in with EMS with history of dyspnea and hypoxia. Patient does not use oxygen at home. He was found to be altered in the ER due to low oxygenation. He denies any cough or fever. He does document shortness of breath and dry cough. Patient's shortness of breath improved with oxygenation. Vitals obtained as pulses of 79 respiratory rate 22 blood pressure 104/65 oxygen satu ration 97% on 6 L. Labs obtained suggest to hemoglobin 13.7 WBC 6.5 platelet 148 INR 1 RCA and pieces of sodium 137 potassium 4.1 chloride 111 bicarb 17 creatinine 0.7 glucose 165. ProBNP 1690 troponin 1 negative liver enzymes are normal magnesium of 2 chest x-ray obtained suggest patchy airspace disease bilaterally with concern of infection versus neoplasm. Chest CT obtained on 06/22/2020 suggestive of interstitial infiltrate that were suggestive of interstitial pneumonia versus lymphangitis metastatic is on interstitial edema. 2 subpleural nodules were noted. PET scan was recommended. Patient underwent PET scan and was negative for any abnormal uptake. The patient is treated with Rocephin and azithromycin. One dose of Lasix 40 mg IV given. 50 mg prednisone given. Patient says the presentation appear to be a combination of a CHF exacerbation and COPD exacerbation was a possibility of infectious etiology. Her calcitonin ordered continue to monitor vitals. Continue DuoNeb as needed for shortness of breath. Legionella and Mycoplasma ordered to rule out atypical pneumonia. Review of Systems Constitutional: Denies chills, Denies fever, endorses lethargy Eyes: denies decreased vision, denies diplopia, denies discharge, denies pain Ears: decreased hearing Ears, nose, mouth and throat: Denies dental pain, Denies headache, Denies nasal discharge, Denies nose pain Cardiovascular: Denies chest pain, endorses decreased exercise tolerance, Denies edema, Denies high blood pressure, Denies irregular heart beat, Denies palpitations, Denies paroxysmal nocturnal dyspnea, Denies rapid heart beat, endorses shortness of breath Respiratory: Denies congestion, Denies cough, Denies cough with sputum, endorses dyspnea, Denies home oxygen, Denies wheezing Gastrointestinal: Denies abdominal pain, Denies change in bowel habits, Denies coffee ground emesis, Denies early satiety, Denies excessive gas, Denies heartburn, Denies hematemesis, Denies hematochezia, Denies loss of appetite, Denies nausea, Denies vomiting Genitourinary: Denies dysuria, Denies flank pain, Denies kidney stones, Denies menorrhagia, Denies urgency, Denies urinary frequency Musculoskeletal: Denies gait dysfunction, Denies limitation of motion, Denies morning stiffness, Denies muscle cramps Integumentary: Denies rash, Denies wounds, Denies brittle nails, Denies change in hair/nails, Denies darkening of skin Neurological: Denies balance difficulties, Denies change in speech, Denies double vision, Denies gait dysfunction, Denies loss of vision, Denies motor disturbance, Denies numbness, Denies paralysis, Denies paresthesias, Denies seizures Psychiatric: Denies anxiety, Denies depression Endocrine: Denies excessive sweating, Denies excessive thirst, Denies high blood sugars, Denies palpitations Hematologic/Lymphatic: Denies easy bruising, Denies lymphadenopathy Past Medical History Past Medical History: Heart Failure, Diabetes Mellitus, GERD/Reflux, Hearing Disorder / Deafness, Hyperlipidemia, Hypertension, Myocardial Infarction ([place]) Additional Past Medical History / Comment(s): RECTAL BLEEDING, Borderline diabetes, esophagitis, barretts esophagus Last Myocardial Infarction Date:: 07/15/15 History of Any Multi-Drug Resistant Organisms: None Reported Past Surgical History: Heart Catheterization With Stent Past Anesthesia/Blood Transfusion Reactions: No Reported Reaction Date of Last Stent Placement:: 07/15/15 Past Psychological History: Anxiety, Schizoaffective Disorder, Schizophrenia Smoking Status: Former smoker Past Alcohol Use History: None Reported Additional Past Alcohol Use History / Comment(s): STARTED SMOKING AT AGE 13 Past Drug Use History: None Reported Additional Drug Use History / Comment(s): per legal guardian - Past Family History Mother Family Medical History: Cancer Additional Family Medical History / Comment(s): Other family history nonsignificant Medications and Allergies Home Medications Medication Instructions Recorded Confirmed Type Pravastatin Sodium [Pravachol] 40 mg PO HS 10/05/15 08/23/20 History Nitroglycerin Sl Tabs [Nitrostat] 0.4 mg SUBLINGUAL Q5M PRN #0 tab 11/16/15 08/23/20 Rx Paliperidone IM [Invega Sustenna] 234 mg IM Q30D 06/04/17 08/23/20 History Potassium Chloride ER [K-Dur 20] 20 meq PO BID@0800,1700 06/04/17 08/23/20 History Sertraline HCl [Zoloft] 100 mg PO DAILY@0800 06/04/17 08/23/20 History Aspirin 325 mg PO DAILY@0800 06/13/17 08/23/20 History Tamsulosin [Flomax] 0.4 mg PO DAILY@0800 11/07/17 08/23/20 History Ubidecarenone [Co Q-10] 100 mg PO DAILY@0800 11/07/17 08/23/20 History Sacubitril/Valsartan [Entresto 24 1 tab PO BID@0800,1700 05/18/18 08/23/20 History mg-26 mg Tablet] Acetaminophen Tab [Tylenol Tab] 500 mg PO BID@0800,2100 08/23/20 08/23/20 History Acetaminophen [Tylenol Arthritis] 650 mg PO Q4H PRN MDD 3000 MG 08/23/20 08/23/20 History Artificial Tears-Hypromellose 1 drops BOTH EYES Q2H PRN 08/23/20 08/23/20 History [Artificial Tear Drops] Baclofen [Lioresal] 10 mg PO BID@0800,1700 08/23/20 08/23/20 History Benzocaine Gel 20% 1 applic TOPICAL QID PRN 08/23/20 08/23/20 History Bisacodyl 5 mg PO DAILY PRN 08/23/20 08/23/20 History Docusate [Colace] 100 mg PO BID@0800,1700 08/23/20 08/23/20 History Fluticasone Propionate [Flonase 1 spray EA NOSTRIL DAILY 08/23/20 08/23/20 History Allergy Relief] Furosemide [Lasix] 40 mg PO BID@0800,1700 08/23/20 08/23/20 History Hydrocortisone 1% Lotion 1 applic TOPICAL BID PRN 08/23/20 08/23/20 History Ipratropium-Albuterol Nebulize 3 ml INHALATION RT-Q6H 08/23/20 08/23/20 History [Duoneb 0.5 mg-3 mg/3 ml Soln] Loperamide HCl [Imodium A-D] 2 mg PO Q6H PRN 08/23/20 08/23/20 History Magnesium Hydroxide [Milk of 7,200 mg PO DAILY PRN 08/23/20 08/23/20 History Magnesia Concentrate] Menthol [Biofreeze] 1 applic TOPICAL DAILY PRN 08/23/20 08/23/20 History Mirtazapine 7.5 mg PO HS 08/23/20 08/23/20 History Na Phos,M-B/Na Phos,Di-Ba [Fleet 133 ml RECTAL DAILY PRN 08/23/20 08/23/20 History Adult] Omeprazole Magnesium [PriLOSEC] 20 mg PO DAILY@0800 08/23/20 08/23/20 History Polyethylene Glycol 3350 [Miralax] 17 gm PO DAILY@0800 08/23/20 08/23/20 History Sodium Chloride [Saline Nasal 2 spray EA NOSTRIL BID PRN 08/23/20 08/23/20 History Junction] bisacodyL [Dulcolax] 10 mg RECTAL DAILY PRN 08/23/20 08/23/20 History carvediloL [Coreg] 6.25 mg PO BID@0800,1700 08/23/20 08/23/20 History sitaGLIPtin PHOSPHATE [Januvia] 100 mg PO DAILY@0800 08/23/20 08/23/20 History Allergies Allergy/AdvReac Type Severity Reaction Status Date / Time No Known Allergies Allergy Verified 08/23/20 13:40 Physical Exam Vitals: Vital Signs Temp Pulse Pulse Resp BP BP Pulse Ox 08/23/20 16:30 97.8 F 83 35 H 102/54 97 08/23/20 15:26 80 18 102/62 96 08/23/20 14:51 73 18 91/55 98 08/23/20 13:56 80 18 112/69 97 08/23/20 13:03 73 08/23/20 12:49 77 08/23/20 11:51 79 22 104/65 99 Intake and Output 08/23/20 08/23/20 08/23/20 06:59 14:59 22:59 Intake Total 0 Balance 0 Intake: Oral 0 Other: Weight 84.64 kg 84 kg - Constitutional General appearance: cooperative, mild acute distress - EENT Eyes: anicteric sclerae, PERRLA, normal appearance ENT: Decreased hearing - Neck Neck: no lymphadenopathy, normal ROM, no other, no rigidity, no stridor, no thyromegaly - Respiratory Respiratory: bilateral: Decreased breath sounds with fine rhonchi and mild expiratory wheezing - Cardiovascular Rhythm: regular Heart sounds: normal: S1, S2, S3 Abnormal Heart Sounds: Positive for systolic murmur, no diastolic murmur, no rub - Gastrointestinal General gastrointestinal: normal bowel sounds, soft nontender - Integumentary Integumentary: no rash 1+ pitting edema with decreased pulses - Neurologic Neurologic: CNII-XII intact - Musculoskeletal Musculoskeletal: gait normal, strength equal bilaterally - Psychiatric Psychiatric: A&O x's 3, appropriate affect Results CBC & Chem 7: 08/23/20 12:26 08/23/20 12:26 Labs: Abnormal Lab Results - Last 24 Hours (Table) 08/23/20 08/23/20 08/23/20 Range/Units 12:26 12:26 17:11 Plt Count 148 L (150-450) k/uL Chloride 111 H (98-107) mmol/L Carbon Dioxide 17 L (22-30) mmol/L Glucose 165 H (74-99) mg/dL POC Glucose (mg/dL) 148 H (75-99) mg/dL Thrombosis Risk Factor Assmnt - DVT/VTE Prophylaxis DVT/VTE Prophylaxis: Pharmacologic Prophylaxis ordered - Choose All That Apply Any of the Below Risk Factors Present?: Yes Each Factor Represents 1 point: Abnormal pulmonary function (COPD), Heart failure (<1month), Obesity (BMI >25) Each Risk Factor Represents 2 Points: Age 61-74 years Other congenital or acquired thrombophilia - If yes, enter type in comment: No Thrombosis Risk Factor Assessment Total Risk Factor Score: 5 Thrombosis Risk Factor Assessment Level: High Risk Assessment and Plan Plan: 1 acute hypoxic respiratory failure: Combination of systolic congestive heart failure, cardiomyopathy, COPD and severe bronchitis. Continue azithromycin and ceftriaxone. Prednisone 40 mg by mouth daily Pulmonary and cardiology consulted. 2 acute exacerbation of systolic dysfunction congestive heart failure with ischemic cardiomyopathy: INR more monitor reducing weight monitoring. Status post IV Lasix 1. Patient will continue with diuretics with titrate furosemide 40 mg IV twice a day and continuing Crestor continue patient on Coreg we'll consult cardiology echocardiogram will be requested continue Zestril at 10 mg daily. 3 mild COPD: Patient will be continue on DuoNeb and Pulmicort continue O2 try to titrate O2 to keep pulse ox above 92 percentile. 4 advance ischemic cardiomyopathy with ejection fraction of 25- 30 , echo 2019 repeat echocardiogram consult cardiology Lasix 40 IV twice a day 5 severe bronchitis: Continue Rocephin and azithromycin. 6 type 2 diabetes: On insulin sliding scale. Hold Januvia while patient in the hospital. 7 schizoaffective disorders: Has been on trazodone Zoloft and Invega. 8 hyperlipidemia: Continue Pravachol at 40 mg daily. 9 severe BPH with urinary retention: Has been on Flomax 0.4 mg daily continue medication. 10 GI prophylaxis: Patient will be on omeprazole 20 mg daily. 11 DVT prophylaxis: lovenox 40 sc daily CODE STATUS: Full code. Admit patient to inpatient status for more than 2 nights.
[2020-08-23 20:13] LABS: Glucose,Whole Blood 295 mg/dL (75-99)
[2020-08-23] MEDS: INSULIN ASPART (NovoLOG) 100 UNIT/ML VIAL SQ SCH (21:37)
[2020-08-23] MEDS: guaiFENesin 600 MG TABLET.ER PO SCH (21:37)
[2020-08-23] MEDS: MIRTAZAPINE 15 MG TAB PO SCH (21:37)
[2020-08-23] MEDS: FUROSEMIDE 10 MG/ML 4 ML VIAL IV SCH (21:37)
[2020-08-23] MEDS: PRAVASTATIN SODIUM 40 MG TAB PO SCH (21:37)
[2020-08-24 01:39] LABS: Hemoglobin A1C 6.9 % (4.0-6.0)
[2020-08-24 06:13] LABS: Glucose,Whole Blood 141 mg/dL (75-99)
[2020-08-24] MEDS: INSULIN ASPART (NovoLOG) 100 UNIT/ML VIAL SQ SCH ×4 (06:31→21:03)
[2020-08-24] MEDS ORDERED: NON FORMULARY DRUG (Ubidecarenone [Co Q-10] 100 MG Capsule) PO SCH (08:00)
[2020-08-24] MEDS ORDERED: ASPIRIN 325 MG TAB PO SCH (08:00)
[2020-08-24] MEDS: IPRATROPIUM-ALBUTEROL 3 ML NEB INHALATION SCH ×4 (08:13→21:42)
[2020-08-24] MEDS: BACLOFEN 10 MG TAB PO SCH ×2 (08:19→16:55)
[2020-08-24] MEDS: DOCUSATE 100 MG CAP PO SCH ×2 (08:19→16:55)
[2020-08-24] MEDS: carvediloL 6.25 MG TAB PO SCH ×2 (08:19→16:55)
[2020-08-24] MEDS: polyethylene glycoL 3350 17 GM POWD.PACK PO SCH (08:19)
[2020-08-24] MEDS: PANTOPRAZOLE 40 MG TABLET PO SCH (08:19)
[2020-08-24] MEDS: FLUTICASONE 50MCG/SPRAY NASAL 16GM EA NOSTRIL SCH (08:20)
[2020-08-24] MEDS: TAMSULOSIN 0.4 MG CAP.ER.24H PO SCH (08:20)
[2020-08-24] MEDS: FUROSEMIDE 10 MG/ML 4 ML VIAL IV SCH ×2 (08:20→21:03)
[2020-08-24] MEDS: guaiFENesin 600 MG TABLET.ER PO SCH ×2 (08:20→21:03)
[2020-08-24] MEDS: ENOXAPARIN 40 MG/0.4 ML SYRINGE SQ SCH (08:20)
[2020-08-24] MEDS: SERTRALINE 100 MG TAB PO SCH (08:20)
[2020-08-24] MEDS: SACUBITRIL/VALSARTAN 24 MG-26 MG TABLET PO SCH ×2 (08:20→16:55)
[2020-08-24] MEDS: POTASSIUM CHLORIDE ER 20 MEQ TAB.ER PO SCH ×2 (08:20→16:55)
[2020-08-24] MEDS ORDERED: predniSONE 20 MG TAB PO SCH (09:00)
[2020-08-24 09:19] LABS: Basophils # (A) 0.1 k/uL (0-0.2); Basophils % (A) 1 %; Eosinophils # (A) 0.1 k/uL (0-0.7); Eosinophils % (A) 1 %; HCT 41.6 % (39.0-53.0); HGB 13.4 gm/dL (13.0-17.5); Lymphocytes # (A) 1.3 k/uL (1.0-4.8); Lymphocytes % (A) 17 %; MCH 28.9 pg (25.0-35.0); MCHC 32.3 g/dL (31.0-37.0); MCV 89.6 fL (80.0-100.0); Mean Platelet Volume 7.5; Monocytes # (A) 0.4 k/uL (0-1.0); Monocytes % (A) 5 %; Neutrophils # (A) 5.5 k/uL (1.3-7.7); Neutrophils % (A) 74 %; Platelet Count 166 k/uL (150-450); RBC 4.64 m/uL (4.30-5.90); RDW 14.5 % (11.5-15.5); WBC 7.4 k/uL (3.8-10.6)
[2020-08-24 09:27] LABS: ALT 14 U/L (4-49); AST 22 U/L (17-59); African American GFR (CKD) >90 (>60 ml/min/1.73 sqM); Alkaline Phosphatase 116 U/L (38-126); Anion Gap 12 mmol/L; Blood Urea Nitrogen 18 mg/dL (9-20); Carbon Dioxide 17 mmol/L (22-30); Chloride 107 mmol/L (98-107); Glucose 157 mg/dL (74-99); Non-African American GFR(CKD) >90 (>60 ml/min/1.73 sqM); Potassium 4.2 mmol/L (3.5-5.1); Sodium 136 mmol/L (137-145); Total Bilirubin 0.4 mg/dL (0.2-1.3); Total Protein 7.5 g/dL (6.3-8.2)
--- NOTE | 2020-08-24 11:00 | ECHOF ---
Referral Reason:CHF MEASUREMENTS -------- HEIGHT: 167.6 cm WEIGHT: 84.8 kg BP: IVSd: 1.1 cm (0.6 - 1.1) LVIDd: 6.6 cm (3.9 - 5.3) LVPWd: 0.9 cm (0.6 - 1.1) EDV(Teich): 222 ml IVSs: 1.2 cm LVIDs: 5.9 cm LVPWs: 1.2 cm %IVS Thck: 14 % ESV(Teich): 174 ml EF(Teich): 22 % %FS: 10 % SV(Teich): 48 ml RVIDd: 3.0 cm (< 3.3) Ao Diam: 3.3 cm (2.0 - 3.7) LA Diam: 3.6 cm (2.7 - 3.8) AV Cusp: 1.6 cm (1.5 - 2.6) EPSS: 2.6 cm MV E Tommy: 0.80 m/s MV DecT: 206 ms MV Dec [place]: 3.9 m/s MV A Tommy: 0.65 m/s MV E/A Ratio: 1.24 MV PHT: 60 ms MV PHT: 61 ms MVA By PHT: 3.6 cm MR Vmax: 4.32 m/s MR maxP.51 mmHg LVOT Vmax: 0.52 m/s LVOT maxP.10 mmHg AV Vmax: 0.61 m/s AV maxP.43 mmHg AV Vmax: 1.95 m/s AV Vmean: 1.33 m/s AV maxP.24 mmHg AV meanP.01 mmHg AV Env.Ti: 341 ms AV VTI: 45.3 cm AR Vmax: 3.12 m/s AR maxP.97 mmHg AR PHT: 308 ms AR Dec Time: 1062 ms AR Dec [place]: 2.9 m/s TR Vmax: 1.15 m/s TR maxP.25 mmHg RAP: 5.00 mmHg RVSP: 10.25 mmHg MV EF SLOPE: 83.51 mm/s (70 - 150) MV EXCURSION: 14.97 mm (> 18.000) FINDINGS -------- This was a technically difficult study with suboptimal views. The left ventricle is moderately dilated. Left ventricular wall thickness is normal. There is sev ere global hypokinesis of LV . Overall left ventricular systolic function is severely impaired with , an EF between 20 - 25 %. The right ventricle is normal in size. The left atrial size is normal. The right atrial size is normal. Aortic valve is trileaflet and is mildly thickened. There is mild aortic valve sclerosis. There i s mild aortic regurgitation. Peak/mean gradient across the Aortic Valve is 15.24mmHg / 8.01mmHg. The mitral valve is normal. The mitral valve leaflets are mildly thickened. Mild mitral annular c alcification present. Moderate mitral regurgitation is present. The tricuspid valve appears structurally normal. Mild tricuspid regurgitation present. Right vent ricular systolic pressure is normal at < 35 mmHg. There is no pulmonic regurgitation present. The aortic root size is normal. IVC Not well visulized. There is no pericardial effusion. Lumason used CONCLUSIONS -------- 1. The left ventricle is moderately dilated. 2. Left ventricular wall thickness is normal. 3. There is severe global hypokinesis of LV . 4. Overall left ventricular systolic function is severely impaired with, an EF between 20 - 25 %. 5. Aortic valve is trileaflet and is mildly thickened. 6. There is mild aortic valve sclerosis. 7. There is mild aortic regurgitation. 8. Peak/mean gradient across the Aortic Valve is 15.24mmHg / 8.01mmHg. 9. The mitral valve leaflets are mildly thickened. 10. Mild mitral annular calcification present. 11. Moderate mitral regurgitation is present. 12. Mild tricuspid regurgitation present. 13. There is no pulmonic regurgitation present. 14. There is no pericardial effusion. POLL WATCHER: Harmony Araiza RDCS
[2020-08-24] MEDS: LIDOCAINE 5% PATCH TOPICAL SCH (11:40)
[2020-08-24 11:43] LABS: Glucose,Whole Blood 185 mg/dL (75-99)
--- NOTE | 2020-08-24 12:35 | P.CRDCN ---
History of Present Illness History of present illness: This is a pleasant 65-year-old male past medical history significant for chronic systolic heart failure, ischemic cardiomyopathy, COPD, hypertension, dyslipidemia, type 2 diabetes, schizoaffective disorder and coronary artery disease status post stent placement, former nicotine dependence. He follows with Dr. Gutierres. He resides at [facility]. He presented to the hospital with symptoms of increasing shortness of breath. Patient is very hard of hearing he also is lethargic. He is alert and oriented x 3. He is able to tell me his shortness of breath started 08/23. He is unable to tell me what he was doing, or what brought on his shortness of breath. He denies chest pain, palpitations, lightheadedness, dizziness. Denies symptoms of orthopnea or PND. He is seen and examined laying flat in bed in no acute distress. He was initially started on IV lasix. Home cardiac medications include aspirin 325mg daily, potasium chloride 20meq BID, Entrestro 24-26mg BID, pravastatin 40mg nightly, carvedilol 6.25mg BID, Lasix 40mg BID, DIAGNOSTICS Chest x-ray- cardiac silhouette stable, patchy airspace disease bilaterally Laboratory data reviewed, CBC unremarkable, Pro BNP 1690 (previously in 2019 3270), Sodium 136, K 4.2, BUN 18, sCr 0.75, Telemetry reviewed, patient in sinus mechanism HR 70-80s with PVCs Echocardiogram today 08/24 revealed EF 20-25%, severe global hypokinesis, mild AR with peak/mean gradient 15mmHg/8mmHg, moderate MR, mild TR. Echocardiogram 2018- EF 25-30%, severely dilated LA and LV, moderate aortic regurgitation, severe mitral regurgitation and mild tricuspid regurgitation. Most recent cardiac catheterization 2011 revealed evidence of single vessel coronary artery disease involving the distal RCA with a lesion of approximately 80%, a patent stent in the mid RCA and ejection fraction at that time was about 20% with global hypokinesia. At that time he underwent successful percutaneous coronary intervention of the distal RCA. At the time of my exam: CONSTITUTIONAL: Denies fever. Denies chills. EYES: Denies blurred vision. Denies vision changes. Denies eye pain. EARS, NOSE, MOUTH & THROAT: Denies headache. Denies sore throat. Denies ear pain. CARDIOVASCULAR: +shortness of breath. Denies chest pain. Denies orthopnea. Denies PND. Denies palpitations. RESPIRATORY: Denies cough. GASTROINTESTINAL: Denies abdominal pain. Denies diarrhea. Denies constipation. Denies nausea. Denies vomiting. MUSCULOSKELETAL: Denies myalgias. INTEGUMENTARY: Denies pruitis. Denies rash. NEUROLOGIC: Denies numbness. Denies tingling. Denies weakness. PSYCHIATRIC: Denies anxiety. Denies depression. ENDOCRINE: Denies fatigue. Denies weight change. Denies polydipsia. Denies p olyurina. GENITOURINARY: Denies burning, hematuria or urgency with micturation. HEMATOLOGIC: Denies history of anemia. Denies bleeding. Blood pressure 92/58 heart rate 82 afebrile maintaining oxygen saturation on room air GENERAL: This is a 65-year-old male in no apparent distress at the time of my examination. HEENT: Head is atraumatic, normocephalic. Pupils are equal, round. Sclerae anicteric. Conjunctivae are clear. Mucous membranes of the mouth are moist. Neck is supple. There is no jugular venous distention. No carotid bruit is heard. LUNGS: Lungs are clear bilaterally No wheezes or rhonchi. No chest wall tenderness is noted on palpation or with deep breathing. HEART: Regular rate and rhythm with systolic ejection murmur at the left sternal border, no rubs or gallops. S1 and S2 heard. ABDOMEN: Soft, nontender. Bowel sounds are heard. No organomegaly noted. EXTREMITIES: No evidence of peripheral edema and no calf tenderness noted. VASCULAR: Radial and dorsalis pedis pulses palpated, no evidence of clubbing. NEUROLOGIC: Patient is lethargic, is oriented x 3. ASSESSMENT Shortness of breath Acute on chronic systolic heart failure Hypertension Dyslipidemia Type 2 Diabetes Ischemic cardiomyopathy EF Former nicotine dependence History of coronary artery disease status post stent placement to the RCA in 2011 Mitral regurgitation PLAN Echocardiogram reviewed Will continue lasix 40 mg IV BID for today, most likely transition to PO tomorrow Continue patient's home medication Asprin 81mg daily, pravastatin, carvedilol 6.25mg BID, Entresto 24mg-26mg BID Document accurate intake and output along with daily weights. Follow electrolytes and kidney function in the morning. Continue cardiac telemetry Further recommendations to follow based on clinical course. Nurse Practitioner note has been reviewed, I agree with a documented findings and plan of care. Patient was seen and examined. Past Medical History Past Medical History: Heart Failure, Diabetes Mellitus, GERD/Reflux, Hearing Disorder / Deafness, Hyperlipidemia, Hypertension, Myocardial Infarction ([place]) Additional Past Medical History / Comment(s): RECTAL BLEEDING, Borderline diabetes, esophagitis, barretts esophagus Last Myocardial Infarction Date:: 07/15/15 History of Any Multi-Drug Resistant Organisms: None Reported Past Surgical History: Heart Catheterization With Stent Past Anesthesia/Blood Transfusion Reactions: No Reported Reaction Date of Last Stent Placement:: 07/15/15 Past Psychological History: Anxiety, Schizoaffective Disorder, Schizophrenia Smoking Status: Former smoker Past Alcohol Use History: None Reported Additional Past Alcohol Use History / Comment(s): STARTED SMOKING AT AGE 13 Past Drug Use History: None Reported Additional Drug Use History / Comment(s): per legal guardian - Past Family History Mother Family Medical History: Cancer Additional Family Medical History / Comment(s): Other family history nonsignificant Medications and Allergies Home Medications Medication Instructions Recorded Confirmed Type Pravastatin Sodium [Pravachol] 40 mg PO HS 10/05/15 08/23/20 History Nitroglycerin Sl Tabs [Nitrostat] 0.4 mg SUBLINGUAL Q5M PRN #0 tab 11/16/15 08/23/20 Rx Paliperidone IM [Invega Sustenna] 234 mg IM Q30D 06/04/17 08/23/20 History Potassium Chloride ER [K-Dur 20] 20 meq PO BID@0800,1700 06/04/17 08/23/20 History Sertraline HCl [Zoloft] 100 mg PO DAILY@0800 06/04/17 08/23/20 History Aspirin 325 mg PO DAILY@0800 06/13/17 08/23/20 History Tamsulosin [Flomax] 0.4 mg PO DAILY@0800 11/07/17 08/23/20 History Ubidecarenone [Co Q-10] 100 mg PO DAILY@0800 11/07/17 08/23/20 History Sacubitril/Valsartan [Entresto 24 1 tab PO BID@0800,1700 05/18/18 08/23/20 History mg-26 mg Tablet] Acetaminophen Tab [Tylenol Tab] 500 mg PO BID@0800,2100 08/23/20 08/23/20 Histor y Acetaminophen [Tylenol Arthritis] 650 mg PO Q4H PRN MDD 3000 MG 08/23/20 08/23/20 History Artificial Tears-Hypromellose 1 drops BOTH EYES Q2H PRN 08/23/20 08/23/20 History [Artificial Tear Drops] Baclofen [Lioresal] 10 mg PO BID@0800,1700 08/23/20 08/23/20 History Benzocaine Gel 20% 1 applic TOPICAL QID PRN 08/23/20 08/23/20 History Bisacodyl 5 mg PO DAILY PRN 08/23/20 08/23/20 History Docusate [Colace] 100 mg PO BID@0800,1700 08/23/20 08/23/20 History Fluticasone Propionate [Flonase 1 spray EA NOSTRIL DAILY 08/23/20 08/23/20 History Allergy Relief] Furosemide [Lasix] 40 mg PO BID@0800,1700 08/23/20 08/23/20 History Hydrocortisone 1% Lotion 1 applic TOPICAL BID PRN 08/23/20 08/23/20 History Ipratropium-Albuterol Nebulize 3 ml INHALATION RT-Q6H 08/23/20 08/23/20 History [Duoneb 0.5 mg-3 mg/3 ml Soln] Loperamide HCl [Imodium A-D] 2 mg PO Q6H PRN 08/23/20 08/23/20 History Magnesium Hydroxide [Milk of 7,200 mg PO DAILY PRN 08/23/20 08/23/20 History Magnesia Concentrate] Menthol [Biofreeze] 1 applic TOPICAL DAILY PRN 08/23/20 08/23/20 History Mirtazapine 7.5 mg PO HS 08/23/20 08/23/20 History Na Phos,M-B/Na Phos,Di-Ba [Fleet 133 ml RECTAL DAILY PRN 08/23/20 08/23/20 History Adult] Omeprazole Magnesium [PriLOSEC] 20 mg PO DAILY@0800 08/23/20 08/23/20 History Polyethylene Glycol 3350 [Miralax] 17 gm PO DAILY@0800 08/23/20 08/23/20 History Sodium Chloride [Saline Nasal 2 spray EA NOSTRIL BID PRN 08/23/20 08/23/20 History [place]] bisacodyL [Dulcolax] 10 mg RECTAL DAILY PRN 08/23/20 08/23/20 History carvediloL [Coreg] 6.25 mg PO BID@0800,1700 08/23/20 08/23/20 History sitaGLIPtin PHOSPHATE [Januvia] 100 mg PO DAILY@0800 08/23/20 08/23/20 History Allergies Allergy/AdvReac Type Severity Reaction Status Date / Time No Known Allergies Allergy Verified 08/23/20 13:40 Physical Exam Vitals: Vital Signs Temp Pulse Pulse Resp BP BP Pulse Ox 08/24/20 03:26 97.6 F 79 22 100/54 97 08/24/20 02:00 83 24 08/24/20 00:00 97.4 F L 83 24 130/56 93 L 08/23/20 21:28 26 H 118/69 96 08/23/20 20:27 88 08/23/20 20:21 85 08/23/20 19:50 97.5 F L 81 30 H 98/46 93 L 08/23/20 16:30 97.8 F 83 35 H 102/54 97 08/23/20 15:26 80 18 102/62 96 08/23/20 14:51 73 18 91/55 98 08/23/20 13:56 80 18 112/69 97 08/23/20 13:03 73 08/23/20 12:49 77 08/23/20 11:51 79 22 104/65 99 Intake and Output 08/23/20 08/24/20 08/24/20 22:59 06:59 14:59 Intake Total 240 Output Total 0 Balance 240 0 Intake: Oral 240 Output: Urine 0 Other: # Voids 0 Weight 84 kg 85.1 kg Results 08/24/20 08:09 08/24/20 08:09 Cardiac Enzymes 08/23/20 08/23/20 08/23/20 Range/Units 12:26 12:26 18:39 AST 20 (17-59) U/L Troponin I 0.019 0.022 (0.000-0.034) ng/mL 08/23/20 Range/Units 21:51 AST (17-59) U/L Troponin I 0.012 (0.000-0.034) ng/mL Coagulation 08/23/20 Range/Units 12:26 PT 10.4 (9.0-12.0) sec APTT 26.1 (22.0-30.0) sec CBC 08/23/20 Range/Units 12:26 WBC 6.5 (3.8-10.6) k/uL RBC 4.70 (4.30-5.90) m/uL Hgb 13.7 (13.0-17.5) gm/dL Hct 41.3 (39.0-53.0) % Plt Count 148 L (150-450) k/uL Comprehensive Metabolic Panel 08/23/20 Range/Units 12:26 Sodium 137 (137-145) mmol/L Potassium 4.1 (3.5-5.1) mmol/L Chloride 111 H (98-107) mmol/L Carbon Dioxide 17 L (22-30) mmol/L BUN 16 (9-20) mg/dL Creatinine 0.72 (0.66-1.25) mg/dL Glucose 165 H (74-99) mg/dL Calcium 8.6 (8.4-10.2) mg/dL AST 20 (17-59) U/L ALT 14 (4-49) U/L Alkaline Phosphatase 117 (38-126) U/L Total Protein 6.9 (6.3-8.2) g/dL Albumin 3.6 (3.5-5.0) g/dL Current Medications Generic Name Dose Route Start Last Admin Trade Name Freq PRN Reason Stop Dose Admin Acetaminophen 650 mg 08/23/20 18:14 Acetaminophen Tab 325 Mg Tab PO Q4H PRN PAIN/FEVER OR HEADACHE Albuterol/Ipratropium 3 ml 08/23/20 14:23 Ipratropium-Albuterol 3 Ml Neb INHALATION RT-Q4H PRN Shortness Of Breath Or Wheezing Albuterol/Ipratropium 3 ml 08/23/20 16:00 08/23/20 20:18 Ipratropium-Albuterol 3 Ml Neb INHALATION 3 ml RT-QID PAIGE Administration Artificial Tears 1 drops 08/23/20 18:14 Artificial Tears-Hypromellose Drops 15 Ml Btl BOTH EYES Q2H PRN Dry Eye(s) Aspirin 325 mg 08/24/20 08:00 Aspirin 325 Mg Tab PO DAILY@0800 [facility] Baclofen 10 mg 08/24/20 08:00 Baclofen 10 Mg Tab PO BID@0800,1700 [facility] Benzocaine 1 gm 08/23/20 18:14 Benzocaine 20 % Gel 15 Gm Tube MM QID PRN MUCOSITIS Bisacodyl 5 mg 08/23/20 18:14 Bisacodyl 5 Mg Tablet.Dr PO DAILY PRN Constipation Bisacodyl 10 mg 08/23/20 18:14 Bisacodyl 10 Mg Supp RECTAL DAILY PRN Constipation Carvedilol 6.25 mg 08/24/20 08:00 Carvedilol 6.25 Mg Tab PO BID@0800,1700 [facility] Docusate Sodium 100 mg 08/24/20 08:00 Docusate 100 Mg Cap PO BID@0800,1700 [facility] Enoxaparin Sodium 40 mg 08/24/20 09:00 Enoxaparin 40 Mg/0.4 Ml Syringe SQ DAILY [facility] Fluticasone Propionate 1 spray 08/24/20 09:00 Fluticasone 50mcg/[place] Nasal 16gm EA NOSTRIL DAILY [facility] Furosemide 40 mg 08/23/20 21:00 08/23/20 21:37 Furosemide 10 Mg/Ml 4 Ml Vial IV 40 mg Q12HR [facility] Administration Guaifenesin 600 mg 08/23/20 21:00 08/23/20 21:37 Guaifenesin 600 Mg Tablet.Er PO 600 mg Q12HR [facility] Administration Hydrocortisone 1 applic 08/23/20 18:14 Hydrocortisone 1% Cream 30 Gm Tube TOPICAL BID PRN Itching Insulin Aspart 0 unit 08/23/20 21:00 08/24/20 06:31 Insulin Aspart (Novolog) 100 Unit/Ml Vial SQ 1 unit ACHS PAIGE Administration Protocol Loperamide HCl 2 mg 08/23/20 18:14 Loperamide 2 Mg Cap PO Q6H PRN Diarrhea Magnesium Hydroxide 2,400 mg 08/23/20 18:14 Magnesium Hydroxide 2,400 Mg/10 Ml Cup PO DAILY PRN Constipation Mirtazapine 7.5 mg 08/23/20 21:00 08/23/20 21:37 Mirtazapine 15 Mg Tab PO 7.5 mg HS PAIGE Administration Ondansetron HCl 4 mg 08/23/20 18:18 Ondansetron 4 Mg/2 Ml Vial IVP Q6HR PRN Nausea And Vomiting Pantoprazole Sodium 40 mg 08/24/20 08:00 Pantoprazole 40 Mg Tablet PO DAILY@0800 [facility] Polyethylene Glycol 17 gm 08/24/20 08:00 Polyethylene Glycol 3350 17 Gm Powd.Pack PO DAILY@0800 [facility] Potassium Chloride 40 meq 08/24/20 08:00 Potassium Chloride Er 20 Meq Tab.Er PO BID@0800,1700 [facility] Pravastatin Sodium 40 mg 08/23/20 21:00 08/23/20 21:37 Pravastatin Sodium 40 Mg Tab PO 40 mg HS [facility] Administration Prednisone 40 mg 08/24/20 09:00 Prednisone 20 Mg Tab PO DAILY [facility] Sacubitril/Valsartan 1 each 08/24/20 08:00 Sacubitril/Valsartan 24 Mg-26 Mg Tablet PO BID@0800,1700 [facility] Sertraline HCl 100 mg 08/24/20 08:00 Sertraline 100 Mg Tab PO DAILY@0800 [facility] Tamsulosin HCl 0.4 mg 08/24/20 08:00 Tamsulosin 0.4 Mg Cap.Er.24h PO DAILY@0800 [facility] Intake and Output 08/23/20 08/24/20 08/24/20 22:59 06:59 14:59 Intake Total 240 Output Total 0 Balance 240 0 Intake: Oral 240 Output: Urine 0 Other: # Voids 0 Weight 84 kg 85.1 kg 08/23/20 12:26 08/23/20 12:26
--- NOTE | 2020-08-24 14:11 | P.CNPUL ---
History of Present Illness Consult date: 08/24/20 Requesting physician: Chente Perez Reason for consult: dyspnea, other Chief complaint: Shortness of breath History of present illness: This is a 65-year-old white male with known history of cardiomyopathy, ischemic in nature, ejection fraction of 25-50%, known history of COPD, schizoaffective d isorder, hypertension, dyslipidemia, coronary artery disease and previous angioplasty stent placement in RCA history of mitral regurgitation, patient was admitted on 08/23/2020, mostly with symptoms of shortness of breath and hypoxemia. Patient is not on oxygen at home, however in the ER he was noted to have low O2 saturation, and he had a chest x-ray showing evidence of interstitial edema. Patient was admitted, placed on oxygen/6 L via nasal cannula, and I was asked to see him on consultation. CT of the chest back in June showed evidence of interstitial edema. And he had 2 subpleural nodules which could be monitored on outpatient basis. I recently the patient is not a great candidate for any intervention at this point. He did have a PET scan on outpatient basis, and it showed no abnormal uptake. Patient is now on antibiotics, bronchodilators, diuretics, patient is not a great historian. And could not get any information whatsoever from the patient himself. Review of Systems ROS unobtainable: due to mental status Past Medical History Past Medical History: Heart Failure, Diabetes Mellitus, GERD/Reflux, Hearing Disorder / Deafness, Hyperlipidemia, Hypertension, Myocardial Infarction ([place]) Additional Past Medical History / Comment(s): RECTAL BLEEDING, Borderline diabetes, esophagitis, barretts esophagus Last Myocardial Infarction Date:: 07/15/15 History of Any Multi-Drug Resistant Organisms: None Reported Past Surgical History: Heart Catheterization With Stent Past Anesthesia/Blood Transfusion Reactions: No Reported Reaction Date of Last Stent Placement:: 07/15/15 Past Psychological History: Anxiety, Schizoaffective Disorder, Schizophrenia Smoking Status: Former smoker Past Alcohol Use History: None Reported Additional Past Alcohol Use History / Comment(s): STARTED SMOKING AT AGE 13 Past Drug Use History: None Reported Additional Drug Use History / Comment(s): per legal guardian - Past Family History Mother Family Medical History: Cancer Additional Family Medical History / Comment(s): Other family history nonsignificant Medications and Allergies Home Medications Medication Instructions Recorded Confirmed Type Pravastatin Sodium [Pravachol] 40 mg PO HS 08/26/16 07/15/21 History Nitroglycerin Sl Tabs [Nitrostat] 0.4 mg SUBLINGUAL Q5M PRN #0 tab 11/16/15 08/23/20 Rx Paliperidone IM [Invega Sustenna] 234 mg IM Q30D 06/04/17 08/23/20 History Potassium Chloride ER [K-Dur 20] 20 meq PO BID@0800,1700 06/04/17 08/23/20 History Sertraline HCl [Zoloft] 100 mg PO DAILY@0800 06/04/17 08/23/20 History Aspirin 325 mg PO DAILY@0800 06/13/17 08/23/20 History Tamsulosin [Flomax] 0.4 mg PO DAILY@0800 11/07/17 08/23/20 History Ubidecarenone [Co Q-10] 100 mg PO DAILY@0800 11/07/17 08/23/20 History Sacubitril/Valsartan [Entresto 24 1 tab PO BID@0800,1700 05/18/18 08/23/20 History mg-26 mg Tablet] Acetaminophen Tab [Tylenol Tab] 500 mg PO BID@0800,2100 08/23/20 08/23/20 History Acetaminophen [Tylenol Arthritis] 650 mg PO Q4H PRN MDD 3000 MG 08/23/20 08/23/20 History Artificial Tears-Hypromellose 1 drops BOTH EYES Q2H PRN 08/23/20 08/23/20 History [Artificial Tear Drops] Baclofen [Lioresal] 10 mg PO BID@0800,1700 08/23/20 08/23/20 History Benzocaine Gel 20% 1 applic TOPICAL QID PRN 08/23/20 08/23/20 History Bisacodyl 5 mg PO DAILY PRN 08/23/20 08/23/20 History Docusate [Colace] 100 mg PO BID@0800,1700 08/23/20 08/23/20 History Fluticasone Propionate [Flonase 1 spray EA NOSTRIL DAILY 08/23/20 08/23/20 History Allergy Relief] Furosemide [Lasix] 40 mg PO BID@0800,1700 08/23/20 08/23/20 History Hydrocortisone 1% Lotion 1 applic TOPICAL BID PRN 08/23/20 08/23/20 History Ipratropium-Albuterol Nebulize 3 ml INHALATION RT-Q6H 08/23/20 08/23/20 History [Duoneb 0.5 mg-3 mg/3 ml Soln] Loperamide HCl [Imodium A-D] 2 mg PO Q6H PRN 08/23/20 08/23/20 History Magnesium Hydroxide [Milk of 7,200 mg PO DAILY PRN 08/23/20 08/23/20 History Magnesia Concentrate] Menthol [Biofreeze] 1 applic TOPICAL DAILY PRN 08/23/20 08/23/20 History Mirtazapine 7.5 mg PO HS 08/23/20 08/23/20 History Na Phos,M-B/Na Phos,Di-Ba [Fleet 133 ml RECTAL DAILY PRN 08/23/20 08/23/20 History Adult] Omeprazole Magnesium [PriLOSEC] 20 mg PO DAILY@0800 08/23/20 08/23/20 History Polyethylene Glycol 3350 [Miralax] 17 gm PO DAILY@0800 08/23/20 08/23/20 History Sodium Chloride [Saline Nasal 2 spray EA NOSTRIL BID PRN 08/23/20 08/23/20 History [place]] bisacodyL [Dulcolax] 10 mg RECTAL DAILY PRN 08/23/20 08/23/20 History carvediloL [Coreg] 6.25 mg PO BID@0800,1700 08/23/20 08/23/20 History sitaGLIPtin PHOSPHATE [Januvia] 100 mg PO DAILY@0800 08/23/20 08/23/20 History Allergies Allergy/AdvReac Type Severity Reaction Status Date / Time No Known Allergies Allergy Verified 08/23/20 13:40 Physical Exam Vitals: Vital Signs Temp Pulse Pulse Resp BP BP Pulse Ox 08/24/20 12:46 86 08/24/20 12:36 84 08/24/20 12:00 98.2 F 65 20 100/57 94 L 08/24/20 08:24 80 08/24/20 08:14 80 94 L 08/24/20 08:00 98.3 F 82 20 92/58 94 L 08/24/20 03:26 97.6 F 79 22 100/54 97 08/24/20 02:00 83 24 08/24/20 00:00 97.4 F L 83 24 130/56 93 L 08/23/20 21:28 26 H 118/69 96 08/23/20 20:27 88 08/23/20 20:21 85 08/23/20 19:50 97.5 F L 81 30 H 98/46 93 L 08/23/20 16:30 97.8 F 83 35 H 102/54 97 08/23/20 15:26 80 18 102/62 96 08/23/20 14:51 73 18 91/55 98 Intake and Output 08/23/20 08/24/20 08/24/20 22:59 06:59 14:59 Intake Total 240 180 Output Total 0 Balance 240 0 180 Intake: Oral 240 180 Output: Urine 0 Other: Voiding Method Urinal # Voids 0 Weight 84 kg 85.1 kg Physical Exam: Revealed a 65-year-old white male, confused, not in any respiratory distress. Patient is on nasal cannula at 4 L/m and O2 saturations 94% Head: Atraumatic, normocephalic. HEENT:[Neck is supple.] [No neck masses.] [No thyromegaly.] [No JVD.] Chest: [Symmetrical expansion, crackles at the bases bilaterally. Cardiac Exam: [Normal S1 and S2, no S3 gallop, no murmur.] Abdomen: [Soft, nontender, no megaly, no rebound, no guarding, normal bowel sounds.] Extremities: [No clubbing, no edema, no cyanosis.] Neurological Exam: Patient is confused, could not get any history from the patient, seems to be very uncooperative. Psychiatric: Depressed mood, flat affect, poor mental status, could not get any history from the patient. Results - Laboratory Findings CBC and BMP: 08/24/20 08:09 08/24/20 08:09 PT/INR, D-dimer PT 10.4 sec (9.0-12.0) 08/23/20 12:26 INR 1.0 (<1.2) 08/23/20 12:26 Abnormal lab findings: Abnormal Labs 08/23/20 08/23/20 08/23/20 12:26 12:26 17:11 Plt Count 148 L Sodium Chloride 111 H Carbon Dioxide 17 L Glucose 165 H POC Glucose (mg/dL) 148 H Hemoglobin A1c 08/23/20 08/23/20 08/24/20 17:49 20:11 06:11 Plt Count Sodium Chloride Carbon Dioxide Glucose POC Glucose (mg/dL) 295 H 141 H Hemoglobin A1c 6.9 H 08/24/20 08/24/20 08:09 11:41 Plt Count Sodium 136 L Chloride Carbon Dioxide 17 L Glucose 157 H POC Glucose (mg/dL) 185 H Hemoglobin A1c - Diagnostic Findings Chest x-ray: image reviewed (As noted in HPI. Mostly consistent with congestive heart failure.) Assessment and Plan Assessment: Impression: Acute hypoxic respiratory failure secondary to acute on chronic systolic congestive heart failure, known history of cardiomyopathy and LV dysfunction, Possible underlying COPD and bronchitis, no clear-cut evidence of pneumonia on chest x-ray. His COPD seems to be relatively inactive at present. Ischemic cardiomyopathy and LV dysfunction. History of chronic bronchitis. Type 2 diabetes. Schizoaffective disorder. Dyslipidemia. History of nonspecific pulmonary nodules seen on previous CT of the chest, with negative PET scan, no hypermetabolic activity noted. Recommendation: I fully agree with the present treatment plan. Continue bronchodilators and diuretics. Continue antibiotics. Continue GI and DVT prophylaxis. Continue oxygen and titrate accordingly. Continue updrafts. Suggest cutting down the dose of prednisone, significantly. And I will cut it down to 20 mg daily. Resume his home meds for his schizoaffective disorder. We'll continue to follow. Time with Patient: Greater than 30
[2020-08-24 16:38] LABS: Glucose,Whole Blood 224 mg/dL (75-99)
[2020-08-24 19:59] LABS: Glucose,Whole Blood 318 mg/dL (75-99)
[2020-08-24] MEDS: MIRTAZAPINE 15 MG TAB PO SCH (21:03)
[2020-08-24] MEDS: PRAVASTATIN SODIUM 40 MG TAB PO SCH (21:03)
[2020-08-25 04:41] VITALS: RESP 18
[2020-08-25 06:46] LABS: Glucose,Whole Blood 135 mg/dL (75-99)
[2020-08-25] MEDS: INSULIN ASPART (NovoLOG) 100 UNIT/ML VIAL SQ SCH ×2 (07:01→12:43)
[2020-08-25] MEDS ORDERED: ASPIRIN 81 MG PO SCH (08:00)
--- NOTE | 2020-08-25 08:13 | XR ---
EXAMINATION TYPE: XR chest 1V portable DATE OF EXAM: 08/25/2020 COMPARISON: 08/23/2020 INDICATION: CHF TECHNIQUE: Single frontal view of the chest is obtained. FINDINGS: The heart size is enlarged. The pulmonary vasculature is prominent. Mild increased linear markings are present may be related to pulmonary edema. IMPRESSION: 1. Clinical correlation recommended for congestive heart failure
[2020-08-25] MEDS: IPRATROPIUM-ALBUTEROL 3 ML NEB INHALATION SCH ×2 (08:27→12:02)
[2020-08-25] MEDS ORDERED: predniSONE 20 MG TAB PO SCH (09:00)
[2020-08-25 09:32] VITALS: TEMP 98
[2020-08-25] MEDS: carvediloL 6.25 MG TAB PO SCH (09:34)
[2020-08-25] MEDS: TAMSULOSIN 0.4 MG CAP.ER.24H PO SCH (09:34)
[2020-08-25] MEDS: POTASSIUM CHLORIDE ER 20 MEQ TAB.ER PO SCH (09:34)
[2020-08-25] MEDS: DOCUSATE 100 MG CAP PO SCH (09:35)
[2020-08-25] MEDS: BACLOFEN 10 MG TAB PO SCH (09:35)
[2020-08-25] MEDS: SERTRALINE 100 MG TAB PO SCH (09:35)
[2020-08-25] MEDS: PANTOPRAZOLE 40 MG TABLET PO SCH (09:35)
[2020-08-25] MEDS: ENOXAPARIN 40 MG/0.4 ML SYRINGE SQ SCH (09:35)
[2020-08-25] MEDS: guaiFENesin 600 MG TABLET.ER PO SCH (09:35)
[2020-08-25] MEDS: SACUBITRIL/VALSARTAN 24 MG-26 MG TABLET PO SCH (09:35)
[2020-08-25] MEDS: polyethylene glycoL 3350 17 GM POWD.PACK PO SCH (09:36)
[2020-08-25] MEDS: FLUTICASONE 50MCG/SPRAY NASAL 16GM EA NOSTRIL SCH (09:36)
[2020-08-25] MEDS: LIDOCAINE 5% PATCH TOPICAL SCH (09:36)
[2020-08-25] MEDS: FUROSEMIDE 10 MG/ML 4 ML VIAL IV SCH (09:36)
--- NOTE | 2020-08-25 09:58 | P.DS ---
Providers Date of admission: 08/23/20 14:23 Expected date of discharge: 08/25/20 Attending physician: Chente Perez MD Consults: 08/23/20 18:21 Consult Physician Routine Consulting Provider: Salty Webb Consult Reason/Comments: COPD exacerbation Do you want consulting provider notified?: Yes Consult Physician Routine Consulting Provider: Victor Hugo Leslie Consult Reason/Comments: CHF Do you want consulting provider notified?: Yes Primary care physician: Jerome Anurag [facility] Course: HISTORY OF PRESENT ILLNESS 65-year-old male patient of Dr. Osborn with past medical history of ischemic cardiomyopathy with EF last in 2019 was 25-30%, COPD, she has affected disorder, hypertension hyperlipidemia, history of coronary artery disease status post angioplasty and stent placement in RCA in 2011, mitral regurgitation who comes in with EMS with history of dyspnea and hypoxia. Patient does not use oxygen at home. He was found to be altered in the ER due to low oxygenation. He denies any cough or fever. He does document shortness of breath and dry cough. Patient's shortness of breath improved with oxygenation. Vitals obtained as pulses of 79 respiratory rate 22 blood pressure 104/65 oxygen saturation 97% on 6 L. Labs obtained suggest to hemoglobin 13.7 WBC 6.5 platelet 148 INR 1 RCA and pieces of sodium 137 potassium 4.1 chloride 111 bicarb 17 creatinine 0.7 glucose 165. ProBNP 1690 troponin 1 negative liver enzymes are normal magnesium of 2 chest x-ray obtained suggest patchy airspace disease bilaterally with concern of infection versus neoplasm. Chest CT obtained on 06/22/2020 suggestive of interstitial infiltrate that were suggestive of interstitial pneumonia versus lymphangitis metastatic is on interstitial edema. 2 subpleural nodules were noted. PET scan was recommended. Patient underwent PET scan and was negative for any abnormal uptake. The patient is treated with Rocephin and azithromycin. One dose of Lasix 40 mg IV given. 50 mg prednisone given. Patient says the presentation appear to be a combination of a CHF exacerbation and COPD exacerbation was a possibility of infectious etiology. Her calcitonin ordered continue to monitor vitals. Continue DuoNeb as needed for shortness of breath. Legionella and Mycoplasma ordered to rule out atypical pneumonia. 08/24: Patient is complaining that his back is sore and lidocaine patches been added. Patient's breathing status seems to be stable at this time. He has been seen by pulmonary medicine with recommendations to continue current bronchodilators, diuretics and antibiotics as well as nebulizer treatment. Dr. Farias decrease prednisone down to 20 mg daily. Repeat blood work reveals normal CBC. Sodium 136, potassium 4.2, chloride 107, CO2 17, BUN 18 and creatinine 0.75. Blood sugar 157. Patient is unable to provide history, pleasantly confused which is apparently his baseline. Anticipate discharge back to [facility] tomorrow. 08/25: Breathing status is stable and he is currently on 3 L nasal cannula with pulse ox of 93%. His been afebrile, heart rate 95, blood pressure 116/58. Capillary blood glucose running between 135 up to 318. Noted that patient's to medications from [facility] are not available here for his diabetes. Blood culture is no growth after 24 hours 2 specimens. Repeat chest x-ray shows correlation for heart failure. Patient was straight cath multiple times in a [place] catheter was placed which will be maintained at the time of discharge to [facility]. Patient has been seen by pulmonary medicine and cleared for discharge. Patient was also seen by cardiology with recommendations to continue his current cardiac medications. Echocardiogram revealed EF of 20-25% with mild aortic regurgitation, moderate mitral regurgitation, mild tricuspid regurgitation. Patient will be discharged back to [facility] today in stable condition. DISCHARGE DIAGNOSES 1 acute hypoxic respiratory failure: Combination of systolic congestive heart failure, cardiomyopathy, COPD and severe bronchitis. 2 acute exacerbation of systolic heart failure with ischemic cardiomyopathy 3 mild COPD with exacerbation 4 advance ischemic cardiomyopathy with ejection fraction of 25- 30 5 severe bronchitis 6 type 2 diabetes, uncontrolled secondary to steroids 7 schizoaffective disorder 8 hyperlipidemia 9 severe BPH with urinary retention requiring [place]a catheter placement DISCHARGE PLAN [facility] Impression and plan of care have been directed as dictated by the signing physician. Lucy Steele nurse practitioner acting as scribe for signing physician. Patient Condition at Discharge: Good Plan - Discharge Summary Discharge Rx Participant: No New Discharge Prescriptions: New predniSONE [Deltasone] 20 mg PO DAILY 3 Days tab guaiFENesin [Mucinex] 600 mg PO Q12HR tablet.er Aspirin 81 mg PO DAILY@0800 chew Continue Pravastatin Sodium [Pravachol] 40 mg PO HS Nitroglycerin Sl Tabs [Nitrostat] 0.4 mg SUBLINGUAL Q5M PRN #0 tab PRN Reason: Chest Pain Potassium Chloride ER [K-Dur 20] 20 meq PO BID@0800,1700 Sertraline HCl [Zoloft] 100 mg PO DAILY@0800 Paliperidone IM [Invega Sustenna] 234 mg IM Q30D Tamsulosin [Flomax] 0.4 mg PO DAILY@0800 Ubidecarenone [Co Q-10] 100 mg PO DAILY@0800 Sacubitril/Valsartan [Entresto 24 mg-26 mg Tablet] 1 tab PO BID@0800,1700 Acetaminophen [Tylenol Arthritis] 650 mg PO Q4H PRN MDD 3000 MG PRN Reason: PAIN/FEVER OR HEADACHE Artificial Tears-Hypromellose [Artificial Tear Drops] 1 drops BOTH EYES Q2H PRN PRN Reason: Dry Eye(S) Bisacodyl 5 mg PO DAILY PRN PRN Reason: Constipation bisacodyL [Dulcolax] 10 mg RECTAL DAILY PRN PRN Reason: Constipation carvediloL [Coreg] 6.25 mg PO BID@0800,1700 Docusate [Colace] 100 mg PO BID@0800,1700 Mirtazapine 7.5 mg PO HS Na Phos,M-B/Na Phos,Di-Ba [Fleet Adult] 133 ml RECTAL DAILY PRN PRN Reason: Constipation Polyethylene Glycol 3350 [Miralax] 17 gm PO DAILY@0800 Benzocaine Gel 20% 1 applic TOPICAL QID PRN PRN Reason: MUCOSITIS Acetaminophen Tab [Tylenol] 500 mg PO BID@0800,2100 Baclofen [Lioresal] 10 mg PO BID@0800,1700 Fluticasone Propionate [Flonase Allergy Relief] 1 spray EA NOSTRIL DAILY Furosemide [Lasix] 40 mg PO BID@0800,1700 Hydrocortisone 1% Lotion 1 applic TOPICAL BID PRN PRN Reason: Itching Ipratropium-Albuterol Nebulize [Duoneb 0.5 mg-3 mg/3 ml Soln] 3 ml INHALATION RT-Q6H Loperamide HCl [Imodium A-D] 2 mg PO Q6H PRN PRN Reason: Diarrhea Magnesium Hydroxide [Milk of Magnesia Concentrate] 7,200 mg PO DAILY PRN PRN Reason: Constipation Menthol [Biofreeze] 1 applic TOPICAL DAILY PRN PRN Reason: Pain Omeprazole Magnesium [PriLOSEC] 20 mg PO DAILY@0800 sitaGLIPtin PHOSPHATE [Januvia] 100 mg PO DAILY@0800 Sodium Chloride [Saline Nasal [place]] 2 spray EA NOSTRIL BID PRN PRN Reason: DRYNESS Discontinued Aspirin 325 mg PO DAILY@0800 Discharge Medication List Pravastatin Sodium [Pravachol] 40 mg PO HS 10/05/15 [History] Nitroglycerin Sl Tabs [Nitrostat] 0.4 mg SUBLINGUAL Q5M PRN #0 tab 11/16/15 [Rx] Paliperidone IM [Invega Sustenna] 234 mg IM Q30D 06/04/17 [History] Potassium Chloride ER [K-Dur 20] 20 meq PO BID@0800,1700 06/04/17 [History] Sertraline HCl [Zoloft] 100 mg PO DAILY@0800 06/04/17 [History] Tamsulosin [Flomax] 0.4 mg PO DAILY@0800 11/07/17 [History] Ubidecarenone [Co Q-10] 100 mg PO DAILY@0800 11/07/17 [History] Sacubitril/Valsartan [Entresto 24 mg-26 mg Tablet] 1 tab PO BID@0800,1700 05/18/18 [History] Acetaminophen Tab [Tylenol] 500 mg PO BID@0800,2100 08/23/20 [History] Acetaminophen [Tylenol Arthritis] 650 mg PO Q4H PRN MDD 3000 MG 08/23/20 [History] Artificial Tears-Hypromellose [Artificial Tear Drops] 1 drops BOTH EYES Q2H PRN 08/23/20 [History] Baclofen [Lioresal] 10 mg PO BID@0800,1700 08/23/20 [History] Benzocaine Gel 20% 1 applic TOPICAL QID PRN 08/23/20 [History] Bisacodyl 5 mg PO DAILY PRN 08/23/20 [History] Docusate [Colace] 100 mg PO BID@0800,1700 08/23/20 [History] Fluticasone Propionate [Flonase Allergy Relief] 1 spray EA NOSTRIL DAILY 08/23/20 [History] Furosemide [Lasix] 40 mg PO BID@0800,1700 08/23/20 [History] Hydrocortisone 1% Lotion 1 applic TOPICAL BID PRN 08/23/20 [History] Ipratropium-Albuterol Nebulize [Duoneb 0.5 mg-3 mg/3 ml Soln] 3 ml INHALATION RT-Q6H 08/23/20 [History] Loperamide HCl [Imodium A-D] 2 mg PO Q6H PRN 08/23/20 [History] Magnesium Hydroxide [Milk of Magnesia Concentrate] 7,200 mg PO DAILY PRN 08/23/20 [History] Menthol [Biofreeze] 1 applic TOPICAL DAILY PRN 08/23/20 [History] Mirtazapine 7.5 mg PO HS 08/23/20 [History] Na Phos,M-B/Na Phos,Di-Ba [Fleet Adult] 133 ml RECTAL DAILY PRN 08/23/20 [History] Omeprazole Magnesium [PriLOSEC] 20 mg PO DAILY@0800 08/23/20 [History] Polyethylene Glycol 3350 [Miralax] 17 gm PO DAILY@0800 08/23/20 [History] Sodium Chloride [Saline Nasal [place]] 2 spray EA NOSTRIL BID PRN 08/23/20 [History] bisacodyL [Dulcolax] 10 mg RECTAL DAILY PRN 08/23/20 [History] carvediloL [Coreg] 6.25 mg PO BID@0800,1700 08/23/20 [History] sitaGLIPtin PHOSPHATE [Januvia] 100 mg PO DAILY@0800 08/23/20 [History] Aspirin 81 mg PO DAILY@0800 chew 08/25/20 [Rx] guaiFENesin [Mucinex] 600 mg PO Q12HR tablet.er 08/25/20 [Rx] predniSONE [Deltasone] 20 mg PO DAILY 3 Days tab 08/25/20 [Rx] Follow up Appointment(s)/Referral(s): Quentin Gutierres MD [STAFF PHYSICIAN] - 2 Weeks Jerome Osborn MD [Primary Care Provider] - 1 Week (at [facility]) Discharge Disposition: TRANSFER TO SNF/ECF
--- NOTE | 2020-08-25 11:00 | P.PN ---
Subjective Progress Note Date: 08/24/20 HISTORY OF PRESENT ILLNESS 65-year-old male patient of Dr. Osborn with past medical history of is chemic cardiomyopathy with EF last in 2019 was 25-30%, COPD, she has affected disorder, hypertension hyperlipidemia, history of coronary artery disease status post angioplasty and stent placement in RCA in 2011, mitral regurgitation who comes in with EMS with history of dyspnea and hypoxia. Patient does not use oxygen at home. He was found to be altered in the ER due to low oxygenation. He denies any cough or fever. He does document shortness of breath and dry cough. Patient's shortness of breath improved with oxygenation. Vitals obtained as pulses of 79 respiratory rate 22 blood pressure 104/65 oxygen saturation 97% on 6 L. Labs obtained suggest to hemoglobin 13.7 WBC 6.5 platelet 148 INR 1 RCA and pieces of sodium 137 potassium 4.1 chloride 111 bicarb 17 creatinine 0.7 glucose 165. ProBNP 1690 troponin 1 negative liver enzymes are normal magnesium of 2 chest x-ray obtained suggest patchy airspace disease bilaterally with concern of infection versus neoplasm. Chest CT obtain ed on 06/22/2020 suggestive of interstitial infiltrate that were suggestive of interstitial pneumonia versus lymphangitis metastatic is on interstitial edema. 2 subpleural nodules were noted. PET scan was recommended. Patient underwent PET scan and was negative for any abnormal uptake. The patient is treated with Rocephin and azithromycin. One dose of Lasix 40 mg IV given. 50 mg prednisone given. Patient says the presentation appear to be a combination of a CHF exacerbation and COPD exacerbation was a possibility of infectious etiology. Her calcitonin ordered continue to monitor vitals. Continue DuoNeb as needed for shortness of breath. Legionella and Mycoplasma ordered to rule out atypical pneumonia. 08/24: Patient is complaining that his back is sore and lidocaine patches been added. Patient's breathing status seems to be stable at this time. He has been seen by pulmonary medicine with recommendations to continue current bronchodilators, diuretics and antibiotics as well as nebulizer treatment. Dr. Farias decrease prednisone down to 20 mg daily. Repeat blood work reveals normal CBC. Sodium 136, potassium 4.2, chloride 107, CO2 17, BUN 18 and creatinine 0.75. Blood sugar 157. Patient is unable to provide history, pleasantly confused which is apparently his baseline. Anticipate discharge back to [facility] tomorrow. REVIEW OF SYSTEMS Constitutional: Denies chills, Denies fever, endorses lethargy Eyes: denies decreased vision, denies diplopia, denies discharge, denies pain Ears: decreased hearing Ears, nose, mouth and throat: Denies dental pain, Denies headache, Denies nasal discharge, Denies nose pain Cardiovascular: Denies chest pain, endorses decreased exercise tolerance, Denies edema, Denies high blood pressure, Denies irregular heart beat, Denies palpitations, Denies paroxysmal nocturnal dyspnea, Denies rapid heart beat, endorses shortness of breath Respiratory: Denies congestion, Denies cough, Denies cough with sputum, endorses dyspnea, Denies home oxygen, Denies wheezing Gastrointestinal: Denies abdominal pain, Denies change in bowel habits, Denies coffee ground emesis, Denies early satiety, Denies excessive gas, Denies heartburn, Denies hematemesis, Denies hematochezia, Denies loss of appetite, Denies nausea, Denies vomiting Genitourinary: Denies dysuria, Denies flank pain, Denies kidney stones, Denies menorrhagia, Denies urgency, Denies urinary frequency Musculoskeletal: Denies gait dysfunction, Denies limitation of motion, Denies morning stiffness, Denies muscle cramps Integumentary: Denies rash, Denies wounds, Denies brittle nails, Denies change in hair/nails, Denies darkening of skin Neurological: Denies balance difficulties, Denies change in speech, Denies double vision, Denies gait dysfunction, Denies loss of vision, Denies motor disturbance, Denies numbness, Denies paralysis, Denies paresthesias, Denies seizures Psychiatric: Denies anxiety, Denies depression Endocrine: Denies excessive sweating, Denies excessive thirst, Denies high blood sugars, Denies palpitations Hematologic/Lymphatic: Denies easy bruising, Denies lymphadenopathy PHYSICAL EXAMINATION Gen: This is a 65-year-old male patient, resting in a recliner appears to be comfortable HEENT: Head is atraumatic, normocephalic. Pupils equal, round. Sclerae is anicteric. NECK: Supple. No JVD. No lymphadenopathy. No thyromegaly. LUNGS: Decreased breath sounds with few fine rhonchi and few expiratory wheeze. No accessory muscle usage. No intercostal retractions. HEART: Regular rate and rhythm. Systolic murmur. ABDOMEN: Soft. Bowel sounds are present. No masses. No tenderness. EXTREMITIES: 1+ pitting pedal edema. No calf tenderness. NEUROLOGICAL: Patient is awake, alert and oriented x3. Cranial nerves 2 through 12 are grossly intact. ASSESSMENT AND PLAN 1 acute hypoxic respiratory failure: Combination of systolic congestive heart failure, cardiomyopathy, COPD and severe bronchitis. Continue azithromycin and ceftriaxone. Prednisone decreased to 20 mg by mouth daily Pulmonary and cardiology consults appreciated. Cardiology to oral. 2 acute exacerbation of systolic dysfunction congestive heart failure with ischemic cardiomyopathy: INR more monitor reducing weight monitoring. Status post IV Lasix 1. Patient will continue with diuretics with titrate furosemide 40 mg IV twice a day and continuing Crestor continue patient on Coreg we'll consult cardiology echocardiogram will be requested continue Zestril at 10 mg daily. 3 mild COPD: Patient will be continue on DuoNeb and Pulmicort continue O2 try to titrate O2 to keep pulse ox above 92 percentile. 4 advance ischemic cardiomyopathy with ejection fraction of 25- 30 , echo 2019 repeat echocardiogram consult cardiology Lasix 40 IV twice a day 5 severe bronchitis: Continue Rocephin and azithromycin. 6 type 2 diabetes: On insulin sliding scale. Hold Januvia while patient in the hospital. 7 schizoaffective disorders: Has been on trazodone Zoloft and Invega. 8 hyperlipidemia: Continue Pravachol at 40 mg daily. 9 severe BPH with urinary retention: Has been on Flomax 0.4 mg daily continue medication. 10 GI prophylaxis: Patient will be on omeprazole 20 mg daily. 11 DVT prophylaxis: lovenox 40 sc daily CODE STATUS: Full code. DISCHARGE PLAN [facility] to [facility]. Impression and plan of care have been directed as dictated by the signing physician. Lucy Steele nurse practitioner acting as scribe for signing physician. Objective - Vital Signs Vital signs: Vital Signs Temp 98.3 F 08/24/20 08:00 Pulse 80 08/24/20 08:24 Resp 20 08/24/20 08:00 BP 92/58 08/24/20 08:00 Pulse Ox 94 L 08/24/20 08:14 Intake & Output 08/23/20 08/24/20 08/24/20 18:59 06:59 18:59 Intake Total 240 180 Output Total 0 Balance 240 0 180 Weight 84 kg 85.1 kg Intake: Oral 240 180 Output: Urine 0 Other: Voiding Method Urinal # Voids 0 - Labs CBC & Chem 7: 08/24/20 08:09 08/24/20 08:09 Labs: Abnormal Lab Results - Last 24 Hours (Table) 08/23/20 08/23/20 08/23/20 Range/Units 12:26 12:26 17:11 Plt Count 148 L (150-450) k/uL Sodium (137-145) mmol/L Chloride 111 H (98-107) mmol/L Carbon Dioxide 17 L (22-30) mmol/L Glucose 165 H (74-99) mg/dL POC Glucose (mg/dL) 148 H (75-99) mg/dL Hemoglobin A1c (4.0-6.0) % 08/23/20 08/23/20 08/24/20 Range/Units 17:49 20:11 06:11 Plt Count (150-450) k/uL Sodium (137-145) mmol/L Chloride (98-107) mmol/L Carbon Dioxide (22-30) mmol/L Glucose (74-99) mg/dL POC Glucose (mg/dL) 295 H 141 H (75-99) mg/dL Hemoglobin A1c 6.9 H (4.0-6.0) % 08/24/20 Range/Units 08:09 Plt Count (150-450) k/uL Sodium 136 L (137-145) mmol/L Chloride (98-107) mmol/L Carbon Dioxide 17 L (22-30) mmol/L Glucose 157 H (74-99) mg/dL POC Glucose (mg/dL) (75-99) mg/dL Hemoglobin A1c (4.0-6.0) %
[2020-08-25 12:00] LABS: Glucose,Whole Blood 199 mg/dL (75-99)
[2020-08-25 12:16] VITALS: BP 104/60; PULSE 86
--- NOTE | 2020-08-25 12:36 | P.PN ---
Subjective Progress Note Date: 08/25/20 Principal diagnosis: Acute hypoxic respiratory failure secondary to acute on chronic systolic congestive heart failure This is a 65-year-old white male with known history of cardiomyopathy, ischemic in nature, ejection fraction of 25-50%, known history of COPD, schizoaffective d isorder, hypertension, dyslipidemia, coronary artery disease and previous angioplasty stent placement in RCA history of mitral regurgitation, patient was admitted on 08/23/2020, mostly with symptoms of shortness of breath and hypoxemia. Patient is not on oxygen at home, however in the ER he was noted to have low O2 saturation, and he had a chest x-ray showing evidence of interstitial edema. Patient was admitted, placed on oxygen/6 L via nasal cannula, and I was asked to see him on consultation. CT of the chest back in June showed evidence of interstitial edema. And he had 2 subpleural nodules which could be monitored on outpatient basis. I recently the patient is not a great candidate for any intervention at this point. He did have a PET scan on outpatient basis, and it showed no abnormal uptake. Patient is now on antibiotics, bronchodilators, diuretics, patient is not a great historian. And could not get any information whatsoever from the patient himself. Reevaluated today on 08/25/2020, patient is doing much better today, breathing a lot easier, hardly any cough no wheezing no shortness of breath. Chest x-ray showed improvement in his interstitial edema. No labs noted today. Except for blood sugar of 199. Objective - Vital Signs Vital signs: Vital Signs Temp 98.0 F 08/25/20 09:29 Pulse 68 08/25/20 12:13 Resp 18 08/25/20 12:00 BP 104/60 08/25/20 12:00 Pulse Ox 98 08/25/20 12:00 Intake & Output 08/24/20 08/25/20 08/25/20 18:59 06:59 18:59 Intake Total 480 237 Output Total 2800 1400 Balance -2320 -1163 Weight 86.5 kg Intake: Oral 480 237 Output: Urine 2800 1400 Straight 1400 1400 Other: Voiding Method Urinal Urinal Indwelling Catheter # Voids 1 0 - Exam Physical Exam: Revealed a 65-year-old white male, sitting at a bedside chair, in no distress, on 2 L nasal cannula with O2 saturation at 98%. Head: Atraumatic, normocephalic. HEENT:[Neck is supple.] [No neck masses.] [No thyromegaly.] [No JVD.] Chest: [Symmetrical expansion, crackles at the bases bilaterally. Cardiac Exam: [Normal S1 and S2, no S3 gallop, no murmur.] Abdomen: [Soft, nontender, no megaly, no rebound, no guarding, normal bowel sounds.] Extremities: [No clubbing, no edema, no cyanosis.] Neurological Exam: Patient is less confused today compared to yesterday, seems to be more appropriate, but very slow. Psychiatric: Depressed mood, flat affect, poor mental status, patient seems to be quite slow. - Labs CBC & Chem 7: 08/24/20 08:09 08/24/20 08:09 Labs: Abnormal Lab Results - Last 24 Hours (Table) 08/24/20 08/24/20 08/25/20 Range/Units 16:36 19:53 06:43 POC Glucose (mg/dL) 224 H 318 H 135 H (75-99) mg/dL 08/25/20 Range/Units 11:59 POC Glucose (mg/dL) 199 H (75-99) mg/dL Microbiology - Last 24 Hours (Table) 08/23/20 14:15 Blood Culture - Preliminary Blood No Growth after 24 hours 08/23/20 14:30 Blood Culture - Preliminary Blood No Growth after 24 hours Assessment and Plan Assessment: Impression: Acute hypoxic respiratory failure secondary to acute on chronic systolic congestive heart failure, known history of cardiomyopathy and LV dysfunction, Possible underlying COPD and bronchitis, no clear-cut evidence of pneumonia on chest x-ray. His COPD seems to be relatively inactive at present. Ischemic cardiomyopathy and LV dysfunction. History of chronic bronchitis. Type 2 diabetes. Schizoaffective disorder. Dyslipidemia. History of nonspecific pulmonary nodules seen on previous CT of the chest, with negative PET scan, no hypermetabolic activity noted. Recommendation: Continue bronchodilators and diuretics. Continue GI and DVT prophylaxis. Continue oxygen and titrate accordingly. Continue updrafts. We'll clear the patient for discharge home if cleared by the admitting physician. Time with Patient: Less than 30
--- NOTE | 2020-08-25 13:05 | P.PN ---
Subjective Progress Note Date: 08/25/20 HISTORY OF PRESENT ILLNESS: Patient examined at bedside. Patient denies chest pain or pressure. He denies shortness of breath. Patient remains on IV Lasix. Plans are for discharge to [facility] today. Vital signs are stable. PHYSICAL EXAM: VITAL SIGNS: Reviewed. GENERAL: Well-developed in no acute distress. NECK: Supple. No JVD or thyromegaly LUNGS: Respirations even and unlabored. Lungs essentially clear to auscultation bilaterally. HEART: Regular rate and rhythm. S1 and S2 heard. EXTREMITIES: Normal range of motion. No clubbing or cyanosis. Peripheral pulses intact. No lower extremity edema ASSESSMENT: Shortness of breath Acute on chronic systolic heart failure Hypertension Dyslipidemia Type 2 Diabetes Ischemic cardiomyopathy EF Former nicotine dependence History of coronary artery disease status post stent placement to the RCA in 2011 Mitral regurgitation PLAN: Patient is stable for discharge today from a cardiac standpoint. Discontinue IV Lasix. Begin oral Lasix 40 mg twice a day We will sign off. Please reconsult if needed. Nurse practitioner note has been reviewed by physician. Signing provider agrees with the documented findings, assessment, and plan of care. Objective - Vital Signs Vital signs: Vital Signs Temp 98.0 F 08/25/20 09:29 Pulse 68 08/25/20 12:13 Resp 18 08/25/20 12:00 BP 104/60 08/25/20 12:00 Pulse Ox 98 08/25/20 12:00 Intake & Output 08/24/20 08/25/20 08/25/20 18:59 06:59 18:59 Intake Total 480 237 Output Total 2800 1400 Balance -2320 -1163 Weight 86.5 kg Intake: Oral 480 237 Output: Urine 2800 1400 Straight 1400 1400 Other: Voiding Method Urinal Urinal Indwelling Catheter # Voids 1 0 - Labs CBC & Chem 7: 08/24/20 08:09 08/24/20 08:09 Labs: Abnormal Lab Results - Last 24 Hours (Table) 08/24/20 08/24/20 08/25/20 Range/Units 16:36 19:53 06:43 POC Glucose (mg/dL) 224 H 318 H 135 H (75-99) mg/dL 08/25/20 Range/Units 11:59 POC Glucose (mg/dL) 199 H (75-99) mg/dL Microbiology - Last 24 Hours (Table) 08/23/20 14:15 Blood Culture - Preliminary Blood No Growth after 24 hours 08/23/20 14:30 Blood Culture - Preliminary Blood No Growth after 24 hours
[2020-08-25] MEDS ORDERED: FUROSEMIDE 40 MG TAB PO SCH (16:00)
== END 2020-08-25 13:02 | DRG 291 ==
LOC: EC 11:47 → 3SCARD 14:23
PROVIDERS: ADMIT Internal Medicine; ATTEND Internal Medicine
DX: I11.0 Hypertensive heart disease with heart failure (principal); J96.01 Acute respiratory failure with hypoxia; J44.1 Chronic obstructive pulmonary disease with (acute) exacerbation; I50.23 Acute on chronic systolic (congestive) heart failure; H91.90 Unspecified hearing loss, unspecified ear; I25.5 Ischemic cardiomyopathy; E78.5 Hyperlipidemia, unspecified; I25.10 Atherosclerotic heart disease of native coronary artery without angina pectoris; Z95.5 Presence of coronary angioplasty implant and graft; Z79.82 Long term (current) use of aspirin; E11.65 Type 2 diabetes mellitus with hyperglycemia; F25.9 Schizoaffective disorder, unspecified; N40.1 Benign prostatic hyperplasia with lower urinary tract symptoms; R33.8 Other retention of urine; J40 Bronchitis, not specified as acute or chronic; Z87.891 Personal history of nicotine dependence; F41.9 Anxiety disorder, unspecified; I25.2 Old myocardial infarction; K21.9 Gastro-esophageal reflux disease without esophagitis; I08.0 Rheumatic disorders of both mitral and aortic valves; T38.0X5A Adverse effect of glucocorticoids and synthetic analogues, initial encounter; Z79.4 Long term (current) use of insulin; Z79.899 Other long term (current) drug therapy; I49.3 Ventricular premature depolarization
CPT/HCPCS: 36415; 71045; 71046; 80053; 83036; 83605; 83735; 83880; 84145; 84443; 84484; 85025; 85610; 85730; 86738; 87040; 87449; 93005; 93306; 94640; 94760; 99285